=== PATIENT | female | born 1960 | race Caucasian/White ===

== ENCOUNTER 2019-09-06 12:53 | Outpatient (CLI) | payer OTHER, SELFPAY ==
--- NOTE | 2019-09-06 | XR_ITS ---
WS: [id number] LUMBAR SPINE: 3 VIEWS TECHNIQUE: AP, lateral and L5-S1 spot. HISTORY: LOW BACK PAIN COMPARISON: None available. Lumbar vertebra are normally aligned. Disc spaces are well-maintained. Mild vertebral body osteophytes and facet arthropathy in the lumbar spine. SI joints are symmetric bilaterally. No soft tissue abnormalities. Moderate atherosclerosis aorta. XR/XR lumbar spine 2-3V* [id number] IMPRESSION: Mild spondylosis. No fractures. Atherosclerosis aorta.
--- NOTE | 2019-09-06 13:01 | XR_ITS ---
WS: [id number] LUMBAR SPINE: 3 VIEWS TECHNIQUE: AP, lateral and L5-S1 spot. HISTORY: LOW BACK PAIN COMPARISON: None available. Lumbar vertebra are normally aligned. Disc spaces are well-maintained. Mild vertebral body osteophytes and facet arthropathy in the lumbar spine. SI joints are symmetric bilaterally. No soft tissue abnormalities. Moderate atherosclerosis aorta.
[2019-09-06 14:15] VITALS: O2SAT 97
== END 2019-09-06 12:54 | disposition home or self-care (01) ==
DX: Z02.71 Encounter for disability determination (principal); M47.896 Other spondylosis, lumbar region; J43.9 Emphysema, unspecified; I70.0 Atherosclerosis of aorta; M54.5 Low back pain
CPT/HCPCS: 72100

== ENCOUNTER 2019-11-11 17:59 | Inpatient (IN) | payer MEDICAID, SELFPAY ==
[2019-11-11] VITALS (8 sets, daily range): BP systolic 104–131; BP diastolic 62–79; PULSE 65–74; RESP 12–20; TEMP 36.6–36.9; O2SAT 93–99; BMI 19.1
--- NOTE | 2019-11-11 18:02 | ED_ITS ---
Entered by Chhaya Winchester, acting as scribe for Amy Hoffman MD HPI - Abdominal Pain General: Chief Complaint: Abdominal Pain Stated Complaint: NOT EATING ABD PAIN Time Seen by Provider: 11/11/19 18:02 Source: patient, family and EMS Mode of arrival: EMS Limitations: no limitations History of Present Illness: HPI narrative: Apurva is a 59-year-old female who has a history of cirrhosis along with COPD. Patient states she has not seen a primary care doctor in quite some time. She states she has been having increasing weakness and has not been able to eat or walk. Patient is hypoxic she states she is unsure if she needs oxygen at home or not as she has not seen a physician in years. She denies any cough. MD elicited complaint: abdominal pain and other (weakness) Pertinent past history: other (alcoholism) Onset (ago): day(s) Pain Consistency: constant Location: Diffuse Severity: moderate Quality: sharp Radiation: none Migration to: no migration Exacerbating factors: eating Relieving factors: nothing Associated Symptoms: Reports nausea, poor appetite, vomiting and other (dizziness, and weakness); Denies chills, dysuria and fever(s) Review of Systems Const: Denies: fever, chills or body aches Eyes: Denies: blurry vision or eye discomfort ENMT: Denies: throat pain or dental pain Card: Denies: chest pain Resp: Reports: shortness of breath GI: Reports: nausea, vomiting and other (dizziness, and weakness) : Denies: painful urination Musc: Denies: neck pain or back pain Skin/Breast: Denies: rash Neuro: Denies: headache Psych: Denies: depression Taj/Lymph: Denies: easy bruising All/Imm: Denies: hives PFSH ED PFSH: Medical History Alcohol abuse Hypertension Seizure disorder Smoker Surgical History (Updated 11/11/19 @ 21:52 by Susan Lowe MD) H/O: hysterectomy Family History (Updated 11/11/19 @ 21:52 by Susan Lowe MD) Mother Multiple sclerosis Social History (Updated 11/11/19 @ 21:52 by Susan Lowe MD) Smoking and tobacco status: current every day smoker Alcohol intake: former Physical Exam Const: COMMON NORMALS: no apparent distress and oriented x3; negative for healthy appearing GENERAL APPEARANCE: disheveled and lethargic ORIENTATION/CONSCIOUSNESS: Yes lethargic HENMT: COMMON NORMALS: normocephalic and head/scalp atraumatic HEAD & SCALP: normocephalic and atraumatic Eye: COMMON NORMALS: PERRL and EOMs intact bilaterally PUPIL: Yes PERRL Neck/C-Spine: COMMON NORMALS: full ROM and supple Chest: COMMONS NORMALS: inspection of chest normal and palpation of chest normal Resp: COMMON NORMALS: normal respiratory effort, no retractions, no use of accessory muscles and clear to auscultation bilaterally AUSCULTATION: clear to auscultation bilaterally Cardio: COMMON NORMALS: regular rate, regular rhythm and no murmurs RATE: regular rate RHYTHM: regular rhythm Extremity: COMMON NORMALS: normal to inspection and full ROM Neuro: COMMON NORMALS: oriented x3, moves all extremities and no focal motor deficits SENSORIUM/ORIENTATION: Yes lethargic Psych: COMMON NORMALS: mental status grossly normal, thought process normal and cooperative THOUGHT PROCESS: normal thought process Skin: COMMON NORMALS: no rashes or lesions noted and no wounds GENERAL SKIN EXAM: no rashes or lesions noted Course Vital Signs: Vital signs: Vital Signs Temperature 98.4 F 11/11/19 18:00 Pulse Rate 66 11/11/19 22:00 Respiratory Rate 20 H 11/11/19 22:00 Blood Pressure 121/73 11/11/19 22:00 Pulse Oximetry 99 11/11/19 22:00 MDM - Abdominal Pain MDM Narrative: Medical decision making narrative: Patient presents here with cirrhosis along with shortness of breath. This is likely all chronic in nature. She is quite hypoxic here and is having to use 2 to 3 L of oxygen. This is likely chronic as well but she does not have oxygen at home and will admit for observation for further monitoring. She has no signs of pulmonary embolism. CT scan showed no new findings. Lab Data: Labs: Lab Results 11/11/19 11/11/19 11/11/19 Range/Units 18:13 18:13 18:13 WBC 4.2 (4.0-10.0) 10^3/ uL RBC 3.48 L (4.1-5.3) 10^6/u L Hgb 10.8 L (11.5-15.3) g/dL Hct 33.2 L (37.0-47.0) % MCV 95.4 (81-99) fL MCH 31.0 (28.0-34.0) pg MCHC 32.5 (30.0-36.0) g/dL RDW 17.4 H (12.1-15.1) % Plt Count 63 L (130-400) 10^3/c mm MPV 11.1 H (7.4-10.4) fL Neut % (Auto) 36.3 % Lymph % (Auto) 46.3 % Roane % (Auto) 12.6 % Eos % (Auto) 1.0 % Baso % (Auto) 1.4 % Neut # (Auto) 1.5 L (1.8-7.7) 10^3/u L Lymph # (Auto) 2.0 (0.8-4.8) 10^3/u L Roane # (Auto) 0.5 (0.2-0.9) 10^3/u L Eos # (Auto) 0.0 (0.0-0.8) 10^3/u L Baso # (Auto) 0.1 (0.0-0.1) 10^3/u L Nucleated RBC % (a uto) 0 % Nucleated RBCs # 0.0 /100WBC PT 16.30 H (10.5-13.3) SECO NDS INR 1.27 H (0.8-1.2) Sodium 140 (136-145) mmol/L Potassium 2.9 L (3.5-5.1) mmol/L Chloride 97 L (98-107) mmol/L Carbon Dioxide 30 H (22-29) mmol/L Anion Gap 15.9 (5-19) BUN 3 L (6-20) mg/dL Creatinine 0.4 L (0.5-0.9) mg/dL GFR Calculation 163.9 H (90-130) mL/min Glucose 117 H (65-115) mg/dL Calculated Osmolal ity 287 (285-295) mOsm/k g Calcium 8.9 (8.5-10.5) mg/dL Magnesium 1.7 (1.7-2.3) mg/dL Total Bilirubin 1.3 H (0.15-1.2) mg/dL AST 151 H (0-32) U/L ALT 27 (0-33) U/L Alkaline Phosphata se 182 H (35-105) IU/L Total Protein 8.0 (6.6-8.7) g/dL Albumin 3.4 L (3.5-5.2) g/dL Globulin 4.6 (1.3-4.6) g/dL Lipase 58 (13-60) U/L Urine Color (Yellow) Urine Appearance (CLEAR) Urine pH (5-7) Ur Specific Gravit y (1.005-1.030) Urine Protein (Negative) Urine Glucose (UA) (Normal) Urine Ketones (Negative) Urine Blood (Negative) Urine Nitrate (Negative) Urine Bilirubin (NEGATIVE) Urine Urobilinogen (Negative) mg/dL Ur Leukocyte Loni ase (Negative) 11/11/19 Range/Units 20:31 WBC (4.0-10.0) 10^3/ uL RBC (4.1-5.3) 10^6/u L Hgb (11.5-15.3) g/dL Hct (37.0-47.0) % MCV (81-99) fL MCH (28.0-34.0) pg MCHC (30.0-36.0) g/dL RDW (12.1-15.1) % Plt Count (130-400) 10^3/c mm MPV (7.4-10.4) fL Neut % (Auto) % Lymph % (Auto) % Roane % (Auto) % Eos % (Auto) % Baso % (Auto) % Neut # (Auto) (1.8-7.7) 10^3/u L Lymph # (Auto) (0.8-4.8) 10^3/u L Roane # (Auto) (0.2-0.9) 10^3/u L Eos # (Auto) (0.0-0.8) 10^3/u L Baso # (Auto) (0.0-0.1) 10^3/u L Nucleated RBC % (a uto) % Nucleated RBCs # /100WBC PT (10.5-13.3) SECO NDS INR (0.8-1.2) Sodium (136-145) mmol/L Potassium (3.5-5.1) mmol/L Chloride (98-107) mmol/L Carbon Dioxide (22-29) mmol/L Anion Gap (5-19) BUN (6-20) mg/dL Creatinine (0.5-0.9) mg/dL GFR Calculation (90-130) mL/min Glucose (65-115) mg/dL Calculated Osmolal ity (285-295) mOsm/k g Calcium (8.5-10.5) mg/dL Magnesium (1.7-2.3) mg/dL Total Bilirubin (0.15-1.2) mg/dL AST (0-32) U/L ALT (0-33) U/L Alkaline Phosphata se (35-105) IU/L Total Protein (6.6-8.7) g/dL Albumin (3.5-5.2) g/dL Globulin (1.3-4.6) g/dL Lipase (13-60) U/L Urine Color Yellow (Yellow) Urine Appearance Clear (CLEAR) Urine pH 7 (5-7) Ur Specific Gravit y 1.005 (1.005-1.030) Urine Protein Neg (Negative) Urine Glucose (UA) Norm (Normal) Urine Ketones Negative (Negative) Urine Blood Neg (Negative) Urine Nitrate Negative (Negative) Urine Bilirubin Neg (NEGATIVE) Urine Urobilinogen Norm (Negative) mg/dL Ur Leukocyte Loni ase Negative (Negative) Imaging Data ^: CXR: Attestation: I personally reviewed and interpreted this imaging study as follows: My impression: no acute abnormality CT Abd/Pel: Radiologist's impression: [place] [id number] CT Scan Report Signed Patient: Apurva Arteaga Unit #: [id number] : 1960 Age/Sex: 59 / F ADM Date: 11/11/19 Loc: ER Room/Bed: Attending Dr: Ordering Provider/Ordering MD: Amy Hoffman MD Date of Service: 11/11/19 Procedure(s): CT abdomen pelvis w con* [id number] Accession Number(s): [id number] Report Number: [id number] PROCEDURE INFORMATION: Exam: CT Abdomen And Pelvis With Contrast Exam date and time: 11/11/2019 6:10 PM Age: 59 years old Clinical indication: Abdominal pain; Generalized; Patient HX: Abd pain xseveral months TECHNIQUE: Imaging protocol: Computed tomography of the abdomen and pelvis with intravenous contrast. Total DLP: 532.17 mGy-cm Radiation optimization: All CT scans at this facility use at least one of these dose optimization techniques: automated exposure control; mA and/or kV adjustment per patient size (includes targeted exams where dose is matched to clinical indication); or iterative reconstruction. Contrast material: OMNIPAQUE 300; Contrast volume: 75 ml; Contrast route: IV; COMPARISON: CT abdomen pelvis w con* [id number] 05/07/2018 12:08 AM FINDINGS: Liver: Inhomogenous cirrhotic appearing liver. Gallbladder and bile ducts: Normal. No calcified stones. No ductal dilation. Pancreas: Normal. No ductal dilation. Spleen: Normal. No splenomegaly. Adrenals: Normal. No mass. Kidneys and ureters: Normal. No hydronephrosis. Stomach and bowel: Diverticulosis of the colon, greatest distally, without diverticulitis. The appendix is not visualized. Mild wall thickening of the duodenum. Small scattered air-fluid levels throughout the small bowel. The stomach is unremarkable. Appendix: See Stomach And Bowel Finding. Intraperitoneal space: Mild ascites. Vasculature: See Soft Tissues Finding. Lymph nodes: Unremarkable. No enlarged lymph nodes. Bladder: Unremarkable as visualized. Reproductive: The uterus and ovaries are not visualized.. Bones/joints: Unremarkable. No acute fracture. Soft tissues: Recanalized umbilical vein. Splenic hilar and gastroesophageal varices. CT/CT abdomen pelvis w con* [id number] IMPRESSION: 1. Worsened cirrhotic appearance of the liver. 2. Portal venous hypertension with increased splenic hilar and gastroesophageal varices. 3. Mild ascites. 4. Mild thickening of the duodenum may be related to the patient's liver disease. Duodenitis is not excluded. 5. Diverticulosis of the colon. EKG Data ^: EKG 1: Attestation: I personally reviewed and interpreted this EKG as follows: EKG interpretation date: 11/11/19 EKG interpretation time: 18:43 Interpretation: nsr hr [address] or t wave abnormalities Discharge Plan Discharge Patient Disposition: Admitted As Inpatient Admit Provider: Susan Lowe Clinical Impression: Cirrhosis, Vomiting, Dyspnea Condition: Stable Discharge Diet: Advance as tolerated Discharge Activity: Resume usual activity Interventions: ED Discharge Assessment Last Done: 11/11/19 22:42 Discharge Date/Time: 11/11/19 22:33 Coding Level of Care Code ED Thread Grinder Tool for Chg Fwd Exam Comprehensive The documentation recorded by the [facility], accurately reflects the service I personally performed and the decisions made by me, Amy Hoffman MD
--- NOTE | 2019-11-11 18:06 | XR_ITS ---
WS: [id number] Portable AP upright chest, 11/11/2019 Clinical Data: cp Comparison: Portable chest, 04/28/2019. Findings: No nodules, masses or effusions are seen. The heart is enlarged. The pulmonary vascularity is not increased. No pneumonia or pneumothorax is seen. The aortic arch and descending aorta show mil d tortuosity. The diaphragms are flattened. XR/XR chest 1V portable [id number] Impression: Atherosclerosis and hyperinflation.
--- NOTE | 2019-11-11 18:06 | CTR_ITS ---
PROCEDURE INFORMATION: Exam: CT Abdomen And Pelvis With Contrast Exam date and time: 11/11/2019 6:10 PM Age: 59 years old Clinical indication: Abdominal pain; Generalized; Patient HX: Abd pain xseveral months TECHNIQUE: Imaging protocol: Computed tomography of the abdomen and pelvis with intravenous contrast. Total DLP: 532.17 mGy-cm Radiation optimization: All CT scans at this facility use at least one of these dose optimization techniques: automated exposure control; mA and/or kV adjustment per patient size (includes targeted exams where dose is matched to clinical indication); or iterative reconstruction. Contrast material: OMNIPAQUE 300; Contrast volume: 75 ml; Contrast route: IV; COMPARISON: CT abdomen pelvis w con* [id number] 05/07/2018 12:08 AM FINDINGS: Liver: Inhomogenous cirrhotic appearing liver. Gallbladder and bile ducts: Normal. No calcified stones. No ductal dilation. Pancreas: Normal. No ductal dilation. Spleen: Normal. No splenomegaly. Adrenals: Normal. No mass. Kidneys and ureters: Normal. No hydronephrosis. Stomach and bowel: Diverticulosis of the colon, greatest distally, without diverticulitis. The appendix is not visualized. Mild wall thickening of the duodenum. Small scattered air-fluid levels throughout the small bowel. The stomach is unremarkable. Appendix: See Stomach And Bowel Finding. Intraperitoneal space: Mild ascites. Vasculature: See Soft Tissues Finding. Lymph nodes: Unremarkable. No enlarged lymph nodes. Bladder: Unremarkable as visualized. Reproductive: The uterus and ovaries are not visualized.. Bones/joints: Unremarkable. No acute fracture. Soft tissues: Recanalized umbilical vein. Splenic hilar and gastroesophageal varices. CT/CT abdomen pelvis w con* [id number] IMPRESSION: 1. Worsened cirrhotic appearance of the liver. 2. Portal venous hypertension with increased splenic hilar and gastroesophageal varices. 3. Mild ascites. 4. Mild thickening of the duodenum may be related to the patient's liver disease. Duodenitis is not excluded. 5. Diverticulosis of the colon. Radiation Dose CTDIVOL = (mGy): DLP = 532.17 (mGy-cm)
--- NOTE | 2019-11-11 18:07 | ECG_ITS ---
Measurements Intervals [place] Rate: 68 P: 29 UT: 150 QRS: -12 QRSD: 117 T: 57 QT: 431 QTc: 460 SINUS RHYTHM INCOMPLETE RIGHT BUNDLE BRANCH BLOCK [90+ ms QRS DURATION, TERMINAL R IN V1/V2, 40+ ms S IN I/aVL/V4/V5/V6] SEPTAL MYOCARDIAL INFARCTION , OF INDETERMINATE AGE [40+ ms Q WAVE IN V1/V2] Compared to ECG 04/28/2019 18:57:56 Myocardial infarct finding now present Sinus tachycardia no longer present Left-axis deviation no longer present T-wave abnormality no longer present Electronically Signed On 11-11-2019 20:51:34 CDT by Susan Rausch M.D. [email or web address]
[2019-11-11] MEDS: morphine 4 mg/mL SDV 1 mL IVP ×2 (18:24→21:41)
[2019-11-11] MEDS: sodium chloride 0.9% 1,000 ML 999 ML IV (18:25)
[2019-11-11] MEDS: ondansetron 2 mg/ML SDV 2 mL 4 MG IVP (18:25)
[2019-11-11 18:41] LABS: Basophils # 0.1 10^3/uL (0.0-0.1); Basophils % 1.4 %; Hematocrit 33.2 % (37.0-47.0); Hemoglobin 10.8 g/dL (11.5-15.3); Lymphocytes % 46.3 %; Mean Corpuscular HGB Conc 32.5 g/dL (30.0-36.0); Mean Corpuscular Volume 95.4 fL (81-99); Mean Platelet Volume 11.1 fL (7.4-10.4); Monocytes # 0.5 10^3/uL (0.2-0.9); Monocytes % 12.6 %; Neutrophils # 1.5 10^3/uL (1.8-7.7); Neutrophils % 36.3 %; Nucleated Red Blood Cells % 0 %; Platelet Count 63 10^3/cmm (130-400); Red Blood Count 3.48 10^6/uL (4.1-5.3); Red Cell Distribution Width 17.4 % (12.1-15.1); White Blood Count 4.2 10^3/uL (4.0-10.0)
[2019-11-11 18:44] LABS: INR 1.27 (0.8-1.2)
[2019-11-11 18:49] LABS: Alanine Aminotransferase 27 U/L (0-33); Albumin Level 3.4 g/dL (3.5-5.2); Alkaline Phosphatase 182 IU/L (35-105); Anion Gap 15.9 (5-19); Aspartate Amino Transferase 151 U/L (0-32); Blood Urea Nitrogen 3 mg/dL (6-20); Calcium 8.9 mg/dL (8.5-10.5); Carbon Dioxide 30 mmol/L (22-29); Chloride 97 mmol/L (98-107); Globulin 4.6 g/dL (1.3-4.6); Glomerular Filtration Rate 163.9 mL/min (90-130); Glucose 117 mg/dL (65-115); Lipase 58 U/L (13-60); Magnesium 1.7 mg/dL (1.7-2.3); Osmolality Calculated 287 mOsm/kg (285-295); Sodium 140 mmol/L (136-145); Total Bilirubin 1.3 mg/dL (0.15-1.2)
[2019-11-11] MEDS: iohexol 300 mg/mL 100 mL Btl IV (19:08)
[2019-11-11 19:29] LABS: Potassium 2.9 mmol/L (3.5-5.1)
[2019-11-11] MEDS: ipratropium-albuterol 3 mL Neb INHALATION (20:57)
--- NOTE | 2019-11-11 21:48 | P.HP_ITS ---
Providers/Chief Complaint Admitting Physician: Susan Lowe MD Chief Complaint: NOT EATING ABD PAIN History of Present Illness Apurva Arteaga is a 59 year old female who carries diagnosis of COPD, oxygen dependent, noncompliant with oxygen, hepatitis C, not treated, alcohol use in the past, active smoker, recurrent seizures, has not seen a PCP in a long time, was sent in by her because of confusion and extreme lethargy. Patient is stating that she is not sure why she is in the hospital, her sent her here, she is telling me that 5 years ago she was diagnosed with hepatitis C, could not afford medications for hepatitis C, has not seen a doctor in a long time, she has moved from [place] to [place], she was prescribed oxygen for her COPD, could not afford oxygen tank, she is not using oxygen at home, smoking half a pack a day, drinks beer 1 to 2 cans a week, she has not taken her Keppra since last 30 to 40 days. She lives with her , she is endorsing to feeling extremely lethargic and tired, she has noticed dark color black tarry stool, she is also endorsing dysuria, recurrent episodes of emesis, she is describing it as everything she eats comes out, she is not able to gain weight. Diagnostics in ER revealed worsening ascites CT abdomen is consistent with worsening liver cirrhosis, hypokalemia, respiratory alkalosis, Review of Systems Const: Reports: body aches, change in appetite, fatigue, malaise, night sweats and daytime sleepiness; Denies: fever, chills or change in sleep pattern Eyes: Denies: change in vision ENMT: Denies: throat pain Card: Denies: chest pain, palpitations or swelling of feet/ankles Resp: Denies: shortness of breath, non-productive cough or wheezing GI: Reports: nausea, vomiting, difficulty swallowing, heartburn/indigestion, diarrhea, belching, change in stool character and black tarry stool; Denies: abdominal pain : Denies: flank pain Musc: Denies: neck pain Skin/Breast: Reports: dry skin and other (Multiple petechiae and purpura) Neuro: Reports: weakness in extremities, difficulty walking, dizziness and seizure-like activity Psych: Reports: sleeping more and difficulty concentrating; Denies: anxiety Endo: Denies: excessive urination Taj/Lymph: Denies: easy bruising All/Imm: Denies: hives Medications/Allergies Home Medications Medication Instructions Recorded Confirmed Last Taken Type Tylenol Extra Strength 1,000 mg PO Q4H PRN 11/11/19 11/11/19 11/11/19 History aspirin [Aspir-81] 81 mg PO DAILY 11/11/19 11/11/19 Unknown History clonazepam 1 mg PO TID PRN 11/11/19 11/11/19 Unknown History levetiracetam [Keppra] 500 mg PO Q12H 11/11/19 11/11/19 Unknown History potassium gluconate 595 mg PO DAILY 11/11/19 11/11/19 11/10/19 History Allergies Allergy/AdvReac Type Severity Reaction Status Date / Time codeine Allergy KIMY-Swell Verified 11/11/19 18:09 Lip/Tongue/Throat PFSH Acute PFSH: Medical History Alcohol abuse COPD (chronic obstructive pulmonary disease) Hepatitis C Hypertension Non-compliant behavior Seizure disorder Smoker Surgical History (Updated 11/11/19 @ 21:52 by Susan Lowe MD) H/O: hysterectomy Family History (Updated 11/11/19 @ 21:52 by Susan Lowe MD) Mother Multiple sclerosis Social History (Updated 11/11/19 @ 23:06 by Susan Lowe MD) Smoking and tobacco status: current every day smoker Alcohol intake: current Alcohol type: beer Alcohol use comment: 1-2 beers a week Substance/Drug Use: never Household members: spouse and family Housing: House Marital status: Vitals/I&O/Wt Last Vital Signs Temp 98.4 F 11/11/19 18:00 Pulse 69 11/11/19 21:01 Resp 20 H 11/11/19 21:41 BP 104/62 11/11/19 18:00 Pulse Ox 99 11/11/19 20:58 Weight last 48 hrs Weight 52.163 kg Physical Exam Narrative: EXAM NARRATIVE: This is a 45-year-old middle-aged woman Very lethargic and malnourished Protuberant abdomen, ascites positive, asterixis positive, extreme muscle loss, Orthodeoxia positive S1, S2 normal sinus rhythm Her abdomen is nontender, Neurologically nonfocal exam she is extremely lethargic but able to follow commands, GCS 15 nonfocal exam Lungs are clear to auscultation without adventitious sounds Lower extremities are thin without any ischemia gangrene ulcer or edema Data : 11/11/19 18:13 11/11/19 18:13 A&P Assessment and plan (1) Cirrhosis: Status: Acute Qualifiers: Ascites presence: with ascites Hepatic cirrhosis type: alcoholic cirrhosis Qualified Code(s): K70.31 - Alcoholic cirrhosis of liver with ascites Code(s): K74.60 - Unspecified cirrhosis of liver (2) Dyspnea: Status: Acute Code(s): R06.00 - Dyspnea, unspecified (3) Vomiting: Status: Acute Qualifiers: Nausea presence: with nausea Vomiting Intractability: non-intractable Vomiting type: unspecified Qualified Code(s): R11.2 - Nausea with vomiting, unspecified Code(s): R11.10 - Vomiting, unspecified (4) Hypoxia: Status: Acute Code(s): R09.02 - Hypoxemia (5) Malnourished: Status: Acute Code(s): E46 - Unspecified protein-calorie malnutrition Additional A&P Information Liver cirrhosis most likely secondary to hepatitis C with underlying alcohol use Patient could not afford treatment as per the patient that is why he did not seek medical treatment for hepatitis C, she is actively smoking, drinks 1-2 beers a week Her sleep cycle has changed, she has asterixis positive, grade 1 hepatic encephalopathy, She is complaining of dysuria No signs of sepsis Ceftriaxone for ascites and UTI She is not acidotic, not septic, hold off on diagnostic paracentesis CT abdomen consistent with worsening liver cirrhosis and portal hypertension I would start her on Lasix and spironolactone after replenishing potassium She will need closer monitoring, monitoring for worsening of ascites, hepatic encephalopathy and variceal bleed Currently patient is complaining of black tarry stool Thrombocytopenia Most likely secondary to portal hypertension Hold off on DVT prophylaxis with anticoagulation Will use SCDs Chronic hypoxic respiratory failure without COPD exacerbation I believe this is chronic hypoxia, she has not been using oxygen at home, will do home O2 evaluation History of breakthrough seizures: She has not taken her Keppra for about 1 to 2 months, I would continue her Keppra at the moment Goals of care: Full code Alcohol and smoking abuse: We spent 2 to 3 minutes on benefits of cessation of smoking and alcohol with multiple underlying comorbid conditions with her high risk of mortality and morbidity, patient became emotional but receptive of the information and voiced understanding Protein calorie malnourishment: Regular diet with supplemental workers compensation administrator consult Patient is stating that her disability insurance has been approved, She needs PCP appointment, home oxygen, appropriate medications, close monitoring for development of complications such as liver cancer, hepatic encephalopathy, ascites, SBP, variceal bleed Attestations Medical Necessity Statement*: Anticipating her stay to cross more than 2 midnights needs extensive care for worsening of liver cirrhosis, currently has UTI, needs monitoring for worsening of hepatic encephalopathy Time Spent in Patient Care: 45 Coding Level of Care Code Acute Nursing Technician for Angelg Fwd Diagnoses Cirrhosis K70.31 Ascites presence: with ascites Hepatic cirrhosis type: alcoholic cirrhosis Dyspnea R06.00 Vomiting R11.2 Nausea presence: with nausea Vomiting Intractability: non-intractable Vomiting type: unspecified Hypoxia R09.02 Malnourished E46
[2019-11-11 21:59] LABS: Add Urine Microscopic? NO
[2019-11-11 22:01] LABS: Bilirubin Urine Neg (NEGATIVE); Blood Urine Neg (Negative); Glucose Urine UA Norm (Normal); Ketones Urine Negative (Negative); Leukocyte Esterase Urine Negative (Negative); Nitrate Urine Negative (Negative); Protein Urine Neg (Negative); Specific Gravity, Urine 1.005 (1.005-1.030); Urine Appearance Clear (CLEAR); Urine Color Yellow (Yellow); Urobilinogen Urine Norm (Negative); pH Urine 7 (5-7)
--- NOTE | 2019-11-11 22:01 | PC.NURSE ---
Called report to nurse on Med/Surg
--- NOTE | 2019-11-11 22:09 | PC.NURSE ---
Dr. Lowe at bedside assessing patient
[2019-11-11 23:03] LABS: Ammonia 45 umol/L (11-51)
[2019-11-11] MEDS: levETIRAcetam 500 mg Tablet PO (23:22)
[2019-11-11] MEDS: cefTRIAXone 1,000 MG in sodium chloride 0.9% (plus) 50 ML 100 MG IV (23:22)
[2019-11-12] VITALS (9 sets, daily range): BP systolic 109–135; BP diastolic 69–84; PULSE 63–113; RESP 17–20; TEMP 36.3–37; O2SAT 90–99
[2019-11-12] MEDS: lidocaine 1% INJ 20 mL 5 ML IV ×2 (02:00→04:18)
[2019-11-12] MEDS: gabapentin 100 mg Capsule PO ×3 (04:19→17:18)
[2019-11-12] MEDS: potassium chloride premix 40 MEQ/100 ML PREMIX 25 MEQ IV ×2 (04:19)
[2019-11-12] MEDS: ondansetron 2 mg/ML SDV 2 mL 4 MG IVP (04:21)
[2019-11-12 05:56] LABS: Basophils % 0.7 %; Hematocrit 37.2 % (37.0-47.0); Hemoglobin 11.5 g/dL (11.5-15.3); Lymphocytes # 0.2 10^3/uL (0.8-4.8); Lymphocytes % 14.9 %; Mean Corpuscular HGB Conc 30.9 g/dL (30.0-36.0); Mean Corpuscular Hemoglobin 30.7 pg (28.0-34.0); Mean Corpuscular Volume 99.2 fL (81-99); Mean Platelet Volume 10.7 fL (7.4-10.4); Monocytes % 1.4 %; Neutrophils # 1.1 10^3/uL (1.8-7.7); Neutrophils % 76.9 %; Nucleated Red Blood Cells % 0 %; Platelet Count 54 10^3/cmm (130-400); Red Blood Count 3.75 10^6/uL (4.1-5.3); Red Cell Distribution Width 17.6 % (12.1-15.1); White Blood Count 1.5 10^3/uL (4.0-10.0)
[2019-11-12 06:16] LABS: Alanine Aminotransferase 26 U/L (0-33); Albumin Level 3.2 g/dL (3.5-5.2); Alkaline Phosphatase 194 IU/L (35-105); Anion Gap 19.3 (5-19); Aspartate Amino Transferase 130 U/L (0-32); Blood Urea Nitrogen 2 mg/dL (6-20); Calcium 8.1 mg/dL (8.5-10.5); Carbon Dioxide 24 mmol/L (22-29); Chloride 102 mmol/L (98-107); Globulin 5.1 g/dL (1.3-4.6); Glomerular Filtration Rate 228.5 mL/min (90-130); Glucose 150 mg/dL (65-115); Magnesium 1.5 mg/dL (1.7-2.3); Osmolality Calculated 290 mOsm/kg (285-295); Potassium 4.3 mmol/L (3.5-5.1); Sodium 141 mmol/L (136-145); Total Bilirubin 1.3 mg/dL (0.15-1.2); Total Protein 8.3 g/dL (6.6-8.7)
[2019-11-12 06:30] LABS: Slide Review Slide Review Perform
[2019-11-12] MEDS: FUROsemide 20 mg Tablet PO (07:46)
[2019-11-12] MEDS: thiamine 100 mg Tablet PO (08:49)
[2019-11-12] MEDS: spironolactone 25 mg Tablet 100 MG PO (08:49)
[2019-11-12] MEDS: folic acid 1 mg Tablet PO (08:49)
[2019-11-12] MEDS: levETIRAcetam 500 mg Tablet PO (10:59)
[2019-11-12] MEDS: lactulose oral liq 20 gm/30 mL UDC PO (12:13)
[2019-11-12] MEDS: oxyCODONE 5 mg IR Tab/Cap PO ×2 (12:14→20:17)
[2019-11-12] MEDS: magnesium sulfate premix 2 GM/50 ML PIGGYBACK IV (12:14)
[2019-11-12] MEDS: pantoprazole DR 40 mg Tablet PO ×2 (12:14→17:18)
[2019-11-12 12:16] LABS: Hepatitis A Antibody IgM. Non-Reactive (Nonreactive); Hepatitis B Core IgM Non-Reactive (Nonreactive); Hepatitis B Surface Antigen. Non-Reactive (Nonreactive); Hepatitis C Virus Antibody Reactive (Nonreactive)
--- NOTE | 2019-11-12 15:04 | P.PN_ITS ---
Subjective Subjective: Interval history: Apurva reports she is feeling okay. Her abdomen feels a little bit bloated. She denies any significant pain. She reports she does have a headache. She would like something for this. She confirms she is seeing some black stools recently. History and physical was reviewed. Medications: Reviewed: Yes Vitals/I&O/Wt Last Vital Signs Temp 98.6 F 11/12/19 11:38 Pulse 86 11/12/19 11:38 Resp 20 H 11/12/19 12:14 BP 122/73 11/12/19 11:38 Pulse Ox 95 11/12/19 11:38 11/12/19 11/12/19 11/12/19 06:59 14:59 22:59 Intake Total 630 / 1630 480 / 480 Output Total 550 / 550 1050 / 1050 Balance 80 / 1080 -570 / -570 Weight last 48 hrs Weight 58.74 kg Weight 54.658 kg Weight 52.163 kg Physical Exam Narrative: EXAM NARRATIVE: General exam is a white female in no apparent distress Cardiovascular regular rate and rhythm without murmur Lungs clear Abdomen is soft, positive bowel sounds Extremities no cyanosis clubbing or edema Data : 11/12/19 04:30 11/12/19 04:30 A&P Assessment and plan (1) Cirrhosis: Significant cirrhosis. Multifactorial. Alcohol use, hepatitis C. Hepatitis panel has been done and hepatitis A negative Aldactone initiated Consider initiation of Lasix. Will review tomorrow. Status: Acute Qualifiers: Ascites presence: with ascites Hepatic cirrhosis type: alcoholic cirrhosis Qualified Code(s): K70.31 - Alcoholic cirrhosis of liver with ascites Code(s): K74.60 - Unspecified cirrhosis of liver (2) Vomiting: Improved. Will need outpatient EGD. History of black stools. Must rule out varices. Initiate Protonix 40 mg twice daily. Check stool Hemoccult. Status: Acute Qualifiers: Nausea presence: with nausea Vomiting Intractability: non-intractable Vomiting type: unspecified Qualified Code(s): R11.2 - Nausea with vomiting, unspecified Code(s): R11.10 - Vomiting, unspecified (3) Hypoxia: Likely secondary to COPD. May need oxygen upon discharge home. Status: Acute Code(s): R09.02 - Hypoxemia (4) Pancytopenia: Multifactorial. Most likely significant etiology is alcohol bone marrow suppression. Status: Acute Code(s): D61.818 - Other pancytopenia (5) Transaminitis: Multifactorial. Secondary to alcohol and hepatitis C. Follow closely. Status: Acute Code(s): R74.0 - Nonspecific elevation of levels of transaminase and lactic acid dehydrogenase [LDH] (6) Hepatitis C: Will need outpatient treatment Status: Acute Code(s): B19.20 - Unspecified viral hepatitis C without hepatic coma Additional A&P Information History of seizure disorder, continue Keppra Alcoholism, continue thiamine Past history of confusion. Ammonia level borderline high. Will initiate some lactulose. SCDs for DVT prophylaxis. No anticoagulation secondary to thrombocytopenia, history of black tarry stools. Full code Encourage smoking cessation Attestations Medical Necessity Statement*: Needs continued hospital stay for close follow- up of abdominal pain, cirrhosis, initiation of medications for such, possible GI bleeding Coding Level of Care Code Acute Heel Nailing Machine Operator for Chg Fwd Diagnoses Cirrhosis K70.31 Ascites presence: with ascites Hepatic cirrhosis type: alcoholic cirrhosis Vomiting R11.2 Nausea presence: with nausea Vomiting Intractability: non-intractable Vomiting type: unspecified Hypoxia R09.02 Pancytopenia D61.818 Transaminitis R74.0 Hepatitis C B19.20
[2019-11-13] VITALS (17 sets, daily range): BP systolic 103–130; BP diastolic 66–84; PULSE 74–95; RESP 16–22; TEMP 36.4–36.9; O2SAT 86–99
[2019-11-13] MEDS: cefTRIAXone 1,000 MG in sodium chloride 0.9% (plus) 50 ML 100 MG IV (00:01)
[2019-11-13] MEDS: lactulose oral liq 20 gm/30 mL UDC PO ×3 (00:01→23:51)
[2019-11-13] MEDS: oxyCODONE 5 mg IR Tab/Cap PO ×4 (02:27→21:39)
[2019-11-13 06:07] LABS: Alanine Aminotransferase 27 U/L (0-33); Albumin Level 2.8 g/dL (3.5-5.2); Alkaline Phosphatase 196 IU/L (35-105); Anion Gap 14.1 (5-19); Aspartate Amino Transferase 148 U/L (0-32); Basophils % 0.2 %; Blood Urea Nitrogen 7 mg/dL (6-20); Calcium 8.9 mg/dL (8.5-10.5); Carbon Dioxide 30 mmol/L (22-29); Chloride 96 mmol/L (98-107); Globulin 4.6 g/dL (1.3-4.6); Glomerular Filtration Rate 228.5 mL/min (90-130); Glucose 112 mg/dL (65-115); Hematocrit 27.9 % (37.0-47.0); Hemoglobin 8.9 g/dL (11.5-15.3); Lymphocytes % 22.7 %; Mean Corpuscular HGB Conc 31.9 g/dL (30.0-36.0); Mean Corpuscular Hemoglobin 30.3 pg (28.0-34.0); Mean Corpuscular Volume 94.9 fL (81-99); Mean Platelet Volume 11.1 fL (7.4-10.4); Monocytes # 0.7 10^3/uL (0.2-0.9); Monocytes % 16.2 %; Neutrophils # 2.6 10^3/uL (1.8-7.7); Nucleated Red Blood Cells % 0 %; Osmolality Calculated 279 mOsm/kg (285-295); Platelet Count 36 10^3/cmm (130-400); Potassium 4.1 mmol/L (3.5-5.1); Red Blood Count 2.94 10^6/uL (4.1-5.3); Red Cell Distribution Width 17.3 % (12.1-15.1); Sodium 136 mmol/L (136-145); Total Bilirubin 1.4 mg/dL (0.15-1.2); Total Protein 7.4 g/dL (6.6-8.7); White Blood Count 4.3 10^3/uL (4.0-10.0)
[2019-11-13 06:16] LABS: INR 1.38 (0.8-1.2)
[2019-11-13 06:26] LABS: Slide Review Slide Review Perform
[2019-11-13] MEDS: gabapentin 100 mg Capsule PO ×2 (09:47→18:25)
[2019-11-13] MEDS: folic acid 1 mg Tablet PO (09:47)
[2019-11-13] MEDS: pantoprazole DR 40 mg Tablet PO ×2 (09:47→18:25)
[2019-11-13] MEDS: thiamine 100 mg Tablet PO (09:47)
[2019-11-13] MEDS: spironolactone 25 mg Tablet 100 MG PO (09:48)
[2019-11-13] MEDS: sodium chloride 0.9% 1,000 ML 75 ML IV (10:54)
[2019-11-13] MEDS: levETIRAcetam 500 mg Tablet PO ×3 (11:03→23:51)
[2019-11-13 11:23] LABS: Lipase 37 U/L (13-60)
[2019-11-13] MEDS: ipratropium-albuterol 3 mL Neb INHALATION ×4 (12:02→23:45)
--- NOTE | 2019-11-13 13:10 | PM.PN ---
Subjective Subjective: Interval history: Apurva reports she really does not feel well today. She has some nausea. Abdomen hurts a little bit. Medications: Reviewed: Yes Vitals/I&O/Wt Last Vital Signs Temp 98.3 F 11/13/19 11:25 Pulse 79 11/13/19 12:00 Resp 16 11/13/19 12:00 BP 120/84 11/13/19 11:25 Pulse Ox 95 11/13/19 12:00 11/12/19 11/13/19 11/13/19 22:59 06:59 14:59 Intake Total 60 / 540 550 / 1090 480 / 480 Output Total 175 / 1225 500 / 1725 Balance -115 / -685 50 / -635 480 / 480 Weight last 48 hrs Weight 58.967 kg Weight 58.74 kg Weight 54.658 kg Weight 52.163 kg Physical Exam Narrative: EXAM NARRATIVE: General exam is a white female in no apparent distress Cardiovascular regular rate and rhythm without murmur Lungs clear Abdomen is soft, slight tenderness epigastric area Extremities no cyanosis clubbing or edema Data : 11/13/19 05:12 11/13/19 05:12 A&P Assessment and plan (1) Cirrhosis: Significant cirrhosis. Multifactorial. Alcohol use, hepatitis C. Hepatitis panel has been done and hepatitis A negative Aldactone initiated We will hold off on any Lasix currently. She is nauseated and having decreased p.o. intake. Add IV fluids. Status: Acute Qualifiers: Ascites presence: with ascites Hepatic cirrhosis type: alcoholic cirrhosis Qualified Code(s): K70.31 - Alcoholic cirrhosis of liver with ascites Code(s): K74.60 - Unspecified cirrhosis of liver (2) Vomiting: Improved. Will need outpatient EGD. History of black stools. Must rule out varices. Continue Protonix Lipase rechecked today and normal. Status: Acute Qualifiers: Nausea presence: with nausea Vomiting Intractability: non-intractable Vomiting type: unspecified Qualified Code(s): R11.2 - Nausea with vomiting, unspecified Code(s): R11.10 - Vomiting, unspecified (3) Hypoxia: Likely secondary to COPD. May need oxygen upon discharge home. Status: Acute Code(s): R09.02 - Hypoxemia (4) Pancytopenia: Multifactorial. Most likely significant etiology is alcohol bone marrow suppression. Platelet count slightly worse. Continue to monitor. Status: Acute Code(s): D61.818 - Other pancytopenia (5) Transaminitis: Multifactorial. Secondary to alcohol and hepatitis C. overall unchanged. Status: Acute Code(s): R74.0 - Nonspecific elevation of levels of transaminase and lactic acid dehydrogenase [LDH] (6) Hepatitis C: Will need outpatient treatment Status: Acute Code(s): B19.20 - Unspecified viral hepatitis C without hepatic coma Additional A&P Information History of seizure disorder, continue Keppra Alcoholism, continue thiamine Past history of confusion. Ammonia level borderline high. Lactulose initiated SCDs for DVT prophylaxis. No anticoagulation secondary to thrombocytopenia, history of black tarry stools. Full code Encourage smoking cessation Attestations Medical Necessity Statement*: Needs continued hospitalization for supportive care secondary to alcoholic hepatitis Coding Level of Care Code Acute Histopathologist for [facility] Fwd Diagnoses Cirrhosis K70.31 Ascites presence: with ascites Hepatic cirrhosis type: alcoholic cirrhosis Vomiting R11.2 Nausea presence: with nausea Vomiting Intractability: non-intractable Vomiting type: unspecified Hypoxia R09.02 Pancytopenia D61.818 Transaminitis R74.0 Hepatitis C B19.20
[2019-11-14] VITALS (17 sets, daily range): BP systolic 101–123; BP diastolic 68–78; PULSE 81–110; RESP 14–22; TEMP 36.6–37.1; O2SAT 85–95
[2019-11-14] MEDS: ondansetron 2 mg/ML SDV 2 mL 4 MG IVP (00:53)
[2019-11-14] MEDS: cefTRIAXone 1,000 MG in sodium chloride 0.9% (plus) 50 ML 100 MG IV (01:45)
[2019-11-14] MEDS: oxyCODONE 5 mg IR Tab/Cap PO ×3 (03:17→20:13)
[2019-11-14] MEDS: sodium chloride 0.9% 1,000 ML 75 ML IV (03:22)
[2019-11-14] MEDS: ipratropium-albuterol 3 mL Neb INHALATION ×5 (03:59→22:24)
[2019-11-14 06:29] LABS: Basophils % 0.3 %; Eosinophils % 0.8 %; Hematocrit 43.9 % (37.0-47.0); Hemoglobin 14.4 g/dL (11.5-15.3); Lymphocytes # 0.7 10^3/uL (0.8-4.8); Lymphocytes % 17.5 %; Mean Corpuscular HGB Conc 32.8 g/dL (30.0-36.0); Mean Corpuscular Volume 94.4 fL (81-99); Mean Platelet Volume 12.5 fL (7.4-10.4); Monocytes # 0.4 10^3/uL (0.2-0.9); Monocytes % 11.1 %; Neutrophils # 2.6 10^3/uL (1.8-7.7); Nucleated Red Blood Cells % 0 %; Red Blood Count 4.65 10^6/uL (4.1-5.3); Red Cell Distribution Width 17.2 % (12.1-15.1); White Blood Count 3.8 10^3/uL (4.0-10.0)
[2019-11-14 06:49] LABS: Alanine Aminotransferase 24 U/L (0-33); Albumin Level 2.6 g/dL (3.5-5.2); Alkaline Phosphatase 175 IU/L (35-105); Anion Gap 13.6 (5-19); Aspartate Amino Transferase 97 U/L (0-32); Blood Urea Nitrogen 5 mg/dL (6-20); Calcium 8.5 mg/dL (8.5-10.5); Carbon Dioxide 28 mmol/L (22-29); Chloride 95 mmol/L (98-107); Globulin 4.1 g/dL (1.3-4.6); Glomerular Filtration Rate 228.5 mL/min (90-130); Glucose 99 mg/dL (65-115); INR 1.46 (0.8-1.2); Osmolality Calculated 272 mOsm/kg (285-295); Potassium 3.6 mmol/L (3.5-5.1); Sodium 133 mmol/L (136-145); Total Bilirubin 1.3 mg/dL (0.15-1.2); Total Protein 6.7 g/dL (6.6-8.7)
[2019-11-14 07:43] LABS: Slide Review Slide Review Perform
[2019-11-14 07:44] LABS: Platelet Count 21 10^3/cmm (130-400)
[2019-11-14] MEDS: thiamine 100 mg Tablet PO (08:48)
[2019-11-14] MEDS: gabapentin 100 mg Capsule PO (08:48)
[2019-11-14] MEDS: spironolactone 25 mg Tablet 100 MG PO (08:48)
[2019-11-14] MEDS: pantoprazole DR 40 mg Tablet PO (08:49)
[2019-11-14] MEDS: folic acid 1 mg Tablet PO (08:49)
[2019-11-14] MEDS: levETIRAcetam 500 mg Tablet PO ×2 (10:08→17:33)
[2019-11-14] MEDS: lactulose oral liq 20 gm/30 mL UDC PO (10:09)
--- NOTE | 2019-11-14 11:11 | PC.NURSE ---
Addendum entered by Reina Anderson 11/14/19 11:20: Time of event @ 0852 Original Note: IV Nursing notified by RT that patient was seen up to commode and IV was out on the floor. Nursing assessed. Patient pulled out IV while getting up to use bathroom. Site asymptomatic and catheter intact. Patient told nurse, You won't be putting another one in me. The nurse explained the importance of receiving IV fluids and IV Abx. Patient verbalized understanding of information but continued to refuse IV placement. Physician notified.
--- NOTE | 2019-11-14 12:08 | PC.CHAP ---
Pastoral Care Encounter/Spiritual Assessment Type of Contact [] Declined tinware lithograph press operator visit [] Patient/Family/Request visit [] Outpatient visit [] Follow-up visit [] Physician referral [] Code/Alert [x] Routine visit [] Staff referral [] Actively dying [] Patient sleeping [] Family support [] [] Out of room [] Palliative care [] [] Receiving care in room [] Pre-surgical visit [] Trauma [] Long length of stay [] ICU visit [] Other: Relational/Emotional Strength [x] Patient feels connected with others/family/visitors/staff [] Distress [] Loneliness/isolation [] Abandonment Spirituality of Patient [x] Person of [place] [] Attends Sikh of their [place] [] Believes in Prayer [] Reads Bible or Gnosticist materials [] There are Spiritual issues to be addressed Director Of Market Research Interventions [x] Prayer [x] Active listening [x] Non-anxious presence [x] Spiritual/emotional support [] Crisis/trauma care [x] Spiritual counseling [] Bereavement support [] Provided bereavement packet [] Provided Bible/devotional materials [] Provided toy/stuffed animal, coloring book to patient or family member [] Provided Communion [] Anointing/[place] [] Salvation [] Completed spiritual assessment [] Other: Impact on Illness or Injury [] Angry [] Fearful [] Anxious [] Often cries [] Exhaustion [] Unable to work [] Unable to attend episcopalian [] Unable to walk/stand [] Unable to read [] Unable to drive [] Unable to eat/drink [] Unable to sleep [] Unable to be with family [] Patient intubated [x] Other: n/a Summary Time spent with patient 5 minutes
--- NOTE | 2019-11-14 13:41 | P.PN_ITS ---
Subjective Subjective: Interval history: Apurva reports she really does not feel that good today. She reports she has some low back pain, and some leg pain. She reports this is been going on for quite a while, prior to her getting ill. She denies any abdominal pain currently. She reports no nausea, or vomiting. Medications: Reviewed: Yes Vitals/I&O/Wt Last Vital Signs Temp 98.1 F 11/14/19 11:11 Pulse 101 H 11/14/19 12:07 Resp 18 11/14/19 12:03 BP 101/69 11/14/19 11:11 Pulse Ox 85 L 11/14/19 12:03 11/13/19 11/14/19 11/14/19 22:59 06:59 14:59 Intake Total 795 / 1275 770 / 2045 1006.25 / 1006.25 Output Total 100 / 100 925 / 1025 Balance 695 / 1175 -155 / 1020 1006.25 / 1006.25 Weight last 48 hrs Weight 52.163 kg Weight 58.967 kg Physical Exam Narrative: EXAM NARRATIVE: General exam is a white female in no apparent distress Cardiovascular regular rate and rhythm without murmur Lungs clear Abdomen is soft, no significant tenderness is noted today. Positive bowel sounds. Extremities no cyanosis clubbing or edema Data : 11/14/19 05:30 11/14/19 05:30 Micro: Microbiology 11/13/19 19:00 Occult Blood (FIT) - Final Stool A&P Assessment and plan (1) Cirrhosis: Significant cirrhosis. Multifactorial. Alcohol use, hepatitis C. Hepatitis panel has been done and hepatitis A negative Aldactone initiated We will hold off on any Lasix currently. She is nauseated and having decreased p.o. intake. Add IV fluids. Status: Acute Qualifiers: Ascites presence: with ascites Hepatic cirrhosis type: alcoholic c irrhosis Qualified Code(s): K70.31 - Alcoholic cirrhosis of liver with ascites Code(s): K74.60 - Unspecified cirrhosis of liver (2) Vomiting: Improved. Will need outpatient EGD. History of black stools. Must rule out varices. Continue Protonix Lipase rechecked today and normal. Status: Acute Qualifiers: Nausea presence: with nausea Vomiting Intractability: non-intractable Vomiting type: unspecified Qualified Code(s): R11.2 - Nausea with vomiting, unspecified Code(s): R11.10 - Vomiting, unspecified (3) Hypoxia: Likely secondary to COPD. May need oxygen upon discharge home. Status: Acute Code(s): R09.02 - Hypoxemia (4) Pancytopenia: Multifactorial. Most likely significant etiology is alcohol bone marrow suppression. However, platelet count is significantly decreased further. This seems somewhat low, even for cirrhosis with hypersplenism. Must consider other causes of thrombocytopenia. She is not on any anticoagulants. However, Keppra and Protonix and Rocephin are also possibilities. I have visited again with her, and she has been on the Keppra at least since 2017. At this point I will discontinue her Rocephin, Protonix and monitor her platelets. She has no evidence of active bleeding currently. She has no evidence of UTI, or peritonitis Secondary to her pancytopenia we will also check an HIV, serum protein electrophoresis Note that stool was heme positive, so Pepcid was started to take place of Protonix. Status: Acute Code(s): D61.818 - Other pancytopenia (5) Transaminitis: Multifactorial. Secondary to alcohol and hepatitis C. overall unchanged. Status: Acute Code(s): R74.0 - Nonspecific elevation of levels of transaminase and lactic acid dehydrogenase [LDH] (6) Hepatitis C: Will need outpatient treatment Status: Acute Code(s): B19.20 - Unspecified viral hepatitis C without hepatic coma Additional A&P Information History of seizure disorder, continue Keppra Alcoholism, continue thiamine Past history of confusion. Ammonia level borderline high. Lactulose initiated SCDs for DVT prophylaxis. No anticoagulation secondary to thrombocytopenia, hi story of black tarry stools. Full code Encourage smoking cessation I will also check her magnesium level today. Discontinue Neurontin Attestations Medical Necessity Statement*: Needs continued hospital stay for close follow- up of alcohol hepatitis with marked thrombocytopenia. Coding Level of Care Code Acute Contact Center Associate for Hammad [facility] Diagnoses Cirrhosis K70.31 Ascites presence: with ascites Hepatic cirrhosis type: alcoholic cirrhosis Vomiting R11.2 Nausea presence: with nausea Vomiting Intractability: non-intractable Vomiting type: unspecified Hypoxia R09.02 Pancytopenia D61.818 Transaminitis R74.0 Hepatitis C B19.20
[2019-11-14 15:33] LABS: Magnesium 1.5 mg/dL (1.7-2.3)
[2019-11-14 15:44] LABS: HIV 1 & 2 Antibody Non-Reactive (Non-Reactiv); HIV 1 & 2 Antigen Non-Reactive (Non-Reactiv)
[2019-11-14] MEDS: magnesium sulfate premix 2 GM/50 ML PIGGYBACK IV (16:21)
[2019-11-14 16:23] LABS: Glucose Point of Care 109 mg/dL (70-110)
[2019-11-14] MEDS: famotidine 20 mg Tablet PO (17:33)
--- NOTE | 2019-11-14 20:04 | PC.NURSE ---
Pt Up to bedside commode, has increased confusion, states You see that little boy over there, tell him to get out of here. Pt is oriented to self and at times she knows she is at the hospital. Pt is unaware of the time of day or even the year at this time. Spoke with pt's Son Alfonzo with permission of the timmy. Son states she drinks several bottles of vodka a week, He just keeps buying it for her even when he knows she needs to stop. Sent Dr. Lowe a message stating all of this, awaiting orders.
[2019-11-14] MEDS: LORazepam 2 mg Tablet PO ×2 (21:19→22:19)
--- NOTE | 2019-11-14 22:49 | PC.NURSE ---
Pt refusing to stay in bed, states I need to go down stairs, jerrell is downstairs. Pt reminded that she is in the hospital and that her Jerrell is at home. Pt states Go over there to the fridge Jerrell and get me a beer Pt reminded again that she is in the hospital. Pt states, well ok, lets go then, I need to get my tylenol and get dressed and I will get in the car to go to the hospital. Dr. Lowe notified, 1:1 order initiated and sitter with pt at this time for the pt's safety.
[2019-11-15] VITALS (16 sets, daily range): BP systolic 107–138; BP diastolic 68–86; PULSE 82–102; RESP 14–22; TEMP 36.1–37.4; O2SAT 85–96
[2019-11-15] MEDS: oxyCODONE 5 mg IR Tab/Cap PO ×3 (01:18→22:15)
[2019-11-15] MEDS: sodium chloride 0.9% 1,000 ML 50 ML IV (02:38)
[2019-11-15] MEDS: ipratropium-albuterol 3 mL Neb INHALATION ×4 (04:15→16:46)
--- NOTE | 2019-11-15 05:20 | PHA.FALL ---
A Pharmacy Consult Was Conducted For Apurva Arteaga Due To: Benitez Fall Scale Risk Level: Moderate Fall Risk On 11/14/19 20:00 And A Medication Fall Risk Score Greater Than 10. The Recommendations Are As Follows: Furosemide may cause Orthostatic hypotension, dizzines, syncope, bradycardia, or impaired cerebral perfusion Lorazepam my cause Psychomotor impairment, sedation, orthostatic hypotension, confusion, dizziness, or confusion Oxycodone may cause Sedation or confusion Keppra may cause sedation, psychomotor impairment or confusion Thank you, Di Burgess [facility]
[2019-11-15] MEDS: LORazepam 2 mg Tablet PO ×4 (05:24→18:05)
[2019-11-15 06:24] LABS: INR 1.43 (0.8-1.2)
[2019-11-15 06:26] LABS: Basophils % 0.4 %; Eosinophils # 0.1 10^3/uL (0.0-0.8); Eosinophils % 1.3 %; Hemoglobin 8.9 g/dL (11.5-15.3); Lymphocytes # 0.9 10^3/uL (0.8-4.8); Lymphocytes % 20.2 %; Mean Corpuscular Hemoglobin 31.3 pg (28.0-34.0); Mean Corpuscular Volume 95.1 fL (81-99); Mean Platelet Volume 12.6 fL (7.4-10.4); Monocytes # 0.8 10^3/uL (0.2-0.9); Monocytes % 17.7 %; Neutrophils # 2.7 10^3/uL (1.8-7.7); Nucleated Red Blood Cells % 0 %; Platelet Count 46 10^3/cmm (130-400); Red Blood Count 2.84 10^6/uL (4.1-5.3); Red Cell Distribution Width 16.9 % (12.1-15.1); White Blood Count 4.5 10^3/uL (4.0-10.0)
--- NOTE | 2019-11-15 06:46 | PC.NURSE ---
Pt has become increasingly more restless, unable to remain still, attempting to get out of bed unassisted. Pt is unable to state date or location at this time. CIWA score of 13, Ativan given per protocol.
[2019-11-15 07:00] LABS: Alanine Aminotransferase 19 U/L (0-33); Albumin Level 2.9 g/dL (3.5-5.2); Alkaline Phosphatase 154 IU/L (35-105); Anion Gap 12.5 (5-19); Aspartate Amino Transferase 57 U/L (0-32); Blood Urea Nitrogen 4 mg/dL (6-20); Calcium 8.5 mg/dL (8.5-10.5); Carbon Dioxide 30 mmol/L (22-29); Chloride 98 mmol/L (98-107); Globulin 3.6 g/dL (1.3-4.6); Glomerular Filtration Rate 228.5 mL/min (90-130); Glucose 91 mg/dL (65-115); Osmolality Calculated 279 mOsm/kg (285-295); Potassium 3.5 mmol/L (3.5-5.1); Sodium 137 mmol/L (136-145); Total Bilirubin 1.3 mg/dL (0.15-1.2); Total Protein 6.5 g/dL (6.6-8.7)
[2019-11-15] MEDS: folic acid 1 mg Tablet PO (08:57)
[2019-11-15] MEDS: famotidine 20 mg Tablet PO ×2 (08:57→18:00)
[2019-11-15] MEDS: levETIRAcetam 500 mg Tablet PO ×2 (08:58→18:00)
[2019-11-15] MEDS: multivitamin therapeutic Tablet 1 TAB PO (08:58)
[2019-11-15] MEDS: spironolactone 25 mg Tablet 100 MG PO (08:59)
[2019-11-15] MEDS: thiamine 100 mg Tablet PO (09:00)
[2019-11-15] MEDS: lactulose oral liq 20 gm/30 mL UDC PO ×2 (11:31→22:31)
--- NOTE | 2019-11-15 14:03 | PM.PN ---
Subjective Subjective: Interval history: Apurva Vitals/I&O/Wt Last Vital Signs Temp 97.0 F L 11/15/19 12:00 Pulse 102 H 11/15/19 12:00 Resp 16 11/15/19 13:12 BP 134/86 11/15/19 12:00 Pulse Ox 96 11/15/19 12:00 11/14/19 11/15/19 11/15/19 22:59 06:59 14:59 Intake Total 348.75 / 1355.00 435 / 1790.00 60 / 60 Output Total 500 / 500 250 / 750 Balance -151.25 / 855.00 185 / 1040.00 60 / 60 Weight last 48 hrs Weight 61.235 kg Weight 52.163 kg Data : 11/15/19 05:20 11/15/19 05:20 Coding Level of Care Code Acute Rolling Up Machine Operator for Hammad Churchill
--- NOTE | 2019-11-15 14:44 | P.PN_ITS ---
Subjective Subjective: Interval history: Apurva reports she would like more pain medicine if possible. She reports her abdomen hurts a little bit better back is the most painful. Nursing tells me that she has been scoring high on her CIWA last night and had some confusion. Medications: Reviewed: Yes Vitals/I&O/Wt Last Vital Signs Temp 97.0 F L 11/15/19 12:00 Pulse 102 H 11/15/19 12:00 Resp 16 11/15/19 13:12 BP 134/86 11/15/19 12:00 Pulse Ox 96 11/15/19 12:00 11/14/19 11/15/19 11/15/19 22:59 06:59 14:59 Intake Total 348.75 / 1355.00 435 / 1790.00 60 / 60 Output Total 500 / 500 250 / 750 Balance -151.25 / 855.00 185 / 1040.00 60 / 60 Weight last 48 hrs Weight 61.235 kg Weight 52.163 kg Physical Exam Narrative: EXAM NARRATIVE: General exam is a white female in no apparent distress Cardiovascular regular rate and rhythm without murmur Lungs a few faint wheezes Abdomen is soft, slight epigastric tenderness Extremities no cyanosis clubbing or edema Data : 11/15/19 05:20 11/15/19 05:20 A&P Assessment and plan (1) Cirrhosis: Significant cirrhosis. Multifactorial. Alcohol use, hepatitis C. Hepatitis panel has been done and hepatitis A negative Aldactone initiated Holding off on Lasix secondary to decreased p.o. intake. However, she is doing better and fluids will be changed to KVO Status: Acute Qualifiers: Ascites presence: with ascites Hepatic cirrhosis type: alcoholic cirrhosis Qualified Code(s): K70.31 - Alcoholic cirrhosis of liver with ascites Code(s): K74.60 - Unspecified cirrhosis of liver (2) Vomiting: Improved. Will need outpatient EGD. History of black stools. Stool is heme positive. She has apparent varices on CT scan. Hemoglobin has remained stable. Continue Protonix Lipase rechecked today and normal. Status: Acute Qualifiers: Nausea presence: with nausea Vomiting Intractability: non-intractable Vomiting type: unspecified Qualified Code(s): R11.2 - Nausea with vomiting, unspecified Code(s): R11.10 - Vomiting, unspecified (3) Hypoxia: Likely secondary to COPD. May need oxygen upon discharge home. Status: Acute Code(s): R09.02 - Hypoxemia (4) Pancytopenia: Multifactorial. Most likely significant etiology is alcohol bone marrow suppression. Platelet count has been decreasing but now seems to have recovered slightly today. Rocephin, Protonix were discontinued yesterday. No evidence of infection has been found. Secondary to her pancytopenia we will also check an HIV, serum protein electrophoresis. HIV was negative Note that stool was heme positive, so Pepcid was started to take place of Protonix. Status: Acute Code(s): D61.818 - Other pancytopenia (5) Transaminitis: Multifactorial. Secondary to alcohol and hepatitis C. overall unchanged. Status: Acute Code(s): R74.0 - Nonspecific elevation of levels of transaminase and lactic acid dehydrogenase [LDH] (6) Hepatitis C: Will need outpatient treatment Status: Acute Code(s): B19.20 - Unspecified viral hepatitis C without hepatic coma Additional A&P Information History of seizure disorder, continue Keppra Alcoholism, continue thiamine. She admitted only to drinking 2 beers per week but I suspect this was significantly higher. Past history of confusion. Ammonia level borderline high. Lactulose initiated. Check ammonia level tomorrow SCDs for DVT prophylaxis. No anticoagulation secondary to thrombocytopenia, history of black tarry stools. Full code Encourage smoking cessation Overall plan to discharge home with close follow-up Attestations Medical Necessity Statement*: Needs continued hospital stay, for treatment of active alcohol withdrawal Coding Level of Care Code Acute Advertising Assistant Manager for [facility] Fwd Diagnoses Cirrhosis K70.31 Ascites presence: with ascites Hepatic cirrhosis type: alcoholic cirrhosis Vomiting R11.2 Nausea presence: with nausea Vomiting Intractability: non-intractable Vomiting type: unspecified Hypoxia R09.02 Pancytopenia D61.818 Transaminitis R74.0 Hepatitis C B19.20
--- NOTE | 2019-11-15 22:38 | PC.NURSE ---
Patient refuses to where tele heart monitor. Risk explained to patient.
[2019-11-16] VITALS (13 sets, daily range): BP systolic 118–148; BP diastolic 72–96; PULSE 75–105; RESP 12–20; TEMP 36.7–37.2; O2SAT 90–99
[2019-11-16] MEDS: sodium chloride 0.9% 1,000 ML 30 ML IV (01:32)
[2019-11-16 04:51] LABS: Basophils % 0.9 %; Eosinophils # 0.1 10^3/uL (0.0-0.8); Eosinophils % 1.6 %; Hematocrit 29.7 % (37.0-47.0); Hemoglobin 9.7 g/dL (11.5-15.3); Lymphocytes # 0.9 10^3/uL (0.8-4.8); Lymphocytes % 20.5 %; Mean Corpuscular HGB Conc 32.7 g/dL (30.0-36.0); Mean Corpuscular Hemoglobin 31.9 pg (28.0-34.0); Mean Corpuscular Volume 97.7 fL (81-99); Mean Platelet Volume 10.9 fL (7.4-10.4); Monocytes # 0.9 10^3/uL (0.2-0.9); Neutrophils # 2.4 10^3/uL (1.8-7.7); Neutrophils % 55.5 %; Nucleated Red Blood Cells % 0 %; Platelet Count 68 10^3/cmm (130-400); Red Blood Count 3.04 10^6/uL (4.1-5.3); White Blood Count 4.4 10^3/uL (4.0-10.0)
[2019-11-16] MEDS: oxyCODONE 5 mg IR Tab/Cap PO ×4 (04:56→21:44)
[2019-11-16 05:04] LABS: Alanine Aminotransferase 19 U/L (0-33); Albumin Level 2.9 g/dL (3.5-5.2); Alkaline Phosphatase 138 IU/L (35-105); Ammonia 29 umol/L (11-51); Anion Gap 12.5 (5-19); Aspartate Amino Transferase 53 U/L (0-32); Blood Urea Nitrogen 5 mg/dL (6-20); Calcium 8.8 mg/dL (8.5-10.5); Carbon Dioxide 29 mmol/L (22-29); Chloride 95 mmol/L (98-107); Globulin 3.7 g/dL (1.3-4.6); Glomerular Filtration Rate 228.5 mL/min (90-130); Glucose 94 mg/dL (65-115); Osmolality Calculated 271 mOsm/kg (285-295); Potassium 3.5 mmol/L (3.5-5.1); Sodium 133 mmol/L (136-145); Total Bilirubin 1.3 mg/dL (0.15-1.2); Total Protein 6.6 g/dL (6.6-8.7)
[2019-11-16] MEDS: levETIRAcetam 500 mg Tablet PO ×2 (08:21→18:03)
[2019-11-16] MEDS: spironolactone 25 mg Tablet 100 MG PO (08:21)
[2019-11-16] MEDS: thiamine 100 mg Tablet PO (08:21)
[2019-11-16] MEDS: famotidine 20 mg Tablet PO ×2 (08:22→18:02)
[2019-11-16] MEDS: multivitamin therapeutic Tablet 1 TAB PO (08:22)
[2019-11-16] MEDS: folic acid 1 mg Tablet PO (08:23)
[2019-11-16] MEDS: lactulose oral liq 20 gm/30 mL UDC PO (11:22)
--- NOTE | 2019-11-16 12:38 | PM.PN ---
Subjective Subjective: Interval history: Patient CIWA score this morning was 8, has episodes of nausea, is quite still unsteady on her feet, feels a bit anxious, has multiple joint pains, has a cough Vitals/I&O/Wt Last Vital Signs Temp 98.0 F 11/16/19 11:19 Pulse 82 11/16/19 11:19 Resp 20 H 11/16/19 11:23 BP 118/78 11/16/19 11:19 Pulse Ox 99 11/16/19 11:19 11/15/19 11/16/19 11/16/19 22:59 06:59 14:59 Intake Total 1055 / 1115 546 / 1661 120 / 120 Output Total 100 / 100 650 / 750 250 / 250 Balance 955 / 1015 -104 / 911 -130 / -130 Weight last 48 hrs Weight 61.235 kg Physical Exam Const: COMMON NORMALS: no apparent distress and oriented x3 HENMT: COMMON NORMALS: normocephalic HEAD & SCALP: normocephalic Neck/C-Spine: COMMON NORMALS: no JVD Resp: COMMON NORMALS: normal respiratory effort, no retractions, no use of accessory muscles and clear to auscultation bilaterally AUSCULTATION: clear to auscultation bilaterally Cardio: COMMON NORMALS: no JVD, regular rate, regular rhythm, S1 normal heart sound and S2 normal heart sound RATE: regular rate RHYTHM: regular rhythm HEART SOUNDS: S1 normal and S2 normal GI: COMMON NORMALS: normal to inspection, nondistended, normoactive bowel sounds, soft to palpation, non-tender, no hepatosplenomegaly, no masses and no bruits PALPATION: Yes soft and Yes no hepatosplenomegaly Extremity: COMMON NORMALS: normal capillary refill, no clubbing, cyanosis or edema, no calf tenderness and no pedal edema Neuro: COMMON NORMALS: oriented x3 Psych: COMMON NORMALS: mental status grossly normal Data : 11/16/19 04:40 11/16/19 04:40 A&P Assessment and plan (1) Cirrhosis: Significant cirrhosis. Multifactorial. Alcohol use, hepatitis C. Hepatitis panel has been done and hepatitis A negative Aldactone initiated Holding off on Lasix secondary to decreased p.o. intake. However, she is doing better and fluids will be changed to KVO Given esophageal varices will start low-dose propranolol Status: Acute Qualifiers: Ascites presence: with ascites Hepatic cirrhosis type: alcoholic cirrhosis Qualified Code(s): K70.31 - Alcoholic cirrhosis of liver with ascites Code(s): K74.60 - Unspecified cirrhosis of liver (2) Vomiting: Improved. Will need outpatient EGD. History of black stools. Stool is heme positive. She has apparent varices on CT scan. Hemoglobin has remained stable. Continue Protonix Lipase rechecked normal Status: Acute Qualifiers: Nausea presence: with nausea Vomiting Intractability: non-intractable Vomiting type: unspecified Qualified Code(s): R11.2 - Nausea with vomiting, unspecified Code(s): R11.10 - Vomiting, unspecified (3) Hypoxia: Likely secondary to COPD., uses 3L o2 at home, needs home oxygen on discharge Status: Acute Code(s): R09.02 - Hypoxemia (4) Pancytopenia: -Multifactorial secondary to liver cirrhosis, hepatitis C, alcohol -Hemoglobin stable at 9.7 -Platelet count stable at 68 -White blood cell count stable at 4.4 -Continue to monitor Status: Acute Code(s): D61.818 - Other pancytopenia (5) Transaminitis: Multifactorial. Secondary to alcohol and hepatitis C. overall unchanged. Status: Acute Code(s): R74.0 - Nonspecific elevation of levels of transaminase and lactic acid dehydrogenase [LDH] (6) Hepatitis C: Will need outpatient treatment Status: Acute Code(s): B19.20 - Unspecified viral hepatitis C without hepatic coma (7) Alcohol dependence with withdrawal: -Currently CIWA score 8 -Continue CIWA protocol - Status: Acute Code(s): F10.239 - Alcohol dependence with withdrawal, unspecified (8) Muscular deconditioning: -Is quite unsteady on her feet, likely simple component of deconditioning given her alcohol use, her liver cirrhosis, protein calorie malnutrition -She also can have some component of Wernicke's encephalopathy -I advised patient that the best course of action would be correction placement -Unfortunately patient does not have insurance, so getting correction placement would be very difficult, also not having insurance inherently makes it difficult for her to get doctors visits and follows up with GI specialist -Case workers are working on Medicare application Status: Acute Code(s): R29.898 - Other symptoms and signs involving the musculoskeletal system Attestations Medical Necessity Statement*: Requires hospitalization due to alcohol withdrawal Coding Level of Care Code Acute Director Of Mobile [employer] for g Fwd Diagnoses Cirrhosis K70.31 Ascites presence: with ascites Hepatic cirrhosis type: alcoholic cirrhosis Vomiting R11.2 Nausea presence: with nausea Vomiting Intractability: non-intractable Vomiting type: unspecified Hypoxia R09.02 Pancytopenia D61.818 Transaminitis R74.0 Hepatitis C B19.20 Alcohol dependence with withdrawal F10.239 Muscular deconditioning R29.898
[2019-11-16] MEDS: propranolol 20 mg Tablet 10 MG PO ×2 (13:13→18:03)
[2019-11-17] VITALS (10 sets, daily range): BP systolic 119–152; BP diastolic 71–91; PULSE 71–102; RESP 15–18; TEMP 36.6–37.2; O2SAT 87–98
[2019-11-17] MEDS: oxyCODONE 5 mg IR Tab/Cap PO ×2 (04:24→10:29)
[2019-11-17 06:05] LABS: Basophils # 0.1 10^3/uL (0.0-0.1); Basophils % 0.9 %; Eosinophils # 0.1 10^3/uL (0.0-0.8); Eosinophils % 1.9 %; Hematocrit 32.2 % (37.0-47.0); Hemoglobin 10.3 g/dL (11.5-15.3); Lymphocytes # 1.2 10^3/uL (0.8-4.8); Lymphocytes % 20.7 %; Mean Corpuscular Hemoglobin 31.4 pg (28.0-34.0); Mean Corpuscular Volume 98.2 fL (81-99); Mean Platelet Volume 11.8 fL (7.4-10.4); Monocytes # 1.7 10^3/uL (0.2-0.9); Monocytes % 29.6 %; Neutrophils # 2.7 10^3/uL (1.8-7.7); Neutrophils % 46.6 %; Nucleated Red Blood Cells % 0 %; Platelet Count 95 10^3/cmm (130-400); Red Blood Count 3.28 10^6/uL (4.1-5.3); Red Cell Distribution Width 16.3 % (12.1-15.1); White Blood Count 5.8 10^3/uL (4.0-10.0)
[2019-11-17 06:20] LABS: Alanine Aminotransferase 18 U/L (0-33); Albumin Level 2.9 g/dL (3.5-5.2); Alkaline Phosphatase 154 IU/L (35-105); Anion Gap 9.6 (5-19); Aspartate Amino Transferase 46 U/L (0-32); Blood Urea Nitrogen 4 mg/dL (6-20); Carbon Dioxide 32 mmol/L (22-29); Chloride 97 mmol/L (98-107); Globulin 4.5 g/dL (1.3-4.6); Glomerular Filtration Rate 228.5 mL/min (90-130); Glucose 94 mg/dL (65-115); Magnesium 1.6 mg/dL (1.7-2.3); Osmolality Calculated 275 mOsm/kg (285-295); Potassium 3.6 mmol/L (3.5-5.1); Sodium 135 mmol/L (136-145); Total Bilirubin 1.6 mg/dL (0.15-1.2); Total Protein 7.4 g/dL (6.6-8.7)
[2019-11-17 07:46] LABS: PROTEIN, TOTAL 6.6 g/dL (6.1-8.1)
[2019-11-17] MEDS: propranolol 20 mg Tablet 10 MG PO (08:25)
[2019-11-17] MEDS: levETIRAcetam 500 mg Tablet PO (08:26)
[2019-11-17] MEDS: sodium chloride 0.9% 1,000 ML 30 ML IV (08:26)
[2019-11-17] MEDS: folic acid 1 mg Tablet PO (08:26)
[2019-11-17] MEDS: spironolactone 25 mg Tablet 100 MG PO (08:26)
[2019-11-17] MEDS: thiamine 100 mg Tablet PO (08:26)
[2019-11-17] MEDS: multivitamin therapeutic Tablet 1 TAB PO (08:26)
[2019-11-17] MEDS: famotidine 20 mg Tablet PO (08:26)
[2019-11-17] MEDS: lactulose oral liq 20 gm/30 mL UDC PO (10:29)
--- NOTE | 2019-11-17 17:55 | PM.DCS ---
Discharge Providers Date of Admission: 11/11/19 21:11 Date of Discharge: November 17, 2019 Attending Provider at Admission: Susan Lowe MD Attending Provider at Discharge: Bam Flower MD Diagnoses at Discharge Discharge Diagnosis (1) Cirrhosis: Status: Acute Qualifiers: Ascites presence: with ascites Hepatic cirrhosis type: alcoholic cirrhosis Qualified Code(s): K70.31 - Alcoholic cirrhosis of liver with ascites (2) Vomiting: Status: Acute Qualifiers: Nausea presence: with nausea Vomiting Intractability: non-intractable Vomiting type: unspecified Qualified Code(s): R11.2 - Nausea with vomiting, unspecified (3) Hypoxia: Status: Acute (4) Pancytopenia: Status: Acute (5) Transaminitis: Status: Acute (6) Hepatitis C: Status: Acute (7) Alcohol dependence with withdrawal: Status: Acute (8) Muscular deconditioning: Status: Acute Reason for Visit Reason for Visit: Reason For Visit: NOT EATING ABD PAIN Hospital Course Hospital Course: This is a 59-year-old female who has a past medical history of COPD oxygen dependent, but noncompliant, hepatitis C not on any treatment, alcohol abuse, active smoker, history of seizures, anxiety and depression, who does not have a primary care present physician, who does not have any insurance presented to the emergency room due to complaints of confusion and lethargy. The big issue during patient's admission was her lack of insurance, and lack of finances, poor functional status, unfortunately patient has burned her bridges here [place], [facility] has declined to see her due to many missed appointments. Unfortunately with her recurrent alcohol use, COPD, liver cirrhosis, esophageal varices, Wernicke's encephalopathy, weakness, deconditioning, she has a high risk of falls, high risk of esophageal variceal bleed, high risk of acute liver failure, she has a very high risk of readmission, high risk of morbidity and mortality, and high risk of . Unfortunately, there is no good solution, she does not have the finances for custodial placement, does not have the finances for home health care, does not have the finances to see a physician, does not have the finances to see a GI specialist. I spoke to patient and her , about the difficulty of the situation, they voiced understanding, all questions answered; they are to present to the emergency room if she were to have any bloody or black stools, hematemesis, falls, confusion, or any other concerns. I also made myself available to the patient, if at all possible, I can see the patient in my clinic, or if in person patient goes to [facility], hopefully they would be willing to see her. Patient was admitted for altered mental status secondary to alcohol withdrawal, received CIWA assessment and protocol, her CIWA scores were minimal on discharge, was discharged with instructions to abstain from alcohol, although I spoke to her in private, who stated that she has been asking him when can she have her next beer when she goes home. Patient was also found to have significant cirrhosis on presentation secondary to hepatitis C, alcohol use. Patient has some ascites secondary to liver cirrhosis, discharged on Lasix and spironolactone. Patient was advised that she were to have fevers, abdominal pain, change in mentation come back to the emergency room at this is signs of spontaneous bacterial peritonitis, and has a high morbidity and mortality rate, patient and family voiced understanding. Patient also has evidence of esophageal varices, she was advised to continue propanolol, if she were to have hematemesis, this is life-threatening, call 911. Patient also has evidence of portal hypertension. The ideal situation would be patient see a GI specialist, for management of hepatitis C and treatment of hepatitis C, but due to the issue as above, it is quite unlikely. I will see if I could see the patient in urgent care clinic, and possibly a GI specialist is willing to see her at lower cost. For hepatic encephalopathy, I discharge her on lactulose. Patient also had pancytopenia, likely secondary to liver cirrhosis, hepatitis C, alcohol.. Hemoglobin, platelet count, white blood cell count were stable on discharge, she was advised that if she were to have any bloody or black stools, hematemesis, hemoptysis, falls come back to the emergency room. Has hepatitis C, will see she can get treatment if she can see a physician. Severe protein calorie malnutrition, secondary to liver cirrhosis, alcohol abuse, advised to drink Ensure shakes. Muscular deconditioning Patient during her hospitalization, had episodes of confusion, unstable gait, some episodes of amnesia which are concerning for Wernicke's Korsakoff syndrome, she was discharged on thiamine, folic acid, multivitamins. Unfortunately patient is quite unstable on her feet, quite deconditioned, high risk of falls, I advised patient's family to have her stay on the first floor of the home, as there is 13 steps up to the bedroom, gait transfers with care, 24-hour supervision, if she were to fall come back to the emergency room. Physical Exam Const: COMMON NORMALS: no apparent distress and oriented x3 HENMT: COMMON NORMALS: normocephalic HEAD & SCALP: normocephalic Neck/C-Spine: COMMON NORMALS: no JVD Resp: COMMON NORMALS: normal respiratory effort, no retractions, no use of accessory muscles and clear to auscultation bilaterally AUSCULTATION: clear to auscultation bilaterally Cardio: COMMON NORMALS: no JVD, regular rate, regular rhythm, S1 normal heart sound and S2 normal heart sound RATE: regular rate RHYTHM: regular rhythm HEART SOUNDS: S1 normal and S2 normal GI: COMMON NORMALS: normal to inspection, nondistended, normoactive bowel sounds, soft to palpation, non-tender, no masses and no bruits PALPATION: Yes soft Extremity: COMMON NORMALS: normal capillary refill, no clubbing, cyanosis or edema, no calf tenderness and no pedal edema Neuro: COMMON NORMALS: oriented x3 Psych: COMMON NORMALS: mental status grossly normal Discharge Data Data Completed and Pending: Completed Studies During Hospitalization Category Date Time Status CT abdomen pelvis w con* [id number] Urge nt Cat Scan 11/11/19 18:06 Completed XR chest 1V janeth ble [id number] Urgent Exams 11/11/19 18:06 Completed Pending at discharge Category Date Time Status Total Protein Prabha ctrophoresis Routi ne Lab 11/15/19 20:59 Results Labs from last 24 hours 11/17/19 11/17/19 11/15/19 05:23 05:23 20:59 WBC 5.8 RBC 3.28 L Hgb 10.3 L Hct 32.2 L MCV 98.2 MCH 31.4 MCHC 32.0 RDW 16.3 H Plt Count 95 L MPV 11.8 H Neut % (Auto) 46.6 Lymph % (Auto) 20.7 [place] % (Auto) 29.6 Eos % (Auto) 1.9 Baso % (Auto) 0.9 Neut # (Auto) 2.7 Lymph # (Auto) 1.2 [place] # (Auto) 1.7 H Eos # (Auto) 0.1 Baso # (Auto) 0.1 Nucleated RBC % (a uto) 0 Nucleated RBCs # 0.0 Sodium 135 L Potassium 3.6 Chloride 97 L Carbon Dioxide 32 H Anion Gap 9.6 BUN 4 L Creatinine 0.3 L GFR Calculation 228.5 H Glucose 94 Calculated Osmolal ity 275 L Calcium 9.0 Phosphorus 3.0 Magnesium 1.6 L Total Bilirubin 1.6 H AST 46 H ALT 18 Alkaline Phosphata se 154 H Total Protein 7.4 6.6 Albumin 2.9 L Globulin 4.5 Vitals: Last Vital Signs Temp 98.6 F 11/17/19 16:56 Pulse 102 H 11/17/19 16:56 Resp 16 11/17/19 16:56 BP 152/91 11/17/19 16:56 Pulse Ox 92 11/17/19 16:56 Discharge Plan Discharge Patient Disposition: Home, Self-Care Condition: Stable Prescriptions: New Zofran 4 mg tablet 4 mg PO QID PRN (Reason: nausea and vomiting) Qty: 14 RF: 0 potassium chloride 20 mEq packet 40 meq PO BID 5 Days Qty: 30 RF: 0 spironolactone 25 mg Tablet 100 mg PO DAILY 30 Days Qty: 30 RF: 0 folic acid 1 mg Tablet 1 mg PO DAILY 30 Days Qty: 30 RF: 0 propranolol 20 mg Tablet 10 mg PO BID 30 Days Qty: 60 RF: 0 Vitamin B-1 (mononitrate) 100 mg Tablet 100 mg PO DAILY 30 Days Qty: 30 RF: 0 lactulose 20 gram/30 mL Solution 20 g PO Q12H 30 Days Qty: 1800 RF: 0 Thera 400 mcg Tablet 1 tab PO DAILY 30 Days Qty: 30 RF: 0 Lasix 40 mg tablet 40 mg PO DAILY 30 Days Qty: 30 RF: 0 Klonopin 0.5 mg tablet 0.25 mg PO DAILY PRN (Reason: anxiety) 15 Days Qty: 7 RF: 0 Continued Keppra 500 mg Tablet 500 mg PO Q12H 30 Days Qty: 60 RF: 0 Discontinued clonazepam 1 mg Tablet 1 mg PO TID PRN (Reason: unknown) RF: 0 aspirin [Aspir-81] 81 mg Tablet,Delayed Release (Dr/Ec) 81 mg PO DAILY RF: 0 potassium gluconate 595 mg (99 mg) Tablet 595 mg PO DAILY RF: 0 Tylenol Extra Strength 1,000 mg PO Q4H PRN (Reason: Pain) RF: 0 Discharge Orders: Discharge Order (Routine); Ordered 11/17/19 Ordered By: Bam Flower Other Ambulatory Orders: Complete Blood Count w/Auto (Routine) Timeframe: 1 Week Location: Determined by Patient Ordered By: Bam Flower Comprehensive Metabolic Panel (Routine) Timeframe: 1 Week Facility: [facility] - Location: Lab - Main Lab Ordered By: Bam Flower DME: Oxygen (Order) Location: None Selected Ordered By: Bam Flower Referrals: [facility] [Outside] Bam Flower MD [Hospitalist] - 1 week (Call Monday and make an appointment for your hospital follow up with Dr. Flower in 1 week. [employer] has given you information to take home on your follow up options. Plus [facility] has a [facility] clinic right here in the [facility].) Discharge Diet: Advance as tolerated Discharge Activity: Resume usual activity Patient Instructions: Propranolol (By mouth), Spironolactone (By mouth), Furosemide (By mouth), Clonazepam (By mouth), Potassium Chloride (By mouth), Thiamine (Vitamin B-1) (By mouth), Folic Acid (By mouth), Lactulose (By mouth), Hepatitis C, Cirrhosis (DC), Viral Hepatitis C (DC), Alcohol Intoxication (DC), Abuse of Alcohol (DC), Acute Delirium (DC), Ascites (DC), Esophageal Varices (DC), Anxiety (DC) Activity Restrictions/Additional Instructions: -Please follow-up with me in a week, or [facility] in a week -Needs referral to GI -Please take medications as prescribed -If you have fevers, chills, nausea, vomiting, lightheadedness, dizziness come back to the emergency room -If you have hemoptysis come back to the emergency room Discharge Date/Time: 11/17/19 16:57 Discharge Attestations Time Spent in Discharge Care*: less than 30 min Quality Metrics Clinical Quality Measures During this hospital stay, did patient experience: None Coding Level of Care Code Acute Plane [employer] for [employer] Fwd Diagnoses Cirrhosis K70.31 Ascites presence: with ascites Hepatic cirrhosis type: alcoholic cirrhosis Vomiting R11.2 Nausea presence: with nausea Vomiting Intractability: non-intractable Vomiting type: unspecified Hypoxia R09.02 Pancytopenia D61.818 Transaminitis R74.0 Hepatitis C B19.20 Alcohol dependence with withdrawal F10.239 Muscular deconditioning R29.898
[2019-11-18 11:56] LABS: ALBUMIN 2.7 g/dL (3.8-4.8); ALPHA 1 GLOBULIN 0.4 g/dL (0.2-0.3); ALPHA 2 GLOBULIN 0.7 g/dL (0.5-0.9); BETA 1 GLOBULIN 0.4 g/dL (0.4-0.6); BETA 2 GLOBULIN 0.5 g/dL (0.2-0.5); GAMMA GLOBULIN 1.8 g/dL (0.8-1.7)
== END 2019-11-17 16:57 | disposition home or self-care (01) | DRG 433 ==
LOC: ER 20:04 → MEDSURG 21:46
PROVIDERS: Internal Medicine; Admitting Provider Internal Medicine; Emergency Provider Emergency Medicine; Visit Provider Family Medicine
DX: K70.31 Alcoholic cirrhosis of liver with ascites (principal); F10.239 Alcohol dependence with withdrawal, unspecified; D61.818 Other pancytopenia; B19.20 Unspecified viral hepatitis C without hepatic coma; R09.02 Hypoxemia; J44.9 Chronic obstructive pulmonary disease, unspecified; Z99.81 Dependence on supplemental oxygen; Z91.14 Patient's other noncompliance with medication regimen; F41.9 Anxiety disorder, unspecified; F32.9 Major depressive disorder, single episode, unspecified; R29.898 Other symptoms and signs involving the musculoskeletal system; G40.909 Epilepsy, unspecified, not intractable, without status epilepticus; Z79.899 Other long term (current) drug therapy; Z88.5 Allergy status to narcotic agent
CPT/HCPCS: 12345; 36415; 36416; 71045; 74177; 80053; 80074; 81003; 82140; 82274; 82962; 83690; 83735; 84100; 84155; 84165; 85025; 85610; 87806; 93005; 94640; 96372; 96375; 97110; 97116; 97162; 97530; 99283; J0696; J2001; J2270; J2405; J2930; J3411; J3475; J3480; J7030; Q9967

== ENCOUNTER 2019-11-11 17:59 | Emergency (ER) | payer MEDICAID, SELFPAY | END 2019-11-11 22:33 | disposition admitted as inpatient to this hospital (09) | LOC: ER 12-19 10:21 | PROVIDERS: Emergency Provider Emergency Medicine | DX: Z01.89 Encounter for other specified special examinations (principal) | CPT/HCPCS: 12345; 36415; 71045; 74177; 80053; 80074; 83690; 83735; 85025; 85610; 93005; 94640; 96361; 96374; 96375; 96376; 97116; 97162; 99283; 99285; J2001; J2270; J2405; J2930; J3475; J3480; J7030; Q9967 ==

== ENCOUNTER 2020-01-11 15:44 | Emergency (ER) | payer MEDICAID, SELFPAY ==
[2020-01-11 16:01] VITALS: BP 124/73; PULSE 70; RESP 14; TEMP 37.1; O2SAT 100; BMI 19.6
--- NOTE | 2020-01-11 16:10 | W.ED.GENADLT ---
Documented by User: CHRISTIAN Richards 01/12/20 08:31 HPI - General Adult General: Chief complaint: General Medical Stated complaint: BILAT LOWER EXT SWELLING; COUGH Time Seen by Provider: 01/11/20 15:59 History of Present Illness: HPI narrative: Patient is a 59-year-old female who comes to the ED with right lower extremity swelling and pain and abdominal pain. Right lower extremity swelling and pain started about 2 weeks ago. Patient denies any injury or trauma. Patient is also complaining of lower abdominal pain. Lower abdominal pain started about 3 weeks ago. She says it is constant and she rates it a 9 out of 10. She says she is frequently nauseous throughout the day and usually vomits once a day. Patient also reports a nonproductive cough. Denies fever, chills, shortness of breath, chest pain, diarrhea, constipation, dysuria, hematuria. Associated symptoms: Reports nausea and vomiting; Deny chest pain, dyspnea, headache(s), rash or palpitations Review of Systems Const: Denies: fever, chills or fatigue Eyes: Denies: change in vision or eye discomfort ENMT: Denies: throat pain, painful swallowing, nasal discharge or nasal congestion Card: Denies: chest pain, palpitations, edema, swelling of feet/ankles, shortness of breath on exertion or shortness of breath when lying down Resp: Reports: non-productive cough; Denies: shortness of breath or productive cough GI: Reports: abdominal pain, nausea and vomiting; Denies: diarrhea, constipation or blood in stool : Denies: flank pain, painful urination or blood in urine Musc: Reports: extremity pain (Right lower ext) and extremity swelling (Right lower ext); Denies: neck pain or back pain Skin/Breast: Denies: rash or new lesion Neuro: Denies: headache, numbness in extremities or weakness in extremities PFSH ED PFSH: Medical History Alcohol abuse COPD (chronic obstructive pulmonary disease) Hepatitis C Hypertension Non-compliant behavior Seizure disorder Smoker Surgical History H/O: hysterectomy Family History Mother Multiple sclerosis Social History Smoking and tobacco status: current every day smoker Alcohol intake: current Alcohol type: beer Household members: spouse and family Housing: House Marital status: Current occupation: pt states [employer] and states 13 steps to bedrooms. Physical Exam Const: COMMON NORMALS: no apparent distress, oriented x3 and alert GENERAL APPEARANCE: cooperative and comfortable HENMT: COMMON NORMALS: normocephalic HEAD & SCALP: normocephalic MOUTH: oral and palatal mucosa normal THROAT: posterior oropharynx normal and uvula midline Eye: COMMON NORMALS: PERRL PUPIL: Yes PERRL Neck/C-Spine: COMMON NORMALS: supple GENERAL: Yes normal visual inspection Resp: COMMON NORMALS: normal respiratory effort, no retractions and no use of accessory muscles EFFORT & INSPECTION: Yes able to speak in complete sentences AUSCULTATION: wheezes expiratory wheezes and throughout Cardio: COMMON NORMALS: regular rate, regular rhythm, S1 normal heart sound, S2 normal heart sound, no gallops, no clicks, no murmurs and peripheral pulses 2+ throughout RATE: regular rate RHYTHM: regular rhythm HEART SOUNDS: S1 normal and S2 normal PERIPHERAL PULSES: pulses 2+ throughout GI: COMMON NORMALS: normal to inspection, nondistended, normoactive bowel sounds, soft to palpation, non-tender and no masses PALPATION: Yes soft : COMMON NORMALS: Yes no CVA tenderness BLADDER/KIDNEY EXAM: Yes no CVA tenderness Back/Pelvis: COMMON NORMALS: no CVA tenderness Extremity: RIGHT LOWER EXTREMITY: Yes lower leg Right lower leg: Yes inspection (swelling of foot and ankle), Yes palpation (tenderness around foot and ankle) and Yes neurovascular exam (intact) Neuro: COMMON NORMALS: oriented x3 and moves all extremities SENSORIUM/ORIENTATION: Yes alert Skin: COMMON NORMALS: no rashes or lesions noted GENERAL SKIN EXAM: no rashes or lesions noted and dry skin Course Vital Signs: Vital signs: Vital Signs Temperature 98.0 F 01/11/20 20:06 Pulse Rate 70 01/11/20 20:06 Respiratory Rate 16 01/11/20 20:06 Blood Pressure 122/71 01/11/20 20:06 Pulse Oximetry 100 01/11/20 20:06 MDM - General Adult MDM Narrative: Medical decision making narrative: I performed the initial history, physical exam and lab/imaging work-up. I then handed off care to Edwin Feliz NP. I discussed patient's case and told him about the labs and imaging I ordered that are pending.-Howard Joseph PA-C Lab Data: Labs: Lab Results 01/11/20 01/11/20 01/11/20 Range/Units 18:29 18:29 18:53 WBC 4.6 (4.0-10.0) 10^3/ uL RBC 3.55 L (4.1-5.3) 10^6/u L Hgb 10.6 L (11.5-15.3) g/dL Hct 33.7 L (37.0-47.0) % MCV 94.9 (81-99) fL MCH 29.9 (28.0-34.0) pg MCHC 31.5 (30.0-36.0) g/dL RDW 18.8 H (12.1-15.1) % Plt Count 71 L (130-400) 10^3/c mm MPV 11.5 H (7.4-10.4) fL Neut % (Auto) 48.0 % Lymph % (Auto) 35.6 % [place] % (Auto) 13.6 % Eos % (Auto) 0.9 % Baso % (Auto) 1.5 % Neut # (Auto) 2.2 (1.8-7.7) 10^3/u L Lymph # (Auto) 1.6 (0.8-4.8) 10^3/u L [place] # (Auto) 0.6 (0.2-0.9) 10^3/u L Eos # (Auto) 0.0 (0.0-0.8) 10^3/u L Baso # (Auto) 0.1 (0.0-0.1) 10^3/u L Nucleated RBC % (a uto) 0 % Nucleated RBCs # 0.0 /100WBC Sodium 143 (136-145) mmol/L Potassium 3.4 L (3.5-5.1) mmol/L Chloride 103 (98-107) mmol/L Carbon Dioxide 24 (22-29) mmol/L Anion Gap 19.4 H (5-19) BUN 4 L (6-20) mg/dL Creatinine 0.2 L (0.5-0.9) mg/dL GFR Calculation 364.8 H (90-130) mL/min Glucose 86 (65-115) mg/dL Calculated Osmolal ity 291 (285-295) mOsm/k g Calcium 8.7 (8.5-10.5) mg/dL Total Bilirubin 1.6 H (0.15-1.2) mg/dL AST 110 H (0-32) U/L ALT 25 (0-33) U/L Alkaline Phosphata se 175 H (35-105) IU/L Total Protein 7.3 (6.6-8.7) g/dL Albumin 2.9 L (3.5-5.2) g/dL Globulin 4.4 (1.3-4.6) g/dL Lipase 45 (13-60) U/L Urine Color Yellow (Yellow) Urine Appearance Clear (CLEAR) Urine pH 7 (5-7) Ur Specific Gravit y 1.000 L (1.005-1.030) Urine Protein Neg (Negative) Urine Glucose (UA) Norm (Normal) Urine Ketones Negative (Negative) Urine Blood Neg (Negative) Urine Nitrate Negative (Negative) Urine Bilirubin Neg (NEGATIVE) Urine Urobilinogen Norm (Negative) mg/dL Ur Leukocyte Loni ase Negative (Negative) Urine RBC None (0-2) /hpf Urine WBC None (0-5) /hpf Ur Squamous Epith Cells Rare (0-5) Urine Bacteria None (NONE) Discharge Plan Discharge Patient Disposition: Home, Self-Care Clinical Impression: Edema Qualifiers: Edema type: localized Qualified Code(s): R60.0 - Localized edema Condition: Stable Prescriptions: No Action ondansetron HCl [Zofran] 4 mg tablet 4 mg PO QID PRN (Reason: nausea and vomiting) Qty: 14 RF: 0 levetiracetam [Keppra] 500 mg Tablet 500 mg PO Q12H 30 Days Qty: 60 RF: 0 furosemide 40 mg Tablet 40 mg PO DAILY RF: 0 Klonopin 0.5 mg tablet 0.25 mg PO DAILY RF: 0 spironolactone 100 mg Tablet 100 mg PO DAILY RF: 0 propranolol 20 mg/5 mL (4 mg/mL) Solution 10 mg PO BID RF: 0 folic acid 1 mg Tablet 1 mg PO DAILY RF: 0 lactulose 20 gram/30 mL Solution 20 g PO BID RF: 0 Discharge Orders: Discharge Order (Routine); Ordered 01/11/20 Ordered By: Edwin Feliz Discharge Diet: Usual diet Discharge Activity: Resume usual activity Patient Instructions: Leg Edema (ED) Activity Restrictions/Additional Instructions: Follow-up with your family provider decrease alcohol intake keep feet elevated Discharge Date/Time: 01/11/20 19:56 Coding Level of Care Code ED Director Of Rehabilitation And Wellness for Chg Fwd Exam Comprehensive Documented by User: RITA Ayers 01/11/20 19:46 HPI - General Adult General: Chief complaint: General Medical Stated complaint: BILAT LOWER EXT SWELLING; COUGH Time Seen by Provider: 01/11/20 15:59 PFSH ED PFSH: Medical History Alcohol abuse COPD (chronic obstructive pulmonary disease) Hepatitis C Hypertension Non-compliant behavior Seizure disorder Smoker Surgical History H/O: hysterectomy Family History Mother Multiple sclerosis Social History Smoking and tobacco status: current every day smoker Alcohol intake: current Alcohol type: beer Household members: spouse and family Housing: House Marital status: Current occupation: pt states [employer] and states 13 steps to bedrooms. Course Vital Signs: Vital signs: Vital Signs Temperature 98.0 F 01/11/20 20:06 Pulse Rate 70 01/11/20 20:06 Respiratory Rate 16 01/11/20 20:06 Blood Pressure 122/71 01/11/20 20:06 Pulse Oximetry 100 01/11/20 20:06 MDM - General Adult MDM Narrative: Medical decision making narrative: Patient states her belly is not hurting she wants to eat she feels fine she is ready go home said that she had belly pain when she is in hospital she knows she has cirrhosis from alcoholism and this was her pain she got pain medicine she feels a lot better denies any other problem patient not wanting to do CT. Lab Data: Labs: Lab Results 01/11/20 01/11/20 01/11/20 Range/Units 18:29 18:29 18:53 WBC 4.6 (4.0-10.0) 10^3/ uL RBC 3.55 L (4.1-5.3) 10^6/u L Hgb 10.6 L (11.5-15.3) g/dL Hct 33.7 L (37.0-47.0) % MCV 94.9 (81-99) fL MCH 29.9 (28.0-34.0) pg MCHC 31.5 (30.0-36.0) g/dL RDW 18.8 H (12.1-15.1) % Plt Count 71 L (130-400) 10^3/c mm MPV 11.5 H (7.4-10.4) fL Neut % (Auto) 48.0 % Lymph % (Auto) 35.6 % [place] % (Auto) 13.6 % Eos % (Auto) 0.9 % Baso % (Auto) 1.5 % Neut # (Auto) 2.2 (1.8-7.7) 10^3/u L Lymph # (Auto) 1.6 (0.8-4.8) 10^3/u L [place] # (Auto) 0.6 (0.2-0.9) 10^3/u L Eos # (Auto) 0.0 (0.0-0.8) 10^3/u L Baso # (Auto) 0.1 (0.0-0.1) 10^3/u L Nucleated RBC % (a uto) 0 % Nucleated RBCs # 0.0 /100WBC Sodium 143 (136-145) mmol/L Potassium 3.4 L (3.5-5.1) mmol/L Chloride 103 (98-107) mmol/L Carbon Dioxide 24 (22-29) mmol/L Anion Gap 19.4 H (5-19) BUN 4 L (6-20) mg/dL Creatinine 0.2 L (0.5-0.9) mg/dL GFR Calculation 364.8 H (90-130) mL/min Glucose 86 (65-115) mg/dL Calculated Osmolal ity 291 (285-295) mOsm/k g Calcium 8.7 (8.5-10.5) mg/dL Total Bilirubin 1.6 H (0.15-1.2) mg/dL AST 110 H (0-32) U/L ALT 25 (0-33) U/L Alkaline Phosphata se 175 H (35-105) IU/L Total Protein 7.3 (6.6-8.7) g/dL Albumin 2.9 L (3.5-5.2) g/dL Globulin 4.4 (1.3-4.6) g/dL Lipase 45 (13-60) U/L Urine Color Yellow (Yellow) Urine Appearance Clear (CLEAR) Urine pH 7 (5-7) Ur Specific Gravit y 1.000 L (1.005-1.030) Urine Protein Neg (Negative) Urine Glucose (UA) Norm (Normal) Urine Ketones Negative (Negative) Urine Blood Neg (Negative) Urine Nitrate Negative (Negative) Urine Bilirubin Neg (NEGATIVE) Urine Urobilinogen Norm (Negative) mg/dL Ur Leukocyte Loni ase Negative (Negative) Urine RBC None (0-2) /hpf Urine WBC None (0-5) /hpf Ur Squamous Epith Cells Rare (0-5) Urine Bacteria None (NONE) Discharge Plan Discharge Patient Disposition: Home, Self-Care Clinical Impression: Edema Qualifiers: Edema type: localized Qualified Code(s): R60.0 - Localized edema Condition: Stable Prescriptions: No Action ondansetron HCl [Zofran] 4 mg tablet 4 mg PO QID PRN (Reason: nausea and vomiting) Qty: 14 RF: 0 levetiracetam [Keppra] 500 mg Tablet 500 mg PO Q12H 30 Days Qty: 60 RF: 0 furosemide 40 mg Tablet 40 mg PO DAILY RF: 0 Klonopin 0.5 mg tablet 0.25 mg PO DAILY RF: 0 spironolactone 100 mg Tablet 100 mg PO DAILY RF: 0 propranolol 20 mg/5 mL (4 mg/mL) Solution 10 mg PO BID RF: 0 folic acid 1 mg Tablet 1 mg PO DAILY RF: 0 lactulose 20 gram/30 mL Solution 20 g PO BID RF: 0 Discharge Orders: Discharge Order (Routine); Ordered 01/11/20 Ordered By: Edwin Feliz Discharge Diet: Usual diet Discharge Activity: Resume usual activity Patient Instructions: Leg Edema (ED) Activity Restrictions/Additional Instructions: Follow-up with your family provider decrease alcohol intake keep feet elevated Discharge Date/Time: 01/11/20 19:56 Coding Level of Care Code ED Director Of Rehabilitation And Wellness for Chg Fwd Exam Comprehensive
--- NOTE | 2020-01-11 16:30 | XR_ITS ---
WS: [id number] XR chest 1V portable [id number] REASON FOR EXAM: wheezing FINDINGS: The heart and mediastinal interfaces normal. The lung li are adequately aerated. No pneumonia, pulmonary edema, pleural effusion, pneumothorax , or mass effect. The hilum and apices normal. No osseous abnormalities. No definite change in the chest since previous exam November 2019. XR/XR chest 1V portable [id number] IMPRESSION: Negative chest for acute findings.
--- NOTE | 2020-01-11 16:32 | USR_ITS ---
PROCEDURE INFORMATION: Exam: US Duplex Right Lower Extremity Veins, Limited Exam date and time: 01/11/2020 4:33 PM Age: 59 years old Clinical indication: Pain; Swelling (edema) of limb; Lower extremity, right; Leg, lower; Additional info: Swelling and pain TECHNIQUE: Imaging protocol: Real-time Duplex ultrasound of the Right Lower Extremity with 2-D chicas scale, color Doppler flow and spectral waveform analysis with image documentation. Limited exam was focused on the right lower extremity veins. COMPARISON: No relevant prior studies available. FINDINGS: Right deep veins: Unremarkable. The common femoral, femoral, proximal profunda femoral and popliteal veins are patent without thrombus. Normal Doppler waveforms. Normal compressibility and/or augmentation response. Right superficial veins: Unremarkable. Saphenofemoral junction is patent without thrombus. Soft tissues: There is subcutaneous edema in the lower leg. No fluid collection. US/[place] [id number] IMPRESSION: No acute findings. No evidence of deep vein thrombosis.
[2020-01-11] MEDS: sodium chloride 0.9% 500 ML IV (18:10)
[2020-01-11] MEDS: ondansetron 2 mg/ML SDV 2 mL 4 MG IVP (18:11)
[2020-01-11 18:12] VITALS: RESP 16
[2020-01-11] MEDS: morphine 4 mg/mL SDV 1 mL IVP (18:12)
[2020-01-11 18:38] LABS: Basophils # 0.1 10^3/uL (0.0-0.1); Basophils % 1.5 %; Eosinophils % 0.9 %; Hematocrit 33.7 % (37.0-47.0); Hemoglobin 10.6 g/dL (11.5-15.3); Lymphocytes # 1.6 10^3/uL (0.8-4.8); Lymphocytes % 35.6 %; Mean Corpuscular HGB Conc 31.5 g/dL (30.0-36.0); Mean Corpuscular Hemoglobin 29.9 pg (28.0-34.0); Mean Corpuscular Volume 94.9 fL (81-99); Mean Platelet Volume 11.5 fL (7.4-10.4); Monocytes # 0.6 10^3/uL (0.2-0.9); Monocytes % 13.6 %; Neutrophils # 2.2 10^3/uL (1.8-7.7); Nucleated Red Blood Cells % 0 %; Red Blood Count 3.55 10^6/uL (4.1-5.3); Red Cell Distribution Width 18.8 % (12.1-15.1); White Blood Count 4.6 10^3/uL (4.0-10.0)
[2020-01-11 19:06] LABS: Platelet Count 71 10^3/cmm (130-400); Slide Review Slide Review Perform
[2020-01-11 19:11] LABS: Alanine Aminotransferase 25 U/L (0-33); Albumin Level 2.9 g/dL (3.5-5.2); Alkaline Phosphatase 175 IU/L (35-105); Anion Gap 19.4 (5-19); Blood Urea Nitrogen 4 mg/dL (6-20); Calcium 8.7 mg/dL (8.5-10.5); Carbon Dioxide 24 mmol/L (22-29); Chloride 103 mmol/L (98-107); Globulin 4.4 g/dL (1.3-4.6); Glomerular Filtration Rate 364.8 mL/min (90-130); Glucose 86 mg/dL (65-115); Lipase 45 U/L (13-60); Osmolality Calculated 291 mOsm/kg (285-295); Potassium 3.4 mmol/L (3.5-5.1); Sodium 143 mmol/L (136-145); Total Bilirubin 1.6 mg/dL (0.15-1.2); Total Protein 7.3 g/dL (6.6-8.7)
[2020-01-11 19:13] LABS: Bilirubin Urine Neg (NEGATIVE); Blood Urine Neg (Negative); Glucose Urine UA Norm (Normal); Ketones Urine Negative (Negative); Leukocyte Esterase Urine Negative (Negative); Nitrate Urine Negative (Negative); Protein Urine Neg (Negative); Urine Appearance Clear (CLEAR); Urine Color Yellow (Yellow); Urobilinogen Urine Norm (Negative); pH Urine 7 (5-7)
[2020-01-11 19:20] LABS: Add Urine Culture? No; Squamous Epithelial Cell Urine RARE (0-5)
[2020-01-11 19:27] LABS: Aspartate Amino Transferase 110 U/L (0-32)
[2020-01-11 20:06] VITALS: BP 122/71; PULSE 70; RESP 16; TEMP 36.7; O2SAT 100
== END 2020-01-11 19:56 | disposition home or self-care (01) ==
PROVIDERS: Physician Assistant; Emergency Provider Nurse Practitioner Family
DX: R60.0 Localized edema (principal); J44.9 Chronic obstructive pulmonary disease, unspecified; Z86.19 Personal history of other infectious and parasitic diseases; I10 Essential (primary) hypertension; F17.210 Nicotine dependence, cigarettes, uncomplicated
CPT/HCPCS: 12345; 36415; 71045; 80053; 81001; 83690; 85025; 93971; 96361; 96374; 96375; 99282; 99284; J2270; J2405; J7040

== ENCOUNTER 2020-01-15 15:36 | Emergency (ER) | payer MEDICAID, SELFPAY ==
[2020-01-15 15:32] VITALS: BP 131/89; PULSE 77; RESP 22; TEMP 37; O2SAT 97; BMI 19.6
[2020-01-15 15:42] VITALS: PULSE 74
--- NOTE | 2020-01-15 16:28 | XR_ITS ---
WS: [id number] PORTABLE CHEST HISTORY: fluid overload COMPARISON: 01/11/2020 Lungs are clear and well expanded. No pleural effusion or pneumothorax. Cardiac size: Normal. Mediastinum/Aorta: Normal mediastinum. No osseous abnormality seen. XR/XR chest 1V portable [id number] IMPRESSION: Unremarkable portable chest.
--- NOTE | 2020-01-15 16:29 | US_ITS ---
WS: [id number] Complete ABDOMINAL ULTRASOUND HISTORY: Distention, cirrhosis, ascites COMPARISON: 08/01/2018 Liver: 17.8 cm in length. Liver is moderately enlarged with severe hepatic steatosis. The entire live r is not very well seen. Surface of the liver is irregular. Gallbladder: Normally distended with no gallstones, wall thickening or pericholecystic fluid. Gallbladder wall thickness: 0.2 cm. Pancreas: Not visualized. CBD: Not visualized. Right kidney: 10.8 cm x 4.9 cm x 5.6 cm. No mass, cortical thickening or hydronephrosis. Left kidney: 11.0 cm x 4.9 cm x 5.5 cm. No mass, cortical thickening or hydronephrosis. Spleen: Normal size and echogenicity. Abdominal aorta and IVC are poorly visualized. Small amount of ascites adjacent to the liver. US/US abdomen complete* [id number] IMPRESSION: 1. Markedly abnormal liver. Probably on the basis of hepatic steatosis, cirrho sis and hepatic congestion. Similar to 11/11/2019. 2. Negative gallbladder. 3. Small amount of ascites.
--- NOTE | 2020-01-15 16:33 | W.ED.GENADLT ---
Documented by User: CHRISTIAN Albert 01/17/20 07:25 HPI - General Adult General: Chief complaint: Extremity Problem,Nontraumatic Stated complaint: d/n/ leg pain Time Seen by Provider: 01/15/20 17:29 Source: patient Mode of arrival: ambulatory Limitations: no limitations History of Present Illness: HPI narrative: Patient is a 59-year-old female with a history of COPD, hepatitis C with cirrhosis, previous alcohol use, seizures, and portal hypertension here with a complaint of bilateral lower extremity swelling that she has noticed over the past few days. Patient also states her abdomen is more distended than normal. Patient herself is not very clear at her previous medical problems or previous work-ups. Looking at old documentation it seems patient is overall very noncompliant with most of her medication regimens. In addition she seems to have various social problems including lack of insurance inhibiting care. [facility] PFSH: Medical History Alcohol abuse COPD (chronic obstructive pulmonary disease) Hepatitis C Hypertension Non-compliant behavior Seizure disorder Smoker Surgical History H/O: hysterectomy Family History Mother Multiple sclerosis Social History Smoking and tobacco status: current every day smoker Alcohol intake: current Alcohol type: beer Household members: spouse and family Housing: House Marital status: Current occupation: pt states [employer] and states 13 steps to bedrooms. Physical Exam Const: COMMON NORMALS: no acute distress, patient oriented x3, no limitations and alert Resp: COMMON NORMALS: normal respiratory effort Cardio: COMMON NORMALS: regular rate and regular rhythm RATE: regular rate RHYTHM: regular rhythm GI: COMMON NORMALS: non-tender INSPECTION: Yes abdominal distension and Yes caput medusae present Extremity: OTHER: bilateral 2+ lower extremity pitting edema Neuro: COMMON NORMALS: patient oriented x3 SENSORIUM/ORIENTATION: Yes alert Course Vital Signs: Vital signs: Vital Signs Temperature 98.6 F 01/15/20 15:32 Pulse Rate 83 01/15/20 18:34 Respiratory Rate 20 H 01/15/20 18:34 Blood Pressure 149/105 01/15/20 18:34 Pulse Oximetry 95 01/15/20 18:00 [facility] - General Adult Lab Data: Labs: Lab Results 01/15/20 01/15/20 01/15/20 Range/Units 17:14 17:14 17:14 WBC 4.0 (4.0-10.0) 10^3/ uL RBC 3.38 L (4.1-5.3) 10^6/u L Hgb 10.0 L (11.5-15.3) g/dL Hct 32.1 L (37.0-47.0) % MCV 95.0 (81-99) fL MCH 29.6 (28.0-34.0) pg MCHC 31.2 (30.0-36.0) g/dL RDW 19.2 H (12.1-15.1) % Plt Count 78 L (130-400) 10^3/c mm MPV 11.6 H (7.4-10.4) fL Neut % (Auto) 46.1 % Lymph % (Auto) 37.5 % Dickinson % (Auto) 12.7 % Eos % (Auto) 1.2 % Baso % (Auto) 1.5 % Neut # (Auto) 1.9 (1.8-7.7) 10^3/u L Lymph # (Auto) 1.5 (0.8-4.8) 10^3/u L Dickinson # (Auto) 0.5 (0.2-0.9) 10^3/u L Eos # (Auto) 0.1 (0.0-0.8) 10^3/u L Baso # (Auto) 0.1 (0.0-0.1) 10^3/u L Nucleated RBC % (a uto) 0 % Nucleated RBCs # 0.0 /100WBC PT 17.00 H (10.5-13.3) SECO NDS INR 1.33 H (0.8-1.2) APTT 36.5 (23.9-36.7) SECO NDS Sodium 141 (136-145) mmol/L Potassium 3.6 (3.5-5.1) mmol/L Chloride 104 (98-107) mmol/L Carbon Dioxide 28 (22-29) mmol/L Anion Gap 12.6 (5-19) BUN 6 (6-20) mg/dL Creatinine 0.3 L (0.5-0.9) mg/dL GFR Calculation 228.5 H (90-130) mL/min Glucose 83 (65-115) mg/dL Calculated Osmolal ity 287 (285-295) mOsm/k g Lactate (0.5-2.2) mmol/L Calcium 8.8 (8.5-10.5) mg/dL Total Bilirubin 1.6 H (0.15-1.2) mg/dL AST 143 H (0-32) U/L ALT 28 (0-33) U/L Alkaline Phosphata se 194 H (35-105) IU/L Ammonia (11-51) umol/L NT-Pro-B Natriuret Pep 151 H (0-125) pg/mL Total Protein 7.4 (6.6-8.7) g/dL Albumin 3.0 L (3.5-5.2) g/dL Globulin 4.4 (1.3-4.6) g/dL Lipase 47 (13-60) U/L Urine Color (Yellow) Urine Appearance (CLEAR) Urine pH (5-7) Ur Specific Gravit y (1.005-1.030) Urine Protein (Negative) Urine Glucose (UA) (Normal) Urine Ketones (Negative) Urine Blood (Negative) Urine Nitrate (Negative) Urine Bilirubin (NEGATIVE) Urine Urobilinogen (Negative) mg/dL Ur Leukocyte Loni ase (Negative) Urine Opiates Scre en (Negative) ng/mL Ur Barbiturates Sc reen (Negative) ng/mL Ur Phencyclidine S crn (Negative) ng/mL Ur Amphetamines Sc reen (Negative) ng/mL U Benzodiazepines Scrn (Negative) ng/mL Urine Cocaine Scre en (Negative) ng/mL U Marijuana (THC) Screen (Negative) ng/mL 01/15/20 01/15/20 01/15/20 Range/Units 17:14 17:14 17:35 WBC (4.0-10.0) 10^3/ uL RBC (4.1-5.3) 10^6/u L Hgb (11.5-15.3) g/dL Hct (37.0-47.0) % MCV (81-99) fL MCH (28.0-34.0) pg MCHC (30.0-36.0) g/dL RDW (12.1-15.1) % Plt Count (130-400) 10^3/c mm MPV (7.4-10.4) fL Neut % (Auto) % Lymph % (Auto) % Dickinson % (Auto) % Eos % (Auto) % Baso % (Auto) % Neut # (Auto) (1.8-7.7) 10^3/u L Lymph # (Auto) (0.8-4.8) 10^3/u L Dickinson # (Auto) (0.2-0.9) 10^3/u L Eos # (Auto) (0.0-0.8) 10^3/u L Baso # (Auto) (0.0-0.1) 10^3/u L Nucleated RBC % (a uto) % Nucleated RBCs # /100WBC PT (10.5-13.3) SECO NDS INR (0.8-1.2) APTT (23.9-36.7) SECO NDS Sodium (136-145) mmol/L Potassium (3.5-5.1) mmol/L Chloride (98-107) mmol/L Carbon Dioxide (22-29) mmol/L Anion Gap (5-19) BUN (6-20) mg/dL Creatinine (0.5-0.9) mg/dL GFR Calculation (90-130) mL/min Glucose (65-115) mg/dL Calculated Osmolal ity (285-295) mOsm/k g Lactate 1.8 (0.5-2.2) mmol/L Calcium (8.5-10.5) mg/dL Total Bilirubin (0.15-1.2) mg/dL AST (0-32) U/L ALT (0-33) U/L Alkaline Phosphata se (35-105) IU/L Ammonia 27 (11-51) umol/L NT-Pro-B Natriuret Pep (0-125) pg/mL Total Protein (6.6-8.7) g/dL Albumin (3.5-5.2) g/dL Globulin (1.3-4.6) g/dL Lipase (13-60) U/L Urine Color Yellow (Yellow) Urine Appearance Clear (CLEAR) Urine pH 7 (5-7) Ur Specific Gravit y 1.005 (1.005-1.030) Urine Protein Neg (Negative) Urine Glucose (UA) Norm (Normal) Urine Ketones Negative (Negative) Urine Blood Neg (Negative) Urine Nitrate Negative (Negative) Urine Bilirubin Neg (NEGATIVE) Urine Urobilinogen 1 H (Negative) mg/dL Ur Leukocyte Loni ase Negative (Negative) Urine Opiates Scre en (Negative) ng/mL Ur Barbiturates Sc reen (Negative) ng/mL Ur Phencyclidine S crn (Negative) ng/mL Ur Amphetamines Sc reen (Negative) ng/mL U Benzodiazepines Scrn (Negative) ng/mL Urine Cocaine Scre en (Negative) ng/mL U Marijuana (THC) Screen (Negative) ng/mL 01/15/20 Range/Units 17:35 WBC (4.0-10.0) 10^3/ uL RBC (4.1-5.3) 10^6/u L Hgb (11.5-15.3) g/dL Hct (37.0-47.0) % MCV (81-99) fL MCH (28.0-34.0) pg MCHC (30.0-36.0) g/dL RDW (12.1-15.1) % Plt Count (130-400) 10^3/c mm MPV (7.4-10.4) fL Neut % (Auto) % Lymph % (Auto) % Dickinson % (Auto) % Eos % (Auto) % Baso % (Auto) % Neut # (Auto) (1.8-7.7) 10^3/u L Lymph # (Auto) (0.8-4.8) 10^3/u L Dickinson # (Auto) (0.2-0.9) 10^3/u L Eos # (Auto) (0.0-0.8) 10^3/u L Baso # (Auto) (0.0-0.1) 10^3/u L Nucleated RBC % (a uto) % Nucleated RBCs # /100WBC PT (10.5-13.3) SECO NDS INR (0.8-1.2) APTT (23.9-36.7) SECO NDS Sodium (136-145) mmol/L Potassium (3.5-5.1) mmol/L Chloride (98-107) mmol/L Carbon Dioxide (22-29) mmol/L Anion Gap (5-19) BUN (6-20) mg/dL Creatinine (0.5-0.9) mg/dL GFR Calculation (90-130) mL/min Glucose (65-115) mg/dL Calculated Osmolal ity (285-295) mOsm/k g Lactate (0.5-2.2) mmol/L Calcium (8.5-10.5) mg/dL Total Bilirubin (0.15-1.2) mg/dL AST (0-32) U/L ALT (0-33) U/L Alkaline Phosphata se (35-105) IU/L Ammonia (11-51) umol/L NT-Pro-B Natriuret Pep (0-125) pg/mL Total Protein (6.6-8.7) g/dL Albumin (3.5-5.2) g/dL Globulin (1.3-4.6) g/dL Lipase (13-60) U/L Urine Color (Yellow) Urine Appearance (CLEAR) Urine pH (5-7) Ur Specific Gravit y (1.005-1.030) Urine Protein (Negative) Urine Glucose (UA) (Normal) Urine Ketones (Negative) Urine Blood (Negative) Urine Nitrate (Negative) Urine Bilirubin (NEGATIVE) Urine Urobilinogen (Negative) mg/dL Ur Leukocyte Loni ase (Negative) Urine Opiates Scre en Positive H (Negative) ng/mL Ur Barbiturates Sc reen Negative (Negative) ng/mL Ur Phencyclidine S crn Negative (Negative) ng/mL Ur Amphetamines Sc reen Negative (Negative) ng/mL U Benzodiazepines Scrn Negative (Negative) ng/mL Urine Cocaine Scre en Negative (Negative) ng/mL U Marijuana (THC) Screen Negative (Negative) ng/mL Discharge Plan Discharge Patient Disposition: Home, Self-Care Clinical Impression: Cirrhosis Qualifiers: Hepatic cirrhosis type: alcoholic cirrhosis Ascites presence: unspecified Qualified Code(s): K70.30 - Alcoholic cirrhosis of liver without ascites Edema Qualifiers: Edema type: unspecified Qualified Code(s): R60.9 - Edema, unspecified Abdominal pain Qualifiers: Abdominal location: right upper quadrant Qualified Code(s): R10.11 - Right upper quadrant pain Condition: Stable Prescriptions: New tramadol 50 mg tablet 50 mg PO BID PRN (Reason: pain) Qty: 14 RF: 0 No Action levetiracetam [Keppra] 500 mg Tablet 500 mg PO Q12H 30 Days Qty: 60 RF: 0 aspirin 81 mg Tablet,Delayed Release (Dr/Ec) 81 mg PO DAILY RF: 0 vit B comp with C-calcium carb 300 mg-150 mg calcium Tablet 1 tab PO DAILY RF: 0 furosemide 40 mg Tablet 40 mg PO DAILY RF: 0 clonazepam [Klonopin] 0.5 mg tablet 0.25 mg PO DAILY RF: 0 spironolactone 100 mg Tablet 100 mg PO DAILY RF: 0 propranolol 20 mg/5 mL (4 mg/mL) Solution 10 mg PO BID RF: 0 folic acid 1 mg Tablet 1 mg PO DAILY RF: 0 lactulose 20 gram/30 mL Solution 20 g PO BID RF: 0 Discharge Diet: Usual diet Discharge Activity: Increase activity as tolerated Patient Instructions: Abdominal Pain (ED) Activity Restrictions/Additional Instructions: You need to stop drinking alcohol. I recommend going to an alcohol free beer. Increase activity as tolerated. Use a walker for ambulation. Take medications as prescribed. Follow-up with primary care in 1 week. Return to the ER for high fever, vomiting blood, blood in stool. Discharge Date/Time: 01/15/20 18:36 Coding Level of Care Code ED Map Maker for Chg Fwd Exam Expanded Problem Focused Documented by User: RITA Umanzor 01/15/20 18:27 HPI - General Adult General: Chief complaint: Extremity Problem,Nontraumatic Stated complaint: d/n/ leg pain Time Seen by Provider: 01/15/20 17:29 Review of Systems General: Reports: 10 or more systems reviewed and unremarkable except in HPI and below Musc: Reports: extremity swelling PFSH ED PFSH: Medical History Alcohol abuse COPD (chronic obstructive pulmonary disease) Hepatitis C Hypertension Non-compliant behavior Seizure disorder Smoker Surgical History H/O: hysterectomy Family History Mother Multiple sclerosis Social History Smoking and tobacco status: current every day smoker Alcohol intake: current Alcohol type: beer Household members: spouse and family Housing: House Marital status: Current occupation: pt states [employer] and states 13 steps to bedrooms. Course ED course: 1700, received patient from Nancy Castro, physician management assistant. Awaiting lab work and imaging. Ultrasound noted no significant ascites that would require paracentesis. Patient came in due to increased swelling of the lower extremities. Vital Signs: Vital signs: Vital Signs Temperature 98.6 F 01/15/20 15:32 Pulse Rate 83 01/15/20 18:34 Respiratory Rate 20 H 01/15/20 18:34 Blood Pressure 149/105 01/15/20 18:34 Pulse Oximetry 95 01/15/20 18:00 MDM - General Adult MDM Narrative: Medical decision making narrative: Patient came in today for complaints of swelling in the lower extremities and some abdominal pain. Patient has cirrhosis of the liver due to chronic alcoholism. Patient appears in no acute distress and mild pain. Abdomen is slightly rotund bowel sounds are present throughout. Patient has some right upper quadrant tenderness and hepatomegaly. Lower extremities have +2 pitting edema. Pulses are intact. No redness or inflammation is noted in lower extremities. Differential diagnosis includes cirrhosis, ascites, Warnicke's encephalopathy, anemia, malnutrition. Laboratory values were unchanged from prior lab that was noted in the computer. Ammonia level was 27. Chest x-ray was normal. An ultrasound of the abdomen indicated no significant ascites. Patient was medicated for her pain and wished to go home. Patient was written a short prescription of tramadol to take 1 twice a day as needed for pain with need for follow-up with primary care. Patient at this time is without insurance and does not have a primary care provider. Case management will be placed to assist with primary care. Lab Data: Labs: Lab Results 01/15/20 01/15/20 01/15/20 Range/Units 17:14 17:14 17:14 WBC 4.0 (4.0-10.0) 10^3/ uL RBC 3.38 L (4.1-5.3) 10^6/u L Hgb 10.0 L (11.5-15.3) g/dL Hct 32.1 L (37.0-47.0) % MCV 95.0 (81-99) fL MCH 29.6 (28.0-34.0) pg MCHC 31.2 (30.0-36.0) g/dL RDW 19.2 H (12.1-15.1) % Plt Count 78 L (130-400) 10^3/c mm MPV 11.6 H (7.4-10.4) fL Neut % (Auto) 46.1 % Lymph % (Auto) 37.5 % Dickinson % (Auto) 12.7 % Eos % (Auto) 1.2 % Baso % (Auto) 1.5 % Neut # (Auto) 1.9 (1.8-7.7) 10^3/u L Lymph # (Auto) 1.5 (0.8-4.8) 10^3/u L Dickinson # (Auto) 0.5 (0.2-0.9) 10^3/u L Eos # (Auto) 0.1 (0.0-0.8) 10^3/u L Baso # (Auto) 0.1 (0.0-0.1) 10^3/u L Nucleated RBC % (a uto) 0 % Nucleated RBCs # 0.0 /100WBC PT 17.00 H (10.5-13.3) SECO NDS INR 1.33 H (0.8-1.2) APTT 36.5 (23.9-36.7) SECO NDS Sodium 141 (136-145) mmol/L Potassium 3.6 (3.5-5.1) mmol/L Chloride 104 (98-107) mmol/L Carbon Dioxide 28 (22-29) mmol/L Anion Gap 12.6 (5-19) BUN 6 (6-20) mg/dL Creatinine 0.3 L (0.5-0.9) mg/dL GFR Calculation 228.5 H (90-130) mL/min Glucose 83 (65-115) mg/dL Calculated Osmolal ity 287 (285-295) mOsm/k g Lactate (0.5-2.2) mmol/L Calcium 8.8 (8.5-10.5) mg/dL Total Bilirubin 1.6 H (0.15-1.2) mg/dL AST 143 H (0-32) U/L ALT 28 (0-33) U/L Alkaline Phosphata se 194 H (35-105) IU/L Ammonia (11-51) umol/L NT-Pro-B Natriuret Pep 151 H (0-125) pg/mL Total Protein 7.4 (6.6-8.7) g/dL Albumin 3.0 L (3.5-5.2) g/dL Globulin 4.4 (1.3-4.6) g/dL Lipase 47 (13-60) U/L Urine Color (Yellow) Urine Appearance (CLEAR) Urine pH (5-7) Ur Specific Gravit y (1.005-1.030) Urine Protein (Negative) Urine Glucose (UA) (Normal) Urine Ketones (Negative) Urine Blood (Negative) Urine Nitrate (Negative) Urine Bilirubin (NEGATIVE) Urine Urobilinogen (Negative) mg/dL Ur Leukocyte Loni ase (Negative) Urine Opiates Scre en (Negative) ng/mL Ur Barbiturates Sc reen (Negative) ng/mL Ur Phencyclidine S crn (Negative) ng/mL Ur Amphetamines Sc reen (Negative) ng/mL U Benzodiazepines Scrn (Negative) ng/mL Urine Cocaine Scre en (Negative) ng/mL U Marijuana (THC) Screen (Negative) ng/mL 01/15/20 01/15/20 01/15/20 Range/Units 17:14 17:14 17:35 WBC (4.0-10.0) 10^3/ uL RBC (4.1-5.3) 10^6/u L Hgb (11.5-15.3) g/dL Hct (37.0-47.0) % MCV (81-99) fL MCH (28.0-34.0) pg MCHC (30.0-36.0) g/dL RDW (12.1-15.1) % Plt Count (130-400) 10^3/c mm MPV (7.4-10.4) fL Neut % (Auto) % Lymph % (Auto) % Dickinson % (Auto) % Eos % (Auto) % Baso % (Auto) % Neut # (Auto) (1.8-7.7) 10^3/u L Lymph # (Auto) (0.8-4.8) 10^3/u L Dickinson # (Auto) (0.2-0.9) 10^3/u L Eos # (Auto) (0.0-0.8) 10^3/u L Baso # (Auto) (0.0-0.1) 10^3/u L Nucleated RBC % (a uto) % Nucleated RBCs # /100WBC PT (10.5-13.3) SECO NDS INR (0.8-1.2) APTT (23.9-36.7) SECO NDS Sodium (136-145) mmol/L Potassium (3.5-5.1) mmol/L Chloride (98-107) mmol/L Carbon Dioxide (22-29) mmol/L Anion Gap (5-19) BUN (6-20) mg/dL Creatinine (0.5-0.9) mg/dL GFR Calculation (90-130) mL/min Glucose (65-115) mg/dL Calculated Osmolal ity (285-295) mOsm/k g Lactate 1.8 (0.5-2.2) mmol/L Calcium (8.5-10.5) mg/dL Total Bilirubin (0.15-1.2) mg/dL AST (0-32) U/L ALT (0-33) U/L Alkaline Phosphata se (35-105) IU/L Ammonia 27 (11-51) umol/L NT-Pro-B Natriuret Pep (0-125) pg/mL Total Protein (6.6-8.7) g/dL Albumin (3.5-5.2) g/dL Globulin (1.3-4.6) g/dL Lipase (13-60) U/L Urine Color Yellow (Yellow) Urine Appearance Clear (CLEAR) Urine pH 7 (5-7) Ur Specific Gravit y 1.005 (1.005-1.030) Urine Protein Neg (Negative) Urine Glucose (UA) Norm (Normal) Urine Ketones Negative (Negative) Urine Blood Neg (Negative) Urine Nitrate Negative (Negative) Urine Bilirubin Neg (NEGATIVE) Urine Urobilinogen 1 H (Negative) mg/dL Ur Leukocyte Loni ase Negative (Negative) Urine Opiates Scre en (Negative) ng/mL Ur Barbiturates Sc reen (Negative) ng/mL Ur Phencyclidine S crn (Negative) ng/mL Ur Amphetamines Sc reen (Negative) ng/mL U Benzodiazepines Scrn (Negative) ng/mL Urine Cocaine Scre en (Negative) ng/mL U Marijuana (THC) Screen (Negative) ng/mL 01/15/20 Range/Units 17:35 WBC (4.0-10.0) 10^3/ uL RBC (4.1-5.3) 10^6/u L Hgb (11.5-15.3) g/dL Hct (37.0-47.0) % MCV (81-99) fL MCH (28.0-34.0) pg MCHC (30.0-36.0) g/dL RDW (12.1-15.1) % Plt Count (130-400) 10^3/c mm MPV (7.4-10.4) fL Neut % (Auto) % Lymph % (Auto) % Dickinson % (Auto) % Eos % (Auto) % Baso % (Auto) % Neut # (Auto) (1.8-7.7) 10^3/u L Lymph # (Auto) (0.8-4.8) 10^3/u L Dickinson # (Auto) (0.2-0.9) 10^3/u L Eos # (Auto) (0.0-0.8) 10^3/u L Baso # (Auto) (0.0-0.1) 10^3/u L Nucleated RBC % (a uto) % Nucleated RBCs # /100WBC PT (10.5-13.3) SECO NDS INR (0.8-1.2) APTT (23.9-36.7) SECO NDS Sodium (136-145) mmol/L Potassium (3.5-5.1) mmol/L Chloride (98-107) mmol/L Carbon Dioxide (22-29) mmol/L Anion Gap (5-19) BUN (6-20) mg/dL Creatinine (0.5-0.9) mg/dL GFR Calculation (90-130) mL/min Glucose (65-115) mg/dL Calculated Osmolal ity (285-295) mOsm/k g Lactate (0.5-2.2) mmol/L Calcium (8.5-10.5) mg/dL Total Bilirubin (0.15-1.2) mg/dL AST (0-32) U/L ALT (0-33) U/L Alkaline Phosphata se (35-105) IU/L Ammonia (11-51) umol/L NT-Pro-B Natriuret Pep (0-125) pg/mL Total Protein (6.6-8.7) g/dL Albumin (3.5-5.2) g/dL Globulin (1.3-4.6) g/dL Lipase (13-60) U/L Urine Color (Yellow) Urine Appearance (CLEAR) Urine pH (5-7) Ur Specific Gravit y (1.005-1.030) Urine Protein (Negative) Urine Glucose (UA) (Normal) Urine Ketones (Negative) Urine Blood (Negative) Urine Nitrate (Negative) Urine Bilirubin (NEGATIVE) Urine Urobilinogen (Negative) mg/dL Ur Leukocyte Loni ase (Negative) Urine Opiates Scre en Positive H (Negative) ng/mL Ur Barbiturates Sc reen Negative (Negative) ng/mL Ur Phencyclidine S crn Negative (Negative) ng/mL Ur Amphetamines Sc reen Negative (Negative) ng/mL U Benzodiazepines Scrn Negative (Negative) ng/mL Urine Cocaine Scre en Negative (Negative) ng/mL U Marijuana (THC) Screen Negative (Negative) ng/mL Discharge Plan Discharge Patient Disposition: Home, Self-Care Clinical Impression: Cirrhosis Qualifiers: Hepatic cirrhosis type: alcoholic cirrhosis Ascites presence: unspecified Qualified Code(s): K70.30 - Alcoholic cirrhosis of liver without ascites Edema Qualifiers: Edema type: unspecified Qualified Code(s): R60.9 - Edema, unspecified Abdominal pain Qualifiers: Abdominal location: right upper quadrant Qualified Code(s): R10.11 - Right upper quadrant pain Condition: Stable Prescriptions: New tramadol 50 mg tablet 50 mg PO BID PRN (Reason: pain) Qty: 14 RF: 0 No Action levetiracetam [Keppra] 500 mg Tablet 500 mg PO Q12H 30 Days Qty: 60 RF: 0 aspirin 81 mg Tablet,Delayed Release (Dr/Ec) 81 mg PO DAILY RF: 0 vit B comp with C-calcium carb 300 mg-150 mg calcium Tablet 1 tab PO DAILY RF: 0 furosemide 40 mg Tablet 40 mg PO DAILY RF: 0 clonazepam [Klonopin] 0.5 mg tablet 0.25 mg PO DAILY RF: 0 spironolactone 100 mg Tablet 100 mg PO DAILY RF: 0 propranolol 20 mg/5 mL (4 mg/mL) Solution 10 mg PO BID RF: 0 folic acid 1 mg Tablet 1 mg PO DAILY RF: 0 lactulose 20 gram/30 mL Solution 20 g PO BID RF: 0 Discharge Diet: Usual diet Discharge Activity: Increase activity as tolerated Patient Instructions: Abdominal Pain (ED) Activity Restrictions/Additional Instructions: You need to stop drinking alcohol. I recommend going to an alcohol free beer. Increase activity as tolerated. Use a walker for ambulation. Take medications as prescribed. Follow-up with primary care in 1 week. Return to the ER for high fever, vomiting blood, blood in stool. Discharge Date/Time: 01/15/20 18:36 Coding Level of Care Code ED Map Maker for Hammad Fwd Exam Expanded Problem Focused
[2020-01-15 17:23] LABS: Basophils # 0.1 10^3/uL (0.0-0.1); Basophils % 1.5 %; Eosinophils # 0.1 10^3/uL (0.0-0.8); Eosinophils % 1.2 %; Hematocrit 32.1 % (37.0-47.0); Lymphocytes # 1.5 10^3/uL (0.8-4.8); Lymphocytes % 37.5 %; Mean Corpuscular HGB Conc 31.2 g/dL (30.0-36.0); Mean Corpuscular Hemoglobin 29.6 pg (28.0-34.0); Mean Platelet Volume 11.6 fL (7.4-10.4); Monocytes # 0.5 10^3/uL (0.2-0.9); Monocytes % 12.7 %; Neutrophils # 1.9 10^3/uL (1.8-7.7); Neutrophils % 46.1 %; Nucleated Red Blood Cells % 0 %; Platelet Count 78 10^3/cmm (130-400); Red Blood Count 3.38 10^6/uL (4.1-5.3); Red Cell Distribution Width 19.2 % (12.1-15.1)
[2020-01-15 17:32] LABS: INR 1.33 (0.8-1.2)
[2020-01-15 17:33] LABS: Partial Thromboplastin Time 36.5 SECONDS (23.9-36.7)
[2020-01-15 17:37] LABS: Ammonia 27 umol/L (11-51); Lactate (Lactic Acid level) 1.8 mmol/L (0.5-2.2)
[2020-01-15 17:39] VITALS: BP 134/84; PULSE 81; RESP 20; O2SAT 100
[2020-01-15 17:46] LABS: Alanine Aminotransferase 28 U/L (0-33); Alkaline Phosphatase 194 IU/L (35-105); Anion Gap 12.6 (5-19); Aspartate Amino Transferase 143 U/L (0-32); Blood Urea Nitrogen 6 mg/dL (6-20); Calcium 8.8 mg/dL (8.5-10.5); Carbon Dioxide 28 mmol/L (22-29); Chloride 104 mmol/L (98-107); Globulin 4.4 g/dL (1.3-4.6); Glomerular Filtration Rate 228.5 mL/min (90-130); Glucose 83 mg/dL (65-115); Lipase 47 U/L (13-60); NT Pro B Type Natriuretic Pept 151 pg/mL (0-125); Osmolality Calculated 287 mOsm/kg (285-295); Potassium 3.6 mmol/L (3.5-5.1); Sodium 141 mmol/L (136-145); Total Bilirubin 1.6 mg/dL (0.15-1.2); Total Protein 7.4 g/dL (6.6-8.7)
[2020-01-15 18:00] VITALS: BP 155/106; PULSE 94; RESP 20; O2SAT 95
[2020-01-15 18:00] LABS: Add Urine Microscopic? NO
[2020-01-15 18:05] LABS: Bilirubin Urine Neg (NEGATIVE); Blood Urine Neg (Negative); Glucose Urine UA Norm (Normal); Ketones Urine Negative (Negative); Leukocyte Esterase Urine Negative (Negative); Nitrate Urine Negative (Negative); Protein Urine Neg (Negative); Specific Gravity, Urine 1.005 (1.005-1.030); Urine Appearance Clear (CLEAR); Urine Color Yellow (Yellow); Urobilinogen Urine 1 mg/dL (Negative); pH Urine 7 (5-7)
[2020-01-15 18:14] LABS: Amphetamines Screen Urine Negative (Negative); Barbiturates Screen Urine Negative (Negative); Benzodiazepines Screen Urine Negative (Negative); Cocaine Screen Urine Negative (Negative); Opiate Screen Urine Positive (Negative); PCP Screen Urine Negative (Negative); THC Screen Urine Negative (Negative)
[2020-01-15] MEDS: HYDROcodone-acetaminophen 5-325 mg Tablet 1 TAB PO (18:28)
[2020-01-15 18:34] VITALS: BP 149/105; PULSE 83; RESP 20
--- NOTE | 2020-01-16 12:16 | DCPLANNER ---
resource development manager had message to speak with patient about getting established with a primary care physician. resource development manager called [phone] to speak with patient. resource development manager unable to speak with patient or leave a voicemail due to no voicemail set up.
== END 2020-01-15 18:36 | disposition home or self-care (01) ==
PROVIDERS: Physician Assistant; Emergency Provider Nurse Practitioner Family
DX: R60.9 Edema, unspecified (principal); R10.11 Right upper quadrant pain; K70.30 Alcoholic cirrhosis of liver without ascites; Z79.82 Long term (current) use of aspirin; J44.9 Chronic obstructive pulmonary disease, unspecified; Z86.19 Personal history of other infectious and parasitic diseases; I10 Essential (primary) hypertension; F17.210 Nicotine dependence, cigarettes, uncomplicated
CPT/HCPCS: 12345; 36415; 71045; 76700; 80053; 80306; 81003; 82140; 83605; 83690; 83880; 85025; 85610; 85730; 99283

== ENCOUNTER 2020-02-01 23:40 | Inpatient (IN) | payer MEDICAID, SELFPAY ==
[2020-02-01 23:41] VITALS: BMI 19.6
--- NOTE | 2020-02-01 23:45 | XRR_ITS ---
PROCEDURE INFORMATION: Exam: XR Chest, 1 View Exam date and time: 02/01/2020 11:46 PM Age: 59 years old Clinical indication: Other: Altered mental status; Additional info: AMS TECHNIQUE: Imaging protocol: XR of the chest Views: 1 view. COMPARISON: CR XR chest 1V portable [id number] 01/15/2020 4:42 PM FINDINGS: Lungs: Unremarkable. No consolidation. Pleural space: Unremarkable. No pleural effusion. No pneumothorax. Heart/Mediastinum: Unremarkable. No cardiomegaly. Bones/joints: Unremarkable. XR/XR chest 1V portable [id number] IMPRESSION: Negative for infiltrate.
--- NOTE | 2020-02-01 23:45 | CTR_ITS ---
PROCEDURE INFORMATION: Exam: CT Head Without Contrast Exam date and time: 02/01/2020 11:52 PM Age: 59 years old Clinical indication: Altered mental status/memory loss; Confusion or disorientation; Patient HX: Weakness and confusion - HX of seizures; Additional info: AMS TECHNIQUE: Imaging protocol: Computed tomography of the head without contrast. Radiation optimization: All CT scans at this facility use at least one of these dose optimization techniques: automated exposure control; mA and/or kV adjustment per patient size (includes targeted exams where dose is matched to clinical indication); or iterative reconstruction. COMPARISON: CT head wo con* [id number] 04/28/2019 1:13 PM RADIATION DOSE METRICS: Total DLP: 714.12 mGy-cm FINDINGS: Brain: Normal. No hemorrhage. Unremarkable white matter. No mass effect. Ventricles: Normal. No ventriculomegaly. Bones/joints: Unremarkable. No acute fracture. Sinuses: Visualized sinuses are unremarkable. No fluid levels. Mastoid air cells: Visualized mastoid air cells are well aerated. Soft tissues: Unremarkable. CT/CT head wo con* [id number] IMPRESSION: Negative for intracranial hemorrhage or mass effect. Radiation Dose CTDIVOL = (mGy): DLP = 714.12 (mGy-cm)
[2020-02-01 23:46] VITALS: BP 115/67; PULSE 89; RESP 16; TEMP 36.7; O2SAT 94
--- NOTE | 2020-02-01 23:46 | ECG_ITS ---
Measurements Intervals [place] Rate: 84 P: 52 AK: 161 QRS: -37 QRSD: 121 T: 76 QT: 380 QTc: 451 SINUS RHYTHM LEFT AXIS DEVIATION [QRS AXIS < -30] POSSIBLE RIGHT VENTRICULAR CONDUCTION DELAY [RSR (QR) IN V1/V2] ST DEVIATION AND MODERATE T-WAVE ABNORMALITY, CONSIDER ANTERIOR ISCHEMIA [-0.1+ mV T WAVE IN V3/V4] Compared to ECG 11/11/2019 18:43:44 Left-axis deviation now present T-wave abnormality now present Possible ischemia now present Incomplete right bundle-branch block no longer present Myocardial infarct finding no longer present Electronically Signed On 02-02-2020 7:48:17 CDT by Kingsley Cuevas M.D. [email or web address]
[2020-02-02] VITALS (61 sets, daily range): BP systolic 78–112; BP diastolic 47–70; PULSE 79–136; RESP 6–31; TEMP 36.8–37.9; O2SAT 90–99
[2020-02-02 00:27] LABS: ABG PCO2 40.6 mmHg (35-45); ABG PH Result 7.48 (7.35-7.45); Alveolar-Arterial Oxygen Gradi 30.6 mmHg (5-10); Arterial Blood Gas Hematocrit 33.4 % (37-47); Base Excess ABG 6.2 mmol/L (-2.0-2.0); Blood Gas Allen Test Pos; Blood Gas Sample Site Brachial, left; Blood Gas Sample Type Arterial; Carboxyhemoglobin 4.6 %THgb (0.4-20.1); HCO3 ABG 30.2 mmol/L (22-26); HGB O2 Sat 88.5 % (95-100); Ionized Calcium Level - ABG 1.1 mmol/L (1.1-1.4); Methemoglobin 0.7 % (0.4-1.5); Oxygen Saturation ABG 93.4; Potassium Level - ABG 2.6 mmol/L (3.5-5.0); Total Hemoglobin 10.9 g/dL (12-16)
[2020-02-02 00:42] LABS: Lactic Sepsis W/Reflex 2.6 mmol/L (0.5-2.2)
[2020-02-02 00:54] LABS: Alanine Aminotransferase 26 U/L (0-33); Albumin Level 3.3 g/dL (3.5-5.2); Alkaline Phosphatase 189 IU/L (35-105); Anion Gap 18.8 (5-19); Aspartate Amino Transferase 156 U/L (0-32); Blood Urea Nitrogen 3 mg/dL (6-20); Calcium 8.7 mg/dL (8.5-10.5); Carbon Dioxide 26 mmol/L (22-29); Chloride 96 mmol/L (98-107); Creatine Phosphokinase 29 U/L (26-192); Globulin 5.2 g/dL (1.3-4.6); Glomerular Filtration Rate 163.9 mL/min (90-130); Glucose 101 mg/dL (65-115); Lipase 71 U/L (13-60); Magnesium 1.8 mg/dL (1.7-2.3); Osmolality Calculated 282 mOsm/kg (285-295); Sodium 138 mmol/L (136-145); Thyroid Stimulating Hormone 1.26 uIU/mL (0.27-4.20); Total Bilirubin 2.7 mg/dL (0.15-1.2); Total Protein 8.5 g/dL (6.6-8.7)
[2020-02-02 00:57] LABS: Basophils # 0.1 10^3/uL (0.0-0.1); Basophils % 1.4 %; Eosinophils # 0.1 10^3/uL (0.0-0.8); Eosinophils % 1.2 %; Hemoglobin 11.9 g/dL (11.5-15.3); INR 1.33 (0.8-1.2); Lymphocytes # 1.9 10^3/uL (0.8-4.8); Lymphocytes % 37.6 %; Mean Corpuscular HGB Conc 31.3 g/dL (30.0-36.0); Mean Corpuscular Hemoglobin 30.7 pg (28.0-34.0); Mean Corpuscular Volume 98.2 fL (81-99); Mean Platelet Volume 11.9 fL (7.4-10.4); Monocytes # 0.8 10^3/uL (0.2-0.9); Monocytes % 15.6 %; Neutrophils # 2.2 10^3/uL (1.8-7.7); Neutrophils % 43.6 %; Nucleated Red Blood Cells % 0 %; Platelet Count 74 10^3/cmm (130-400); Red Blood Count 3.87 10^6/uL (4.1-5.3); Red Cell Distribution Width 20.6 % (12.1-15.1)
[2020-02-02 00:58] LABS: Ketone (Acetest) Serum Negative (Negative)
[2020-02-02 01:03] LABS: Ammonia 48 umol/L (11-51)
[2020-02-02 01:06] LABS: Alcohol Level 441 mg/dL (0-10); Potassium 2.8 mmol/L (3.5-5.1); Troponin(5th) Baseline 11 ng/mL (0-10)
[2020-02-02] MEDS: sodium chloride 0.9% 1,000 ML 100 ML IV (01:34)
[2020-02-02] MEDS: potassium chloride premix 40 MEQ/100 ML PREMIX 25 MEQ IV (01:35)
--- NOTE | 2020-02-02 01:58 | W.ED.AMS ---
HPI - Altered Mental Status General: Chief Complaint: Altered Mental Status Stated Complaint: WEAKNESS / CONFUSION Time Seen by Provider: 02/01/20 23:44 History of Present Illness: HPI narrative: Apurva is a 59-year-old female who comes in by EMS with report of altered mental status. Apparently she has been drinking alcohol and alcohol only for the past several days. The patient is alert to self only and thinks that Khurram Saunders is the president and has no idea why she is here. Patient states that she feels nauseated when she tries to eat food and that is why she is not eating. Patient denies any other physical complaints. The patient is deemed a poor historian secondary to her altered mental status. Review of Systems General: Reports: ROS unobtainable due to mental status PFSH ED PFSH: Medical History Alcohol abuse Cirrhosis Ascites, esophageal varices, COPD (chronic obstructive pulmonary disease) Hepatitis C Not treated in the past, and is stating she was not able to afford medications Hypertension Non-compliant behavior Does not have a PCP, missed many appointments with [facility] neck Portal hypertension Seizure disorder Smoker Surgical History H/O: hysterectomy Family History Mother Multiple sclerosis Social History Smoking and tobacco status: current every day smoker Alcohol intake: current Alcohol type: beer Household members: spouse and family Housing: House Marital status: Current occupation: pt states [employer] and states 13 steps to bedrooms. Physical Exam Const: COMMON NORMALS: no acute distress EXAM LIMITATIONS: altered mental status GENERAL APPEARANCE: frail appearing, appears older than stated age and odor of alcohol detected NUTRITIONAL APPEARANCE: underweight ORIENTATION/CONSCIOUSNESS: Yes awake, Yes oriented to person and Yes confused HENMT: COMMON NORMALS: normocephalic, atraumatic, hearing grossly normal bilaterally, external ears normal, EAC's normal, Normal external nose present and moist oral mucous membranes HEAD & SCALP: normocephalic and atraumatic NOSE: Normal external nose present and Normal nares present EXTERNAL EAR: Yes external ears normal EXTERNAL AUDITORY CANAL: EAC's normal MOUTH: Normal oral and palatal mucosa present, lip normal and tongue normal Eye: COMMON NORMALS: Equal, round and reactive pupils present, EOMs intact bilaterally, conjunctivae normal and no scleral icterus GENERAL EYE: appearance normal, both eyes and all related structures ALIGNMENT: Yes alignment normal PERIORBITAL: periorbital findings normal EYELID: eyelids normal CONJUNCTIVA: Yes conjunctivae normal SCLERA: sclerae normal PUPIL: Yes Equal, round and reactive pupils present Neck/C-Spine: COMMON NORMALS: full ROM, no lymphadenopathy, supple, no meningeal signs and no JVD GENERAL: Yes normal visual inspection and Yes trachea midline Chest: COMMONS NORMALS: normal inspection of the chest and normal palpation of entire chest wall Resp: COMMON NORMALS: normal respiratory effort, No retractions, No use of accessory muscles and clear to auscultation bilaterally EFFORT & INSPECTION: Yes able to speak in complete sentences and Yes symmetric chest movement AUSCULTATION: clear to auscultation bilaterally, no crackles, no rales, no rhonchi and no wheezes Cardio: COMMON NORMALS: no JVD, regular rate, regular rhythm, S1 normal heart sound present, S2 normal heart sound present, No gallops present (Cardio), No clicks present (Cardio), No murmurs present (Cardio) and No rub (Cardio) RATE: regular rate RHYTHM: regular rhythm HEART SOUNDS: S1 normal heart sound present and S2 normal heart sound present GI: COMMON NORMALS: Soft to palpation and No hepatosplenomegaly present PALPATION: Yes Soft to palpation, No Tenderness to palpation present (GI), No Guarding due to palpation present (GI), No Rigid due to palpation, Yes No hepatosplenomegaly present, No Hernia present, No Palpable mass present and No Pulsatile mass present : COMMON NORMALS: Yes no CVA tenderness BLADDER/KIDNEY EXAM: Yes no CVA tenderness EXTERNAL FEMALE EXAM: No Hernia present Back/Pelvis: COMMON NORMALS: no CVA tenderness, thoracic and lumbar spine normal to inspection, no thoracic nor lumbar tenderness and thoraco-lumbar ROM normal Extremity: COMMON NORMALS: normal to inspection, full ROM, capillary refill normal, no joint enlargement, no clubbing, cyanosis or edema and no calf tenderness Neuro: SONY COMA SCALE: document GCS findings [place] coma scale eye opening: Spontaneous Soyn coma scale verbal response: Confused Sony coma scale motor response: Obey commands [place] coma scale total score: 14 COMMON NORMALS: CN's II-XII intact bilaterally, moves all extremities, no focal motor deficits and no sensory deficits noted SENSORIUM/ORIENTATION: Yes oriented to person MENINGEAL SIGNS: Yes no meningeal signs SPEECH: speech normal Skin: COMMON NORMALS: no rashes or lesions noted, turgor normal, no jaundice, no petechiae and no mottling GENERAL SKIN EXAM: no rashes or lesions noted and turgor normal Course Vital Signs: Vital signs: Vital Signs Temperature 98.0 F 02/01/20 23:46 Pulse Rate 100 02/02/20 02:00 Respiratory Rate 14 02/02/20 02:00 Blood Pressure 96/56 02/02/20 02:00 Pulse Oximetry 94 02/01/20 23:46 MDM - Altered Mental Status MDM Narrative: Medical decision making narrative: Apurva is a 59-year-old female who comes in with altered mental status. She likely has alcohol induced encephalopathy/Warnicke's encephalopathy. Patient likely has a component of alcoholic ketoacidosis. She is overall generally weak and is unable to care for herself. The case was endorsed to Dr. Lowe and he agrees to admit for further evaluation and care. Lab Data: Attestation: I reviewed the patient's lab results. Labs: Lab Results 02/01/20 02/01/20 02/01/20 Range/Units 00:19 00:19 00:19 WBC Cancelled Corrected WBC Cancelled RBC Cancelled Hgb Cancelled Hct Cancelled MCV Cancelled MCH Cancelled MCHC Cancelled RDW Cancelled Plt Count Cancelled MPV Cancelled Gran % Cancelled Neut % (Auto) Cancelled Lymph % (Auto) Cancelled [place] % (Auto) Cancelled Eos % (Auto) Cancelled Baso % (Auto) Cancelled Neut # (Auto) Cancelled Lymph # (Auto) Cancelled [place] # (Auto) Cancelled Eos # (Auto) Cancelled Baso # (Auto) Cancelled Absolute Gran (aut o) Cancelled Nucleated RBC % (a uto) Cancelled Nucleated RBCs # Cancelled PT Cancelled INR Cancelled Specimen Type Sample Site ABG pH (7.35-7.45) ABG pCO2 (35-45) mmHg ABG pO2 (80.0-100.0) mmH g ABG HCO3 (22-26) mmol/L ABG O2 Saturation ABG Base Excess (-2.0-2.0) mmol/ L Paulie Test A-a O2 Gradient (5-10) mmHg Hematocrit (37-47) % Hgb O2 Saturation (95-100) % Carboxyhemoglobin (0.4-20.1) %THgb Methemoglobin (0.4-1.5) % Total Hemoglobin (12-16) g/dL Sodium (131-143) mmol/L Potassium (3.5-5.0) mmol/L Glucose (70-115) mg/dL Ionized Calcium (1.1-1.4) mmol/L O2 Delivery Device FiO2 % Harness Inspector ID Chloride (98-107) mmol/L Carbon Dioxide (22-29) mmol/L Anion Gap (5-19) BUN (6-20) mg/dL Creatinine (0.5-0.9) mg/dL GFR Calculation (90-130) mL/min Calculated Osmolal ity (285-295) mOsm/k g Lactic Acid 2.6 H (0.5-2.2) mmol/L Calcium (8.5-10.5) mg/dL Magnesium (1.7-2.3) mg/dL Total Bilirubin (0.15-1.2) mg/dL AST (0-32) U/L ALT (0-33) U/L Alkaline Phosphata se (35-105) IU/L Ammonia (11-51) umol/L Creatine Kinase (26-192) U/L Troponin T Baselin e (0-10) ng/mL Troponin T 120 Min [place] (0-10) ng/mL Delta Troponin T (0-10) ABS# Total Protein (6.6-8.7) g/dL Albumin (3.5-5.2) g/dL Globulin (1.3-4.6) g/dL Lipase (13-60) U/L TSH (0.27-4.20) uIU/ mL Ethyl Alcohol (0-10) mg/dL Serum Ketones 02/01/20 02/01/20 02/02/20 Range/Units 00:19 00:20 00:19 WBC Corrected WBC RBC Hgb Hct MCV MCH MCHC RDW Plt Count MPV Gran % Neut % (Auto) Lymph % (Auto) [place] % (Auto) Eos % (Auto) Baso % (Auto) Neut # (Auto) Lymph # (Auto) [place] # (Auto) Eos # (Auto) Baso # (Auto) Absolute Gran (aut o) Nucleated RBC % (a uto) Nucleated RBCs # PT INR Specimen Type Arterial Sample Site Brachial, left ABG pH 7.48 H (7.35-7.45) ABG pCO2 40.6 (35-45) mmHg ABG pO2 69.0 L (80.0-100.0) mmH g ABG HCO3 30.2 H (22-26) mmol/L ABG O2 Saturation 93.4 ABG Base Excess 6.2 H (-2.0-2.0) mmol/ L Paulie Test Pos A-a O2 Gradient 30.6 H (5-10) mmHg Hematocrit 33.4 L (37-47) % Hgb O2 Saturation 88.5 L (95-100) % Carboxyhemoglobin 4.6 (0.4-20.1) %THgb Methemoglobin 0.7 (0.4-1.5) % Total Hemoglobin 10.9 L (12-16) g/dL Sodium 145.0 H 138 (131-143) mmol/L Potassium 2.6 L 2.8 L* (3.5-5.0) mmol/L Glucose 103.0 101 (70-115) mg/dL Ionized Calcium 1.1 (1.1-1.4) mmol/L O2 Delivery Device None FiO2 21.0 % Harness Inspector ID [id number] Chloride 96 L (98-107) mmol/L Carbon Dioxide 26 (22-29) mmol/L Anion Gap 18.8 (5-19) BUN 3 L (6-20) mg/dL Creatinine 0.4 L (0.5-0.9) mg/dL GFR Calculation 163.9 H (90-130) mL/min Calculated Osmolal ity 282 L (285-295) mOsm/k g Lactic Acid (0.5-2.2) mmol/L Calcium 8.7 (8.5-10.5) mg/dL Magnesium 1.8 (1.7-2.3) mg/dL Total Bilirubin 2.7 H (0.15-1.2) mg/dL AST 156 H (0-32) U/L ALT 26 (0-33) U/L Alkaline Phosphata se 189 H (35-105) IU/L Ammonia (11-51) umol/L Creatine Kinase 29 (26-192) U/L Troponin T Baselin e (0-10) ng/mL Troponin T 120 Min [place] (0-10) ng/mL Delta Troponin T (0-10) ABS# Total Protein 8.5 (6.6-8.7) g/dL Albumin 3.3 L (3.5-5.2) g/dL Globulin 5.2 H (1.3-4.6) g/dL Lipase 71 H (13-60) U/L TSH 1.26 (0.27-4.20) uIU/ mL Ethyl Alcohol 441 H* (0-10) mg/dL Serum Ketones Cancelled 02/02/20 02/02/20 02/02/20 Range/Units 00:19 00:19 00:19 WBC Corrected WBC RBC Hgb Hct MCV MCH MCHC RDW Plt Count MPV Gran % Neut % (Auto) Lymph % (Auto) [place] % (Auto) Eos % (Auto) Baso % (Auto) Neut # (Auto) Lymph # (Auto) [place] # (Auto) Eos # (Auto) Baso # (Auto) Absolute Gran (aut o) Nucleated RBC % (a uto) Nucleated RBCs # PT 16.90 H INR 1.33 H Specimen Type Sample Site ABG pH (7.35-7.45) ABG pCO2 (35-45) mmHg ABG pO2 (80.0-100.0) mmH g ABG HCO3 (22-26) mmol/L ABG O2 Saturation ABG Base Excess (-2.0-2.0) mmol/ L Paulie Test A-a O2 Gradient (5-10) mmHg Hematocrit (37-47) % Hgb O2 Saturation (95-100) % Carboxyhemoglobin (0.4-20.1) %THgb Methemoglobin (0.4-1.5) % Total Hemoglobin (12-16) g/dL Sodium (131-143) mmol/L Potassium (3.5-5.0) mmol/L Glucose (70-115) mg/dL Ionized Calcium (1.1-1.4) mmol/L O2 Delivery Device FiO2 % Harness Inspector ID Chloride (98-107) mmol/L Carbon Dioxide (22-29) mmol/L Anion Gap (5-19) BUN (6-20) mg/dL Creatinine (0.5-0.9) mg/dL GFR Calculation (90-130) mL/min Calculated Osmolal ity (285-295) mOsm/k g Lactic Acid (0.5-2.2) mmol/L Calcium (8.5-10.5) mg/dL Magnesium (1.7-2.3) mg/dL Total Bilirubin (0.15-1.2) mg/dL AST (0-32) U/L ALT (0-33) U/L Alkaline Phosphata se (35-105) IU/L Ammonia 48 (11-51) umol/L Creatine Kinase (26-192) U/L Troponin T Baselin e 11 H (0-10) ng/mL Troponin T 120 Min [place] (0-10) ng/mL Delta Troponin T (0-10) ABS# Total Protein (6.6-8.7) g/dL Albumin (3.5-5.2) g/dL Globulin (1.3-4.6) g/dL Lipase (13-60) U/L TSH (0.27-4.20) uIU/ mL Ethyl Alcohol (0-10) mg/dL Serum Ketones 02/02/20 02/02/20 02/02/20 Range/Units 00:19 00:19 02:20 WBC 5.0 Corrected WBC RBC 3.87 L Hgb 11.9 Hct 38.0 MCV 98.2 MCH 30.7 MCHC 31.3 RDW 20.6 H Plt Count 74 L MPV 11.9 H Gran % Neut % (Auto) 43.6 Lymph % (Auto) 37.6 [place] % (Auto) 15.6 Eos % (Auto) 1.2 Baso % (Auto) 1.4 Neut # (Auto) 2.2 Lymph # (Auto) 1.9 [place] # (Auto) 0.8 Eos # (Auto) 0.1 Baso # (Auto) 0.1 Absolute Gran (aut o) Nucleated RBC % (a uto) 0 Nucleated RBCs # 0.0 PT INR Specimen Type Sample Site ABG pH (7.35-7.45) ABG pCO2 (35-45) mmHg ABG pO2 (80.0-100.0) mmH g ABG HCO3 (22-26) mmol/L ABG O2 Saturation ABG Base Excess (-2.0-2.0) mmol/ L Paulie Test A-a O2 Gradient (5-10) mmHg Hematocrit (37-47) % Hgb O2 Saturation (95-100) % Carboxyhemoglobin (0.4-20.1) %THgb Methemoglobin (0.4-1.5) % Total Hemoglobin (12-16) g/dL Sodium (131-143) mmol/L Potassium (3.5-5.0) mmol/L Glucose (70-115) mg/dL Ionized Calcium (1.1-1.4) mmol/L O2 Delivery Device FiO2 % Harness Inspector ID Chloride (98-107) mmol/L Carbon Dioxide (22-29) mmol/L Anion Gap (5-19) BUN (6-20) mg/dL Creatinine (0.5-0.9) mg/dL GFR Calculation (90-130) mL/min Calculated Osmolal ity (285-295) mOsm/k g Lactic Acid (0.5-2.2) mmol/L Calcium (8.5-10.5) mg/dL Magnesium (1.7-2.3) mg/dL Total Bilirubin (0.15-1.2) mg/dL AST (0-32) U/L ALT (0-33) U/L Alkaline Phosphata se (35-105) IU/L Ammonia (11-51) umol/L Creatine Kinase (26-192) U/L Troponin T Baselin e (0-10) ng/mL Troponin T 120 Min [place] 10.31 H (0-10) ng/mL Delta Troponin T -0.69 L (0-10) ABS# Total Protein (6.6-8.7) g/dL Albumin (3.5-5.2) g/dL Globulin (1.3-4.6) g/dL Lipase (13-60) U/L TSH (0.27-4.20) uIU/ mL Ethyl Alcohol (0-10) mg/dL Serum Ketones Negative Imaging Data^: CXR: My impression: No acute cardiopulmonary findings. CT Head: Radiologist's impression: [address] [address] [address] Scan Report Signed Patient: Apurva Arteaga Unit #: [id number] : 1960 Age/Sex: 59 / F ADM Date: 02/01/20 Loc: ER Room/Bed: Attending Dr: Ordering Provider/Ordering MD: Alisha Salter DO Date of Service: 02/01/20 Procedure(s): CT head wo con* [id number] Accession Number(s): [id number] Report Number: [id number] PROCEDURE INFORMATION: Exam: CT Head Without Contrast Exam date and time: 02/01/2020 11:52 PM Age: 59 years old Clinical indication: Altered mental status/memory loss; Confusion or disorientation; Patient HX: Weakness and confusion - HX of seizures; Additional info: AMS TECHNIQUE: Imaging protocol: Computed tomography of the head without contrast. Radiation optimization: All CT scans at this facility use at least one of these dose optimization techniques: automated exposure control; mA and/or kV adjustment per patient size (includes targeted exams where dose is matched to clinical indication); or iterative reconstruction. COMPARISON: CT head wo con* [id number] 04/28/2019 1:13 PM RADIATION DOSE METRICS: Total DLP: 714.12 mGy-cm FINDINGS: Brain: Normal. No hemorrhage. Unremarkable white matter. No mass effect. Ventricles: Normal. No ventriculomegaly. Bones/joints: Unremarkable. No acute fracture. Sinuses: Visualized sinuses are unremarkable. No fluid levels. Mastoid air cells: Visualized mastoid air cells are well aerated. Soft tissues: Unremarkable. CT/CT head wo con* [id number] IMPRESSION: Negative for intracranial hemorrhage or mass effect. Radiation Dose CTDIVOL = (mGy): DLP = 714.12 (mGy-cm) Dictated By: Aris Lobo MD Signed By: Aris Lobo MD Signed Date/Time: 02/02/2039 DD/ 0039 EKG Data^: EKG 1: Attestation: I personally reviewed and interpreted this EKG as follows: EKG interpretation date: 02/02/20 EKG interpretation time: 01:03 Interpretation: Normal sinus rhythm at 84 beats a minute, incomplete right bundle branch block, nonspecific ST and T wave changes. Discharge Plan Discharge Patient Disposition: Admitted As Inpatient Admit Provider: Susan Lowe Clinical Impression: Altered mental status, Hepatitis C, Malnourished, Alcoholic gastritis, Alcoholic intoxication Condition: Stable Coding Level of Care Code ED Java Scala Developer for Hammad Churchill
[2020-02-02 02:11] LABS: Reflex Lactate Order REFLEX LACTIC ORDERD
--- NOTE | 2020-02-02 02:25 | PM.HP ---
Providers/Chief Complaint Chief Complaint: WEAKNESS / CONFUSION History of Present Illness Apurva Arteaga is a 59 year old female who carries diagnosis of COPD, oxygen dependent, noncompliant with oxygen, hepatitis C (not treated), alcohol use, active smoker, recurrent seizures was sent in by her family because of active confusion. Patient is not sure why she is in the hospital. Family endorse that for last 1 week she has been drinking a lot, she has not been able to eat or drink properly, today she was very confused was not able to recognize her family members, patient herself is stating that whenever she tries to eat she vomits and that is why she decided to stay away from food. She has been drinking liquor 4-5 drinks a day to keep herself calm and decrease intensity of her pain. She is describing pain in her back and numbness and tingling of lower extremities. No recent falls. Of note, she has had similar admissions in the past. Diagnostics in the ER revealed alcohol induced encephalopathy, electrolyte imbalance, dehydration, her abdomen is distended, liver cirrhotic features Review of Systems Const: Reports: chills, body aches and fatigue Eyes: Reports: eye redness; Denies: change in vision ENMT: Denies: throat pain Card: Denies: chest pain Resp: Denies: dyspnea GI: Reports: abdominal pain, nausea, vomiting, dysphagia and bloating; Denies: hematemesis : Denies: flank pain Musc: Reports: muscle weakness Skin/Breast: Denies: rash Neuro: Denies: headache(s) Psych: Reports: anxiety, depression, mood swings and irritability; Denies: hopelessness Endo: Denies: polyuria Taj/Lymph: Denies: easy bruising All/Imm: Denies: urticaria Medications/Allergies Home Medications Medication Instructions Recorded Confirmed Last Taken Type levetiracetam [Keppra] 500 mg PO Q12H 30 Days #60 tab 11/17/19 01/15/20 01/14/20 Rx clonazepam [Klonopin] 0.25 mg PO DAILY 01/11/20 01/15/20 01/10/20 History folic acid 1 mg PO DAILY 01/11/20 01/15/20 01/14/20 History furosemide 40 mg PO DAILY 01/11/20 01/15/20 01/14/20 History lactulose 20 g PO BID 01/11/20 01/15/20 Unknown History propranolol 10 mg PO BID 01/11/20 01/15/20 01/14/20 History spironolactone 100 mg PO DAILY 01/11/20 01/15/20 01/14/20 History aspirin 81 mg PO DAILY 01/15/20 01/15/20 Unknown History tramadol 50 mg PO BID PRN #14 tab 01/15/20 Unknown Rx vit B comp with C-calcium carb 1 tab PO DAILY 01/15/20 01/15/20 01/14/20 History Allergies Allergy/AdvReac Type Severity Reaction Status Date / Time codeine Allergy ALGY-Swell Verified 01/14/20 10:51 Lip/Tongue/Throat PFSH Acute PFSH: Medical History Alcohol abuse Cirrhosis Ascites, esophageal varices, COPD (chronic obstructive pulmonary disease) Hepatitis C Not treated in the past, and is stating she was not able to afford medications Hypertension Non-compliant behavior Does not have a PCP, missed many appointments with [facility] neck Portal hypertension Seizure disorder Smoker Surgical History H/O: hysterectomy Family History Mother Multiple sclerosis Social History Smoking and tobacco status: current every day smoker Alcohol intake: current Alcohol type: beer Household members: spouse and family Housing: House Marital status: Current occupation: pt states [employer] and states 13 steps to bedrooms. Vitals/I&O/Wt Last Vital Signs Temp 98.0 F 02/01/20 23:46 Pulse 100 02/02/20 02:00 Resp 14 02/02/20 02:00 BP 96/56 02/02/20 02:00 Pulse Ox 94 02/01/20 23:46 Weight last 48 hrs Weight 53.524 kg Physical Exam Narrative: EXAM NARRATIVE: Head to toe examination Patient was lying comfortably in her bed, Verbally arousable, Only oriented to herself, No asterixis Sarco pi?a with positive cachexia Mild conjunctival redness Mild conjunctival pallor S1, S2 Lungs are clear to auscultation Abdomen is distended, ascites positive, mild tenderness right upper quadrant Bowel sound present, Nontender abdomen Not able to test her gait Patient seems confused and drowsy Skin shows petechia and purpura Pertinent negatives: No signs of SBP No active hematemesis Data : 02/02/20 00:19 02/02/20 00:19 Micro: Microbiology 02/01/20 23:58 Blood Culture - Preliminary Blood SPECIMEN COLLECTED 02/01/20 23:59 Blood Culture - Preliminary Blood SPECIMEN COLLECTED A&P Assessment and plan (1) Sarcopenia: Status: Acute (2) Muscular deconditioning: Status: Acute (3) Alcohol dependence with withdrawal: Status: Acute (4) Transaminitis: Status: Acute (5) Alcoholic gastritis: Status: Acute (6) Thrombocytopenia: Status: Acute Additional A&P Information Alcohol abuse with Wernicke's encephalopathy [facility] protocol, admit to ICU Recurrent admissions due to similar complaints, Patient is not motivated to quit alcohol usage No history of DTs Alcohol induced gastritis possibly causing recurrent nausea and vomiting: She will need outpatient EGD for diagnostic purposes Liver cirrhosis with portal hypertension Ascites positive, Ceftriaxone daily, Keep her on Lasix and spironolactone If her mentation is worsening will obtain diagnostic paracentesis Untreated hepatitis C, currently no PCP Abnormal transaminases secondary to alcohol use Patient has mild tenderness of right upper quadrant, will obtain gallbladder ultrasound Hypokalemia due to alcohol abuse Potassium replete Thrombocytopenia due to alcohol abuse, no active bleeding Would avoid using any DVT prophylaxis with the anticoagulants Carries high risk of falls Social dynamic Patient does not follow with any PCP, she has missed multiple appointments with [facility] in the past, there are some issues with her insurance and medical coverage as well, she is drinking alcohol for her neuropathic pain which I think is due to alcohol induced neuropathy She is not motivated at all to quit drinking DVT prophylaxis: SCD Advance diet as tolerated Full code Attestations Medical Necessity Statement*: Anticipating stay in the hospital course more than 2 midnights continued ICU because of alcohol abuse and multiple comorbid conditions Time Spent in Patient Care: 50 Coding Level of Care Code Acute Elevator Installer Apprentice for Hammad Fwd Diagnoses Sarcopenia M62.84 Muscular deconditioning R29.898 Alcohol dependence with withdrawal F10.239 Transaminitis R74.0 Alcoholic gastritis K29.20 Thrombocytopenia D69.6
[2020-02-02 02:49] LABS: Troponin 5 2HR 10.31 ng/mL (0-10); Troponin 5 2HR Delta -0.69 ABS# (0-10)
[2020-02-02 03:06] LABS: Lactic Acid level (Lactate) 1.7 mmol/L (0.5-2.2)
[2020-02-02 05:00] LABS: Amphetamines Screen Urine Negative (Negative); Barbiturates Screen Urine Negative (Negative); Benzodiazepines Screen Urine Negative (Negative); Cocaine Screen Urine Negative (Negative); Opiate Screen Urine Positive (Negative); PCP Screen Urine Negative (Negative); THC Screen Urine Negative (Negative)
[2020-02-02 05:05] LABS: Bilirubin Urine Neg (NEGATIVE); Blood Urine Neg (Negative); Glucose Urine UA Norm (Normal); Ketones Urine Negative (Negative); Nitrate Urine Negative (Negative); Protein Urine Neg (Negative); Specific Gravity, Urine 1.005 (1.005-1.030); Urine Appearance SL Hazy (CLEAR); Urine Color Yellow (Yellow); Urobilinogen Urine 4 mg/dL (Negative); pH Urine 7 (5-7)
[2020-02-02 05:07] LABS: Bacteria Urine TRACE; Hyaline Casts Urine RARE; Mucus Urine TRACE; RBC Urine RARE /hpf (0-2); WBC Urine 0-4 /hpf (0-5)
[2020-02-02 05:08] LABS: Add Urine Culture? No
[2020-02-02 05:16] LABS: Leukocyte Esterase Urine Negative (Negative)
[2020-02-02] MEDS: levETIRAcetam 500 mg Tablet PO ×2 (05:45→16:29)
--- NOTE | 2020-02-02 05:46 | ECG_ITS ---
Measurements Intervals [place] Rate: 96 P: 33 MO: 144 QRS: -34 QRSD: 111 T: 50 QT: 380 QTc: 482 SINUS RHYTHM MARKED LEFT AXIS DEVIATION [QRS AXIS < -30] INCOMPLETE RIGHT BUNDLE BRANCH BLOCK [90+ ms QRS DURATION, TERMINAL R IN V1/V2, 40+ ms S IN I/aVL/V4/V5/V6] MODERATE ST DEPRESSION [0.05+ mV ST DEPRESSION] Compared to ECG 11/11/2019 18:43:44 Left-axis deviation now present ST (T wave) deviation now present Myocardial infarct finding no longer present Electronically Signed On 02-02-2020 7:50:50 CDT by Kingsley Cuevas M.D. [email or web address]
[2020-02-02] MEDS: sodium chlor 0.9% + KCl 20 mEq 20 MEQ/1,000 ML BAG 75 MEQ IV ×2 (05:51→20:41)
--- NOTE | 2020-02-02 07:59 | USR_ITS ---
PROCEDURE INFORMATION: Exam: US Abdomen Limited, Other. Exam date and time: 02/02/2020 8:00 AM Age: 59 years old Clinical indication: Other: Abdomen is distended; Additional info: Check for significant ascites TECHNIQUE: Imaging protocol: Real-time ultrasound of the abdomen with image documentation. Examination is focused on the region of clinical interest. COMPARISON: US abdomen complete* [id number] 01/15/2020 4:49 PM FINDINGS: Liver: Fatty infiltration of the incompletely visualized liver. Intraperitoneal space: Small quantity of intraperitoneal fluid. The remaining abdominal viscera were not visualized on the examination performed. US/US abdomen limited [id number] IMPRESSION: Small quantity of intraperitoneal fluid.
[2020-02-02 08:11] LABS: Troponin 5 6HR 12.94 ng/mL (0-10); Troponin 5 6HR Delta 1.94 ng/L (0-12)
[2020-02-02] MEDS: multivitamin therapeutic Tablet 1 TAB PO (09:34)
[2020-02-02] MEDS: folic acid 1 mg Tablet PO (09:34)
[2020-02-02] MEDS: spironolactone 25 mg Tablet 100 MG PO (09:34)
[2020-02-02] MEDS: thiamine 100 mg Tablet PO (09:36)
[2020-02-02] MEDS: cefTRIAXone 1,000 MG in sodium chloride 0.9% (plus) 50 ML 100 MG IV (09:36)
[2020-02-02] MEDS: oxyCODONE 5 mg IR Tab/Cap PO ×2 (09:41→16:29)
--- NOTE | 2020-02-02 12:16 | P.PN_ITS ---
Subjective Subjective: Interval history: Apurva reports she is doing okay. No specific complaints. Still nauseated. Medications: Reviewed: Yes Vitals/I&O/Wt Last Vital Signs Temp 98.2 F 02/02/20 04:30 Pulse 91 02/02/20 10:13 Resp 21 H 02/02/20 10:13 BP 101/65 02/02/20 10:13 Pulse Ox 91 02/02/20 10:13 02/01/20 02/02/20 02/02/20 22:59 06:59 14:59 Intake Total 240 / 240 Balance 240 / 240 Weight last 48 hrs Weight 53.524 kg Physical Exam Narrative: EXAM NARRATIVE: General exam no apparent distress, she is alert to self but not oriented to month or year. Cardiovascular regular rate and rhythm Lungs clear Abdomen, tenderness along her liver edge which is enlarged but otherwise negative. Positive bowel sounds. Extremities no cyanosis clubbing or edema Data : 02/02/20 00:19 02/02/20 00:19 Micro: Microbiology 02/01/20 23:58 Blood Culture - Preliminary Blood SPECIMEN COLLECTED 02/01/20 23:59 Blood Culture - Preliminary Blood SPECIMEN COLLECTED A&P Assessment and plan (1) Muscular deconditioning: PT evaluation Status: Acute (2) Alcohol dependence with withdrawal: [facility] protocol and monitor closely for withdrawal Not really interested in stopping alcohol at this time. Status: Acute (3) Transaminitis: Continue to follow Status: Acute (4) Alcoholic gastritis: Add Protonix Likely needs outpatient EGD Status: Acute Qualifiers: Chronicity: chronic Gastritis bleeding: without bleeding Qualified Code(s): K29.20 - Alcoholic gastritis without bleeding (5) Thrombocytopenia: Continue to monitor Secondary to her alcoholic and hepatitis C induced cirrhosis Status: Acute (6) Encephalopathy: Likely secondary to alcohol. Does have previous history of Wernicke's. Continue thiamine, multivitamin, folate Repeat ammonia level in the morning. May need restart of lactulose tomorrow Status: Acute (7) Hepatitis C: Consider outpatient treatment Status: Acute Qualifiers: Hepatic coma status: without hepatic coma Viral hepatitis chronicity: chronic Qualified Code(s): B18.2 - Chronic viral hepatitis C Additional A&P Information Concern of ascites. I will check a limited abdominal ultrasound to see if any significant ascites is present. She was placed on Rocephin. Await cultures. Cirrhosis. On Aldactone and Lasix. Hold these currently as she was somewhat dehydrated on admission Hypokalemia. Supplement. Check levels again in the morning along with magnesium. History of seizures in the past. Continue Keppra currently. SCDs for DVT prophylaxis. Full code Discharge planning will need to work on follow-up on discharge. From my understanding she has been fired from several primary care provider offices. Transfer to floor Attestations Medical Necessity Statement*: Needs continued hospitalization for close follow-up of abdominal discomfort, close follow-up of neurologic status secondary to confusion, and further testing to determine if ascites is present. Coding Level of Care Code Acute Ged Instructor for g Fwd Diagnoses Muscular deconditioning R29.898 Alcohol dependence with withdrawal F10.239 Transaminitis R74.0 Alcoholic gastritis K29.20 Chronicity: chronic Gastritis bleeding: without bleeding Thrombocytopenia D69.6 Encephalopathy G93.40 Hepatitis C B18.2 Hepatic coma status: without hepatic coma Viral hepatitis chronicity: chronic
--- NOTE | 2020-02-02 14:00 | PC.NURSE ---
1340 Transfered to [facility] via w/c with all belongings. After moving in w/c did c/o of nausea. I did try to call , Jerrell, but no answer and no voice mailbox availalbe. I notified patient of not being able to reach Jerrell, she said she can call him. All belongings sent with patient. Put patient in bed, connected Iv to pump and gave call light. Spoke with Rosa about pt at doorway.
[2020-02-02] MEDS: ondansetron 2 mg/ML SDV 2 mL 4 MG IVP (15:37)
[2020-02-02] MEDS: pantoprazole DR 40 mg Tablet PO (17:12)
[2020-02-02] MEDS: LORazepam 2 mg Tablet PO (17:12)
[2020-02-02] MEDS: ipratropium-albuterol 3 mL Neb INHALATION (18:01)
[2020-02-03] VITALS (12 sets, daily range): BP systolic 97–152; BP diastolic 62–81; PULSE 82–127; RESP 16–20; TEMP 36.6–37.2; O2SAT 93–96
[2020-02-03] MEDS: oxyCODONE 5 mg IR Tab/Cap PO ×3 (01:56→18:44)
[2020-02-03] MEDS: levETIRAcetam 500 mg Tablet PO ×2 (04:24→18:19)
[2020-02-03] MEDS: LORazepam 2 mg/mL INJ 1 mL IVP ×3 (04:25→21:41)
[2020-02-03 05:19] LABS: Basophils % 0.5 %; Eosinophils % 0.5 %; Hematocrit 28.6 % (37.0-47.0); Hemoglobin 9.2 g/dL (11.5-15.3); Lymphocytes # 0.8 10^3/uL (0.8-4.8); Lymphocytes % 19.7 %; Mean Corpuscular HGB Conc 32.2 g/dL (30.0-36.0); Mean Corpuscular Hemoglobin 30.7 pg (28.0-34.0); Mean Corpuscular Volume 95.3 fL (81-99); Monocytes % 26.3 %; Neutrophils # 2.1 10^3/uL (1.8-7.7); Neutrophils % 51.7 %; Nucleated Red Blood Cells % 0 %; Platelet Count 40 10^3/cmm (130-400); Red Cell Distribution Width 20.4 % (12.1-15.1)
[2020-02-03 05:30] LABS: Ammonia 40 umol/L (11-51)
[2020-02-03 05:32] LABS: Alanine Aminotransferase 21 U/L (0-33); Albumin Level 2.7 g/dL (3.5-5.2); Alkaline Phosphatase 170 IU/L (35-105); Anion Gap 12.9 (5-19); Aspartate Amino Transferase 120 U/L (0-32); Blood Urea Nitrogen 4 mg/dL (6-20); Calcium 8.6 mg/dL (8.5-10.5); Carbon Dioxide 26 mmol/L (22-29); Chloride 98 mmol/L (98-107); Globulin 4.3 g/dL (1.3-4.6); Glomerular Filtration Rate 228.5 mL/min (90-130); Glucose 114 mg/dL (65-115); Magnesium 1.1 mg/dL (1.7-2.3); Osmolality Calculated 273 mOsm/kg (285-295); Phosphorus 2.3 mg/dL (2.5-4.5); Potassium 3.9 mmol/L (3.5-5.1); Sodium 133 mmol/L (136-145)
[2020-02-03] MEDS: cefTRIAXone 1,000 MG in sodium chloride 0.9% (plus) 50 ML 100 MG IV (08:09)
[2020-02-03] MEDS: multivitamin therapeutic Tablet 1 TAB PO (08:10)
[2020-02-03] MEDS: folic acid 1 mg Tablet PO (08:10)
[2020-02-03] MEDS: thiamine 100 mg Tablet PO (08:10)
[2020-02-03] MEDS: pantoprazole DR 40 mg Tablet PO ×2 (08:11→18:19)
[2020-02-03] MEDS: sodium chlor 0.9% + KCl 20 mEq 20 MEQ/1,000 ML BAG 75 MEQ IV ×2 (09:19→20:24)
--- NOTE | 2020-02-03 10:11 | PC.CHAP ---
Pastoral Care Encounter/Spiritual Assessment Type of Contact [] Declined mri manager visit [] Patient/Family/Request visit [] Outpatient visit [] Follow-up visit [] Physician referral [] Code/Alert [x] Routine visit [] Staff referral [] Actively dying [] Patient sleeping [] Family support [] [] Out of room [] Palliative care [] [] Receiving care in room [] Pre-surgical visit [] Trauma [] Long length of stay [] ICU visit [] Other: Relational/Emotional Strength [] Patient feels connected with others/family/visitors/staff [] Distress [] Loneliness/isolation [] Abandonment Spirituality of Patient [] Person of [place] [] Attends Christian of their [place] [] Believes in Prayer [] Reads Bible or Jainism materials [] There are Spiritual issues to be addressed Cement Mixer Interventions [x] Prayer [] Active listening [] Non-anxious presence [] Spiritual/emotional support [] Crisis/trauma care [] Spiritual counseling [] Bereavement support [] Provided bereavement packet [] Provided Bible/devotional materials [] Provided toy/stuffed animal, coloring book to patient or family member [] Provided Communion [] Anointing/[place] [] Salvation [x Completed spiritual assessment [] Other: Impact on Illness or Injury [] Angry [] Fearful [] Anxious [] Often cries [] Exhaustion [] Unable to work [] Unable to attend taoist [x] Unable to walk/stand [] Unable to read [] Unable to drive [] Unable to eat/drink [] Unable to sleep [] Unable to be with family [] Patient intubated [] Other: Summary patient unable respond to conversation. Setting in chair- awaiting bed to be changed. Time spent with patient 10 min
--- NOTE | 2020-02-03 12:37 | PC.RESP ---
SMOKING CESSATION AND PULMONARY REHAB INFORMATION SENT TO PATIENT.
--- NOTE | 2020-02-03 15:05 | PC.NURSE ---
PATIENT IN NOT ALERT, GAVE VERBAL PERMISSION TO TALK TO DAUGHTER EMANUEL TIERNEY
[2020-02-03] MEDS: magnesium sulfate premix 4 GM/100 ML PREMIX IV (15:44)
--- NOTE | 2020-02-03 20:18 | PM.PN ---
Subjective Subjective: Interval history: She is somewhat tremulous, otherwise initially responsive, appears very anxious. However, soon as she laid down in bed, fell asleep, occasionally answering some questions by nodding. He cannot tell whether she did not feel like speaking, or actually became lethargic after some Ativan, as she was arousable to loud voice. She did report chronic pain in her lower back and legs. Vitals/I&O/Wt Last Vital Signs Temp 97.9 F 02/03/20 15:51 Pulse 101 H 02/03/20 15:51 Resp 18 02/03/20 18:44 BP 117/78 02/03/20 15:51 Pulse Ox 95 02/03/20 18:44 02/03/20 02/03/20 02/03/20 06:59 14:59 22:59 Intake Total 100 / 2510 1067.5 / 1067.5 Output Total 850 / 850 Balance 100 / 2410 217.5 / 217.5 Weight last 48 hrs Weight 53.524 kg Physical Exam Const: COMMON NORMALS: no acute distress and patient oriented x3 (Although it took her several times to get the date correctly.) GENERAL APPEARANCE: lethargic ORIENTATION/CONSCIOUSNESS: Yes lethargic OTHER: Tremor HENMT: COMMON NORMALS: oropharynx normal Neck/C-Spine: COMMON NORMALS: no JVD Resp: COMMON NORMALS: normal respiratory effort and clear to auscultation bilaterally AUSCULTATION: clear to auscultation bilaterally Cardio: COMMON NORMALS: no JVD, regular rhythm, S1 normal heart sound present, S2 normal heart sound present and No murmurs present (Cardio) RHYTHM: regular rhythm HEART SOUNDS: S1 normal heart sound present and S2 normal heart sound present GI: COMMON NORMALS: Normal to inspection, nondistended, normoactive bowel sounds present, Soft to palpation and non-tender PALPATION: Yes Soft to palpation Extremity: COMMON NORMALS: no joint enlargement and no pedal edema Neuro: COMMON NORMALS: patient oriented x3 (Although it took her several times to get the date correctly.) and moves all extremities SENSORIUM/ORIENTATION: Yes lethargic Skin: GENERAL SKIN EXAM: ecchymosis and petechiae Data : 02/03/20 05:02 02/03/20 05:02 Micro: Microbiology 02/02/20 04:20 Urine Culture - Preliminary Urine,Clean Catch 02/01/20 23:58 Blood Culture - Preliminary Blood NEGATIVE TO DATE 02/01/20 23:59 Blood Culture - Preliminary Blood NEGATIVE TO DATE A&P Assessment and plan (1) Encephalopathy: Multifactorial encephalopathy secondary to alcohol withdrawal, with history of Wernicke's encephalopathy likely contributing, but also appears to have at least mild degree of alcoholic hepatitis, Maddrey's discriminant function of 25. At this time does not qualify for steroid therapy. Discussed her condition in detail for at least half an hour over the phone with her . We discussed her underlying liver cirrhosis, meld score appears at baseline to be around 11. Discussed also chronic hepatitis C, as well as alcohol dependence and concerned that worsening cirrhosis is imminent, potentially with very poor outcome if she does not start making healthier choices including stopping alcohol intake, following through on appointments and arranging for hepatitis C treatment, as well as following through on referral to hepatology, as potentially she needs at least follow-up with specialist, and possibly even depending on circumstances referral for transplantation may need to be considered. The verbalized understanding of the severity of her condition, as well as the importance of follow-up after the current acute condition. States that he will look into specialists whom she may follow-up with closest to their home. At this time continue treatment for hepatic encephalopathy, monitor liver parameters and provide supportive care with regards to alcohol-related hepatitis. Monitor for any development of hepatic encephalopathy, although so far ammonia has been normal. Restarting lactulose. At this time hold off additional IV fluids. For now diuretics have been on hold. Status: Acute (2) Alcohol dependence with withdrawal: [facility] protocol and monitor closely for withdrawal Vitamin replacement. Appreciate discharge planning efforts to provide additional options for alcohol rehabilitation, although does not appear she had shown interest to stop drinking. Her states will try to discuss with her again to see if she may change her mind. Status: Acute (3) Alcoholic gastritis: Continue Protonix Likely needs outpatient EGD Status: Acute Qualifiers: Chronicity: chronic Gastritis bleeding: without bleeding Qualified Code(s): K29.20 - Alcoholic gastritis without bleeding (4) Muscular deconditioning: PT evaluation Status: Acute (5) Transaminitis: As above, suspected related to alcohol-related hepatitis, with abnormal INR, mental status changes Status: Acute (6) Thrombocytopenia: Continue to monitor. No anticoagulants for DVT prophylaxis. Continue PPI. Secondary to her alcoholic and hepatitis C induced cirrhosis Status: Acute (7) Hepatitis C: Encouraged to help her achieving follow-up to initiate treatment Status: Acute Qualifiers: Hepatic coma status: without hepatic coma Viral hepatitis chronicity: chronic Qualified Code(s): B18.2 - Chronic viral hepatitis C Additional A&P Information Concern of ascites. No significant enough ascites noted for paracentesis. Empirically on Rocephin with anemia. For now continue, monitor clinically, if continues to do well without signs of acute infection/sepsis, potentially may be able to discontinue. Cirrhosis. Meld at her baseline values appears to be around 11, currently some of the labs are worse possibly due to acute condition. On hold Aldactone and Lasix. Discussed with , he understands that she needs close follow-up with PCP and specialist due to progressive cirrhosis, need for hepatitis C treatment, need for alcohol cessation, consideration of possible transplantation if she were to become a candidate, as well as monitoring for hepatic malignancy, as well as other parameters recommended with liver cirrhosis. Discussed with the , in case she is not willing or wanting to pursue additional treatments, and preferring to pursue comfort/hospice care instead, this may be another option depending on her wishes. Hypokalemia. Replaced Severe hypomagnesemia: Requested replacement History of seizures in the past. Continue Keppra currently. Discharge planning will need to work on follow-up on discharge. She has been fired from several primary care provider offices. Attestations Medical Necessity Statement*: Continue admission for assessment of management of acute encephalopathy, alcohol withdrawal, alcohol related hepatitis in setting of liver cirrhosis, alcohol addiction, hepatitis C. Coding Level of Care Code Acute Umbrella Tipper Machine for [facility] Fwd Diagnoses Encephalopathy G93.40 Alcohol dependence with withdrawal F10.239 Alcoholic gastritis K29.20 Chronicity: chronic Gastritis bleeding: without bleeding Muscular deconditioning R29.898 Transaminitis R74.0 Thrombocytopenia D69.6 Hepatitis C B18.2 Hepatic coma status: without hepatic coma Viral hepatitis chronicity: chronic
[2020-02-04] VITALS (12 sets, daily range): BP systolic 104–131; BP diastolic 67–88; PULSE 85–116; RESP 16–20; TEMP 36.6–37.1; O2SAT 92–97
[2020-02-04] MEDS: oxyCODONE 5 mg IR Tab/Cap PO ×4 (02:36→19:49)
[2020-02-04 04:27] LABS: Basophils % 0.9 %; Eosinophils # 0.1 10^3/uL (0.0-0.8); Eosinophils % 2.8 %; Hematocrit 26.8 % (37.0-47.0); Hemoglobin 8.4 g/dL (11.5-15.3); Lymphocytes # 0.9 10^3/uL (0.8-4.8); Lymphocytes % 28.3 %; Mean Corpuscular HGB Conc 31.3 g/dL (30.0-36.0); Mean Corpuscular Hemoglobin 30.1 pg (28.0-34.0); Mean Corpuscular Volume 96.1 fL (81-99); Mean Platelet Volume 11.9 fL (7.4-10.4); Monocytes # 0.8 10^3/uL (0.2-0.9); Monocytes % 24.6 %; Neutrophils # 1.4 10^3/uL (1.8-7.7); Neutrophils % 42.8 %; Nucleated Red Blood Cells % 0 %; Platelet Count 37 10^3/cmm (130-400); Red Blood Count 2.79 10^6/uL (4.1-5.3); Red Cell Distribution Width 19.9 % (12.1-15.1); White Blood Count 3.3 10^3/uL (4.0-10.0)
[2020-02-04 04:38] LABS: Alanine Aminotransferase 16 U/L (0-33); Albumin Level 2.6 g/dL (3.5-5.2); Alkaline Phosphatase 130 IU/L (35-105); Ammonia 46 umol/L (11-51); Anion Gap 9.9 (5-19); Aspartate Amino Transferase 83 U/L (0-32); Blood Urea Nitrogen 5 mg/dL (6-20); Calcium 7.6 mg/dL (8.5-10.5); Carbon Dioxide 27 mmol/L (22-29); Chloride 98 mmol/L (98-107); Creatine Phosphokinase 28 U/L (26-192); Globulin 3.7 g/dL (1.3-4.6); Glomerular Filtration Rate 228.5 mL/min (90-130); Glucose 88 mg/dL (65-115); Osmolality Calculated 267 mOsm/kg (285-295); Phosphorus 2.7 mg/dL (2.5-4.5); Potassium 3.9 mmol/L (3.5-5.1); Sodium 131 mmol/L (136-145); Total Bilirubin 1.8 mg/dL (0.15-1.2); Total Protein 6.3 g/dL (6.6-8.7)
[2020-02-04] MEDS: levETIRAcetam 500 mg Tablet PO ×2 (05:51→17:42)
[2020-02-04] MEDS: multivitamin therapeutic Tablet 1 TAB PO (09:14)
[2020-02-04] MEDS: thiamine 100 mg Tablet PO (09:14)
[2020-02-04] MEDS: folic acid 1 mg Tablet PO (09:14)
[2020-02-04] MEDS: pantoprazole DR 40 mg Tablet PO ×2 (09:14→17:42)
[2020-02-04] MEDS: cefTRIAXone 1,000 MG in sodium chloride 0.9% (plus) 50 ML 100 MG IV (09:14)
--- NOTE | 2020-02-04 11:04 | PC.RESP ---
SMOKING CESSATION AND PULMONARY REHAB INFORMATION SENT TO PATIENT.
[2020-02-04 13:48] LABS: Magnesium 1.9 mg/dL (1.7-2.3)
--- NOTE | 2020-02-04 15:33 | PM.PN ---
Subjective Subjective: Interval history: Today she is more alert, she states she barely remembers speaking to me yesterday, today she is complaining of pain in her left haji after falling down, as well as the lower back which she states is chronic. Asking for some pain medication. She otherwise is oriented x3. Discussed with discharge planning with regards to post discharge rehabilitation. Later this afternoon in an apparent episode of somnolence patient was found on her knees hugging the bedside commode. Currently she is again better and alert. Stating she does not remember how exactly she slumped down, but has been having episodes of sleepiness. Per discussion w nursing staff she has been requesting for pain medications despite these episodes, and concern is contributing to them. It appears after requesting morphine due to medication being unavailable she requested she would leave the hospital. We had a lengthy discussion with regards to her acute condition superimposed on the chronically progressive cirrhosis, with associated comorbidities of coagulopathy, thrombocytopenia, esophageal varices, and other associated risks. We also discussed with her that from perspective of alcohol induced hepatitis she is showing imprvement with better mental status, some improvement in liver parameters. We would like to see that she is steadily improving, and mental status is better before she can safely return home. She understands this. She is able to verbalize the risks of her episodes of somnolence, risks of falling, and associated risk of if things were to get worse, or if she fell and developed life-threatening bleeding. She is agreeable to stay through today, to monitor things, and make sure discharge arrangements are made. We had a lengthy discussion with her daughter Azucena Gonzalez who is her primary contact about her mother's acute and chronic conditions including alcoholic hepatitis, alcohol withdrawal, progressive liver cirrhosis, hepatitis C, as well as cirrhosis associated complications, as well as recent progression of cirrhosis, and concerned that if overall things continue the same way, her prognosis likely is not good. We discussed that from acute side of things she is showing improvement, and needs a great deal of support and encouragement to make healthier life choices, as well as follow-up with a specialist for regular reassessments of liver cirrhosis to stem the progression of the debilitating chronic illness, helping her with alcohol addiction, (and so far she has been receiving assistance withcare coordination for arrangements for rehabilitation), and initiation of treatment for hepatitis C, as well as if needed continued follow-up consideration of liver transplantation if needed. The it appears lodged a complain that he is unable to visit her in the hospital, although as discussed with him previously due to current safety restrictions and due to her not currently being under terminal/comfort care, unfortunately visitation is not possible per policy. Of unrelated but important note, I am also finding out the unfortunately has previously been observed to bring alcoholic beverages for her for the ride home. As the patient is decisional at this time discussed with the daughter it would be up to her as to where she returns to. Her daughter is concerned that home environment is not optimal for her mother to quit as her current it appears drinks alcohol himself and buys alcohol for the patient. (Patient previously did express that he [] can drink if he wants to and can go outside to do so as she does not want to be drinking any longer ). Reportedly had told the daughter previously when she asked where she gets the alcohol that he gives her alcohol when she asks and that patient tries to drink but can't as it makes her sick . The daughter is asking to take her mother in for post-hospitalization care and to help with recovery and follow up. Patient is understanding and able to make decisions at this time, expressing in presence of nursing staff that she would like to stay for additional evaluation currently and says wants to stay with her daughter after discharge. Vitals/I&O/Wt Last Vital Signs Temp 98.0 F 02/04/20 11:33 Pulse 92 02/04/20 11:33 Resp 20 H 02/04/20 11:33 BP 104/67 02/04/20 11:33 Pulse Ox 95 02/04/20 11:33 02/04/20 02/04/20 02/04/20 06:59 14:59 22:59 Intake Total 240 / 240 Output Total 100 / 1050 Balance -100 / 898.75 240 / 240 Physical Exam Const: COMMON NORMALS: no acute distress and patient oriented x3 OTHER: Awake, alert currently. HENMT: COMMON NORMALS: oropharynx normal Neck/C-Spine: COMMON NORMALS: no JVD Resp: COMMON NORMALS: normal respiratory effort and clear to auscultation bilaterally AUSCULTATION: clear to auscultation bilaterally Cardio: COMMON NORMALS: no JVD, regular rhythm, S1 normal heart sound present, S2 normal heart sound present and No murmurs present (Cardio) RHYTHM: regular rhythm HEART SOUNDS: S1 normal heart sound present and S2 normal heart sound present GI: COMMON NORMALS: Normal to inspection, nondistended, normoactive bowel sounds present, Soft to palpation and non-tender PALPATION: Yes Soft to palpation Extremity: COMMON NORMALS: no joint enlargement and no pedal edema Neuro: COMMON NORMALS: patient oriented x3 and moves all extremities Skin: GENERAL SKIN EXAM: ecchymosis and petechiae Data : 02/04/20 04:10 02/04/20 04:10 Micro: Microbiology 02/02/20 04:20 Urine Culture - Final Urine,Clean Catch A&P Assessment and plan (1) Encephalopathy: Gradually improving, although some episodes of somnolence appears possibly exacerbated by pain medicines, although which she still requests for for chronic pain. She is agreeable to reduced dosing due to intermittent somnolence, risk of fall, aspiration, etc. Was noted fallen asleep over bedside commode which appears happened when tried to move there to use it. XR imaging of knees, as well as L haji ordered. Bruising noted on L haji. Overall her alcohol related hepatitis appears to be slowly improving. Multifactorial encephalopathy secondary to alcohol withdrawal, with history of Wernicke's encephalopathy likely contributing, but also appears to have at least mild degree of alcoholic hepatitis, Maddrey's discriminant function of 25. At this time does not qualify for steroid therapy. At home she takes tramadol, and will restart this at decreased dosing of twice daily as discussed with her due to concern for changes in mental status. Alcohol withdrawal appears to be improving, CIWA scores today better. At this time continue treatment for hepatic encephalopathy, monitor liver parameters and provide supportive care with regards to alcohol-related hepatitis. Monitor for any development of hepatic encephalopathy, although so far ammonia has been normal. Restarting lactulose. At this time hold off additional IV fluids. For now diuretics have been on hold. Patient is deciding where to go after discharge and at this time is leaning to going to daughter's [facility] for recovery after hospitalization. There have been increasing requests from the to visit her here I am hearing. Returning home is likely not optimal, as it appears it may not be a supportive environment for her quitting drinking as per discussion with her daughter, although patient is in charge of choosing her disposition. Status: Acute (2) Alcohol dependence with withdrawal: Improving. [place] protocol and monitor closely for withdrawal Vitamin replacement. Received assistance Appreciate discharge planning efforts to provide additional options for alcohol rehabilitation, although does not appear she had shown interest to stop drinking. Her states will try to discuss with her again to see if she may change her mind. Status: Acute (3) Alcoholic gastritis: Continue Protonix. Possibly the cause of her getting sick after drinking as described by her . May benefit from outpatient EGD follow up. Status: Acute Qualifiers: Chronicity: chronic Gastritis bleeding: without bleeding Qualified Code(s): K29.20 - Alcoholic gastritis without bleeding (4) Muscular deconditioning: PT Status: Acute (5) Transaminitis: As above, suspected related to alcohol-related hepatitis, with abnormal INR, mental status changes Status: Acute (6) Thrombocytopenia: Continue to monitor. No anticoagulants for DVT prophylaxis. Continue PPI. Secondary to her alcoholic and hepatitis C induced cirrhosis Status: Acute (7) Hepatitis C: Encouraged and daughter to help her achieving follow-up to initiate treatment Status: Acute Qualifiers: Hepatic coma status: without hepatic coma Viral hepatitis chronicity: chronic Qualified Code(s): B18.2 - Chronic viral hepatitis C Additional A&P Information Concern of ascites. No significant enough ascites noted for paracentesis. Empirically on Rocephin with anemia. For now continue, monitor clinically, if continues to do well without signs of acute infection/sepsis, potentially may be able to discontinue. Cirrhosis. MELD at baseline values appears to be around 11, currently some of the labs are worse possibly due to acute condition. On hold Aldactone and Lasix. Encouraged both and daughter mrs Gonzalez to facilitate follow up and alcohol absitinence. earlier and daughter today both verbalized understand that she needs close follow-up with PCP and specialist due to progressive cirrhosis, need for hepatitis C treatment, need for alcohol cessation, consideration of possible transplantation if she were to become a candidate, as well as monitoring for hepatic malignancy, as well as other parameters recommended with liver cirrhosis. Discussed with the , in case she is not willing or wanting to pursue additional treatments, and preferring to pursue comfort/hospice care instead, this may be another option depending on her wishes. So far she has not been interested in comfort care, and he had expressed did not want to pursue hospice but wanted to continue to try get her into acute follow up after she recovers here. Hypokalemia. Replaced Severe hypomagnesemia: Requested replacement History of seizures in the past. Continue Keppra currently. Discharge planning will need to work on follow-up on discharge. She has been fired from several primary care provider offices. Attestations Medical Necessity Statement*: Continue admission for assessment and management of alcohol related hepatitis, alcohol withdrawal, with underlying liver cirrhosis, chronic hepatitis C, alcohol-related gastritis. Coding Level of Care Code Acute Hoister for [facility] Fwd Exam Comprehensive Diagnoses Encephalopathy G93.40 Alcohol dependence with withdrawal F10.239 Alcoholic gastritis K29.20 Chronicity: chronic Gastritis bleeding: without bleeding Muscular deconditioning R29.898 Transaminitis R74.0 Thrombocytopenia D69.6 Hepatitis C B18.2 Hepatic coma status: without hepatic coma Viral hepatitis chronicity: chronic
--- NOTE | 2020-02-04 15:39 | XR_ITS ---
WS: [id number] XR tibia fibula LT 2V 24021 REASON FOR EXAM: fall prior to admit, persistent pain FINDINGS: The tibia-fibula appear to be normal no definite fractures. No soft tissue swelling is seen. No abnormal calcification. XR/XR tibia fibula LT 2V 63381 IMPRESSION: Negative tibia-fibula study left side
--- NOTE | 2020-02-04 15:41 | XR_ITS ---
WS: [id number] XR knee LT 1-2V 24550 REASON FOR EXAM: fall FINDINGS: A cortical fracture through the superior aspects of the patella is noted no gross transvers e fractures are seen. The tibia-fibula appear to be normal. XR/XR knee LT 1-2V 15838 IMPRESSION: Small cortical fracture through the superior aspects of the patella no gross di splacement only involves the outer cortex.
--- NOTE | 2020-02-04 15:41 | XR_ITS ---
WS: [id number] XR knee RT 1-2V 49026 REASON FOR EXAM: fall FINDINGS: A small defect is seen along the superior cortex of the patella consistent with a nondispla dwaine patella fracture. Mild calcification is seen in both the medial and lateral malleolus suggesting chondrocalcinosis. No other fractures are seen. XR/XR knee RT 1-2V [id number] IMPRESSION: Cortical fracture of the superior patella. Chondral calcinosis of the menisci.
--- NOTE | 2020-02-04 17:37 | PC.NURSE ---
PTS DAUGHTER CALLED ABOUT THE [facility] POLICY. SHE WAS VERY UPSET AND USING PROFANITY TO DESCRIBE HER THOUGHTS ABOUT THE HOSPITAL [facility] POLICY THAT IS CURRENTLY IN PLACE. CLOTH SHEARING SUPERVISOR ACTIVELY LISTENED AND EMPATHIZED WITH THE DAUGHTER. DAUGHTER WANTED TO TALK TO SOMEONE ELSE BECAUSE OF HOW STUPID THE POLICY WAS AND SHE WANTED IT CHANGED FOR HER MOTHER. KRISTIE, CLINICAL CARTRIDGE BELT PUNCHER TOOK THE CALL AND REITERATED THE [facility] POLICY THAT IS CURRENTLY IN PLACE, SHE ALSO NOTIFIED DR MINER.
--- NOTE | 2020-02-04 17:37 | PC.NURSE ---
Patient daughter and called demanding to see patient. Explained to family that the only visitors that are allowed to see patients on this floor were those that were end of life care. Family states patient is dying and needed a liver transplant. Again policy was explained. Informed family that I would convey this information to the physician and crane manager.
[2020-02-04] MEDS: LORazepam 2 mg/mL INJ 1 mL IVP ×2 (18:18→22:50)
[2020-02-04] MEDS: TRAMadol 50 mg Tablet PO (18:21)
--- NOTE | 2020-02-04 19:08 | PC.NURSE ---
pt states it is okay for staff to talk to Ant duenas if he calls to get an update.
--- NOTE | 2020-02-04 19:47 | XR_ITS ---
WS: [id number] XR lumbar spine 2-3V* [id number] REASON FOR EXAM: chronic lower back pain, falls FINDINGS: The disc spaces and vertebral body heights are normal. There is heavy arteriosclerotic changes of the aorta and iliac arteries. There is a mild scoliotic curve convex to the left. The lumbosacral angle shows increase angle angle weightbearing is anterior to the base of the sacrum. XR/XR lumbar spine 2-3V* [id number] IMPRESSION: Increased lordosis Mild thoracolumbar rotoscoliosis. No definite fractures seen. Heavy arteriosclerotic changes.
[2020-02-05] VITALS (9 sets, daily range): BP systolic 105–123; BP diastolic 69–81; PULSE 86–113; RESP 16–24; TEMP 36.3–37.2; O2SAT 92–95
[2020-02-05] MEDS: oxyCODONE 5 mg IR Tab/Cap PO ×3 (02:37→19:20)
[2020-02-05 04:30] LABS: Basophils % 0.8 %; Eosinophils # 0.1 10^3/uL (0.0-0.8); Eosinophils % 2.8 %; Hematocrit 28.2 % (37.0-47.0); Hemoglobin 8.9 g/dL (11.5-15.3); Lymphocytes % 24.3 %; Mean Corpuscular HGB Conc 31.6 g/dL (30.0-36.0); Mean Corpuscular Hemoglobin 30.7 pg (28.0-34.0); Mean Corpuscular Volume 97.2 fL (81-99); Mean Platelet Volume 11.6 fL (7.4-10.4); Monocytes # 0.8 10^3/uL (0.2-0.9); Monocytes % 21.1 %; Neutrophils % 50.7 %; Nucleated Red Blood Cells % 0 %; Platelet Count 44 10^3/cmm (130-400); Red Cell Distribution Width 19.6 % (12.1-15.1)
[2020-02-05 04:40] LABS: Alanine Aminotransferase 19 U/L (0-33); Albumin Level 2.5 g/dL (3.5-5.2); Alkaline Phosphatase 143 IU/L (35-105); Anion Gap 13.2 (5-19); Aspartate Amino Transferase 94 U/L (0-32); Blood Urea Nitrogen 5 mg/dL (6-20); Calcium 8.6 mg/dL (8.5-10.5); Carbon Dioxide 25 mmol/L (22-29); Chloride 97 mmol/L (98-107); Globulin 4.3 g/dL (1.3-4.6); Glomerular Filtration Rate 228.5 mL/min (90-130); Glucose 92 mg/dL (65-115); Osmolality Calculated 267 mOsm/kg (285-295); Potassium 4.2 mmol/L (3.5-5.1); Sodium 131 mmol/L (136-145); Total Protein 6.8 g/dL (6.6-8.7)
[2020-02-05 04:41] LABS: Magnesium 1.5 mg/dL (1.7-2.3)
[2020-02-05 04:42] LABS: Ammonia 51 umol/L (11-51)
[2020-02-05] MEDS: levETIRAcetam 500 mg Tablet PO ×2 (04:45→18:03)
[2020-02-05] MEDS: thiamine 100 mg Tablet PO (08:15)
[2020-02-05] MEDS: cefTRIAXone 1,000 MG in sodium chloride 0.9% (plus) 50 ML 100 MG IV (08:15)
[2020-02-05] MEDS: folic acid 1 mg Tablet PO (08:15)
[2020-02-05] MEDS: multivitamin therapeutic Tablet 1 TAB PO (08:15)
[2020-02-05] MEDS: pantoprazole DR 40 mg Tablet PO ×2 (08:15→18:03)
--- NOTE | 2020-02-05 12:31 | MR_ITS ---
WS: [id number] MRI LUMBAR SPINE NONCONTRAST HISTORY: back pain, LE weakness COMPARISON: None available. TECHNIQUE: Sagittal and axial multisequence imaging is submitted. Normal lumbar alignment with no compression fractures or marrow edema. Disc spaces and vertebral body heights are well-preserved. Conus terminates normally at L1. L1-L2: Normal. L2-L3: Mild annular disc bulge with a shallow LEFT foraminal disc protrusion with associated annular fissure. Slight contact with no displacement upon the L2 nerve root. L3-L4: Mild annular disc bulging. Small amount of fluid in the facet joints. No stenosis. L4-L5: Mild diffuse annular disc bulging. Broad-based central disc protrusion encroaches upon the jeffrey tral thecal sac. There is mild abutment without displacement of the L5 nerve roots. L5-S1: Normal. Paravertebral soft tissues are negative. There is a small amount of free fluid in the pelvis. MR/MR lumbar spine wo con* [id number] IMPRESSION: 1. Broad-based central disc protrusion at L4-5 with contact on the L5 nerve ro ots bilaterally but greater on the LEFT. 2. Shallow disc protrusion LEFT L2-3 foramen with mild contact on the LEFT L2 nerve root. 3. No central stenosis.
--- NOTE | 2020-02-05 12:35 | PM.PN ---
Subjective Subjective: Interval history: She is having pain in her L haji, lower back when moves. It takes her some time to gather thoughts as to why she is in the hospital. She recalls that she had been drinking. Initially thought it was because of a seizure. She is able to tell me about her liver cirrhosis, hepatitis C. She states she does not have full recollection of events from yesterday. Does remember us talking. States she has not given much thought yet as to whether she would return home with her , go to inpatient rehabilitation, or return home to stay with her daughter. Thinking about it she may want to stay with her daughter Misty Gonzalez, although will let us know. Vitals/I&O/Wt Last Vital Signs Temp 98.0 F 02/05/20 07:37 Pulse 98 02/05/20 07:37 Resp 18 02/05/20 07:37 BP 123/81 02/05/20 07:37 Pulse Ox 92 02/05/20 07:37 02/04/20 02/05/20 02/05/20 22:59 06:59 14:59 Intake Total 120 / 120 Output Total 690 / 690 585 / 1275 425 / 425 Balance -690 / -400 -585 / -985 -305 / -305 Physical Exam Const: COMMON NORMALS: no acute distress OTHER: Awake, alert currently. About to have lunch. Somewhat sluggish movements. Takes her some time to gather her thoughts. HENMT: COMMON NORMALS: oropharynx normal Neck/C-Spine: COMMON NORMALS: no JVD Resp: COMMON NORMALS: normal respiratory effort and clear to auscultation bilaterally AUSCULTATION: clear to auscultation bilaterally Cardio: COMMON NORMALS: no JVD, regular rhythm, S1 normal heart sound present, S2 normal heart sound present and No murmurs present (Cardio) RHYTHM: regular rhythm HEART SOUNDS: S1 normal heart sound present and S2 normal heart sound present GI: COMMON NORMALS: Normal to inspection, nondistended, normoactive bowel sounds present, Soft to palpation and non-tender PALPATION: Yes Soft to palpation Extremity: COMMON NORMALS: no joint enlargement and no pedal edema OTHER: Bruise on anterior lateral left haji Neuro: COMMON NORMALS: moves all extremities (LE persistently weak. Some effort against gravity. ) SENSORIUM/ORIENTATION: Yes somnolent (Mental status significantly better today) Skin: GENERAL SKIN EXAM: ecchymosis and petechiae OTHER: Bruise and associated tenderness of anterolateral L haji Data : 02/05/20 04:05 02/05/20 04:05 Micro: Microbiology 02/02/20 04:20 Urine Culture - Final Urine,Clean Catch A&P Assessment and plan (1) Encephalopathy: This is been gradually improving, however, still somewhat sluggish, sometimes somnolent, now most of the time has been awake. Is about to eat lunch during my visit. Vaguely remembers us speaking yesterday, is able to tell me about her chronic conditions, as well as states she is in the hospital because I was drinking . Overall liver parameters have been gradually improving, although plateaued somewhat today. She remains afebrile. She does have weakness in lower extremities and persistent lower back pain. She has been complaining of pain in the left haji, and says had fallen at home. This was imaged and no fracture noted. Seems she has been falling at home, but also yesterday found slumped on her knees, with arms around the commode, knees were imaged, with finding of cortical fracture bilateral upper patella. She is having some pain in her knees, overall legs are weak, at full risk, so for now discussed with on-call orthopedics, and will place in knee immobilizer. She could follow-up in office after discharge. Given persistent back pain, lower extremity weakness, will image lower back with MRI to exclude acute cord compression. She did not have stool incontinence, sometimes per nursing staff if they do not make it on time may have urinary incontinence, although most of the time is able to hold it. Pain medicines appear perhaps exacerbating her somnolence at times, although is awake and alert during my visit. Multifactorial encephalopathy secondary to alcohol withdrawal, with history of Wernicke's encephalopathy likely contributing, but also appears to have alcoholic hepatitis, Maddrey's discriminant function of 25. At this time does not qualify for steroid therapy. Alcohol withdrawal improving, CIWA scores today better. At this time continue treatment for hepatic encephalopathy, monitor liver parameters and provide supportive care with regards to alcohol-related hepatitis. Monitor for any development of hepatic encephalopathy, although so far ammonia has been normal. Restarting lactulose. For now diuretics have been on hold. Today will discontinue antibiotic. Monitor without it. Overall it appears she may be reaching a baseline. If continues to improve/remain stable, perhaps could discharge for further outpatient follow up tomorrow. Patient is deciding where to go after discharge she says she is considering perhaps going to stay with her daughter, but will let us know. We had a long discussion regarding alternatives including inpatient rehabilitation and back home with her . She would like to think about it further. Discharge planning is working on the case and will be speaking further with patient and family. Status: Acute (2) Alcohol dependence with withdrawal: Improving. [facility] protocol and monitor closely for withdrawal Vitamin replacement. Received assistance Appreciate discharge planning efforts to provide additional options for alcohol rehabilitation, although does not appear she had shown interest to stop drinking. Her states will try to discuss with her again to see if she may change her mind. Status: Acute (3) Alcoholic gastritis: Continue Protonix. Possibly the cause of her getting sick after drinking as described by her . May benefit from outpatient EGD follow up. Status: Acute Qualifiers: Chronicity: chronic Gastritis bleeding: without bleeding Qualified Code(s): K29.20 - Alcoholic gastritis without bleeding (4) Muscular deconditioning: PT Status: Acute (5) Transaminitis: As above, suspected related to alcohol-related hepatitis, with abnormal INR, mental status changes Status: Acute (6) Thrombocytopenia: Continue to monitor. No anticoagulants for DVT prophylaxis. Continue PPI. Secondary to her alcoholic and hepatitis C induced cirrhosis Status: Acute (7) Hepatitis C: Encouraged and daughter to help her achieving follow-up to initiate treatment Status: Acute Qualifiers: Hepatic coma status: without hepatic coma Viral hepatitis chronicity: chronic Qualified Code(s): B18.2 - Chronic viral hepatitis C (8) Patellar fracture: She has been complaining of pain in the left haji, and says had fallen at home. This was imaged and no fracture noted. Seems she has been falling at home, but also yesterday found slumped on her knees, with arms around the commode, knees were imaged, with finding of cortical fracture bilateral upper patella. She is having some pain in her knees, overall legs are weak, at full risk, so for now discussed with on-call orthopedics, and will place in knee immobilizer. She could follow-up in office after discharge. Status: Acute (9) Lower extremity weakness: She has been generally weak, but overall recently has been having difficulties with walking, her lower extremities are persistently weak, persistent back pain. She tries to lift legs off the bed, but only having some effort against gravity. Cannot get them up in the air. Will assess MRI of her back. Status: Acute Additional A&P Information Concern of ascites. No significant enough ascites noted for paracentesis. Empirically on Rocephin with anemia. For now continue, monitor clinically, if continues to do well without signs of acute infection/sepsis, potentially may be able to discontinue. Cirrhosis. MELD at baseline values appears to be around 11, currently some of the labs are worse possibly due to acute condition. On hold Aldactone and Lasix. Encouraged both and daughter mrs Gonzalez to facilitate follow up and alcohol absitinence. earlier and daughter today both verbalized understand that she needs close follow-up with PCP and specialist due to progressive cirrhosis, need for hepatitis C treatment, need for alcohol cessation, consideration of possible transplantation if she were to become a candidate, as well as monitoring for hepatic malignancy, as well as other parameters recommended with liver cirrhosis. Discussed with the , in case she is not willing or wanting to pursue additional treatments, and preferring to pursue comfort/hospice care instead, this may be another option depending on her wishes. So far she has not been interested in comfort care, and he had expressed did not want to pursue hospice but wanted to continue to try get her into acute follow up after she recovers here. Hypokalemia. Replaced Severe hypomagnesemia: Requested replacement History of seizures in the past. Continue Keppra currently. Discharge planning will need to work on follow-up on discharge. She has been fired from several primary care provider offices. Attestations Medical Necessity Statement*: Continue admission for assessment of management of lower extremity weakness, difficulty walking, acute encephalopathy, alcoholic hepatitis superimposed on liver cirrhosis, discharge planning. Coding Level of Care Code Acute Plunger Shovel Operator for g Fwd Diagnoses Encephalopathy G93.40 Alcohol dependence with withdrawal F10.239 Alcoholic gastritis K29.20 Chronicity: chronic Gastritis bleeding: without bleeding Muscular deconditioning R29.898 Transaminitis R74.0 Thrombocytopenia D69.6 Hepatitis C B18.2 Hepatic coma status: without hepatic coma Viral hepatitis chronicity: chronic Patellar fracture S82.009A Lower extremity weakness R29.898
[2020-02-05] MEDS: magnesium sulfate premix 4 GM/100 ML PREMIX IV (13:26)
[2020-02-06] VITALS (11 sets, daily range): BP systolic 94–119; BP diastolic 57–81; PULSE 78–104; RESP 16–24; TEMP 36.8–37.3; O2SAT 87–99
[2020-02-06] MEDS: oxyCODONE 5 mg IR Tab/Cap PO (04:49)
[2020-02-06] MEDS: levETIRAcetam 500 mg Tablet PO ×2 (05:57→17:28)
[2020-02-06 05:59] LABS: Basophils % 0.8 %; Eosinophils # 0.1 10^3/uL (0.0-0.8); Eosinophils % 2.1 %; Hematocrit 26.7 % (37.0-47.0); Hemoglobin 8.5 g/dL (11.5-15.3); Lymphocytes # 0.9 10^3/uL (0.8-4.8); Lymphocytes % 23.1 %; Mean Corpuscular HGB Conc 31.8 g/dL (30.0-36.0); Mean Corpuscular Hemoglobin 30.1 pg (28.0-34.0); Mean Corpuscular Volume 94.7 fL (81-99); Mean Platelet Volume 11.6 fL (7.4-10.4); Monocytes # 0.8 10^3/uL (0.2-0.9); Monocytes % 21.5 %; Neutrophils % 52.2 %; Nucleated Red Blood Cells % 0 %; Platelet Count 49 10^3/cmm (130-400); Red Blood Count 2.82 10^6/uL (4.1-5.3); Red Cell Distribution Width 19.2 % (12.1-15.1); White Blood Count 3.9 10^3/uL (4.0-10.0)
[2020-02-06 06:27] LABS: Alanine Aminotransferase 17 U/L (0-33); Albumin Level 2.7 g/dL (3.5-5.2); Alkaline Phosphatase 155 IU/L (35-105); Anion Gap 12.7 (5-19); Aspartate Amino Transferase 79 U/L (0-32); Blood Urea Nitrogen 6 mg/dL (6-20); Calcium 8.6 mg/dL (8.5-10.5); Carbon Dioxide 26 mmol/L (22-29); Chloride 100 mmol/L (98-107); Globulin 3.9 g/dL (1.3-4.6); Glomerular Filtration Rate 228.5 mL/min (90-130); Glucose 107 mg/dL (65-115); Osmolality Calculated 276 mOsm/kg (285-295); Potassium 3.7 mmol/L (3.5-5.1); Sodium 135 mmol/L (136-145); Total Protein 6.6 g/dL (6.6-8.7)
--- NOTE | 2020-02-06 06:28 | PC.NURSE ---
SHIFT SUMMARY Has rested for intervals tonight. Has had 1:1 sitter at bedside throughout shift. Has some occ confusion and to what day and month it is but mostly seems quite forgetful. Asks for pain meds forgetting that she had just recently had something. Did receive OXYIR po X2 for c/o pain in back and legs. Was medicated X1 with po Ativan per CIWA. Was c/o increased anxiety and sitter reported restlessness. Had some slight nausea and headache also. Had good relief with the Ativan. Is quiet unsteady when assisted up to BSC. Has several bruises from recent falls. Side rails padded per sz precautions
[2020-02-06] MEDS: folic acid 1 mg Tablet PO (09:09)
[2020-02-06] MEDS: pantoprazole DR 40 mg Tablet PO ×2 (09:09→17:27)
[2020-02-06] MEDS: multivitamin therapeutic Tablet 1 TAB PO (09:09)
[2020-02-06] MEDS: thiamine 100 mg Tablet PO (09:09)
[2020-02-06] MEDS: TRAMadol 50 mg Tablet PO ×2 (09:11→17:30)
--- NOTE | 2020-02-06 13:06 | P.CONIM_ITS ---
Providers/Reason For Consult Consulting Physican/Specialty*: Orthopedic surgery Reason for Consult*: Abnormality left patella Attending Physician: Nicola Simons History of Present Illness History of Present Illness Apurva Arteaga is a 59 year old female admitted for alcohol withdrawal. She apparently had a fall on both knees and complains of resulting knee pain. Radiographs revealed a subtle avulsion fracture of her left proximal patella. Orthopedics is asked to see the patient Meds/Allergies Home Medications and Allergies Home Medications Medication Instructions Recorded Confirmed Last Taken Type levetiracetam [Keppra] 500 mg PO Q12H 30 Days #60 tab 11/17/19 01/15/20 01/14/20 Rx clonazepam [Klonopin] 0.25 mg PO DAILY 01/11/20 02/02/20 01/10/20 History folic acid 1 mg PO DAILY 01/11/20 01/15/20 01/14/20 History furosemide 40 mg PO DAILY 01/11/20 01/15/20 01/14/20 History lactulose 20 g PO BID 01/11/20 01/15/20 Unknown History propranolol 10 mg PO BID 01/11/20 01/15/20 01/14/20 History spironolactone 100 mg PO DAILY 01/11/20 01/15/20 01/14/20 History aspirin 81 mg PO DAILY 01/15/20 02/02/20 Unknown History tramadol 50 mg PO BID PRN #14 tab 01/15/20 Unknown Rx vit B comp with C-calcium carb 1 tab PO DAILY 01/15/20 01/15/20 01/14/20 History Allergies Allergy/AdvReac Type Severity Reaction Status Date / Time codeine Allergy ALGY-Swell Verified 01/14/20 10:51 Lip/Tongue/Throat Current Medications Current Medications Generic Name Dose Route Start Last Admin Trade Name Freq PRN Reason Stop Dose Admin Albuterol/Ipratropium 3 ml 02/02/20 17:18 02/02/20 18:01 Duoneb INHALATION 3 ml Q4H PRN Administration SHORTNESS OF BREATH Folic Acid 1 mg 02/02/20 09:00 02/06/20 09:09 Folic Acid PO 1 mg DAILY YARELI Administration Levetiracetam 500 mg 02/02/20 04:35 02/06/20 05:57 Keppra PO 500 mg Q12H YARELI Administration Multivitamins Therapeutic 1 tab 02/02/20 09:00 02/06/20 09:09 Multivitamin Tab PO 1 tab DAILY YARELI Administration Ondansetron HCl 4 mg 02/02/20 14:45 02/02/20 15:37 Zofran IVP 4 mg Q6H PRN Administration NAUSEA AND VOMITING Pantoprazole Sodium 40 mg 02/02/20 18:00 02/06/20 09:09 Protonix PO 40 mg BID YARELI Administration Thiamine Mononitrate 100 mg 02/02/20 09:00 02/06/20 09:09 Vitamin B-1 PO 100 mg DAILY YARELI Administration Tramadol HCl 50 mg 02/04/20 15:32 02/06/20 09:11 Ultram PO 50 mg BID PRN Administration MODERATE PAIN PFSH Acute PFSH: Medical History Alcohol abuse Cirrhosis Ascites, esophageal varices, COPD (chronic obstructive pulmonary disease) Hepatitis C Not treated in the past, and is stating she was not able to afford medications Hypertension Non-compliant behavior Does not have a PCP, missed many appointments with [facility] neck Portal hypertension Seizure disorder Smoker Surgical History H/O: hysterectomy Family History Mother Multiple sclerosis Social History Smoking and tobacco status: current every day smoker Alcohol intake: current Alcohol type: beer Household members: spouse and family Housing: House Marital status: Current occupation: pt states [employer] and states 13 steps to bedrooms. Vitals/I&O/Wt Last Vital Signs Temp 98.3 F 02/06/20 11:24 Pulse 97 02/06/20 11:24 Resp 18 02/06/20 11:24 BP 94/58 02/06/20 11:24 Pulse Ox 89 L 02/06/20 11:24 02/05/20 02/06/20 02/06/20 22:59 06:59 14:59 Intake Total 200 / 440 200 / 640 600 / 600 Output Total 400 / 825 550 / 1375 350 / 350 Balance -200 / -385 -350 / -735 250 / 250 Physical Exam Narrative: EXAM NARRATIVE: Patient has no ecchymoses, effusions, or localizing tenderness to either knee. She can perform a straight leg raise bilaterally. Knee motion is from full extension to 100 degrees bilaterally. Data Imaging^: Xray Ortho: My impression: Radiographs of the left knee are reviewed .a small cortical irregularity is seen superior to the left patella A&P Assessment and plan (1) Contusion of left knee: I see no evidence of significant injury to the left knee. I would recommend mobilization as tolerated. There is no need for further orthopedic work-up or follow-up. Status: Acute Coding Level of Care Code Acute [employer] School Librarian for Hammad Churchill Diagnoses Contusion of left knee S80.02XA
[2020-02-06] MEDS: ipratropium-albuterol 3 mL Neb INHALATION (15:18)
--- NOTE | 2020-02-06 16:38 | P.PN_ITS ---
Subjective Subjective: Interval history: Complaining of pain in back and knees. Requesting for a pain medication. Sleeping during my visit, but wakes up easily, oriented x3. Was just seen by orthopedics. Memory at times is hazy, but does remember why she is in the hospital, is able to state her chronic conditions. Vitals/I&O/Wt Last Vital Signs Temp 99.2 F 02/06/20 16:00 Pulse 78 02/06/20 16:00 Resp 17 02/06/20 16:00 BP 116/81 02/06/20 16:00 Pulse Ox 99 02/06/20 16:00 02/06/20 02/06/20 02/06/20 06:59 14:59 22:59 Intake Total 200 / 640 600 / 600 Output Total 550 / 1375 700 / 700 Balance -350 / -735 -100 / -100 Physical Exam Const: COMMON NORMALS: no acute distress OTHER: Somewhat sluggish. HENMT: COMMON NORMALS: oropharynx normal Neck/C-Spine: COMMON NORMALS: no JVD Resp: COMMON NORMALS: normal respiratory effort and clear to auscultation bilaterally AUSCULTATION: clear to auscultation bilaterally Cardio: COMMON NORMALS: no JVD, regular rhythm, S1 normal heart sound present, S2 normal heart sound present and No murmurs present (Cardio) RHYTHM: regular rhythm HEART SOUNDS: S1 normal heart sound present and S2 normal heart sound present GI: COMMON NORMALS: Normal to inspection, nondistended, normoactive bowel sounds present, Soft to palpation and non-tender PALPATION: Yes Soft to palpation Extremity: COMMON NORMALS: no joint enlargement and no pedal edema Neuro: COMMON NORMALS: moves all extremities (LE persistently weak. Some effort against gravity. ) SENSORIUM/ORIENTATION: Yes somnolent (Mental status significantly better today) Skin: GENERAL SKIN EXAM: ecchymosis and petechiae OTHER: Bruise and associated tenderness of anterolateral L haji Data : 02/06/20 05:06 02/06/20 05:06 A&P Assessment and plan (1) Lower extremity weakness: Was seen by orthopedics for bilateral patellar fractures. Not found to need immobilizer, with recommendation for mobilization as tolerating, follow-up only as needed. MRI of the back with bed degenerative changes, disk protrusion L4-5, central bulge, L5 contact on nerve roots worse on the left. It is not surprising she is having back pain. Less pronounced changes L2-3. After assessed by ortho was assessed by PT. Even with walker requiring significant assistance, and expressed concern about returning home. With this also very high fall risk, and with coagulation and platelet deficiency related to cirrhosis also at very high risk of bleeding. Discussed all findings with her. She is agreeable that would benefit from additional skilled rehabilitation, and is wanting to go to [facility]. Discharge planning will work with her to make arrangements. Status: Acute (2) COPD exacerbation: She is now also having COPD exacerbation with noted hypoxia, 89% on 2 L nasal cannula. states intermittently gets quite a bit of secretions, wheezing, and was supposed to be on oxygen at home, but has not been. He would like to find out about a portable oxygen concentrator. Discussed w him that at this time she is at elevated risk of bleeding. We may cautiously try inhaled steroid, but even that, and anything would not be safe given already present gastritis, as well as coagulopathy and thrombocytopenia due to cirrhosis. He verbalized understanding. We will add breathing treatments. Continue oxygen support as needed. Goal saturation 88-92%. Will need oxygen after discharge. states he understands that she needs to quit smoking. Status: Acute (3) Encephalopathy: Mental status appears to have stabilized. states that at home he frequently needs to assist her with walking around, per her report also stated that he frequently puts medications in her mouth. Difficult to gauge the actual baseline, but. She is close to it currently. She is somnolent at times, but wakes up easily, persistently oriented, slightly sluggish, takes her some time together her thoughts, but answers questions, is able to state her chronic conditions, reason why she was in the hospital, and discussed discharge planning. She does request for pain medicines quite often, and unfortunately pain medicines appear to exacerbate her symptoms sometimes. This may need to be loren tored cautiously after discharge as well. Multifactorial encephalopathy secondary to alcohol withdrawal, with history of Wernicke's encephalopathy likely contributing, but also appears to have alcoho lic hepatitis, Maddrey's discriminant function of 25. At this time does not qualify for steroid therapy. Alcohol withdrawal resolved. At this time continue treatment for hepatic encephalopathy, monitor liver parameters and provide supportive care with regards to alcohol-related hepatitis. Monitor for any development of hepatic encephalopathy, although so far ammonia has been normal. Restarted lactulose, however, does not appear she has had bowel movements charted. Discussed with RN, will make sure she is receiving lactulose and having bowel movements. For now diuretics have been on hold. Status: Acute (4) Alcohol dependence with withdrawal: Alcohol withdrawal should now be resolved. [facility] protocol and monitor closely for withdrawal Vitamin replacement. Received assistance with initiating alcohol rehabilitation. Status: Acute (5) Alcoholic gastritis: Continue Protonix. Possibly the cause of her getting sick after drinking as described by her . May benefit from outpatient EGD follow up. Status: Acute Qualifiers: Chronicity: chronic Gastritis bleeding: without bleeding Qualified Code(s): K29.20 - Alcoholic gastritis without bleeding (6) Muscular deconditioning: PT Status: Acute (7) Transaminitis: As above, suspected related to alcohol-related hepatitis, with abnormal INR, mental status changes Status: Acute (8) Thrombocytopenia: Continue to monitor. No anticoagulants for DVT prophylaxis. Continue PPI. Secondary to her alcoholic and hepatitis C induced cirrhosis Status: Acute (9) Hepatitis C: Encouraged and daughter to help her achieving follow-up to initiate treatment Status: Acute Qualifiers: Hepatic coma status: without hepatic coma Viral hepatitis chronicity: chronic Qualified Code(s): B18.2 - Chronic viral hepatitis C (10) Patellar fracture: Appreciate orthopedic assessment. Mobilize. Fall precautions. She has been complaining of pain in the left haji, and says had fallen at home. This was imaged and no fracture noted. Seems she has been falling at home, but also yesterday found slumped on her knees, with arms around the commode, knees were imaged, with finding of cortical fracture bilateral upper patella. She is having some pain in her knees, overall legs are weak, at full risk, so for now discussed with on-call orthopedics, and will place in knee immobilizer. She could follow-up in office after discharge. Status: Acute Additional A&P Information Concern of ascites. No significant enough ascites noted for paracentesis. Empirically on Rocephin with anemia. For now continue, monitor clinically, if continues to do well without signs of acute infection/sepsis, potentially may be able to discontinue. Cirrhosis. MELD at baseline values appears to be around 11, currently some of the labs are worse possibly due to acute condition. On hold Aldactone and Lasix. Encouraged both and daughter mrs Gonzalez to facilitate follow up and alcohol absitinence. earlier and daughter today both verbalized understand that she needs close follow-up with PCP and specialist due to progressive cirrhosis, need for hepatitis C treatment, need for alcohol cessa tion, consideration of possible transplantation if she were to become a candidate, as well as monitoring for hepatic malignancy, as well as other parameters recommended with liver cirrhosis. Hypokalemia. Replaced Severe hypomagnesemia: Requested replacement History of seizures in the past. Continue Keppra currently. Discharge planning will need to work on follow-up on discharge. She has been fired from several primary care provider offices. Attestations Medical Necessity Statement*: Continue admission for assessment of management of gradually improving alcoholic hepatitis, generalized weakness, lower extremity weakness, disposition arrangements also in the setting of alcohol addiction, treatment of COPD exacerbation, hypoxia in the setting of elevated risk of bleeding. 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
[2020-02-06] MEDS: lactulose oral liq 20 gm/30 mL UDC PO (21:19)
--- NOTE | 2020-02-06 23:43 | PC.NURSE ---
Pt was complaining of pain in her tailbone, her ultram is 4hrs too early to give. I applied a heat pack to her tailbone and sent secure message to Dr. Lowe.
[2020-02-07] VITALS (12 sets, daily range): BP systolic 98–112; BP diastolic 62–73; PULSE 74–93; RESP 16–20; TEMP 36.6–37.5; O2SAT 92–97
[2020-02-07] MEDS: TRAMadol 50 mg Tablet PO ×3 (01:28→17:42)
[2020-02-07 05:01] LABS: Basophils % 0.8 %; Eosinophils # 0.1 10^3/uL (0.0-0.8); Eosinophils % 1.3 %; Hematocrit 26.8 % (37.0-47.0); Hemoglobin 8.6 g/dL (11.5-15.3); Lymphocytes # 0.8 10^3/uL (0.8-4.8); Lymphocytes % 16.3 %; Mean Corpuscular HGB Conc 32.1 g/dL (30.0-36.0); Mean Corpuscular Hemoglobin 29.9 pg (28.0-34.0); Mean Corpuscular Volume 93.1 fL (81-99); Mean Platelet Volume 11.8 fL (7.4-10.4); Monocytes # 1.1 10^3/uL (0.2-0.9); Monocytes % 23.1 %; Neutrophils # 2.7 10^3/uL (1.8-7.7); Neutrophils % 58.1 %; Nucleated Red Blood Cells % 0 %; Platelet Count 61 10^3/cmm (130-400); Red Blood Count 2.88 10^6/uL (4.1-5.3); Red Cell Distribution Width 19.1 % (12.1-15.1); White Blood Count 4.7 10^3/uL (4.0-10.0)
[2020-02-07 05:26] LABS: Ammonia 72 umol/L (11-51)
[2020-02-07 05:27] LABS: Alanine Aminotransferase 16 U/L (0-33); Albumin Level 2.5 g/dL (3.5-5.2); Alkaline Phosphatase 135 IU/L (35-105); Anion Gap 11.8 (5-19); Aspartate Amino Transferase 66 U/L (0-32); Blood Urea Nitrogen 5 mg/dL (6-20); Calcium 8.9 mg/dL (8.5-10.5); Carbon Dioxide 26 mmol/L (22-29); Chloride 98 mmol/L (98-107); Globulin 4.2 g/dL (1.3-4.6); Glomerular Filtration Rate 364.8 mL/min (90-130); Glucose 101 mg/dL (65-115); Magnesium 1.4 mg/dL (1.7-2.3); Osmolality Calculated 270 mOsm/kg (285-295); Potassium 3.8 mmol/L (3.5-5.1); Sodium 132 mmol/L (136-145); Total Bilirubin 2.1 mg/dL (0.15-1.2); Total Protein 6.7 g/dL (6.6-8.7)
[2020-02-07] MEDS: levETIRAcetam 500 mg Tablet PO ×2 (05:38→17:42)
--- NOTE | 2020-02-07 06:14 | PC.NURSE ---
END OF SHIFT NOTE Pt has required 1 tramadol 50mg throughout shift for pain in back and knees. [place] [facility] [place] When ambulating with Pt she is very weak and does not move fluidly.
[2020-02-07] MEDS: pantoprazole DR 40 mg Tablet PO ×2 (08:07→17:42)
[2020-02-07] MEDS: multivitamin therapeutic Tablet 1 TAB PO (08:07)
[2020-02-07] MEDS: thiamine 100 mg Tablet PO (08:07)
[2020-02-07] MEDS: folic acid 1 mg Tablet PO (08:07)
[2020-02-07] MEDS: lactulose oral liq 20 gm/30 mL UDC PO ×3 (08:08→21:30)
[2020-02-07] MEDS: ipratropium-albuterol 3 mL Neb INHALATION ×3 (08:20→20:08)
[2020-02-07] MEDS: budesonide 0.5 mg/2 mL Neb INHALATION ×3 (08:20→20:08)
[2020-02-07] MEDS: magnesium sulfate premix 4 GM/100 ML PREMIX IV (14:52)
--- NOTE | 2020-02-07 15:14 | P.PN_ITS ---
Subjective Subjective: Interval history: Asking for pain medication for back pain. We discussed again regarding her disposition on discharge. Clarified that if she were going to prison she would stay there for at least couple of weeks to get more intensive physical therapy, before returning home. She states that she would be interested in doing that. Vitals/I&O/Wt Last Vital Signs Temp 97.9 F 02/07/20 11:09 Pulse 86 02/07/20 15:06 Resp 17 02/07/20 14:56 BP 103/71 02/07/20 11:09 Pulse Ox 93 02/07/20 14:56 02/07/20 02/07/20 02/07/20 06:59 14:59 22:59 Intake Total 960 / 1800 Output Total 100 / 800 400 / 400 Balance 860 / 1000 -400 / -400 Physical Exam Const: COMMON NORMALS: no acute distress OTHER: Somewhat sluggish. HENMT: COMMON NORMALS: oropharynx normal Neck/C-Spine: COMMON NORMALS: no JVD Resp: COMMON NORMALS: normal respiratory effort and clear to auscultation bilaterally AUSCULTATION: clear to auscultation bilaterally OTHER: Breathing is better today. Yesterday was having wheezing. Decreased air entry. Rhonchi. Cardio: COMMON NORMALS: no JVD, regular rhythm, S1 normal heart sound present, S2 normal heart sound present and No murmurs present (Cardio) RHYTHM: regular rhythm HEART SOUNDS: S1 normal heart sound present and S2 normal heart sound present GI: COMMON NORMALS: Normal to inspection, nondistended, normoactive bowel sounds present, Soft to palpation and non-tender PALPATION: Yes Soft to palpation Extremity: COMMON NORMALS: no joint enlargement and no pedal edema OTHER: Bruise on anterior lateral left haji Neuro: COMMON NORMALS: moves all extremities (LE persistently weak. Some effort against gravity. ) SENSORIUM/ORIENTATION: Yes somnolent (Mental status significantly better today) Skin: GENERAL SKIN EXAM: ecchymosis and petechiae OTHER: Bruise and associated tenderness of anterolateral L haji Data : 02/07/20 04:30 02/07/20 04:30 Micro: Microbiology 02/01/20 23:58 Blood Culture - Final Blood NO GROWTH AFTER 5 DAYS 02/01/20 23:59 Blood Culture - Final Blood NO GROWTH AFTER 5 DAYS A&P Assessment and plan (1) Encephalopathy: Ammonia is up today to 72. Appears has not had a bowel movement in several days. Requested to intensify lactulose frequency so she can have a bowel movement. Goal 2-3 soft bowel movements per day. Again hypomagnesemia, 1.4. Requested replacement. With multiple medical conditions requiring attention, as well as severe deconditioning, as well as degenerative back disease and lower extremity weakness, very high risk of fall, very high risk of bleeding, needs additional skilled therapy prior to return home. Discharge planning is working on placement to senior living facility. Again discussed in detail with both her daughter and her on the phone regarding her condition, and plans, and both are in agreement. states has contacted Dr. Novak's office, and she could follow-up there after discharge. Alcohol-related hepatitis appears to be slowly improving, AST, alk phos, improving. Bili appears to have stabilized around 2. Mental status appears to have stabilized so far. states that at home he frequently needs to assist her with walking around, per her report also stated that he frequently puts medications in her mouth. Difficult to gauge the actual baseline, but. She is close to it currently. She is somnolent at times, but wakes up easily, persistently oriented, slightly sluggish, takes her some time together her thoughts, but answers questions, is able to state her chronic conditions, reason why she was in the hospital, and discussed discharge planning. She does request for pain medicines quite often, and unfortunately pain medicines appear to exacerbate her symptoms sometimes. This may need to be monitored cautiously after discharge as well. Multifactorial encephalopathy secondary to alcohol withdrawal, with history of Wernicke's encephalopathy likely contributing, but also appears to have alcoholic hepatitis, Maddrey's discriminant function of 25. At this time does not qualify for steroid therapy. Alcohol withdrawal resolved. At this time continue treatment for hepatic encephalopathy, monitor liver parameters and provide supportive care with regards to alcohol-related hepatitis. Monitor for any development of hepatic encephalopathy, although so far ammonia has been normal. Restarted lactulose, however, does not appear she has had bowel movements charted. Discussed with RN, will make sure she is receiving lactulose and having bowel movements. For now diuretics have been on hold. Status: Acute (2) Lower extremity weakness: Pending SNF placement. Continue PT. Was seen by orthopedics for bilateral patellar fractures. Not found to need immobilizer, with recommendation for mobilization as tolerating, follow-up only as needed. MRI of the back with bed degenerative changes, disk protrusion L4-5, central bulge, L5 contact on nerve roots worse on the left. It is not surprising she is having back pain. Less pronounced changes L2-3. After assessed by ortho was assessed by PT. Even with walker requiring significant assistance, and expressed concern about returning home. With this also very high fall risk, and with coagulation and platelet deficiency related to cirrhosis also at very high risk of bleeding. Discussed all findings with her. She is agreeable that would benefit from additional skilled rehabil itation, and is wanting to go to a senior living place. Discharge planning will work with her to make arrangements. Status: Acute (3) COPD exacerbation: This is imrpving. Today she sounds better, no wheezing. Continue inhaled steroid for now, continue nebulization. She is now also having COPD exacerbation with noted hypoxia, 89% on 2 L nasal cannula. states intermittently gets quite a bit of secretions, wheezing, and was supposed to be on oxygen at home, but has not been. He would like to find out about a portable oxygen concentrator. Discussed w him that at this time she is at elevated risk of bleeding. We may cautiously try inhaled steroid, but even that, and anything would not be safe angela tolliver already present gastritis, as well as coagulopathy and thrombocytopenia due to cirrhosis. He verbalized understanding. We will add breathing treatments. Continue oxygen support as needed. Goal saturation 88-92%. Will need oxygen after discharge. states he understands that she needs to quit smoking. Status: Acute (4) Alcohol dependence with withdrawal: Alcohol withdrawal should now be resolved. [facility] protocol and monitor closely for withdrawal Vitamin replacement. Received assistance with initiating alcohol rehabilitation. Status: Acute (5) Alcoholic gastritis: Continue Protonix. Possibly the cause of her getting sick after drinking as described by her . May benefit from outpatient EGD follow up. Status: Acute Qualifiers: Chronicity: chronic Gastritis bleeding: without bleeding Qualified Code(s): K29.20 - Alcoholic gastritis without bleeding (6) Muscular deconditioning: PT Status: Acute (7) Transaminitis: As above, suspected related to alcohol-related hepatitis, with abnormal INR, mental status changes Status: Acute (8) Thrombocytopenia: Continue to monitor. No anticoagulants for DVT prophylaxis. Continue PPI. Secondary to her alcoholic and hepatitis C induced cirrhosis Status: Acute (9) Hepatitis C: Encouraged and daughter to help her achieving follow-up to initiate treatment Status: Acute Qualifiers: Hepatic coma status: without hepatic coma Viral hepatitis chronicity: chronic Qualified Code(s): B18.2 - Chronic viral hepatitis C (10) Patellar fracture: Appreciate orthopedic assessment. Mobilize. Fall precautions. She has been complaining of pain in the left haji, and says had fallen at home. This was imaged and no fracture noted. Seems she has been falling at home, but also yesterday found slumped on her knees, with arms around the commode, knees were imaged, with finding of cortical fracture bilateral upper patella. She is having some pain in her knees, overall legs are weak, at full risk, so for now discussed with on-call orthopedics, and will place in knee immobilizer. She could follow-up in office after discharge. Status: Acute Additional A&P Information Concern of ascites. No significant enough ascites noted for paracentesis. Empirically on Rocephin with anemia. For now continue, monitor clinically, if continues to do well without signs of acute infection/sepsis, potentially may be able to discontinue. Cirrhosis. MELD at baseline values appears to be around 11, currently some of the labs are worse possibly due to acute condition. On hold Aldactone and Lasix. Encouraged both and daughter mrs Gonzalez to facilitate follow up and alcohol absitinence. earlier and daughter today both verbalized understand that she needs close follow-up with PCP and specialist due to progressive cirrhosis, need for hepatitis C treatment, need for alcohol cessation, consideration of possible transplantation if she were to become a candidate, as well as monitoring for hepatic malignancy, as well as other parameters recommended with liver cirrhosis. Once out of acute episode restart propranolol. Restart spironolactone. Hypokalemia. Replaced Severe hypomagnesemia: Requested replacement History of seizures in the past. Continue Keppra currently. Discharge planning will need to work on follow-up on discharge. She has been fired from several primary care provider offices. Attestations Medical Necessity Statement*: Continue admission for assessment management of alcohol-related hepatitis, hyperammonemia, hypomagnesemia, with underlying liver cirrhosis, severe generalized weakness, deconditioning, COPD exacerbation, as well as lower extremity weakness, with severe degenerative back disease, high risk of falls, at the same time high risk of bleeding due to cirrhosis, with pending arrangements trying to place to SNF. 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
--- NOTE | 2020-02-07 18:11 | PC.NURSE ---
End of shift summary Patient has decided that she will go to a SNF if they will except her. Patient is on room air. Patient is refusing to wear her heart monitor. Patient is still in need of having a bowel movement. Lactulose given today. Patient did speak on the phone to her today about being placed in a SNF.
--- NOTE | 2020-02-07 20:17 | PC.NURSE ---
Shift Assessment Pt A&Ox4, laying in bed sleeping, complained of generalized body pain rated 3/10. No other needs voiced at this time.
--- NOTE | 2020-02-07 22:36 | PC.NURSE ---
Addendum entered by Brenda Rojas RN 02/08/20 01:16: No further orders given. Original Note: Pt stated that she no longer wants to take lactulose due to it making her nauseas, doctor notified.
[2020-02-08] VITALS (7 sets, daily range): BP systolic 92–111; BP diastolic 57–75; PULSE 70–94; RESP 16–22; TEMP 36.6–37.6; O2SAT 93–97
[2020-02-08] MEDS: TRAMadol 50 mg Tablet PO ×3 (02:22→19:54)
[2020-02-08] MEDS: ipratropium-albuterol 3 mL Neb INHALATION ×2 (03:03→09:07)
[2020-02-08 05:25] LABS: Basophils % 0.4 %; Eosinophils % 0.4 %; Hematocrit 27.9 % (37.0-47.0); Lymphocytes # 0.8 10^3/uL (0.8-4.8); Lymphocytes % 14.3 %; Mean Corpuscular HGB Conc 32.3 g/dL (30.0-36.0); Mean Platelet Volume 12.1 fL (7.4-10.4); Monocytes # 1.3 10^3/uL (0.2-0.9); Monocytes % 24.3 %; Neutrophils # 3.3 10^3/uL (1.8-7.7); Neutrophils % 60.2 %; Nucleated Red Blood Cells % 0 %; Platelet Count 81 10^3/cmm (130-400); Red Cell Distribution Width 19.1 % (12.1-15.1); White Blood Count 5.4 10^3/uL (4.0-10.0)
[2020-02-08 05:37] LABS: Alanine Aminotransferase 17 U/L (0-33); Albumin Level 2.6 g/dL (3.5-5.2); Alkaline Phosphatase 137 IU/L (35-105); Anion Gap 14.4 (5-19); Aspartate Amino Transferase 59 U/L (0-32); Blood Urea Nitrogen 4 mg/dL (6-20); Carbon Dioxide 23 mmol/L (22-29); Chloride 96 mmol/L (98-107); Globulin 4.2 g/dL (1.3-4.6); Glomerular Filtration Rate 364.8 mL/min (90-130); Glucose 115 mg/dL (65-115); Osmolality Calculated 267 mOsm/kg (285-295); Potassium 3.4 mmol/L (3.5-5.1); Sodium 130 mmol/L (136-145); Total Bilirubin 2.2 mg/dL (0.15-1.2); Total Protein 6.8 g/dL (6.6-8.7)
[2020-02-08 05:43] LABS: Ammonia 46 umol/L (11-51); Magnesium 1.7 mg/dL (1.7-2.3)
[2020-02-08] MEDS: levETIRAcetam 500 mg Tablet PO ×2 (06:20→18:19)
[2020-02-08] MEDS: thiamine 100 mg Tablet PO (08:48)
[2020-02-08] MEDS: folic acid 1 mg Tablet PO (08:48)
[2020-02-08] MEDS: pantoprazole DR 40 mg Tablet PO ×2 (08:48→18:19)
[2020-02-08] MEDS: multivitamin therapeutic Tablet 1 TAB PO (08:48)
[2020-02-08] MEDS: spironolactone 25 mg Tablet 12.5 MG PO (08:48)
[2020-02-08] MEDS: budesonide 0.5 mg/2 mL Neb INHALATION (09:07)
--- NOTE | 2020-02-08 22:18 | PM.PN ---
Subjective Subjective: Interval history: She is awake, alert, comfortable. Not as bothered by back pain today. Vitals/I&O/Wt Last Vital Signs Temp 98.3 F 02/08/20 19:45 Pulse 81 02/08/20 19:45 Resp 20 H 02/08/20 19:45 BP 92/57 02/08/20 19:45 Pulse Ox 96 02/08/20 19:45 02/08/20 02/08/20 02/08/20 06:59 14:59 22:59 Intake Total 300 / 600 120 / 120 240 / 360 Output Total 600 / 1450 675 / 675 380 / 1055 Balance -300 / -850 -555 / -555 -140 / -695 Physical Exam Const: COMMON NORMALS: no acute distress OTHER: Appears more alert today. HENMT: COMMON NORMALS: oropharynx normal Neck/C-Spine: COMMON NORMALS: no JVD Resp: COMMON NORMALS: normal respiratory effort and clear to auscultation bilaterally AUSCULTATION: clear to auscultation bilaterally OTHER: Breathing is better. Better air entry. No wheezing. Cardio: COMMON NORMALS: no JVD, regular rhythm, S1 normal heart sound present, S2 normal heart sound present and No murmurs present (Cardio) RHYTHM: regular rhythm HEART SOUNDS: S1 normal heart sound present and S2 normal heart sound present GI: COMMON NORMALS: Normal to inspection, nondistended, normoactive bowel sounds present, Soft to palpation and non-tender PALPATION: Yes Soft to palpation Extremity: COMMON NORMALS: no joint enlargement and no pedal edema OTHER: Bruise on anterior lateral left haji Neuro: COMMON NORMALS: moves all extremities (LE persistently weak. Some effort against gravity. ) SENSORIUM/ORIENTATION: Yes somnolent (Mental status significantly better today) Skin: GENERAL SKIN EXAM: ecchymosis and petechiae OTHER: Bruise and associated tenderness of anterolateral L haji Data : 02/08/20 05:11 02/08/20 05:11 A&P Assessment and plan (1) Encephalopathy: Hyperammonemia improved. She appears more lucid. Had a bowel movement yesterday and today. Continue lactulose. Replace hypomagnesemia. Continue mobilization. Physical therapy. There is worsening hyponatremia. Sodium down to 130, although at this time would not treat yet. Monitor. Spironolactone was restarted, although blood pressure is soft. Monitor for now. For now hold off adding Lasix. With multiple medical conditions requiring attention, as well as severe deconditioning, as well as degenerative back disease and lower extremity weakness, very high risk of fall, very high risk of bleeding, needs additional skilled therapy prior to return home. Discharge planning is working on placement to rehab at [facility]. Again discussed in detail with both her daughter and her on the phone regarding her condition, and plans, and both are in agreement. states has contacted Dr. Novak's office, and she could follow-up there after discharge. Alcohol-related hepatitis appears stabilizing. Bili appears to have stabilized around 2. Multifactorial encephalopathy secondary to alcohol withdrawal, with history of Wernicke's encephalopathy likely contributing, but also appears to have alcoholic hepatitis, Maddrey's discriminant function of 25. Alcohol withdrawal resolved. Status: Acute (2) Lower extremity weakness: Pending rehab placement. Continue PT. Was seen by orthopedics for bilateral patellar fractures. Not found to need immobilizer, with recommendation for mobilization as tolerating, follow-up only as needed. MRI of the back with bed degenerative changes, disk protrusion L4-5, central bulge, L5 contact on nerve roots worse on the left. It is not surprising she is having back pain. Less pronounced changes L2-3. After assessed by ortho was assessed by PT. Even with walker requiring significant assistance, and expressed concern about returning home. With this also very high fall risk, and with coagulation and platelet deficiency related to cirrhosis also at very high risk of bleeding. Discussed all findings with her. She is agreeable that would benefit from additional skilled rehabilitation, and is wanting to go to a nursing home place. Discharge planning will work with her to make arrangements. Status: Acute (3) COPD exacerbation: Improving. Monitor for any signs of worsening gastritis, if so low threshold to discontinue budesonide. Monitor hemoglobin due to risk of bleeding. Cannot receive systemic steroid. Continue breathing treatments. states intermittently gets quite a bit of secretions, wheezing, and was supposed to be on oxygen at home, but has not been. He would like to find out about a portable oxygen concentrator. Goal saturation 88-92%. Will need oxygen after discharge. Continue to encourage smoking cessation. Status: Acute (4) Alcohol dependence with withdrawal: Alcohol withdrawal should now be resolved. [facility] protocol and monitor closely for withdrawal Vitamin replacement. Received assistance with initiating alcohol rehabilitation. Status: Acute (5) Alcoholic gastritis: Continue Protonix. Possibly the cause of her getting sick after drinking as described by her . May benefit from outpatient EGD follow up. Status: Acute Qualifiers: Chronicity: chronic Gastritis bleeding: without bleeding Qualified Code(s): K29.20 - Alcoholic gastritis without bleeding (6) Muscular deconditioning: PT Status: Acute (7) Transaminitis: As above, suspected related to alcohol-related hepatitis, with abnormal INR, mental status changes Status: Acute (8) Thrombocytopenia: Continue to monitor. No anticoagulants for DVT prophylaxis. Continue PPI. Secondary to her alcoholic and hepatitis C induced cirrhosis Status: Acute (9) Hepatitis C: Encouraged and daughter to help her achieving follow-up to initiate treatment Status: Acute Qualifiers: Hepatic coma status: without hepatic coma Viral hepatitis chronicity: chronic Qualified Code(s): B18.2 - Chronic viral hepatitis C (10) Patellar fracture: Appreciate orthopedic assessment. Mobilize. Fall precautions. She has been complaining of pain in the left haji, and says had fallen at home. This was imaged and no fracture noted. Seems she has been falling at home, but also yesterday found slumped on her knees, with arms around the commode, knees were imaged, with finding of cortical fracture bilateral upper patella. She is having some pain in her knees, overall legs are weak, at full risk, so for now discussed with on-call orthopedics, and will place in knee immobilizer. She could follow-up in office after discharge. Status: Acute Additional A&P Information Concern of ascites. No significant enough ascites noted for paracentesis. Empirically on Rocephin with anemia. For now continue, monitor clinically, if continues to do well without signs of acute infection/sepsis, potentially may be able to discontinue. Cirrhosis. MELD at baseline values appears to be around 11, currently some of the labs are worse possibly due to acute condition. On hold Aldactone and Lasix. Encouraged both and daughter mrs Gonzalez to facilitate follow up and alcohol absitinence. earlier and daughter today both verbalized understand that she needs close follow-up with PCP and specialist due to progressive cirrhosis, need for hepatitis C treatment, need for alcohol cessation, consideration of possible transplantation if she were to become a candidate, as well as monitoring for hepatic malignancy, as well as other parameters recommended with liver cirrhosis. Once out of acute episode restart propranolol. Restart spironolactone. Hypokalemia. Replaced Severe hypomagnesemia: Requested replacement History of seizures in the past. Continue Keppra currently. Discharge planning will need to work on follow-up on discharge. She has been fired from several primary care provider offices. Attestations Medical Necessity Statement*: Continue assessment management of multifactorial encephalopathy, COPD exacerbation with concomitant alcohol related gastritis, high risk of bleeding, discharge arrangements with placement to rehabilitation due to severe deconditioning, generalized weakness, bilateral patellar fractures, severe degenerative changes of the spine with bilateral lower extremity weakness. Coding Level of Care Code Acute Slot Technician for [facility] Fwd Diagnoses Encephalopathy G93.40 Lower extremity weakness R29.898 COPD exacerbation J44.1 Alcohol dependence with withdrawal F10.239 Alcoholic gastritis K29.20 Chronicity: chronic Gastritis bleeding: without bleeding Muscular deconditioning R29.898 Transaminitis R74.0 Thrombocytopenia D69.6 Hepatitis C B18.2 Hepatic coma status: without hepatic coma Viral hepatitis chronicity: chronic Patellar fracture S82.009A
[2020-02-08] MEDS: magnesium sulfate premix 2 GM/50 ML PIGGYBACK IV (23:29)
[2020-02-08] MEDS: acetaminophen 325 mg Tablet 650 MG PO (23:30)
[2020-02-09 04:00] VITALS: BP 106/69; PULSE 72; RESP 20; TEMP 37.3; O2SAT 93
[2020-02-09 06:06] LABS: Basophils # 0.1 10^3/uL (0.0-0.1); Basophils % 1.3 %; Eosinophils # 0.1 10^3/uL (0.0-0.8); Eosinophils % 1.3 %; Hematocrit 30.1 % (37.0-47.0); Hemoglobin 9.3 g/dL (11.5-15.3); Lymphocytes # 1.1 10^3/uL (0.8-4.8); Lymphocytes % 25.3 %; Mean Corpuscular HGB Conc 30.9 g/dL (30.0-36.0); Mean Corpuscular Hemoglobin 30.1 pg (28.0-34.0); Mean Corpuscular Volume 97.4 fL (81-99); Mean Platelet Volume 11.3 fL (7.4-10.4); Monocytes # 1.4 10^3/uL (0.2-0.9); Monocytes % 30.8 %; Neutrophils # 1.8 10^3/uL (1.8-7.7); Neutrophils % 40.9 %; Nucleated Red Blood Cells % 0 %; Platelet Count 92 10^3/cmm (130-400); Red Blood Count 3.09 10^6/uL (4.1-5.3); Red Cell Distribution Width 19.4 % (12.1-15.1); White Blood Count 4.5 10^3/uL (4.0-10.0)
[2020-02-09 06:21] LABS: Alanine Aminotransferase 15 U/L (0-33); Albumin Level 2.6 g/dL (3.5-5.2); Alkaline Phosphatase 135 IU/L (35-105); Anion Gap 11.2 (5-19); Aspartate Amino Transferase 53 U/L (0-32); Blood Urea Nitrogen 7 mg/dL (6-20); Calcium 8.3 mg/dL (8.5-10.5); Carbon Dioxide 23 mmol/L (22-29); Chloride 99 mmol/L (98-107); Globulin 3.8 g/dL (1.3-4.6); Glomerular Filtration Rate 228.5 mL/min (90-130); Glucose 90 mg/dL (65-115); Osmolality Calculated 263 mOsm/kg (285-295); Potassium 4.2 mmol/L (3.5-5.1); Sodium 129 mmol/L (136-145); Total Bilirubin 1.9 mg/dL (0.15-1.2); Total Protein 6.4 g/dL (6.6-8.7)
[2020-02-09 06:23] LABS: Ammonia 65 umol/L (11-51)
[2020-02-09 07:32] VITALS: BP 109/68; PULSE 75; RESP 18; TEMP 37.1; O2SAT 96
[2020-02-09] MEDS: levETIRAcetam 500 mg Tablet PO ×2 (08:01→21:24)
[2020-02-09] MEDS: folic acid 1 mg Tablet PO (08:01)
[2020-02-09] MEDS: pantoprazole DR 40 mg Tablet PO ×2 (08:01→18:09)
[2020-02-09] MEDS: multivitamin therapeutic Tablet 1 TAB PO (08:01)
[2020-02-09] MEDS: spironolactone 25 mg Tablet 12.5 MG PO (08:01)
[2020-02-09] MEDS: thiamine 100 mg Tablet PO (08:01)
[2020-02-09] MEDS: lactulose oral liq 20 gm/30 mL UDC PO (08:09)
[2020-02-09] MEDS: TRAMadol 50 mg Tablet PO ×2 (08:21→20:08)
[2020-02-09 11:38] VITALS: BP 98/64; PULSE 76; RESP 18; TEMP 36.9; O2SAT 95
[2020-02-09] MEDS: acetaminophen 325 mg Tablet 650 MG PO ×2 (13:16→20:09)
[2020-02-09 15:25] VITALS: BP 120/67; PULSE 76; RESP 18; TEMP 37.1; O2SAT 94
[2020-02-09 20:00] VITALS: BP 107/69; PULSE 82; RESP 18; TEMP 36.6; O2SAT 96
--- NOTE | 2020-02-09 22:08 | PM.PN ---
Subjective Subjective: Interval history: Today she is awake and alert. She is doing well. Later complaining of itching in her eyes. Vitals/I&O/Wt Last Vital Signs Temp 98 F 02/09/20 20:00 Pulse 82 02/09/20 20:00 Resp 18 02/09/20 20:00 BP 107/69 02/09/20 20:00 Pulse Ox 96 02/09/20 20:00 02/09/20 02/09/20 02/09/20 06:59 14:59 22:59 Intake Total 200 / 560 760 / 760 Output Total 800 / 2055 1000 / 1000 Balance -600 / -1495 760 / 760 -1000 / -240 Physical Exam Const: COMMON NORMALS: no acute distress OTHER: Today she is lucid. HENMT: COMMON NORMALS: oropharynx normal Neck/C-Spine: COMMON NORMALS: no JVD Resp: COMMON NORMALS: normal respiratory effort and clear to auscultation bilaterally AUSCULTATION: clear to auscultation bilaterally OTHER: Breathing is better. Better air entry. No wheezing. Cardio: COMMON NORMALS: no JVD, regular rhythm, S1 normal heart sound present, S2 normal heart sound present and No murmurs present (Cardio) RHYTHM: regular rhythm HEART SOUNDS: S1 normal heart sound present and S2 normal heart sound present GI: COMMON NORMALS: Normal to inspection, nondistended, normoactive bowel sounds present, Soft to palpation and non-tender PALPATION: Yes Soft to palpation Extremity: COMMON NORMALS: no joint enlargement and no pedal edema OTHER: Bruise on anterior lateral left haji Neuro: COMMON NORMALS: moves all extremities (LE persistently weak. Some effort against gravity. ) SENSORIUM/ORIENTATION: Yes somnolent (Mental status significantly better today) Skin: GENERAL SKIN EXAM: ecchymosis and petechiae OTHER: Bruise and associated tenderness of anterolateral L haji Data : 02/09/20 05:58 02/09/20 05:58 A&P Assessment and plan (1) Encephalopathy: Remains lucid. She has been very cooperative with PT. Pending approval for placement. Continue lactulose for hepatic encephalopathy. Replace hypomagnesemia. Continue mobilization. Physical therapy. There is worsening hyponatremia. Sodium down to 130, although at this time would not treat unless starts trending below 125, becoming symptomatic. Monitor. With multiple medical conditions requiring attention, as well as severe deconditioning, as well as degenerative back disease and lower extremity weakness, very high risk of fall, very high risk of bleeding, needs additional skilled therapy prior to return home. She is agreeable for placement to [facility] in [place]. Next best option, if unavailable, she would return home with home health to her , although her daughter and her have also been making plan for her daughter to pick her up and take her to [place] to stay there to help with recovery from alcohol addiction. states has contacted Dr. Novak's office, and she could follow-up there after discharge. Needs gastroenterology/hepatology follow-up with regards to progressing cirrhosis, treatment of hepatitis C, and ultimately possibly consideration of referral for transplantation. Alcohol-related hepatitis appears stabilizing. With gradual improvement in AST, alk phos. Mental status. Bili appears to have stabilized around 2. Multifactorial encephalopathy secondary to alcohol withdrawal, with history of Wernicke's encephalopathy likely contributing, but also appears to have alcoholic hepatitis, Maddrey's discriminant function of 25. Alcohol withdrawal resolved. Continue lactulose to prevent hepatic encephalopathy. Status: Acute (2) Lower extremity weakness: Pending rehab placement. Continue PT. Was seen by orthopedics for bilateral patellar fractures. Not found to need immobilizer, with recommendation for mobilization as tolerating, follow-up only as needed. MRI of the back with bed degenerative changes, disk protrusion L4-5, central bulge, L5 contact on nerve roots worse on the left. It is not surprising she is having back pain. Less pronounced changes L2-3. After assessed by ortho was assessed by PT. Even with walker requiring significant assistance, and expressed concern about returning home. With this also very high fall risk, and with coagulation and platelet deficiency related to cirrhosis also at very high risk of bleeding. Discussed all findings with her. She is agreeable that would benefit from additional skilled rehabilitation, and is wanting to go to a [facility]. Discharge planning will work with her to make arrangements. Status: Acute (3) COPD exacerbation: Improving. Weaned down to room air. Monitor for any signs of worsening gastritis, if so low threshold to discontinue budesonide. Monitor hemoglobin due to risk of bleeding. Cannot receive systemic steroid. Continue breathing treatments. states intermittently gets quite a bit of secretions, wheezing, and was supposed to be on oxygen at home, but has not been. He would like to find out about a portable oxygen concentrator. Goal saturation 88-92%. Will need oxygen after discharge. Continue to encourage smoking cessation. Status: Acute (4) Alcohol dependence with withdrawal: Alcohol withdrawal should now be resolved. [facility] protocol and monitor closely for withdrawal Vitamin replacement. Received assistance with initiating alcohol rehabilitation. Status: Acute (5) Alcoholic gastritis: Continue Protonix. Possibly the cause of her getting sick after drinking as described by her . May benefit from outpatient EGD follow up. Status: Acute Qualifiers: Chronicity: chronic Gastritis bleeding: without bleeding Qualified Code(s): K29.20 - Alcoholic gastritis without bleeding (6) Muscular deconditioning: PT Status: Acute (7) Transaminitis: As above, suspected related to alcohol-related hepatitis, with abnormal INR, mental status changes Status: Acute (8) Thrombocytopenia: Continue to monitor. No anticoagulants for DVT prophylaxis. Continue PPI. Secondary to her alcoholic and hepatitis C induced cirrhosis Status: Acute (9) Hepatitis C: Encouraged and daughter to help her achieving follow-up to initiate treatment Status: Acute Qualifiers: Hepatic coma status: without hepatic coma Viral hepatitis chronicity: chronic Qualified Code(s): B18.2 - Chronic viral hepatitis C (10) Patellar fracture: Appreciate orthopedic assessment. Mobilize. Fall precautions. She has been complaining of pain in the left haji, and says had fallen at home. This was imaged and no fracture noted. Seems she has been falling at home, but also yesterday found slumped on her knees, with arms around the commode, knees were imaged, with finding of cortical fracture bilateral upper patella. She is having some pain in her knees, overall legs are weak, at full risk, so for now discussed with on-call orthopedics, and will place in knee immobilizer. She could follow-up in office after discharge. Status: Acute Additional A&P Information Concern of ascites. No significant enough ascites noted for paracentesis. Empirically on Rocephin with anemia. For now continue, monitor clinically, if continues to do well without signs of acute infection/sepsis, potentially may be able to discontinue. Cirrhosis. Spironolactone restarted. MELD at baseline values appears to be around 11, currently some of the labs are worse possibly due to acute condition. On hold Aldactone and Lasix. Encouraged both and daughter Enice Gonzalez to facilitate follow up and alcohol absitinence. earlier and daughter today both verbalized understand that she needs close follow-up with PCP and specialist due to progressive cirrhosis, need for hepatitis C treatment, need for alcohol cessation, consideration of possible transplantation if she were to become a candidate, as well as monitoring for hepatic malignancy, as well as other parameters recommended with liver cirrhosis. Once out of acute episode restart propranolol. Hypokalemia. Replaced Severe hypomagnesemia: Requested replacement History of seizures in the past. Continue Keppra currently. Discharge planning will need to work on follow-up on discharge. She has been fired from several primary care provider offices. Attestations Medical Necessity Statement*: Continue admission for arrangements for placement to SNF for rehabilitation, supportive care following multifactorial encephalopathy including alcoholic hepatitis. Coding Level of Care Code Acute Director Of Vendor Management for [facility] Fwd Diagnoses Encephalopathy G93.40 Lower extremity weakness R29.898 COPD exacerbation J44.1 Alcohol dependence with withdrawal F10.239 Alcoholic gastritis K29.20 Chronicity: chronic Gastritis bleeding: without bleeding Muscular deconditioning R29.898 Transaminitis R74.0 Thrombocytopenia D69.6 Hepatitis C B18.2 Hepatic coma status: without hepatic coma Viral hepatitis chronicity: chronic Patellar fracture S82.009A
[2020-02-10] VITALS (7 sets, daily range): BP systolic 96–112; BP diastolic 60–73; PULSE 73–86; RESP 16–20; TEMP 36.8–37.1; O2SAT 95–98
[2020-02-10] MEDS: acetaminophen 325 mg Tablet 650 MG PO ×3 (04:07→20:42)
[2020-02-10] MEDS: TRAMadol 50 mg Tablet PO ×3 (04:08→22:01)
[2020-02-10 05:53] LABS: Basophils # 0.1 10^3/uL (0.0-0.1); Basophils % 1.8 %; Eosinophils # 0.1 10^3/uL (0.0-0.8); Eosinophils % 1.1 %; Hematocrit 26.4 % (37.0-47.0); Hemoglobin 8.7 g/dL (11.5-15.3); Lymphocytes # 0.9 10^3/uL (0.8-4.8); Lymphocytes % 19.7 %; Mean Corpuscular Hemoglobin 30.1 pg (28.0-34.0); Mean Corpuscular Volume 91.3 fL (81-99); Mean Platelet Volume 11.7 fL (7.4-10.4); Monocytes # 1.3 10^3/uL (0.2-0.9); Monocytes % 27.9 %; Neutrophils # 2.2 10^3/uL (1.8-7.7); Neutrophils % 49.1 %; Nucleated Red Blood Cells % 0 %; Platelet Count 118 10^3/cmm (130-400); Red Blood Count 2.89 10^6/uL (4.1-5.3); Red Cell Distribution Width 18.7 % (12.1-15.1); White Blood Count 4.5 10^3/uL (4.0-10.0)
[2020-02-10 06:02] LABS: Ammonia 53 umol/L (11-51)
[2020-02-10 06:12] LABS: Alanine Aminotransferase 16 U/L (0-33); Albumin Level 2.6 g/dL (3.5-5.2); Alkaline Phosphatase 134 IU/L (35-105); Anion Gap 14.2 (5-19); Aspartate Amino Transferase 60 U/L (0-32); Blood Urea Nitrogen 6 mg/dL (6-20); Carbon Dioxide 22 mmol/L (22-29); Chloride 99 mmol/L (98-107); Globulin 4.4 g/dL (1.3-4.6); Glomerular Filtration Rate 364.8 mL/min (90-130); Glucose 97 mg/dL (65-115); Osmolality Calculated 268 mOsm/kg (285-295); Potassium 4.2 mmol/L (3.5-5.1); Sodium 131 mmol/L (136-145); Total Bilirubin 2.1 mg/dL (0.15-1.2)
[2020-02-10 06:15] LABS: Magnesium 1.5 mg/dL (1.7-2.3)
[2020-02-10 06:38] LABS: Slide Review Slide Review Perform
[2020-02-10] MEDS: folic acid 1 mg Tablet PO (09:08)
[2020-02-10] MEDS: levETIRAcetam 500 mg Tablet PO ×2 (09:08→20:42)
[2020-02-10] MEDS: spironolactone 25 mg Tablet 12.5 MG PO (09:08)
[2020-02-10] MEDS: pantoprazole DR 40 mg Tablet PO ×2 (09:08→17:06)
[2020-02-10] MEDS: olopatadine 0.1% Op Soln 5 mL Btl 1 DROP EYE-BOTH ×2 (09:08→17:06)
[2020-02-10] MEDS: thiamine 100 mg Tablet PO (09:08)
[2020-02-10] MEDS: multivitamin therapeutic Tablet 1 TAB PO (09:08)
--- NOTE | 2020-02-10 10:28 | PM.PN ---
Subjective Subjective: Interval history: Feels better. Asking about pain medication and wondering why she cannot have it more frequently. Reviewed with her that most pain medications are metabolized in some degree to the liver and many such as what she describes as taking at home, hydrocodone have Tylenol which has to be limited with her liver problems. Let her know that I would review medications. Pain is primarily in the abdomen, right upper quadrant. She also complains of pain in her knees but primarily abdominal. No new complaints today. Medications: Reviewed: Yes Medication Review Details: Reviewed home medications. She is not had anything filled at a pharmacy that we can verify since November. She got some tramadol No. 14 tablets prescribed to her I believe from urgent care or ER on January 15. She states that she takes hydrocodone at home but I do not see any prescriptions for this. Reviewed with her that Tylenol-containing products are not good for her, including [id number] Tylenol and hydrocodone tablets.. Vitals/I&O/Wt Last Vital Signs Temp 98.7 F 02/10/20 07:59 Pulse 86 02/10/20 08:23 Resp 18 02/10/20 08:23 BP 100/66 02/10/20 07:59 Pulse Ox 97 02/10/20 08:23 02/09/20 02/10/20 02/10/20 22:59 06:59 14:59 Intake Total 30 / 790 240 / 240 Output Total 1000 / 1000 Balance -1000 / -240 30 / -210 240 / 240 Physical Exam Const: OTHER: Alert, oriented x3, cooperative HENMT: OTHER: Normocephalic atraumatic, moist mucus membranes Eye: OTHER: Pupils equally round and reactive to light Neck/C-Spine: OTHER: Supple Resp: OTHER: Scattered wheezes noted, no accessory muscle use. Cardio: OTHER: Regular rate and rhythm, no murmurs gallops or rubs. Pulses equal throughout. GI: OTHER: Abdomen soft, mild RUQ tenderness without rebound or guarding. Rounded but without fluid wave or tympany noted. Positive bowel sounds Extremity: NARRATIVE EXTREMITY EXAM: No cyanosis, clubbing or edema, no acute synovitis Neuro: OTHER: Face symmetric, speech clear, moves all extremities, no asterixis Psych: OTHER: Normal affect, not anxious appearing Skin: OTHER: Bruises noted upper extremities and left lower extremity> right lower extremity. Skin dry. Data : 02/10/20 05:25 02/10/20 05:25 A&P Assessment and plan (1) Encephalopathy: Hepatic encephalopathy plus acute alcohol withdrawal, improved Status: Acute (2) Alcohol dependence with withdrawal: Status: Acute Qualifiers: Complication of substance-induced condition: uncomplicated Qualified Code(s): F10.230 - Alcohol dependence with withdrawal, uncomplicated (3) Alcoholic gastritis: Status: Acute Qualifiers: Chronicity: chronic Gastritis bleeding: without bleeding Qualified Code(s): K29.20 - Alcoholic gastritis without bleeding (4) COPD exacerbation: Status: Acute (5) Patellar fracture: Bilateral Status: Acute Qualifiers: Encounter type: initial encounter Fracture type: closed Fracture morphology: unspecified fracture morphology Fracture alignment: nondisplaced Laterality: unspecified laterality Qualified Code(s): S82.009A - Unspecified fracture of unspecified patella, initial encounter for closed fracture (6) Muscular deconditioning: Status: Inactive (7) Lower extremity weakness: Improving Status: Acute Qualifiers: Laterality: bilateral Qualified Code(s): R29.898 - Other symptoms and signs involving the musculoskeletal system (8) Thrombocytopenia: Status: Acute (9) Hepatitis C: Untreated Status: Chronic Qualifiers: Hepatic coma status: without hepatic coma Viral hepatitis chronicity: chronic Qualified Code(s): B18.2 - Chronic viral hepatitis C (10) Cirrhosis: Meld score around 11 Status: Acute Qualifiers: Ascites presence: unspecified Hepatic cirrhosis type: alcoholic cirrhosis Qualified Code(s): K70.30 - Alcoholic cirrhosis of liver without ascites Additional A&P Information Rolling walker ordered We will need to evaluate if she should continue oxygen therapyHypokalemia Replaced Severe hypomagnesemia -replaced History of seizures, prescribed Keppra on an outpatient basis After much discussion and consideration, patient has decided to go home with her daughter. She has requested that we not speak to her at all any further. I did talk with patient's daughter and she is willing to take her mother home. Tentative plan is for discharge tomorrow Walker has been ordered for home use Has been on room air as I do not anticipate that she will need oxygen Will need a supply of medications to go with her We will need to arrange for primary care provider locally and eventual follow-up with somebody who is willing to potentially consider management for hepatitis C and can do paracentesis should she need that. Change Tylenol to 500 mg tablets so that we do not go above 2 g a day Given reported history of seizures I am not willing to go up on the tramadol that she is currently on Not comfortable adding any additional Tylenol products I discussed with both patient and the daughter that she should not take more than 2 g or four 500 mg Tylenol tablets a day Try to increase Aldactone to 25 mg daily Try to resume propanolol 10 mg p.o. twice daily Continue multivitamin folic acid Continue lactulose although patient did refuse a dose earlier today Continue breathing treatments as needed including Pulmicort Tentative discharge plans for tomorrow with patient going home with her daughter. I gave the daughter and patient an opportunity to ask questions. Not on any pharmacological DVT prophylaxis secondary to thrombocytopenia and known esophageal varices Refused SCDs Has been off of Ativan and other benzodiazepines since February 05 Attestations Medical Necessity Statement*: Requires ongoing inpatient stay will be continue to adjust medications and make arrangements for safe disposition as noted. Coding Level of Care Code Acute Clerk Entry Level for [facility] Zhao Diagnoses Encephalopathy G93.40 Alcohol dependence with withdrawal F10.230 Complication of substance-induced condition: uncomplicated Alcoholic gastritis K29.20 Chronicity: chronic Gastritis bleeding: without bleeding COPD exacerbation J44.1 Patellar fracture S82.009A Encounter type: initial encounter Fracture type: closed Fracture morphology: unspecified fracture morphology Fracture alignment: nondisplaced Laterality: unspecified laterality Muscular deconditioning R29.898 Lower extremity weakness R29.898 Laterality: bilateral Thrombocytopenia D69.6 Hepatitis C B18.2 Hepatic coma status: without hepatic coma Viral hepatitis chronicity: chronic Cirrhosis K70.30 Ascites presence: unspecified Hepatic cirrhosis type: alcoholic cirrhosis
--- NOTE | 2020-02-10 12:25 | PC.RESP ---
SMOKING CESSATION AND PULMONARY REHAB INFORMATION SENT TO PATIENT.
--- NOTE | 2020-02-10 13:11 | PC.NURSE ---
Patient's (Jerrell) called and said that patient called him and said she is being discharged tomorrow. Patient's asked if that was true. Netting Weaver explained that that is the plan but could change if patient's condition changes. Netting Weaver also explained that patient said she was planning to go to her daughter's house in [place]. Patient's said she lives here and that don't make any since. Netting Weaver also explained that we are working on getting patient a PCP. Patient's said she has a PCP, it is Dr Santiago and she has an appointment on February 11 @ 1838. Netting Weaver also read that Dr Dent was planning to call patient's today with update, per SS note. Netting Weaver called Dr Santiago's office [phone], spoke with Vi, she confirmed patient's appointment but said it is only follow up for Hep C.
--- NOTE | 2020-02-10 13:43 | PC.NURSE ---
patient said she doesn't want her involved in her care and if he calls not to tell him anything at all. patient said that her is trying to cause trouble. commercial insurance underwriter notified Dr Dent and SS of patient's request.
--- NOTE | 2020-02-10 14:08 | PC.NURSE ---
Updated patient's authorization to discuss PHI form. Called Admissions and asked that patient's be removed from list of contacts as requested by patient.
--- NOTE | 2020-02-10 15:41 | PC.NURSE ---
Notified Dr Dent that patient refuses lactulose. No new orders per Dr Dent.
[2020-02-11] VITALS: BP 116/76; PULSE 74; RESP 20; TEMP 37.1; O2SAT 96
[2020-02-11 03:59] VITALS: BP 112/71; PULSE 79; RESP 16; TEMP 37.3; O2SAT 97
[2020-02-11] MEDS: acetaminophen 500 mg Tablet PO ×2 (04:03→10:25)
[2020-02-11 06:00] LABS: Basophils # 0.1 10^3/uL (0.0-0.1); Basophils % 1.7 %; Eosinophils % 0.8 %; Hematocrit 30.4 % (37.0-47.0); Hemoglobin 9.4 g/dL (11.5-15.3); Lymphocytes # 1.1 10^3/uL (0.8-4.8); Lymphocytes % 22.7 %; Mean Corpuscular HGB Conc 30.9 g/dL (30.0-36.0); Mean Corpuscular Hemoglobin 30.3 pg (28.0-34.0); Mean Corpuscular Volume 98.1 fL (81-99); Mean Platelet Volume 11.3 fL (7.4-10.4); Monocytes # 1.2 10^3/uL (0.2-0.9); Monocytes % 26.3 %; Neutrophils # 2.3 10^3/uL (1.8-7.7); Neutrophils % 48.3 %; Nucleated Red Blood Cells % 0 %; Platelet Count 153 10^3/cmm (130-400); Red Cell Distribution Width 18.8 % (12.1-15.1); White Blood Count 4.7 10^3/uL (4.0-10.0)
[2020-02-11 06:30] LABS: Ammonia 49 umol/L (11-51); Magnesium 1.6 mg/dL (1.7-2.3)
[2020-02-11 06:31] LABS: Alanine Aminotransferase 17 U/L (0-33); Albumin Level 2.6 g/dL (3.5-5.2); Alkaline Phosphatase 129 IU/L (35-105); Aspartate Amino Transferase 60 U/L (0-32); Blood Urea Nitrogen 5 mg/dL (6-20); Calcium 9.3 mg/dL (8.5-10.5); Carbon Dioxide 21 mmol/L (22-29); Chloride 97 mmol/L (98-107); Globulin 4.7 g/dL (1.3-4.6); Glomerular Filtration Rate 228.5 mL/min (90-130); Glucose 92 mg/dL (65-115); Osmolality Calculated 265 mOsm/kg (285-295); Sodium 130 mmol/L (136-145); Total Protein 7.3 g/dL (6.6-8.7)
[2020-02-11 07:56] VITALS: BP 119/75; PULSE 83; RESP 20; TEMP 36.7; O2SAT 96
[2020-02-11] MEDS: levETIRAcetam 500 mg Tablet PO (08:25)
[2020-02-11] MEDS: folic acid 1 mg Tablet PO (08:25)
[2020-02-11] MEDS: olopatadine 0.1% Op Soln 5 mL Btl 1 DROP EYE-BOTH (08:25)
[2020-02-11] MEDS: multivitamin therapeutic Tablet 1 TAB PO (08:25)
[2020-02-11] MEDS: pantoprazole DR 40 mg Tablet PO (08:25)
[2020-02-11] MEDS: thiamine 100 mg Tablet PO (08:25)
[2020-02-11] MEDS: spironolactone 25 mg Tablet PO (08:30)
[2020-02-11] MEDS: propranolol 20 mg Tablet 10 MG PO (08:30)
--- NOTE | 2020-02-11 10:02 | PM.DCS ---
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 Gastritis bleeding: without bleeding Qualified Code(s): K29.20 - Alcoholic gastritis without bleeding (4) COPD exacerbation: Status: Acute (5) Patellar fracture: Status: Acute Qualifiers: Encounter type: initial encounter Fracture alignment: nondisplaced Fracture morphology: unspecified fracture morphology Fracture type: closed Laterality: unspecified laterality Qualified Code(s): S82.009A - Unspecified fracture of unspecified patella, initial encounter for closed fracture (6) Lower extremity weakness: Status: Acute Qualifiers: Laterality: bilateral Qualified Code(s): R29.898 - Other symptoms and signs involving the musculoskeletal system (7) Thrombocytopenia: Status: Acute (8) Cirrhosis: Status: Acute Problem details: Ascites, esophageal varices, hypoproteinemia, hepatic encephalopathy, thrombocytopenia, abnormal liver enzymes Qualifiers: Ascites presence: unspecified Hepatic cirrhosis type: alcoholic cirrhosis Qualified Code(s): K70.30 - Alcoholic cirrhosis of liver without ascites (9) Hepatitis C: Status: Chronic Problem details: Not treated in the past, and is stating she was not able to afford medications Qualifiers: Hepatic coma status: without hepatic coma Viral hepatitis chronicity: chronic Qualified Code(s): B18.2 - Chronic viral hepatitis C Reason for Visit Reason for Visit: WEAKNESS / CONFUSION Hospital Course Hospital Course: Patient is a 59-year-old female who presented to the emergency room with weakness and confusion. She had evidence of hepatic encephalopathy, multiple electrolyte abnormalities and abdominal findings consistent with cirrhosis. She was experiencing alcohol withdrawal as well as evidence of alcoholic gastritis. She was admitted for further care. She was not able to recognize family members leading to the admission. She was started on alcohol withdrawal protocol. Has presented with similar admissions previously. She was put on some twice daily PPI and propranolol. Old records indicate a history of some varices but no bleeding was noted while she was here. She was treated empirically with cephalosporins and started on some lactulose. Mental status improved. She has not had any benzodiazepines since February 05. During the course of the hospital stay she was noted to have difficulty walking. Imaging studies revealed bilateral patellar fractures, nondisplaced. PT and OT worked with her. She is currently using a walker although can walk around in the room holding onto things. Arrangements were made for a walker upon discharge. We attempted to get her into a skilled facility but she actually improved. Ultimately she decided to go home with her daughter rather than back home with her . Daughter lives in [facility]. She requested that we not communicate with her so he has not been updated. I spoke with the daughter in anticipation of discharge yesterday. Other family will be coming up to pick her up. I explained to her that more pain medication has not been ordered due to her chronic liver disease and risk of combining medications with alcohol combined with risk of addiction of any form of narcotic. Reviewed with her extensively that the maximum amount of Tylenol that she can take is 2 g a day and that she should not do this regularly. Explained that 500 mg tablets, 4 of them total is only takes to reach 2 g of Tylenol a day. Patient expressed understanding that taking excessive amounts of Tylenol could hasten progressive liver failure. Patient has a known history of hepatitis C but has not received any treatment to date. In addition to hepatic encephalopathy and history of esophageal varices, patient had evidence of portal hypertension noted on abdominal imaging, mild ascitic fluid, elevated INR, elevated liver enzymes, hypoproteinemia. Meld score is around 11. She was resumed back on spironolactone low-dose in addition to propranolol. Patient is chronically been on Keppra for described seizure disorder. I am not sure but suspect these are seizures related to alcohol withdrawal. Given the fractures in her kneecaps, she was given a total of 10 tramadol and told to take it only sparingly. No benzodiazepines were prescribed at discharge. Again patient has been without benzodiazepines for several days with out significant anxiety, increasing tremor, abnormal vital signs. Encouraged her to also maintain nicotine cessation if at all possible. It was made clear to the patient that if she continued to drink she would ultimately from alcohol related illnesses. She expressed understanding of this as well as a desire to quit drinking. Patient had several electrolyte abnormalities that were addressed during the hospital stay. All in all she was felt stable for discharge. Lungs were clear. She had regular rhythm. No asterixis. Was alert and oriented x3 as well as cooperative. She expressed understanding about limits of Tylenol and other pain medications. Encouraged her to reach out for AA or other supportive groups to help her on her journey. Daughter indicated that she would work on arranging a primary care provider locally closer to [facility] where they will be going. Patient will also need follow-up with orthopedics to evaluate for healing of her patellar fractures and recommend hepatology/GI doctor as well for potential progressive liver disease, outpatient endoscopy and consideration for treatment of hepatitis C down the road. Daughter was given an opportunity to ask questions. Discharge Data Data Completed and Pending: Completed Studies During Hospitalization Category Date Time Status CT head wo con* 7 0450 Stat Cat Scan 02/01/20 23:45 Completed XR chest 1V janeth ble [id number] Stat Exams 02/01/20 23:45 Completed XR knee LT 1-2V 7 3560 Routine Exams 02/04/20 15:41 Completed XR knee RT 1-2V 7 3560 Routine Exams 02/04/20 15:41 Completed XR lumbar spine 2 -3V* [id number] Routine Exams 02/04/20 19:47 Completed XR tibia fibula L T 2V [id number] Routine Exams 02/04/20 15:39 Completed MR lumbar spine w o con* [id number] Routi ne MRI 02/05/20 12:31 Completed US abdomen limite d [id number] Routine Ultrasound 02/02/20 07:59 Completed Pending at discharge Category Date Time Status Complete Blood Co unt w/Auto AM LABS Lab 02/12/20 04:00 Ordered Comprehensive Met abolic Panel AM LA BS Lab 02/12/20 04:00 Ordered Labs from last 24 hours 02/11/20 02/11/20 02/11/20 05:28 05:28 05:28 WBC 4.7 RBC 3.10 L Hgb 9.4 L Hct 30.4 L MCV 98.1 MCH 30.3 MCHC 30.9 RDW 18.8 H Plt Count 153 MPV 11.3 H Neut % (Auto) 48.3 Lymph % (Auto) 22.7 [place] % (Auto) 26.3 Eos % (Auto) 0.8 Baso % (Auto) 1.7 Neut # (Auto) 2.3 Lymph # (Auto) 1.1 [place] # (Auto) 1.2 H Eos # (Auto) 0.0 Baso # (Auto) 0.1 Nucleated RBC % (a uto) 0 Nucleated RBCs # 0.0 Sodium 130 L Potassium 4.0 Chloride 97 L Carbon Dioxide 21 L Anion Gap 16.0 BUN 5 L Creatinine 0.3 L GFR Calculation 228.5 H Glucose 92 Calculated Osmolal ity 265 L Calcium 9.3 Magnesium 1.6 Total Bilirubin 2.0 H AST 60 H ALT 17 Alkaline Phosphata se 129 H Ammonia 49 Total Protein 7.3 Albumin 2.6 L Globulin 4.7 H Imaging^: Xray Ortho: Radiologist's impression: Right knee XR knee RT 1-2V [id number] REASON FOR EXAM: fall FINDINGS: A small defect is seen along the superior cortex of the patella consistent with a nondisplaced patella fracture. Mild calcification is seen in both the medial and lateral malleolus suggesting chondrocalcinosis. No other fractures are seen. XR/XR knee RT 1-2V 91590 IMPRESSION: Cortical fracture of the superior patella. Chondral calcinosis of the menisci. Left knee XR knee LT 1-2V [id number] REASON FOR EXAM: fall FINDINGS: A cortical fracture through the superior aspects of the patella is noted no gross transverse fractures are seen. The tibia-fibula appear to be normal. XR/XR knee LT 1-2V 24951 IMPRESSION: Small cortical fracture through the superior aspects of the patella no gross displacement only involves the outer cortex. tib fib left XR tibia fibula LT 2V [id number] REASON FOR EXAM: fall prior to admit, persistent pain FINDINGS: The tibia-fibula appear to be normal no definite fractures. No soft tissue swelling is seen. No abnormal calcification. XR/XR tibia fibula LT 2V [id number] IMPRESSION: Negative tibia-fibula study left side lumbar spine XR lumbar spine 2-3V* [id number] REASON FOR EXAM: chronic lower back pain, falls FINDINGS: The disc spaces and vertebral body heights are normal. There is heavy arteriosclerotic changes of the aorta and iliac arteries. There is a mild scoliotic curve convex to the left. The lumbosacral angle shows increase angle angle weightbearing is anterior to the base of the sacrum. XR/XR lumbar spine 2-3V* [id number] IMPRESSION: Increased lordosis Mild thoracolumbar rotoscoliosis. No definite fractures seen. Heavy arteriosclerotic changes. MRI: Radiologist's impression: LUMBAR SPINE Normal lumbar alignment with no compression fractures or marrow edema. Disc spaces and vertebral body heights are well-preserved. Conus terminates normally at L1. L1-L2: Normal. L2-L3: Mild annular disc bulge with a shallow LEFT foraminal disc protrusion with associated annular fissure. Slight contact with no displacement upon the L2 nerve root. L3-L4: Mild annular disc bulging. Small amount of fluid in the facet joints. No stenosis. L4-L5: Mild diffuse annular disc bulging. Broad-based central disc protrusion encroaches upon the ventral thecal sac. There is mild abutment without displacement of the L5 nerve roots. L5-S1: Normal. Paravertebral soft tissues are negative. There is a small amount of free fluid in the pelvis. MR/MR lumbar spine wo con* [id number] IMPRESSION: 1. Broad-based central disc protrusion at L4-5 with contact on the L5 nerve roots bilaterally but greater on the LEFT. 2. Shallow disc protrusion LEFT L2-3 foramen with mild contact on the LEFT L2 nerve root. 3. No central stenosis. CT Head: Radiologist's impression: FINDINGS: Brain: Normal. No hemorrhage. Unremarkable white matter. No mass effect. Ventricles: Normal. No ventriculomegaly. Bones/joints: Unremarkable. No acute fracture. Sinuses: Visualized sinuses are unremarkable. No fluid levels. Mastoid air cells: Visualized mastoid air cells are well aerated. Soft tissues: Unremarkable. CT/CT head wo con* [id number] IMPRESSION: Negative for intracranial hemorrhage or mass effect. US: Radiologist's impression: Abdomen FINDINGS: Liver: Fatty infiltration of the incompletely visualized liver. Intraperitoneal space: Small quantity of intraperitoneal fluid. The remaining abdominal viscera were not visualized on the examination performed. US/US abdomen limited [id number] IMPRESSION: Small quantity of intraperitoneal fluid. CXR: Radiologist's impression: FINDINGS: Lungs: Unremarkable. No consolidation. Pleural space: Unremarkable. No pleural effusion. No pneumothorax. Heart/Mediastinum: Unremarkable. No cardiomegaly. Bones/joints: Unremarkable. XR/XR chest 1V portable [id number] IMPRESSION: Negative for infiltrate. Addt'l Data from Hospital Stay: Laboratory Tests 02/02/20 02/07/20 02/11/20 00:19 04:30 05:28 Ammonia 72 H 49 TSH 1.26 Vitals: Last Vital Signs Temp 98.1 F 02/11/20 07:56 Pulse 83 02/11/20 07:56 Resp 20 H 02/11/20 07:56 BP 119/75 02/11/20 07:56 Pulse Ox 96 02/11/20 07:56 Discharge Plan Discharge Patient Disposition: Home, Self-Care Condition: Stable Prescriptions: New spironolactone 25 mg Tablet 25 mg PO DAILY Qty: 30 RF: 1 propranolol 20 mg Tablet 10 mg PO BID Qty: 60 RF: 1 Vitamin B-1 (mononitrate) 100 mg Tablet 100 mg PO DAILY Qty: 30 RF: 0 pantoprazole 40 mg Tablet,Delayed Release (Dr/Ec) 40 mg PO BID Qty: 60 RF: 0 Continued Keppra 500 mg Tablet 500 mg PO Q12H 30 Days Qty: 60 RF: 1 aspirin 81 mg Tablet,Delayed Release (Dr/Ec) 81 mg PO DAILY Qty: 30 RF: 0 tramadol 50 mg tablet 50 mg PO BID PRN (Reason: moderate to severe pain) Qty: 10 RF: 0 folic acid 1 mg Tablet 1 mg PO DAILY Qty: 30 RF: 0 vit B comp with C-calcium carb 300 mg-150 mg calcium Tablet 1 tab PO DAILY Qty: 30 RF: 0 lactulose 20 gram/30 mL Solution 20 g PO BID Qty: 1800 RF: 1 Discontinued furosemide 40 mg Tablet 40 mg PO DAILY RF: 0 clonazepam [Klonopin] 0.5 mg tablet 0.25 mg PO DAILY RF: 0 spironolactone 100 mg Tablet 100 mg PO DAILY RF: 0 propranolol 20 mg/5 mL (4 mg/mL) Solution 10 mg PO BID RF: 0 Discharge Orders: Discharge Order (Routine); Ordered 02/11/20 Ordered By: Maria Del Carmen Dent Other Ambulatory Orders: DME: Bob (Order) Location: None Selected Ordered By: Maria Del Carmen Dent Referrals: New PCP, Quentin [Other] - 7-10 days Discharge Diet: Regular Discharge Activity: Increase activity as tolerated and Use walker/crutches as instructed Patient Instructions: Alcoholism, COPD, Propranolol (By mouth), Spironolactone (By mouth), Thiamine (Vitamin B-1) (By mouth), Pantoprazole (By mouth), Cirrhosis (DC), Hepatic Encephalopathy (DC), Patellar Fracture (DC), Alcohol Withdrawal (DC), COPD Stoplight Activity Restrictions/Additional Instructions: Try to find a support group such as [facility] or other alternatives to help you with alcohol cessation and eventual recovery. Take your lactulose regularly with a goal of having at least 2-3 loose bowel movements a day to clear your body of ammonia buildup. If you miss this medication too many days in a row you will become less responsive. This may lead to hospitalization. You have not had a drink or cigarette in over a week. Try to maintain abstinence for your overall long-term health Most pain medications are cleared by your liver in some way or are contraindicated because of known liver disease. If you choose to take an [id number] pain medication, the only thing you can really safely take is Tylenol but you must not exceed 2 g of Tylenol per 24-hour period of time and should not take this regularly. 2 g of Tylenol equals [id number] mg Tylenol tablets. Use walker with ambulation You will need to arrange follow-up with orthopedics to evaluate patellar fracture for healing. Will need referral from new primary care provider Recommend seeing if you can get in with a transformer assembly supervisor or sales representative advertising for liver disease and evaluation of possible treatment of hepatitis C. Will need referral from new primary care provider. Discharge Attestations Time Spent in Discharge Care*: greater than 30 min Specific Discharge Activities: Specific discharge activities: educating patient, discussing with case manager specialist/social workers/dc planners, documenting/other paperwork and evaluating patient/reviewing data Quality Metrics Clinical Quality Measures During this hospital stay, did patient experience: None Coding Level of Care Code Acute Curbstone Setter for Hammad Fwd Diagnoses Encephalopathy G93.40 Alcohol dependence with withdrawal F10.230 Complication of substance-induced condition: uncomplicated Alcoholic gastritis K29.20 Chronicity: chronic Gastritis bleeding: without bleeding COPD exacerbation J44.1 Patellar fracture S82.009A Encounter type: initial encounter Fracture alignment: nondisplaced Fracture morphology: unspecified fracture morphology Fracture type: closed Laterality: unspecified laterality Lower extremity weakness R29.898 Laterality: bilateral Thrombocytopenia D69.6 Cirrhosis K70.30 Ascites presence: unspecified Hepatic cirrhosis type: alcoholic cirrhosis Hepatitis C B18.2 Hepatic coma status: without hepatic coma Viral hepatitis chronicity: chronic
[2020-02-11] MEDS: TRAMadol 50 mg Tablet PO (15:14)
[2020-02-11 16:00] VITALS: BP 114/72; PULSE 72; RESP 16; TEMP 36.8; O2SAT 99
--- NOTE | 2020-02-11 16:11 | PC.NURSE ---
Discharge Instructions Discharge paperwork given to pt. Education on new meds, alcoholism, COPD stoplight, and importance of finding a PCP in [place] given. Pt has no questions at this time. Pt sitting on side of bed, waiting for grandson to pick her up. Informed pt this nurse will still be available if she needs anything before she leaves.
--- NOTE | 2020-02-11 17:22 | PC.NURSE ---
Pt's called to [facility] after discharge stating he had brought up several things to pt during admission. Pt had several bags with her at discharge. Room checked again for belongings. One bottle of lactulose was found in the closet. This nurse took it down to ER entrance to give to and he was nowhere to be found. Lactulose brought back to [facility] and kept at nurses station in the event he calls back.
[2020-02-11 17:25] VITALS: BP 114/72; PULSE 72; RESP 16; TEMP 36.8; O2SAT 99
== END 2020-02-11 17:26 | disposition home or self-care (01) | DRG 433 ==
LOC: ER 02-02 → ICU 02-02 02:41 → MEDSURG 02-02 13:55
PROVIDERS: Emergency Medicine; Internal Medicine; Admitting Provider Internal Medicine; Visit Provider Hospitalist
DX: K70.40 Alcoholic hepatic failure without coma (principal); S82.092A Other fracture of left patella, initial encounter for closed fracture; F10.239 Alcohol dependence with withdrawal, unspecified; J44.1 Chronic obstructive pulmonary disease with (acute) exacerbation; I85.10 Secondary esophageal varices without bleeding; K76.6 Portal hypertension; Z99.81 Dependence on supplemental oxygen; Z91.14 Patient's other noncompliance with medication regimen; B18.2 Chronic viral hepatitis C; F17.210 Nicotine dependence, cigarettes, uncomplicated; R56.9 Unspecified convulsions; E86.0 Dehydration; K70.31 Alcoholic cirrhosis of liver with ascites; M62.84 Sarcopenia; K29.20 Alcoholic gastritis without bleeding; D69.6 Thrombocytopenia, unspecified; G62.1 Alcoholic polyneuropathy; E87.6 Hypokalemia; G89.29 Other chronic pain; Z79.891 Long term (current) use of opiate analgesic; Z79.82 Long term (current) use of aspirin; M51.26 Other intervertebral disc displacement, lumbar region; E83.42 Hypomagnesemia; R29.898 Other symptoms and signs involving the musculoskeletal system; R29.6 Repeated falls; W18.30XA Fall on same level, unspecified, initial encounter
CPT/HCPCS: 12345; 36415; 36600; 70450; 71045; 72100; 72148; 73560; 73590; 76705; 80051; 80053; 80306; 80307; 81001; 82009; 82140; 82550; 82810; 83605; 83690; 83735; 83986; 84100; 84443; 84484; 85025; 85610; 87040; 87086; 93005; 94640; 96365; 96366; 96375; 97110; 97116; 97161; 97530; 99284; 99285; J0696; J2060; J2405; J3411; J3475; J3480; J7030; J7626

== ENCOUNTER 2020-02-01 23:40 | Emergency (ER) | payer MEDICAID, SELFPAY | END 2020-02-02 04:37 | disposition admitted as inpatient to this hospital (09) | LOC: ER 03-02 16:02 | PROVIDERS: Emergency Provider Emergency Medicine | DX: R41.82 Altered mental status, unspecified (principal); Z86.19 Personal history of other infectious and parasitic diseases; E46 Unspecified protein-calorie malnutrition; K29.20 Alcoholic gastritis without bleeding; F10.129 Alcohol abuse with intoxication, unspecified; J44.9 Chronic obstructive pulmonary disease, unspecified; I10 Essential (primary) hypertension; F17.210 Nicotine dependence, cigarettes, uncomplicated | CPT/HCPCS: 12345; 36600; 70450; 71045; 80051; 80053; 80307; 82009; 82140; 82550; 82810; 83605; 83690; 83735; 83986; 84443; 84484; 85025; 85610; 87040; 93005; 96365; 96366; 99284; 99285; J3480; J7030 ==

== ENCOUNTER 2020-04-14 18:59 | Inpatient (IN) | payer MEDICAID, SELFPAY ==
[2020-04-14] VITALS (9 sets, daily range): BP systolic 88–111; BP diastolic 50–72; PULSE 110–122; RESP 18–22; TEMP 37.3; O2SAT 93–98; BMI 22.4
--- NOTE | 2020-04-14 19:27 | ED_ITS ---
HPI - Abdominal Pain General: Chief Complaint: Abdominal Pain Stated Complaint: ABD PAIN Time Seen by Provider: 04/14/20 19:08 Source: patient Mode of arrival: EMS History of Present Illness: HPI narrative: Patient is a poor historian. She presents to the emergency department with complaints of abdominal pain for about 4 days that is progressively worsening. She says she believes her abdomen is distended at this time. She has some generalized weakness, nausea but no vomiting. No change in her bowel habits. She has a history of alcoholism, cirrhosis, hep C, varices and portal hypertension. She claims as she has had an abdominal paracentesis several weeks ago in her doctor's office. She denies any fever, but has some chills. MD elicited complaint: abdominal pain Onset (ago): day(s) (4) Pain Consistency: constant Location: RUQ and RLQ Severity: severe Quality: aching Radiation: none Migration to: no migration Exacerbating factors: nothing Relieving factors: nothing Associated Symptoms: Reports chills, nausea and poor appetite; Denies change in bowel habits, change in stool character, coffee ground emesis, dyspepsia, dysuria and excessive flatus Review of Systems General: Reports: 10 or more systems reviewed and unremarkable except in HPI and below Const: Reports: chills Card: Denies: palpitations, irregular heart rhythm, edema or swelling of feet/ankles Resp: Denies: dyspnea, productive cough or non-productive cough GI: Reports: abdominal pain and nausea; Denies: coffee ground emesis, excessive flatus, change in bowel habits or change in stool character : Denies: dysuria Musc: Denies: neck pain, back pain or extremity swelling Skin/Breast: Denies: rash, pruritus or erythema Neuro: Denies: headache(s), numbness in extremities or weakness in extremities Endo: Denies: polyuria, polydipsia or tired all the time PFSH ED PFSH: Medical History (Reviewed 04/14/20 @ 19:43 by Frances Burris MD, [facility] [place]) Alcohol abuse With dependence Cirrhosis Ascites, esophageal varices, hypoproteinemia, hepatic encephalopathy, thrombocytopenia, abnormal liver enzymes COPD (chronic obstructive pulmonary disease) Hepatitis C Not treated in the past, and is stating she was not able to afford medications Hypertension Portal hypertension Seizure disorder Suspect secondary to alcohol Surgical History (Reviewed 04/14/20 @ 19:43 by Frances Burris MD, [facility] [place]) H/O: hysterectomy Family History (Reviewed 04/14/20 @ 19:43 by Frances Burris MD, [facility] [place]) Mother Multiple sclerosis Social History (Reviewed 04/14/20 @ 19:43 by Frances Burris MD, [facility] [place]) Smoking and tobacco status: current every day smoker Alcohol intake: current Alcohol type: beer Household members: spouse and family Housing: House Marital status: Current occupation: pt states [employer] and states 13 steps to bedrooms. Physical Exam Const: COMMON NORMALS: no acute distress, average body habitus, patient oriented x3, no limitations, healthy appearing, alert and well nourished Neck/C-Spine: COMMON NORMALS: full ROM, supple, no meningeal signs, no JVD and No carotid bruits Resp: COMMON NORMALS: normal respiratory effort, No retractions, No use of accessory muscles, clear to auscultation bilaterally and percussion normal AUSCULTATION: clear to auscultation bilaterally PERCUSSION: percussion normal Cardio: COMMON NORMALS: no JVD, regular rhythm, S1 normal heart sound present, S2 normal heart sound present, No gallops present (Cardio), No clicks present (Cardio), No murmurs present (Cardio), No rub (Cardio) and Peripheral pulses 2+ throughout RATE: tachycardic RHYTHM: regular rhythm HEART SOUNDS: S1 normal heart sound present and S2 normal heart sound present PERIPHERAL PULSES: Peripheral pulses 2+ throughout GI: COMMON NORMALS: Soft to palpation, non-tender and no masses INSPECTION: Yes abdominal distension PALPATION: Yes Soft to palpation and Yes Tenderness to palpation present (GI) Details: RLQ and RUQ : COMMON NORMALS: Yes no CVA tenderness BLADDER/KIDNEY EXAM: Yes no CVA tenderness Back/Pelvis: COMMON NORMALS: no CVA tenderness Extremity: COMMON NORMALS: normal to inspection, full ROM, capillary refill normal, no calf tenderness and no pedal edema Neuro: COMMON NORMALS: patient oriented x3 SENSORIUM/ORIENTATION: Yes alert MENINGEAL SIGNS: Yes no meningeal signs Skin: COMMON NORMALS: no rashes or lesions noted, no wounds, turgor normal, no jaundice, no petechiae and no mottling GENERAL SKIN EXAM: no rashes or lesions noted and turgor normal Course ED course: 59-year-old female with liver cirrhosis who presented with abdom inal pain. Blood pressure has been soft in the emergency department, complains of abdominal pain. She is thrombocytopenic and anemic. She going to be admitted for further work-up and management. Consultations: Consultation #1: Discussed with Dr. ling, hospitalist. She will come and see the patient and decide on whether she needs to be admitted or not. Time: 22:45 Consultation #2: Dr. Ling evaluated the patient and she kindly accepted the p atient to her service Time: 23:00 Vital Signs: Vital signs: Vital Signs Temperature 99.2 F 04/14/20 19:04 Pulse Rate 122 H 04/14/20 23:00 Respiratory Rate 20 H 04/14/20 23:00 Blood Pressure 88/50 04/14/20 23:00 Pulse Oximetry 98 04/14/20 23:00 MDM - Abdominal Pain MDM Narrative: Medical decision making narrative: 59-year-old female patient with liver cirrhosis, alcohol abuse, hep C, who is a noncompliant patient presents to the emergency department with complaints of abdominal pain. She also claims that she has abdominal distention. Evaluation in the ED shows she has right-sided abdominal tenderness, abdomen is slightly distended but it is not hard or causing her to have difficulty breathing. She does have moderate ascites on CT scan. CT scan is also showing some increased nodules on her liver consistent with neoplastic disease. She has mild thrombocytopenia and her blood pressure is on the lower side. Because of all these the patient is being admitted to the hospital for further evaluation. Medical Records: Attestation: I reviewed the patient's medical records. Lab Data: Attestation: I reviewed the patient's lab results. Labs: Lab Results 04/14/20 04/14/20 04/14/20 Range/Units 20:09 20:09 20:09 WBC 8.6 (4.0-10.0) 10^3/ uL RBC 3.08 L (4.1-5.3) 10^6/u L Hgb 8.4 L (11.5-15.3) g/dL Hct 26.8 L (37.0-47.0) % MCV 87.0 (81-99) fL MCH 27.3 L (28.0-34.0) pg MCHC 31.3 (30.0-36.0) g/dL RDW 20.5 H (12.1-15.1) % Plt Count 66 L (130-400) 10^3/c mm MPV 10.0 (7.4-10.4) fL Neut % (Auto) 77.5 % Lymph % (Auto) 12.1 % [place] % (Auto) 8.8 % Eos % (Auto) 0.2 % Baso % (Auto) 0.8 % Neut # (Auto) 6.67 (1.8-7.7) 10^3/u L Lymph # (Auto) 1.0 (0.8-4.8) 10^3/u L [place] # (Auto) 0.8 (0.2-0.9) 10^3/u L Eos # (Auto) 0.0 (0.0-0.8) 10^3/u L Baso # (Auto) 0.1 (0.0-0.1) 10^3/u L Nucleated RBC % (a uto) 0 % Nucleated RBCs # 0.0 /100WBC PT (12.1-14.9) SECO NDS INR (0.8-1.2) Sodium 137 (136-145) mmol/L Potassium 3.4 L (3.5-5.1) mmol/L Chloride 102 (98-107) mmol/L Carbon Dioxide 22 (22-29) mmol/L Anion Gap 16.4 (5-19) BUN 7 (6-20) mg/dL Creatinine 0.3 L (0.5-0.9) mg/dL GFR Calculation 228.5 H (90-130) mL/min Glucose 90 (65-115) mg/dL Calculated Osmolal ity 279 L (285-295) mOsm/k g Lactate 2.2 (0.5-2.2) mmol/L Calcium 7.0 L (8.5-10.5) mg/dL Total Bilirubin 1.5 H (0.15-1.2) mg/dL AST 76 H (0-32) U/L ALT 16 (0-33) U/L Alkaline Phosphata se 127 H (35-105) IU/L C-Reactive Protein 5.4 H (0.0-4.9) mg/L Total Protein 7.4 (6.6-8.7) g/dL Albumin 2.5 L (3.5-5.2) g/dL Globulin 4.9 H (1.3-4.6) g/dL Urine Color (Yellow) Urine Appearance (CLEAR) Urine pH (5-7) Ur Specific Gravit y (1.005-1.030) Urine Protein (Negative) Urine Glucose (UA) (Normal) Urine Ketones (Negative) Urine Blood (Negative) Urine Nitrate (Negative) Urine Bilirubin (NEGATIVE) Urine Urobilinogen (Negative) mg/dL Ur Leukocyte Loni ase (Negative) Urine RBC (0-2) /hpf Urine WBC (0-5) /hpf Ur Squamous Epith Cells (0-5) Amorphous Sediment Urine Bacteria (NONE) 04/14/20 04/14/20 Range/Units 20:09 21:00 WBC (4.0-10.0) 10^3/ uL RBC (4.1-5.3) 10^6/u L Hgb (11.5-15.3) g/dL Hct (37.0-47.0) % MCV (81-99) fL MCH (28.0-34.0) pg MCHC (30.0-36.0) g/dL RDW (12.1-15.1) % Plt Count (130-400) 10^3/c mm MPV (7.4-10.4) fL Neut % (Auto) % Lymph % (Auto) % [place] % (Auto) % Eos % (Auto) % Baso % (Auto) % Neut # (Auto) (1.8-7.7) 10^3/u L Lymph # (Auto) (0.8-4.8) 10^3/u L [place] # (Auto) (0.2-0.9) 10^3/u L Eos # (Auto) (0.0-0.8) 10^3/u L Baso # (Auto) (0.0-0.1) 10^3/u L Nucleated RBC % (a uto) % Nucleated RBCs # /100WBC PT 18.80 H (12.1-14.9) SECO NDS INR 1.52 H (0.8-1.2) Sodium (136-145) mmol/L Potassium (3.5-5.1) mmol/L Chloride (98-107) mmol/L Carbon Dioxide (22-29) mmol/L Anion Gap (5-19) BUN (6-20) mg/dL Creatinine (0.5-0.9) mg/dL GFR Calculation (90-130) mL/min Glucose (65-115) mg/dL Calculated Osmolal ity (285-295) mOsm/k g Lactate (0.5-2.2) mmol/L Calcium (8.5-10.5) mg/dL Total Bilirubin (0.15-1.2) mg/dL AST (0-32) U/L ALT (0-33) U/L Alkaline Phosphata se (35-105) IU/L C-Reactive Protein (0.0-4.9) mg/L Total Protein (6.6-8.7) g/dL Albumin (3.5-5.2) g/dL Globulin (1.3-4.6) g/dL Urine Color Yellow (Yellow) Urine Appearance Sl hazy (CLEAR) Urine pH 5 (5-7) Ur Specific Gravit y 1.025 (1.005-1.030) Urine Protein Neg (Negative) Urine Glucose (UA) Norm (Normal) Urine Ketones 1+ H (Negative) Urine Blood Neg (Negative) Urine Nitrate Negative (Negative) Urine Bilirubin 1+ H (NEGATIVE) Urine Urobilinogen 4 H (Negative) mg/dL Ur Leukocyte Loni ase Negative (Negative) Urine RBC Rare (0-2) /hpf Urine WBC Rare (0-5) /hpf Ur Squamous Epith Cells 0-4 H (0-5) Amorphous Sediment Not Reportable Urine Bacteria 1+ H (NONE) Imaging Data ^: CT Abd/Pel: Radiologist's impression: [place] [address] CT Scan Report Signed Patient: Kristie Arteaga #: [id number] : 1Acct#:[id number] Age/Sex: 59 / FADM Date: 04/14/20 Loc: ERRoom/Bed: Attending Dr: Ordering Provider/Ordering MD: Frances Burris MD, [facility] [place] Date of Service: 04/14/20 Procedure(s): CT abdomen pelvis wo con [id number] Accession Number(s): [id number] Report Number: [id number] PROCEDURE INFORMATION: Exam: CT Abdomen And Pelvis Without Contrast Exam date and time: 04/14/2020 9:39 PM Age: 59 years old Clinical indication: Abdominal tenderness and bloating and nausea; Abdominal pain; Prior surgery; Surgery type: Hyst; Additional info: Abd pain, distension, HX of cirrhosis TECHNIQUE: Imaging protocol: Computed tomography of the abdomen and pelvis without contrast. Radiation optimization: All CT scans at this facility use at least one of these dose optimization techniques: automated exposure control; mA and/or kV adjustment per patient size (includes targeted exams where dose is matched to clinical indication); or iterative reconstruction. COMPARISON: CT abdomen pelvis w con* [id number] 11/11/2019 7:18 PM RADIATION DOSE METRICS: Total DLP (mGy-cm): 449.52 FINDINGS: Lungs: There is subpleural atelectasis of the dependent portions of the lungs. Mediastinal space: A small hiatal hernia is present. There is wall thickening in the distal esophagus compatible with lack of distension versus a soft a giant is. Liver: The liver is extremely heterogeneous in density concerning for infiltrative neoplasm or metastatic disease with multiple masslike lesions with 1 of the largest being the hypodense mass series 2, image 11 measuring 4.8 x 6.1 cm. These are not identified on the prior exam. The liver has a nodular contour and there is relative hypertrophy of the caudate lobe, consistent with cirrhosis. Gallbladder and bile ducts: Normal. No calcified stones. No ductal dilation. Pancreas: Normal. No ductal dilation. Spleen: Normal. No splenomegaly. Adrenals: Normal. No mass. Kidneys and ureters: There is no evidence of hydronephrosis. There is no evidence of renal calcifications. Stomach and bowel: Extensive diverticulosis is present in the distal colon. The wall of the colon is thickened but collapsed. This appearance may reflect lack of distention versus mild colitis. There is no evidence of intestinal perforation or obstruction. The loops of small bowel have an appropriate appearance. The wall of the duodenum appears mildly thickened as does the stomach. This may reflect mild gastritis and duodenitis versus lack of distension. Appendix: The appendix is not definitively identified. However, there is no CT evidence of a right lower quadrant inflammatory process. Intraperitoneal space: There is a moderate amount of ascites. This is increased compared to the prior study. Vasculature: Unremarkable.No abdominal aortic aneurysm. Lymph nodes: Unremarkable.No enlarged lymph nodes. Bladder: Unremarkable as visualized. Reproductive: Unremarkable as visualized. Bones/joints: There is osteopenia with moderate to severe degenerative changes in the spine and pelvis. No acute bony abnormality. Soft tissues: Unremarkable. CT/CT abdomen pelvis wo con [id number] IMPRESSION: 1. The wall of the colon is thickened but collapsed. This appearance may reflect lack of distention versus mild colitis. 2. Moderate amount of ascites. This is increased since the prior exam. Increased/new heterogeneous liver compatible with cirrhosis with poorly defined hypodensity in the liver concerning for infiltrative neoplasm or metastatic disease. Abdomen/liver MRI may be helpful for further evaluation. 3. The wall of the duodenum appears mildly thickened as does the stomach. This may reflect mild gastritis and duodenitis versus lack of distension. Radiation Dose CTDIVOL = (mGy): DLP = 449.52 (mGy-cm) Dictated By:Kera De Los Santos Signed By:Mark De Los Santosigned Date/Time:04/14/202216 DD/ 15 Discharge Plan Discharge Patient Disposition: Admitted As Inpatient Clinical Impression: Thrombocytopenia Abdominal ascites Qualifiers: Ascites type: due to alcoholic cirrhosis Qualified Code(s): K70.31 - Alcoholic cirrhosis of liver with ascites Cirrhosis Qualifiers: Hepatic cirrhosis type: alcoholic cirrhosis Ascites presence: with ascites Qualified Code(s): K70.31 - Alcoholic cirrhosis of liver with ascites Condition: Stable Referrals: Dez Novak MD [Primary Care Provider] - Coding Level of Care Code ED Human Resource Advisor for [facility] Fwd Exam Comprehensive
[2020-04-14 20:16] LABS: Basophils # 0.1 10^3/uL (0.0-0.1); Basophils % 0.8 %; Eosinophils % 0.2 %; Hematocrit 26.8 % (37.0-47.0); Hemoglobin 8.4 g/dL (11.5-15.3); Lymphocytes % 12.1 %; Mean Corpuscular HGB Conc 31.3 g/dL (30.0-36.0); Mean Corpuscular Hemoglobin 27.3 pg (28.0-34.0); Monocytes # 0.8 10^3/uL (0.2-0.9); Monocytes % 8.8 %; Neutrophils # 6.67 10^3/uL (1.8-7.7); Neutrophils % 77.5 %; Nucleated Red Blood Cells % 0 %; Platelet Count 66 10^3/cmm (130-400); Red Blood Count 3.08 10^6/uL (4.1-5.3); Red Cell Distribution Width 20.5 % (12.1-15.1); White Blood Count 8.6 10^3/uL (4.0-10.0)
[2020-04-14] MEDS: fentaNYL 50 mcg/mL INJ 2mL 25 MCG IVP (20:30)
[2020-04-14 20:35] LABS: Alanine Aminotransferase 16 U/L (0-33); Albumin Level 2.5 g/dL (3.5-5.2); Alkaline Phosphatase 127 IU/L (35-105); Anion Gap 16.4 (5-19); Aspartate Amino Transferase 76 U/L (0-32); Blood Urea Nitrogen 7 mg/dL (6-20); C Reactive Protein 5.4 mg/L (0.0-4.9); Carbon Dioxide 22 mmol/L (22-29); Chloride 102 mmol/L (98-107); Globulin 4.9 g/dL (1.3-4.6); Glomerular Filtration Rate 228.5 mL/min (90-130); Glucose 90 mg/dL (65-115); Osmolality Calculated 279 mOsm/kg (285-295); Potassium 3.4 mmol/L (3.5-5.1); Sodium 137 mmol/L (136-145); Total Bilirubin 1.5 mg/dL (0.15-1.2); Total Protein 7.4 g/dL (6.6-8.7)
[2020-04-14 20:36] LABS: Lactate (Lactic Acid level) 2.2 mmol/L (0.5-2.2)
[2020-04-14 20:56] LABS: INR 1.52 (0.8-1.2)
--- NOTE | 2020-04-14 21:35 | CTR_ITS ---
PROCEDURE INFORMATION: Exam: CT Abdomen And Pelvis Without Contrast Exam date and time: 04/14/2020 9:39 PM Age: 59 years old Clinical indication: Abdominal tenderness and bloating and nausea; Abdominal pain; Prior surgery; Surgery type: Hyst; Additional info: Abd pain, distension, HX of cirrhosis TECHNIQUE: Imaging protocol: Computed tomography of the abdomen and pelvis without contrast. Radiation optimization: All CT scans at this facility use at least one of these dose optimization techniques: automated exposure control; mA and/or kV adjustment per patient size (includes targeted exams where dose is matched to clinical indication); or iterative reconstruction. COMPARISON: CT abdomen pelvis w con* [id number] 11/11/2019 7:18 PM RADIATION DOSE METRICS: Total DLP (mGy-cm): 449.52 FINDINGS: Lungs: There is subpleural atelectasis of the dependent portions of the lungs. Mediastinal space: A small hiatal hernia is present. There is wall thickening in the distal esophagus compatible with lack of distension versus a soft a giant is. Liver: The liver is extremely heterogeneous in density concerning for infiltrative neoplasm or metastatic disease with multiple masslike lesions with 1 of the largest being the hypodense mass series 2, image 11 measuring 4.8 x 6.1 cm. These are not identified on the prior exam. The liver has a nodular contour and there is relative hypertrophy of the caudate lobe, consistent with cirrhosis. Gallbladder and bile ducts: Normal. No calcified stones. No ductal dilation. Pancreas: Normal. No ductal dilation. Spleen: Normal. No splenomegaly. Adrenals: Normal. No mass. Kidneys and ureters: There is no evidence of hydronephrosis. There is no evidence of renal calcifications. Stomach and bowel: Extensive diverticulosis is present in the distal colon. The wall of the colon is thickened but collapsed. This appearance may reflect lack of distention versus mild colitis. There is no evidence of intestinal perforation or obstruction. The loops of small bowel have an appropriate appearance. The wall of the duodenum appears mildly thickened as does the stomach. This may reflect mild gastritis and duodenitis versus lack of distension. Appendix: The appendix is not definitively identified. However, there is no CT evidence of a right lower quadrant inflammatory process. Intraperitoneal space: There is a moderate amount of ascites. This is increased compared to the prior study. Vasculature: Unremarkable.No abdominal aortic aneurysm. Lymph nodes: Unremarkable.No enlarged lymph nodes. Bladder: Unremarkable as visualized. Reproductive: Unremarkable as visualized. Bones/joints: There is osteopenia with moderate to severe degenerative changes in the spine and pelvis. No acute bony abnormality. Soft tissues: Unremarkable. CT/CT abdomen pelvis wo con [id number] IMPRESSION: 1. The wall of the colon is thickened but collapsed. This appearance may reflect lack of distention versus mild colitis. 2. Moderate amount of ascites. This is increased since the prior exam. Increased/new heterogeneous liver compatible with cirrhosis with poorly defined hypodensity in the liver concerning for infiltrative neoplasm or metastatic disease. Abdomen/liver MRI may be helpful for further evaluation. 3. The wall of the duodenum appears mildly thickened as does the stomach. This may reflect mild gastritis and duodenitis versus lack of distension. Radiation Dose CTDIVOL = (mGy): DLP = 449.52 (mGy-cm)
[2020-04-14 21:40] LABS: Add Urine Microscopic? YES; Bilirubin Urine 1+ (NEGATIVE); Blood Urine Neg (Negative); Glucose Urine UA Norm (Normal); Ketones Urine 1+ (Negative); Leukocyte Esterase Urine Negative (Negative); Nitrate Urine Negative (Negative); Protein Urine Neg (Negative); Specific Gravity, Urine 1.025 (1.005-1.030); Urine Appearance SL Hazy (CLEAR); Urine Color Yellow (Yellow); Urobilinogen Urine 4 mg/dL (Negative); pH Urine 5 (5-7)
[2020-04-14 21:41] LABS: Bacteria Urine 1+; RBC Urine RARE /hpf (0-2); Squamous Epithelial Cell Urine 0-4 (0-5); WBC Urine RARE /hpf (0-5)
[2020-04-14] MEDS: sodium chloride 0.9% 500 ML IV (22:08)
--- NOTE | 2020-04-14 23:15 | PM.HP ---
Providers/Chief Complaint Admitting Physician: Filipe Primary Care Provider: unknown; patient reported Spurling but confirmed that she does not see Spurling, she has previously seen Dr. Novak but does not appear to have kept appointments with him recently, was noncompliant with follow-up at [facility] when that have been arranged. I am not sure that she is actually seeing anybody consistently. Chief Complaint: ABD PAIN History of Present Illness Apurva Arteaga is a 59 year old female who presented to the emergency room with complaint of abdominal pain according to ER records and not breathing per my discussion with her. Mrs. Brunson is a very poor historian. In the time that I spent talking with her she contradicted herself on almost every single point so I am not really sure what led to the visit or what has been going on recently. I had discharged her back in February of this year to live with her daughter in [facility]. She was voluntarily getting away from her here who was not a good influence on her. Prior to that disposition, we had been working on getting her into a skilled facility for a while but she declined that. She initially told me that she was back here by herself and then admitted that she is living with her again. She states that her called 911 because she was not breathing but can offer no further details. By her report she stayed with her daughter for maybe a week. She will not elaborate on what led to her coming back here. I am unable to get her to tell me what is necessarily acutely bothering her at the moment beyond abdominal pain. She cannot describe in detail the pain nor provide a comparison to how her belly felt even yesterday. She is unsure when her last drink was. She states she has not smoked today. She says she has not had a breathing treatment today. Denies fever, cough, runny nose, sore throat. She has been feeling poorly. Denies any contact with anybody who has been sick, particularly with COVID but again she is not a fully reliable patient. She had some abdominal distention and discomfort noted on examination in the ED. A CT of the abdomen was done and did show increased ascites compared to prior. On my examination in the emergency room her belly is a bit more distended than I recall. She tells me that she had some fluid pulled off a few weeks ago. She has not had any medical visits to [facility] since I discharged her back in February. She proceeded to tell me that she had been seeing Dr. Rizzo. He was called and does not know her. When confronted with this patient states that she may have just seen a nurse and Dr. Rizzo's office and that nurse touched her stomach. I explained that touching her stomach is not the same as having fluid drawn off her stomach. She cannot tell me when the last time was she had a paracentesis. I do not recall that she had one when she was here but it was something that we had discussed she might need down the road. I suspect that her alcohol level and/or ammonia level are elevated. Laboratory studies as noted below are a little off from what she is when she is doing well. She reports being thirsty. Denies any bleeding anywhere. She is being admitted for further evaluation and treatment. Review of Systems Const: Reports: change in appetite; Denies: fever(s) or chills Eyes: Denies: change in vision ENMT: Reports: dry mouth; Denies: throat pain or nasal congestion Card: Denies: chest pain, palpitations or edema Resp: Reports: dyspnea and wheezing; Denies: productive cough, non-productive cough, pain on inspiration, change in phlegm color or hemoptysis GI: Reports: abdominal pain and nausea; Denies: vomiting, diarrhea or constipation : Denies: difficulty voiding or urinary frequency Musc: Reports: back pain and extremity pain Skin/Breast: Reports: pruritus; Denies: rash Neuro: Reports: other (General weakness); Denies: headache(s), numbness in extremities, difficulty walking, frequent falls, dizziness or involuntary movements Psych: Reports: anxiety; Denies: depression Taj/Lymph: Denies: easy bruising or easy bleeding Medications/Allergies Home Medications Medication Instructions Recorded Confirmed Last Taken Type aspirin 81 mg PO DAILY #30 tab 02/11/20 04/14/20 Unknown Rx folic acid 1 mg PO DAILY #30 tab 02/11/20 04/14/20 Unknown Rx levetiracetam [Keppra] 500 mg PO Q12H 30 Days #60 tab 02/11/20 04/14/20 Unknown Rx pantoprazole 40 mg PO BID #60 tab 02/11/20 04/14/20 Unknown Rx propranolol 10 mg PO BID #60 tab 02/11/20 04/14/20 Unknown Rx spironolactone 25 mg PO DAILY #30 tab 02/11/20 04/14/20 Unknown Rx thiamine mononitrate (vit B1) 100 mg PO DAILY #30 tab 02/11/20 04/14/20 Unknown Rx [Vitamin B-1 (mononitrate)] vit B comp with C-calcium carb 1 tab PO DAILY #30 tab 02/11/20 04/14/20 Unknown Rx potassium chloride 20 meq PO DAILY 04/14/20 04/14/20 Unknown History Allergies Allergy/AdvReac Type Severity Reaction Status Date / Time codeine Allergy ALGY-Swell Verified 04/14/20 20:11 Lip/Tongue/Throat PFSH Acute PFSH: Medical History (Updated 04/15/20 @ 02:30 by Maria Del Carmen Dent MD) Alcohol abuse With dependence Cirrhosis Ascites, esophageal varices, hypoproteinemia, hepatic encephalopathy, thrombocytopenia, abnormal liver enzymes COPD (chronic obstructive pulmonary disease) Hepatitis C Not treated in the past, and is stating she was not able to afford medications Patellar fracture (~02/2020) Portal hypertension Seizure disorder Suspect secondary to alcohol Surgical History H/O: hysterectomy Family History Mother Multiple sclerosis Social History (Updated 04/14/20 @ 23:28 by Maria Del Carmen Dent MD) Smoking and tobacco status: current every day smoker Alcohol intake: current Alcohol type: beer Substance/Drug Use: unknown Household members: spouse Marital status: Vitals/I&O/Wt Last Vital Signs Temp 99.2 F 04/14/20 19:04 Pulse 122 H 04/14/20 23:00 Resp 20 H 04/14/20 23:00 BP 88/50 04/14/20 23:00 Pulse Ox 98 04/14/20 23:00 Weight last 48 hrs Weight 52.163 kg Physical Exam Const: OTHER: Patient is asleep but arousable, changes answers to questions frequently, she does know that she is in the hospital and who she is but cannot tell me consistently why she ended up here. She smells of alcohol and looks considerably worse than when I discharged her in February overall HENMT: OTHER: Normocephalic atraumatic, lips are dry as are her mucous membranes, lips and tongue are red in color, she indicates that she had some thing red to drink at some point today Eye: OTHER: Pupils equally round and reactive to light, lateral nystagmus is noted, conjunctive are injected Neck/C-Spine: OTHER: Supple Resp: OTHER: Inspiratory and expiratory wheezes are noted bilaterally, no accessory muscle use noted Cardio: OTHER: Tachycardic, regular rhythm, no murmurs GI: OTHER: Abdomen soft, distended but not taut, positive bowel sounds, tender to palpation throughout without any rebound or guarding noted, stria noted on the abdomen : OTHER: Deferred Extremity: NARRATIVE EXTREMITY EXAM: Trace pitting edema, still tenderness to palpation at knee but not near like it had been Neuro: OTHER: Face symmetric, speech slurred at times, moves all extremities, no abnormal movements or asterixis noted Psych: ATTITUDE: Yes Other attitude/behavior findings present (Psych) (A little irritated at times but for the most part cooperative) Skin: NARRATIVE SKIN EXAM: Patient with dry skin, bronze coloration, striae on the abdomen, no areas of significant ecchymoses noted Data : 04/14/20 20:09 04/14/20 20:09 Other Labs: Laboratory Tests 04/14/20 04/14/20 20:09 20:09 INR Lactate 2.2 Calcium 7.0 L Total Bilirubin 1.5 H AST 76 H ALT 16 Alkaline Phosphatase 127 H C-Reactive Protein 5.4 H Total Protein 7.4 Albumin 2.5 L Globulin 4.9 H 04/14/20 04/14/20 20:09 21:00 INR 1.52 H Ur Specific [place] 1.025 Urine Protein Neg Urine Glucose (UA) Norm Urine Ketones 1+ H Urine Blood Neg Urine Nitrate Negative Urine Bilirubin 1+ H Ur Leukocyte Esterase Negative Micro: Microbiology 04/14/20 20:08 Blood Culture - Preliminary Blood SPECIMEN COLLECTED 04/14/20 20:09 Blood Culture - Preliminary Blood SPECIMEN COLLECTED CT Abd/Pel: Radiologist's impression: FINDINGS: Lungs: There is subpleural atelectasis of the dependent portions of the lungs. Mediastinal space: A small hiatal hernia is present. There is wall thickening in the distal esophagus compatible with lack of distension versus a soft a giant is. Liver: The liver is extremely heterogeneous in density concerning for infiltrative neoplasm or metastatic disease with multiple masslike lesions with 1 of the largest being the hypodense mass series 2, image 11 measuring 4.8 x 6.1 cm. These are not identified on the prior exam. The liver has a nodular contour and there is relative hypertrophy of the caudate lobe, consistent with cirrhosis. Gallbladder and bile ducts: Normal. No calcified stones. No ductal dilation. Pancreas: Normal. No ductal dilation. Spleen: Normal. No splenomegaly. Adrenals: Normal. No mass. Kidneys and ureters: There is no evidence of hydronephrosis. There is no evidence of renal calcifications. Stomach and bowel: Extensive diverticulosis is present in the distal colon. The wall of the colon is thickened but collapsed. This appearance may reflect lack of distention versus mild colitis. There is no evidence of intestinal perforation or obstruction. The loops of small bowel have an appropriate appearance. The wall of the duodenum appears mildly thickened as does the stomach. This may reflect mild gastritis and duodenitis versus lack of distension. Appendix: The appendix is not definitively identified. However, there is no CT evidence of a right lower quadrant inflammatory process. Intraperitoneal space: There is a moderate amount of ascites. This is increased compared to the prior study. Vasculature: Unremarkable.No abdominal aortic aneurysm. Lymph nodes: Unremarkable.No enlarged lymph nodes. Bladder: Unremarkable as visualized. Reproductive: Unremarkable as visualized. Bones/joints: There is osteopenia with moderate to severe degenerative changes in the spine and pelvis. No acute bony abnormality. Soft tissues: Unremarkable. CT/CT abdomen pelvis con [id number] IMPRESSION: 1. The wall of the colon is thickened but collapsed. This appearance may reflect lack of distention versus mild colitis. 2. Moderate amount of ascites. This is increased since the prior exam. Increased/new heterogeneous liver compatible with cirrhosis with poorly defined hypodensity in the liver concerning for infiltrative neoplasm or metastatic disease. Abdomen/liver MRI may be helpful for further evaluation. 3. The wall of the duodenum appears mildly thickened as does the stomach. This may reflect mild gastritis and duodenitis versus lack of distension. A&P Assessment and plan (1) Acute abdominal pain: Patient has complained of abdominal pain when I have seen her in the past. Current examination is similar to examinations when I saw her in February. I am less inclined to think that this is SBP. CT imaging indicate some changes in the liver concerning for possibility of malignancy by description. There may be an acute component on top of chronic abdominal discomfort. Lactic acid was normal as was white blood count. Status: Acute (2) Hepatic encephalopathy: Suspected diagnosis presently based on inability to get appropriate response to question from her and her sleepiness; difficulty conversing and making sense could however be related to acute intoxication, chronic effects of alcohol or other process Status: Acute (3) Abdominal ascites: Increased from prior evaluations. I have not been able to find definitive evidence that she has had prior diagnostic paracentesis this evening though she states that she has. I know I talked to her and her daughter about it when she was here before as something that she may need to have at some point in the future. Status: Acute Qualifiers: Ascites type: due to alcoholic cirrhosis Qualified Code(s): K70.31 - Alcoholic cirrhosis of liver with ascites (4) Sinus tachycardia: Concern may be indicative of early withdrawal currently Status: Acute (5) Alcohol abuse: With dependence, possibly acute intoxication versus early withdrawal Status: Chronic (6) COPD exacerbation: Clinically present on examination, she continues to smoke Status: Acute (7) Thrombocytopenia: Lower than last time she was checked the end of hospital stay in February but not beyond the realm what she has frequently had dating back to April of last year Status: Acute (8) Cirrhosis: Alcoholic plus or minus impact of hepatitis C associated with ascites, esophageal varices, hypoproteinemia, hepatic encephalopathy, thrombocytopenia, abnormal liver enzymes Status: Chronic Qualifiers: Ascites presence: with ascites Hepatic cirrhosis type: alcoholic cirrhosis Qualified Code(s): K70.31 - Alcoholic cirrhosis of liver with ascites (9) Hepatitis C: Has not been treated Status: Chronic Qualifiers: Hepatic coma status: without hepatic coma Viral hepatitis chronicity: chronic Qualified Code(s): B18.2 - Chronic viral hepatitis C (10) Seizure disorder: Suspect related to either alcohol withdrawal or chronic alcohol use, chronically he is prescribed Keppra Status: Chronic (11) Nicotine dependence, cigarettes, with other nicotine-induced disorders: Status: Chronic (12) Non-compliant behavior: Historically an issue with Mrs. Arteaga Status: Acute Additional A&P Information Inpatient admission Check ammonia level and blood alcohol level Check lipase Check EKG Telemetry monitoring [facility] protocol Ultrasound-guided paracentesis for in the morning We will send fluid for culture, glucose, LDH, albumin and total protein as well as cytology, orders are in the hold queue Depending on results of above can consider antibiotics as appropriate Banana bag tonight then continue oral thiamine, folate and multivitamin Lactulose daily PPI Resume spironolactone and Lasix, monitoring blood pressure response closely Not unusual for patient to run in the mid 90s or even low 90s systolic Continue Keppra If blood pressure tolerates resumption of diuretics, can consider resumption of propranolol As patient reports not having any medicines for a while did not want to resume everything at one time Tylenol, 2 g max a day for pain control; trying to avoid narcotics in this dependent patient if we can SCDs for DVT prophylaxis if she will accept them, she refused last hospital stay Nicotine patch as needed Supportive care otherwise Patient appears to be about equally deconditioned as she was last time she was here. Disposition was a significant challenge as patient went back and forth about what she wanted to do changing sometimes throughout the course of a day between home with her and home health, to a nursing facility, not to a nursing facility, home with her daughter and so on. I expect that we will experience a similar process this hospital stay potentially with a different outcome from last time. We will ask social media coordinator to go on and get directly involved secondary to this PT evaluation when medically stable Plans were discussed with patient as much as she could follow, including paracentesis evaluation Full code Attestations Medical Necessity Statement*: Anticipated stay greater than 2 midnights in this patient with alcohol dependence and associated alcoholic cirrhosis presenting with unclear history and reporting abdominal pain. I suspect that she has hepatic encephalopathy along with acute alcohol intoxication. May require paracentesis. Plans are as noted above Coding Level of Care Code Acute Boxing Trainer for Angelg Fwd Diagnoses Acute abdominal pain R10.9 Hepatic encephalopathy K72.90 Abdominal ascites K70.31 Ascites type: due to alcoholic cirrhosis Sinus tachycardia R00.0 Alcohol abuse F10.10 COPD exacerbation J44.1 Thrombocytopenia D69.6 Cirrhosis K70.31 Ascites presence: with ascites Hepatic cirrhosis type: alcoholic cirrhosis Hepatitis C B18.2 Hepatic coma status: without hepatic coma Viral hepatitis chronicity: chronic Seizure disorder G40.909 Nicotine dependence, cigarettes, with other nicotine-induced disorders F17.218 Non-compliant behavior R46.89
--- NOTE | 2020-04-14 23:39 | XR_ITS ---
WS: [id number] Portable AP upright chest, 04/14/2020 Clinical Data: wheezing and sob Comparison: Portable chest, 02/02/2020. Findings: No nodules, masses or effusions are seen. The heart is normal. The pulmonary vascularity is not increased. No pneumonia or pneumothorax is seen. Monitor leads on the chest wall. XR/XR chest 1V portable [id number] Impression: Negative chest.
[2020-04-14 23:44] LABS: Alcohol Level 229 mg/dL (0-10); Ammonia 48 umol/L (11-51)
[2020-04-15] VITALS (14 sets, daily range): BP systolic 91–110; BP diastolic 56–71; PULSE 90–136; RESP 12–24; TEMP 37.1–38.7; O2SAT 95–100
[2020-04-15 01:14] LABS: Lipase 50 U/L (13-60)
[2020-04-15] MEDS: LORazepam 2 mg/mL INJ 1 mL IM ×4 (01:14→21:56)
--- NOTE | 2020-04-15 02:37 | ECG_ITS ---
[facility] Test Date: 2020-04-15 Pat Name: Apurva Arteaga Department: Room: 250 Gender: Female Sterilization Specialist: : [id number] Requested By: Maria Del Carmen Dent Order Number: [id number] Nancy MD: Susan Rausch M.D. Measurements Intervals [place] Rate: 127 P: 3 HI: 133 QRS: -50 QRSD: 91 T: 57 QT: 321 QTc: 467 Interpretive Statements SINUS TACHYCARDIA LOW QRS VOLTAGE [QRS DEFLECTION < 0.5/1.0 mV IN LIMB/CHEST LEADS] LEFT ANTERIOR FASCICULAR BLOCK [QRS AXIS <= -45, QR IN I, RS IN II] WARNING: DATA QUALITY MAY AFFECT INTERPRETATION INTERPRETATION BASED ON A DEFAULT AGE OF 40 YEARS Compared to ECG 02/02/2020 05:56:08 Low QRS voltage now present Left anterior fascicular block now present Sinus rhythm no longer present Left-axis deviation no longer present Incomplete right bundle-branch block no longer present ST (T wave) deviation no longer present Electronically Signed On 04-15-2020 21:24:00 CDT by Susan Rausch M.D. [id number]
--- NOTE | 2020-04-15 04:14 | PC.NURSE ---
Patient is resting with eyes closed. Will assess CIWA when awake.
[2020-04-15] MEDS: spironolactone 25 mg Tablet 50 MG PO (05:47)
--- NOTE | 2020-04-15 06:00 | US_ITS ---
WS: [id number] ULTRASOUND-GUIDED PARACENTESIS CLINICAL INFORMATION: diagnostic and therapeutic paracentesis COMPARISON: None. Procedure Informed consent: The risks, benefits, and alternatives of the procedure were discussed with the gayla ent. Verbal and written consent was obtained. Timeout: A timeout was performed to confirm the correct patient, procedure, and site. Preparation: A suitable skin site was identified. The patient was prepped and draped in usual sterile fashion. Lidocaine 1% was used for local anesthesia. Catheter: 4 Uzbek One-step Yueh catheter. Side: Right Lower quadrant. Fluid Volume: 760 ml Color: Yellow-green 50 cc sent for requested diagnostic tests. Complications: None. US/US paracentesis abd w [id number] IMPRESSION: Uncomplicated ultrasound-guided paracentesis. Removal of 760 cc
[2020-04-15] MEDS: ondansetron 2 mg/ML SDV 2 mL 4 MG IVP (06:02)
[2020-04-15] MEDS: acetaminophen 500 mg Tablet PO ×2 (06:12→16:00)
[2020-04-15] MEDS: pantoprazole DR 40 mg Tablet PO ×2 (08:55→21:28)
[2020-04-15] MEDS: lactulose oral liq 20 gm/30 mL UDC PO (08:55)
[2020-04-15] MEDS: thiamine 100 mg Tablet PO (08:55)
[2020-04-15] MEDS: folic acid 1 mg Tablet PO (08:56)
[2020-04-15] MEDS: levETIRAcetam 500 mg Tablet PO ×2 (08:56→21:28)
[2020-04-15] MEDS: multivitamin therapeutic Tablet 1 TAB PO (08:56)
[2020-04-15] MEDS: FUROsemide 20 mg Tablet PO (08:56)
--- NOTE | 2020-04-15 10:51 | PC.CHAP ---
Pastoral Care Encounter/Spiritual Assessment Type of Contact [] Declined mannequin molder visit [] Patient/Family/Request visit [] Outpatient visit [] Follow-up visit [] Physician referral [] Code/Alert [x] Routine visit [] Staff referral [] Actively dying [] Patient sleeping [] Family support [] [] Out of room [] Palliative care [] [] Receiving care in room [] Pre-surgical visit [] Trauma [] Long length of stay [] ICU visit [] Other: Relational/Emotional Strength [] Patient feels connected with others/family/visitors/staff [] Distress [] Loneliness/isolation [] Abandonment Spirituality of Patient [] Person of [place] [] Attends Anabaptist of their [place] [] Believes in Prayer [] Reads Bible or Caodaism materials [] There are Spiritual issues to be addressed Chief Deputy Sheriff Interventions [x] Prayer [x] Active listening [x] Non-anxious presence [x] Spiritual/emotional support [] Crisis/trauma care [] Spiritual counseling [] Bereavement support [] Provided bereavement packet [] Provided Bible/devotional materials [] Provided toy/stuffed animal, coloring book to patient or family member [] Provided Communion [] Anointing/Bypro [] Salvation [x] Completed spiritual assessment [] Other: Impact on Illness or Injury [] Angry [] Fearful [] Anxious [] Often cries [] Exhaustion [] Unable to work [] Unable to attend zoroastrianism [] Unable to walk/stand [] Unable to read [] Unable to drive [] Unable to eat/drink [] Unable to sleep [] Unable to be with family [] Patient intubated [] Other: Summary patient resting Time spent with patient 5 min
--- NOTE | 2020-04-15 11:24 | PC.NURSE ---
PT called he is not on the PHI racebook writer informed him that we are unable to release information to him and he became upset continued asking questions racebook writer continued to tell him unable to tell him anything he stated that he was not satified with those answers and hung up the phone. Inspector And Mender notified pt daughter to inform her that he had called trying to get information.
[2020-04-15 12:51] LABS: Body Fluid Polynuclear #Cells 0.017 10^3/uL; Body Fluid WBC 106 /uL; Monocytes # Body Fluid 0.089 10^3/uL; RBC, Body Fluid 1 10^3/uL (0-0)
[2020-04-15 12:57] LABS: Apprearance, Body Fluid CLEAR (CLEAR); Color, Body Fluid YELLOW (PALE YELLOW); PATH Referral YES
--- NOTE | 2020-04-15 12:59 | PC.NURSE ---
Chairlift Operator spoke to pt wanting information on pt editorial writer informed him again that he is not on the PHI but that he is down as the visitor for her visit.
--- NOTE | 2020-04-15 14:21 | PC.RESP ---
Smoking Cessation and Pulmonary Rehab information sent to patient.
--- NOTE | 2020-04-15 14:35 | P.PN_ITS ---
Subjective Subjective: Interval history: Chart reviewed, sitting in chair by bedside, alert though quite somnolent, aware she is in the hospital and gave her correctly. Quite tremulous, assisted back into bed and one-on-one requested. High CIWA score so we will give additional Ativan. Very high risk for continued withdrawal. States that her last alcoholic drink was about a week ago. confirms this and states that she attempted to drink yesterday but had some nausea and vomiting shortly thereafter. Intermittently hypotensive, febrile with a T-max of 101.6F, currently afebrile, tachycardic in the 110-120 range, on 2 L nasal cannula. Does report feeling better following paracentesis with removal of 760 mL, fluid analysis requested. Medications: Reviewed: Yes Medication Review Details: Active Medications Generic Name Dose Route Start Last Admin Trade Name Freq PRN Reason Stop Dose Admin Acetaminophen 500 mg 04/15/20 00:46 04/15/20 06:12 Tylenol PO 500 mg Q6H PRN Administration MILD PAIN OR INCR EASE TEMP Albuterol/Ipratrop ium 3 ml 04/15/20 03:00 04/15/20 09:04 Duoneb INHALATION Not Given Q6H.RESPIRATORY S CH Albuterol/Ipratrop ium 3 ml 04/15/20 02:17 Duoneb INHALATION Q6H PRN SHORTNESS OF RYLEE TH Folic Acid 1 mg 04/15/20 09:00 04/15/20 08:56 Folic Acid PO 1 mg DAILY YARELI Administration Furosemide 20 mg 04/15/20 09:00 04/15/20 08:56 Lasix PO 20 mg DAILY YARELI Administration Lactulose 20 gm 04/15/20 09:00 04/15/20 08:55 Constulose PO 20 gm DAILY YARELI Administration Levetiracetam 500 mg 04/15/20 09:00 04/15/20 08:56 Keppra PO 500 mg Q12H YARELI Administration Lorazepam 2 mg 04/15/20 00:46 04/15/20 09:12 Ativan IM 2 mg PROTOCOL PRN Administration ALCOWD Protocol Lorazepam 2 mg 04/15/20 00:46 Ativan PO PROTOCOL PRN WITHDRAWAL Protocol Multivitamins Ther apeutic 1 tab 04/15/20 09:00 04/15/20 08:56 Multivitamin Tab PO 1 tab DAILY YARELI Administration Nicotine 1 patch 04/15/20 02:28 Nicoderm 14 Mg P atch TRANSDERMA DAILY PRN nicotine withdraw al Ondansetron HCl 4 mg 04/15/20 00:46 04/15/20 06:02 Zofran IVP 4 mg Q8H PRN Administration vomiting, or N/V if npo Pantoprazole Sodiu m 40 mg 04/15/20 09:00 04/15/20 08:55 Protonix PO 40 mg Q12H YARELI Administration Spironolactone 50 mg 04/15/20 06:00 04/15/20 05:53 Aldactone PO Not Given DAILY@06 [facility] Thiamine Mononitra te 100 mg 04/15/20 09:00 04/15/20 08:55 Vitamin B-1 PO 100 mg DAILY YARELI Administration codeine Allergy (Verified 04/14/20 20:11) ALGY-Swell Lip/Tongue/Throat Vitals/I&O/Wt Last Vital Signs Temp 99.8 F H 04/15/20 12:00 Pulse 122 H 04/15/20 12:00 Resp 20 H 04/15/20 12:00 BP 91/57 04/15/20 12:00 Pulse Ox 95 04/15/20 12:00 04/14/20 04/15/20 04/15/20 22:59 06:59 14:59 Intake Total 1015.2 / 1015.2 Balance 1015.2 / 1015.2 Weight last 48 hrs Weight 54.63 kg Weight 52.163 kg Physical Exam Const: COMMON NORMALS: no acute distress and patient oriented x3 GENERAL APPEARANCE: cooperative, comfortable, appears older than stated age and odor of alcohol detected ORIENTATION/CONSCIOUSNESS: Yes awake OTHER: -Somnolent, overtly tremulous HENMT: COMMON NORMALS: normocephalic, atraumatic, hearing grossly normal bilaterally and moist oral mucous membranes HEAD & SCALP: normocephalic and atraumatic Eye: COMMON NORMALS: Equal, round and reactive pupils present, EOMs intact bilaterally and conjunctivae normal CONJUNCTIVA: Yes conjunctivae normal PUPIL: Yes Equal, round and reactive pupils present Neck/C-Spine: COMMON NORMALS: full ROM GENERAL: Yes normal visual inspectio n and Yes trachea midline Resp: COMMON NORMALS: normal respiratory effort, No retractions, No use of accessory muscles and clear to auscultation bilaterally EFFORT & INSPECTION: Yes able to speak in complete sentences, Yes symmetric chest movement and No tachypneic AUSCULTATION: clear to auscultation bilaterally Cardio: COMMON NORMALS: regular rate, regular rhythm, S1 normal heart sound present, S2 normal heart sound present and No murmurs present (Cardio) RATE: regular rate RHYTHM: regular rhythm HEART SOUNDS: S1 normal heart sound present and S2 normal heart sound present GI: COMMON NORMALS: Normal to inspection, nondistended, normoactive bowel sounds present, Soft to palpation and non-tender PALPATION: Yes Soft to palpation Extremity: COMMON NORMALS: normal to inspection, full ROM and no clubbing, cyanosis or edema; negative for no pedal edema Neuro: COMMON NORMALS: patient oriented x3, moves all extremities, no focal motor deficits and no sensory deficits noted SENSORIUM/ORIENTATION: Yes somnolent SPEECH: speech normal Psych: COMMON NORMALS: mental status grossly normal, Normal thought process present, cooperative, normal affect and speech normal SPEECH: Yes normal speech THOUGHT PROCESS: Normal thought process present Skin: COMMON NORMALS: no rashes or lesions noted, no jaundice, no petechiae and no mottling GENERAL SKIN EXAM: no rashes or lesions noted Data : 04/14/20 20:09 04/14/20 20:09 Micro: Microbiology 04/14/20 20:08 Blood Culture - Preliminary Blood SPECIMEN COLLECTED 04/14/20 20:09 Blood Culture - Preliminary Blood SPECIMEN COLLECTED A&P Assessment and plan (1) Acute abdominal pain: -Likely an acute on chronic issue -Noted imaging findings including CT scan indicating moderate ascites, mild colitis, mild gastritis and duodenitis, poorly defined liver hypodensity concerning for infiltrative neoplasm/metastatic disease. May require further evaluation with MRI -Pain control as needed, limit narcotic use due to sedation, limit Tylenol use due to underlying liver disease -We will cover with empiric antibiotics particularly due to noted fever and ascites -On PPI Status: Acute (2) Sinus tachycardia: -Likely secondary to alcohol withdrawal -Telemetry monitoring Status: Acute (3) Abdominal ascites: -s/p paracentesis with removal of 760 mL -Follow-up fluid analysis including cytology and culture results Status: Acute Qualifiers: Ascites type: due to alcoholic cirrhosis Qualified Code(s): K70.31 - Alcoholic cirrhosis of liver with ascites (4) Alcohol dependence with withdrawal: -High risk for severe withdrawal given history; alcohol level of 229 on admission -[facility] protocol -Continue thiamine, folic acid, multivitamins Status: Acute Qualifiers: Complication of substance-induced condition: uncomplicated Qualified Code(s): F10.230 - Alcohol dependence with withdrawal, uncomplicated (5) COPD exacerbation: -Chest x-ray unremarkable -Continued close monitoring of respiratory status, supplemental oxygen as needed -Neb treatments as needed -Would avoid steroid use secondary to concern for bleeding risk with underlying anemia, thrombocytopenia, hx of esophageal varices Status: Acute (6) Cirrhosis: -Continue diuretics, lactulose -Initial concern for hepatic encephalopathy given her previous history but ammonia level is normal at 48 -T bili of 1.5, AST of 76, ALP of 127; continue to trend LFTs -Noted evidence of cirrhosis on imaging Status: Chronic Qualifiers: Ascites presence: with ascites Hepatic cirrhosis type: alcoholic cirrhosis Qualified Code(s): K70.31 - Alcoholic cirrhosis of liver with ascites (7) Thrombocytopenia: -Monitor for bleeding, monitor platelet count Status: Chronic (8) Hepatitis C: Status: Chronic Qualifiers: Hepatic coma status: without hepatic coma Viral hepatitis chronicity: chronic Qualified Code(s): B18.2 - Chronic viral hepatitis C (9) Seizure disorder: -Seizure precautions Status: Chronic (10) Nicotine dependence, cigarettes, with other nicotine-induced disorders: Status: Chronic Additional A&P Information -Complicated social situation as previously documented with concern for enabling behavior from -Strict fall precautions; requires one-on-one monitoring -Keep n.p.o. for now until more consistently awake -GI ppx with PPI -DVT ppx with SCDs if agreeable -Dispo: came from home and may have home health services, case management consulted due to complicated disposition during prior admission including pursuing SNF placement; declined by several facilities -Code status: FULL code -Low threshold for decompensation Attestations Medical Necessity Statement*: Patient requires hospitalization for continued management of abdominal pain with evidence of colitis and gastritis, alcohol w ithdrawal, ascites status post paracentesis. Time Spent in Patient Care: Greater than 35 minutes (>than 50% of time spent in counselling and/or direct pt care on unit) . 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
[2020-04-15] MEDS: ipratropium-albuterol 3 mL Neb INHALATION ×2 (14:44→22:58)
[2020-04-15 14:56] LABS: Albumin Body Fluid 0.5 g/dL; LDH Body Fluid 48 U/L; Total Protein Body Fluid 2 g/dL
[2020-04-15] MEDS: metroNIDAZOLE IV 500 MG/100 ML PREMIX 100 MG IV ×2 (16:09→22:38)
[2020-04-15] MEDS: ciprofloxacin 400 MG/200 ML PREMIX 200 MG IV (16:10)
--- NOTE | 2020-04-15 17:06 | PC.NURSE ---
fiction and nonfiction prose writer gave Ativan IV to patient per protocol. Order was for Ativan IM or PO. Aboriginal Education Worker Coordinator notified Dr Gibson and per Dr Gibson, ok to give Ativan IV.
[2020-04-15] MEDS: LORazepam 2 mg/mL INJ 1 mL IVP (22:01)
[2020-04-16] VITALS (11 sets, daily range): BP systolic 78–108; BP diastolic 50–67; PULSE 89–114; RESP 16–24; TEMP 36.9–37.2; O2SAT 91–98
[2020-04-16] MEDS: LORazepam 2 mg/mL INJ 1 mL IVP ×3 (02:32→16:36)
[2020-04-16] MEDS: ciprofloxacin 400 MG/200 ML PREMIX 200 MG IV ×2 (02:32→15:21)
[2020-04-16] MEDS: ipratropium-albuterol 3 mL Neb INHALATION ×3 (05:02→21:50)
[2020-04-16] MEDS: spironolactone 25 mg Tablet 50 MG PO (05:51)
--- NOTE | 2020-04-16 05:52 | PC.NURSE ---
Pt scored a 15 on the CIWA and required more ativan, it was early due to CIWA score
[2020-04-16 06:07] LABS: Alanine Aminotransferase 15 U/L (0-33); Albumin Level 2.1 g/dL (3.5-5.2); Alkaline Phosphatase 97 IU/L (35-105); Anion Gap 9.9 (5-19); Aspartate Amino Transferase 67 U/L (0-32); Blood Urea Nitrogen 11 mg/dL (6-20); Calcium 6.9 mg/dL (8.5-10.5); Carbon Dioxide 25 mmol/L (22-29); Chloride 107 mmol/L (98-107); Globulin 4.6 g/dL (1.3-4.6); Glomerular Filtration Rate 228.5 mL/min (90-130); Glucose 99 mg/dL (65-115); Osmolality Calculated 284 mOsm/kg (285-295); Sodium 139 mmol/L (136-145); Total Bilirubin 1.3 mg/dL (0.15-1.2); Total Protein 6.7 g/dL (6.6-8.7)
[2020-04-16 06:11] LABS: Potassium 2.9 mmol/L (3.5-5.1)
[2020-04-16 06:22] LABS: Basophils % 0.5 %; Eosinophils % 0.6 %; Hematocrit 25.2 % (37.0-47.0); Hemoglobin 7.4 g/dL (11.5-15.3); Lymphocytes # 0.8 10^3/uL (0.8-4.8); Lymphocytes % 11.9 %; Mean Corpuscular HGB Conc 29.4 g/dL (30.0-36.0); Mean Corpuscular Hemoglobin 27.2 pg (28.0-34.0); Mean Corpuscular Volume 92.6 fL (81-99); Mean Platelet Volume 10.9 fL (7.4-10.4); Monocytes # 0.9 10^3/uL (0.2-0.9); Monocytes % 13.5 %; Neutrophils # 4.65 10^3/uL (1.8-7.7); Neutrophils % 73.2 %; Nucleated Red Blood Cells % 0 %; Platelet Count 46 10^3/cmm (130-400); Positive M 1; Red Blood Count 2.72 10^6/uL (4.1-5.3); Red Cell Distribution Width 21.1 % (12.1-15.1); White Blood Count 6.4 10^3/uL (4.0-10.0)
[2020-04-16] MEDS: metroNIDAZOLE IV 500 MG/100 ML PREMIX 100 MG IV ×3 (06:22→23:19)
[2020-04-16 06:25] LABS: Slide Review Slide Review Perform
[2020-04-16] MEDS: nicotine 14 mg Patch 1 PATCH TRANSDERMA (07:45)
[2020-04-16] MEDS: lactulose oral liq 20 gm/30 mL UDC PO (09:48)
[2020-04-16] MEDS: multivitamin therapeutic Tablet 1 TAB PO (09:48)
[2020-04-16] MEDS: FUROsemide 20 mg Tablet PO (09:48)
[2020-04-16] MEDS: thiamine 100 mg Tablet PO (09:48)
[2020-04-16] MEDS: levETIRAcetam 500 mg Tablet PO ×2 (09:48→22:18)
[2020-04-16] MEDS: folic acid 1 mg Tablet PO (09:48)
[2020-04-16] MEDS: potassium chloride ER 10 mEq Tablet 40 MEQ PO ×2 (09:48→19:22)
[2020-04-16] MEDS: pantoprazole DR 40 mg Tablet PO ×2 (09:52→22:18)
[2020-04-16] MEDS: acetaminophen 500 mg Tablet PO (12:22)
[2020-04-16 12:26] LABS: Hematocrit 27.3 % (37.0-47.0); Hemoglobin 8.4 g/dL (11.5-15.3)
--- NOTE | 2020-04-16 17:56 | P.PN_ITS ---
Subjective Subjective: Interval history: Normotensive, tachycardic, febrile overnight with a T-max of 100 point 8F, currently afebrile, on room air. One-to-one sitter at bedside. Noted improvement in LFTs today. Worsening hypokalemia, supplementation ongoing. Has had a better day overall, speech more clear and coherent, has intermittently been restless but easily redirected. Has required one dose of Ativan throughout the day. Had a good visit with her and will be going to stay with her son on d/c. Sitter noted some difficulty with liquids, seemed to do ok with food. Medications: Reviewed: Yes Medication Review Details: Active Medications Generic Name Dose Route Start Last Admin Trade Name Freq PRN Reason Stop Dose Admin Acetaminophen 500 mg 04/15/20 00:46 04/16/20 12:22 Tylenol PO 500 mg Q6H PRN Administration MILD PAIN OR INCR EASE TEMP Albuterol/Ipratrop ium 3 ml 04/15/20 03:00 04/16/20 14:48 Duoneb INHALATION 3 ml Q6H.RESPIRATORY S CH Administration Albuterol/Ipratrop ium 3 ml 04/15/20 02:17 Duoneb INHALATION Q6H PRN SHORTNESS OF RYLEE TH Folic Acid 1 mg 04/15/20 09:00 04/16/20 09:48 Folic Acid PO 1 mg DAILY YARELI Administration Furosemide 20 mg 04/15/20 09:00 04/16/20 09:48 Lasix PO 20 mg DAILY YARELI Administration Ciprofloxacin/Dext isai 400 mg in 200 mls @ 200 mls/hr 04/15/20 15:00 04/16/20 16:31 Cipro IV Infused Q12H YARELI Infusion Protocol Metronidazole 500 mg in 100 mls @ 100 mls/hr 04/15/20 15:00 04/16/20 17:28 Flagyl Iv IV Infused Q8H YARELI Infusion Protocol Lactulose 20 gm 04/15/20 09:00 04/16/20 09:48 Constulose PO 20 gm DAILY YARELI Administration Levetiracetam 500 mg 04/15/20 09:00 04/16/20 09:48 Keppra PO 500 mg Q12H YARELI Administration Lorazepam 2 mg 04/15/20 00:46 04/15/20 15:06 Ativan IM 2 mg PROTOCOL PRN Administration ALCOWD Protocol Lorazepam 2 mg 04/15/20 00:46 Ativan PO PROTOCOL PRN WITHDRAWAL Protocol Lorazepam 2 mg 04/15/20 19:28 04/16/20 16:36 Ativan IVP 2 mg Q4H PRN Administration ALCOHOL WITHDRAWA L Multivitamins Ther apeutic 1 tab 04/15/20 09:00 04/16/20 09:48 Multivitamin Tab PO 1 tab DAILY YARELI Administration Nicotine 1 patch 04/15/20 02:28 04/16/20 07:45 Nicoderm 14 Mg P atch TRANSDERMA 1 patch DAILY PRN Administration nicotine withdraw al Ondansetron HCl 4 mg 04/15/20 00:46 04/15/20 06:02 Zofran IVP 4 mg Q8H PRN Administration vomiting, or N/V if npo Pantoprazole Sodiu m 40 mg 04/15/20 09:00 04/16/20 09:52 Protonix PO 40 mg Q12H YARELI Administration Potassium Chloride 40 meq 04/16/20 09:00 04/16/20 09:48 Klor-Con 10 PO 40 meq DAILY YARELI Administration Spironolactone 50 mg 04/15/20 06:00 04/16/20 05:51 Aldactone PO 50 mg DAILY@06 YARELI Administration Thiamine Mononitra te 100 mg 04/15/20 09:00 04/16/20 09:48 Vitamin B-1 PO 100 mg DAILY YARELI Administration codeine Allergy (Verified 04/14/20 20:11) ALGY-Swell Lip/Tongue/Throat Vitals/I&O/Wt Last Vital Signs Temp 98.8 F 04/16/20 11:26 Pulse 110 H 04/16/20 14:55 Resp 20 H 04/16/20 16:00 BP 108/62 04/16/20 11:26 Pulse Ox 96 04/16/20 14:48 04/16/20 04/16/20 04/16/20 06:59 14:59 22:59 Intake Total 300 / 600 340 / 340 540 / 880 Balance 300 / 600 340 / 340 540 / 880 Weight last 48 hrs Weight 55.168 kg Weight 54.63 kg Weight 52.163 kg Physical Exam Const: COMMON NORMALS: no acute distress, patient oriented x3 and alert GENERAL APPEARANCE: cooperative, comfortable, appears older than stated age and odor of alcohol detected ORIENTATION/CONSCIOUSNESS: Yes awake OTHER: - alert, easy to engage in conversation HENMT: COMMON NORMALS: normocephalic, atraumatic, hearing grossly normal bilaterally and moist oral mucous membranes HEAD & SCALP: normocephalic and atraumatic Eye: COMMON NORMALS: Equal, round and reactive pupils present, EOMs intact bilaterally and conjunctivae normal CONJUNCTIVA: Yes conjunctivae normal PUPIL: Yes Equal, round and reactive pupils present Neck/C-Spine: COMMON NORMALS: full ROM GENERAL: Yes normal visual inspection and Yes trachea midline Resp: COMMON NORMALS: normal respiratory effort, No retractions, No use of accessory muscles and clear to auscultation bilaterally EFFORT & INSPECTION: Yes able to speak in complete sentences, Yes symmetric chest movement and No tachypneic AUSCULTATION: clear to auscultation bilaterally Cardio: COMMON NORMALS: regular rate, regular rhythm, S1 normal heart sound present, S2 normal heart sound present and No murmurs present (Cardio) RATE: regular rate RHYTHM: regular rhythm HEART SOUNDS: S1 normal heart sound present and S2 normal heart sound present GI: COMMON NORMALS: Normal to inspection, nondistended, normoactive bowel sounds present, Soft to palpation and non-tender PALPATION: Yes Soft to palpation Extremity: COMMON NORMALS: normal to inspection, full ROM, no clubbing, cyanosis or edema and no pedal edema Neuro: COMMON NORMALS: patient oriented x3, moves all extremities, no focal motor deficits and no sensory deficits noted SENSORIUM/ORIENTATION: Yes alert SPEECH: speech normal Psych: COMMON NORMALS: mental status grossly normal, Normal thought process present, cooperative, normal affect and speech normal SPEECH: Yes normal speech THOUGHT PROCESS: Normal thought process present Skin: COMMON NORMALS: no rashes or lesions noted, no jaundice, no petechiae and no mottling GENERAL SKIN EXAM: no rashes or lesions noted Data : 04/16/20 12:08 04/16/20 04:40 Micro: Microbiology 04/15/20 12:00 Gram Stain - Final Peritoneal Fluid Anaerobic Culture - Preliminary Body Fluid Culture - Preliminary 04/14/20 20:09 Blood Culture - Preliminary Blood Gram positive cocci 04/14/20 20:08 Blood Culture - Preliminary Blood NEGATIVE TO DATE A&P Assessment and plan (1) Acute abdominal pain: -Likely an acute on chronic issue -Noted imaging findings including CT scan indicating moderate ascites, mild colitis, mild gastritis and duodenitis, poorly defined liver hypodensity concerning for infiltrative neoplasm/metastatic disease. May require further evaluation with MRI -Pain control as needed, limit narcotic use due to sedation, limit Tylenol use due to underlying liver disease -continue empiric antibiotics particularly due to noted fever and ascites -On PPI -blood cx: 09/06 bottles positive for GPC, order repeat set Status: Acute (2) Sinus tachycardia: -Likely secondary to alcohol withdrawal -Telemetry monitoring Status: Acute (3) Abdominal ascites: -s/p paracentesis with removal of 760 mL (04/15) -cytology pending -culture prelim negative, gram stain negative Status: Acute Qualifiers: Ascites type: due to alcoholic cirrhosis Qualified Code(s): K70.31 - Alcoholic cirrhosis of liver with ascites (4) Alcohol dependence with withdrawal: -High risk for severe withdrawal given history; alcohol level of 229 on admission -[facility] protocol -Continue thiamine, folic acid, multivitamins Status: Acute Qualifiers: Complication of substance-induced condition: uncomplicated Qualified Code(s): F10.230 - Alcohol dependence with withdrawal, uncomplicated (5) COPD exacerbation: -Chest x-ray unremarkable -Continued close monitoring of respiratory status, supplemental oxygen as needed -Neb treatments as needed -Would avoid steroid use secondary to concern for bleeding risk with underlying anemia, thrombocytopenia, hx of esophageal varices Status: Acute (6) Cirrhosis: -Continue diuretics, lactulose -Initial concern for hepatic encephalopathy given her previous history but ammonia level is normal at 48 -T bili of 1.5, AST of 76, ALP of 127; continue to trend LFTs -Noted evidence of cirrhosis on imaging Status: Chronic Qualifiers: Ascites presence: with ascites Hepatic cirrhosis type: alcoholic cirrhosis Qualified Code(s): K70.31 - Alcoholic cirrhosis of liver with ascites (7) Thrombocytopenia: -continue to monitor for bleeding, monitor platelet count Status: Chronic (8) Hepatitis C: Status: Chronic Qualifiers: Hepatic coma status: without hepatic coma Viral hepatitis chronicity: chronic Qualified Code(s): B18.2 - Chronic viral hepatitis C (9) Seizure disorder: -Seizure precautions Status: Chronic (10) Nicotine dependence, cigarettes, with other nicotine-induced disorders: Status: Chronic Additional A&P Information -Complicated social situation as previously documented with concern for enabling behavior from -Strict fall precautions; requires one-on-one monitoring -Keep n.p.o. for now until more consistently awake -GI ppx with PPI -DVT ppx with SCDs if agreeable -PT and ST evaluations requested -Dispo: came from home and may have home health services, case management cons ulted due to complicated disposition during prior admission including pursuing SNF placement; declined by several facilities. May be going to live with her son on d/c -Code status: FULL code -Low threshold for decompensation Attestations Medical Necessity Statement*: Patient requires hospitalization for continued management of alcohol withdrawal, abdominal pain, hypokalemia. Time Spent in Patient Care: 16 - 35 minutes (>than 50% of time spent in counselling and/or direct pt care on unit) . Coding Level of Care Code Acute Political Geographer for Chg Fwd Exam Comprehensive Diagnoses Acute abdominal pain R10.9 Sinus tachycardia R00.0 Abdominal ascites K70.31 Ascites type: due to alcoholic cirrhosis Alcohol dependence with withdrawal F10.230 Complication of substance-induced condition: uncomplicated COPD exacerbation J44.1 Cirrhosis K70.31 Ascites presence: with ascites Hepatic cirrhosis type: alcoholic cirrhosis Thrombocytopenia D69.6 Hepatitis C B18.2 Hepatic coma status: without hepatic coma Viral hepatitis chronicity: chronic Seizure disorder G40.909 Nicotine dependence, cigarettes, with other nicotine-induced disorders F17.218
[2020-04-16] MEDS: sodium chloride 0.9% 250 ML IV (22:18)
[2020-04-17] VITALS (21 sets, daily range): BP systolic 86–132; BP diastolic 50–86; PULSE 84–113; RESP 16–21; TEMP 36.4–37.6; O2SAT 90–97
[2020-04-17] MEDS: acetaminophen 500 mg Tablet PO ×2 (02:44→08:32)
[2020-04-17] MEDS: LORazepam 2 mg Tablet PO ×2 (02:44→19:56)
[2020-04-17] MEDS: ciprofloxacin 400 MG/200 ML PREMIX 200 MG IV (02:50)
[2020-04-17 04:07] LABS: Basophils % 0.7 %; Eosinophils # 0.1 10^3/uL (0.0-0.8); Eosinophils % 2.3 %; Hematocrit 22.6 % (37.0-47.0); Lymphocytes % 17.2 %; Mean Corpuscular Volume 90.4 fL (81-99); Monocytes # 0.6 10^3/uL (0.2-0.9); Monocytes % 10.5 %; Neutrophils # 3.86 10^3/uL (1.8-7.7); Neutrophils % 68.6 %; Nucleated Red Blood Cells % 0 %; Platelet Count 50 10^3/cmm (130-400); White Blood Count 5.6 10^3/uL (4.0-10.0)
[2020-04-17 04:33] LABS: Alanine Aminotransferase 13 U/L (0-33); Albumin Level 2.1 g/dL (3.5-5.2); Alkaline Phosphatase 96 IU/L (35-105); Anion Gap 8.4 (5-19); Aspartate Amino Transferase 49 U/L (0-32); Blood Urea Nitrogen 11 mg/dL (6-20); Calcium 7.1 mg/dL (8.5-10.5); Carbon Dioxide 25 mmol/L (22-29); Chloride 104 mmol/L (98-107); Glomerular Filtration Rate 163.9 mL/min (90-130); Glucose 129 mg/dL (65-115); Osmolality Calculated 276 mOsm/kg (285-295); Potassium 3.4 mmol/L (3.5-5.1); Sodium 134 mmol/L (136-145); Total Protein 6.1 g/dL (6.6-8.7)
[2020-04-17] MEDS: ipratropium-albuterol 3 mL Neb INHALATION ×2 (05:02→08:50)
[2020-04-17 05:06] LABS: Slide Review Slide Review Perform
[2020-04-17] MEDS: spironolactone 25 mg Tablet 50 MG PO (06:05)
[2020-04-17] MEDS: metroNIDAZOLE IV 500 MG/100 ML PREMIX 100 MG IV ×2 (06:05→23:26)
[2020-04-17] MEDS: FUROsemide 20 mg Tablet PO (08:29)
[2020-04-17] MEDS: multivitamin therapeutic Tablet 1 TAB PO (08:29)
[2020-04-17] MEDS: lactulose oral liq 20 gm/30 mL UDC PO (08:29)
[2020-04-17] MEDS: pantoprazole DR 40 mg Tablet PO ×2 (08:29→20:00)
[2020-04-17] MEDS: thiamine 100 mg Tablet PO (08:29)
[2020-04-17] MEDS: levETIRAcetam 500 mg Tablet PO ×2 (08:29→20:00)
[2020-04-17] MEDS: folic acid 1 mg Tablet PO (08:29)
[2020-04-17] MEDS: potassium chloride ER 10 mEq Tablet 40 MEQ PO (08:30)
--- NOTE | 2020-04-17 12:42 | PC.CHAP ---
Pastoral Care Encounter/Spiritual Assessment Type of Contact [] Declined blending technician visit [] Patient/Family/Request visit [] Outpatient visit [] Follow-up visit [] Physician referral [] Code/Alert [] Routine visit [] Staff referral [] Actively dying [] Patient sleeping [] Family support [] [] Out of room [] Palliative care [] [] Receiving care in room [] Pre-surgical visit [] Trauma [] Long length of stay [] ICU visit [X] Other: FOLLOW UP NEEDED Relational/Emotional Strength [] Patient feels connected with others/family/visitors/staff [] Distress [] Loneliness/isolation [] Abandonment Spirituality of Patient [] Person of [place] [] Attends Holiness of their [place] [] Believes in Prayer [] Reads Bible or Synagogue materials [] There are Spiritual issues to be addressed Mix Maker Interventions [] Prayer [] Active listening [] Non-anxious presence [] Spiritual/emotional support [] Crisis/trauma care [] Spiritual counseling [] Bereavement support [] Provided bereavement packet [] Provided Bible/devotional materials [] Provided toy/stuffed animal, coloring book to patient or family member [] Provided Communion [] Anointing/[place] [] Salvation [] Completed spiritual assessment [] Other: Impact on Illness or Injury [] Angry [] Fearful [] Anxious [] Often cries [] Exhaustion [] Unable to work [] Unable to attend latter day [] Unable to walk/stand [] Unable to read [] Unable to drive [] Unable to eat/drink [] Unable to sleep [] Unable to be with family [] Patient intubated [] Other: Summary PT IS NOT TO BE DISTURBED TODAY BUT MAY BE ABLE TO HAVE COUNSELING AIDE VISIT TOMORROW (04/18/2020) FOLLOW UP REQUESTED. Time spent with patient 2 MINUTES COUNSELING AIDE JAMES CORTÉS
[2020-04-17] MEDS: LORazepam 2 mg/mL INJ 1 mL IVP (12:54)
--- NOTE | 2020-04-17 14:02 | P.PN_ITS ---
Subjective Subjective: Interval history: Overnight was intermittently hypotensive, tachycardic, afebrile. Received a 250 mL normal saline bolus overnight due to hypotension with some improvement in her blood pressure. Noted drop in hemoglobin today from 8.4->7.0 so we will transfuse 2 units of PRBCs. Stable platelet count. Improved hypokalemia, stable renal function, improved LFTs. Has had 1 large bowel movement so far today. Accompanied patient to the [facility] for MRI of the abdomen with and without contrast. She has been quite confused today, updated at bedside. Medications: Reviewed: Yes Medication Review Details: Active Medications Generic Name Dose Route Start Last Admin Trade Name Freq PRN Reason Stop Dose Admin Acetaminophen 500 mg 04/15/20 00:46 04/17/20 08:32 Tylenol PO 500 mg Q6H PRN Administration MILD PAIN OR INCR EASE TEMP Albuterol/Ipratrop ium 3 ml 04/15/20 03:00 04/17/20 08:50 Duoneb INHALATION 3 ml Q6H.RESPIRATORY S CH Administration Albuterol/Ipratrop ium 3 ml 04/15/20 02:17 Duoneb INHALATION Q6H PRN SHORTNESS OF RYLEE TH Folic Acid 1 mg 04/15/20 09:00 04/17/20 08:29 Folic Acid PO 1 mg DAILY YARELI Administration Furosemide 20 mg 04/15/20 09:00 04/17/20 08:29 Lasix PO 20 mg DAILY YARELI Administration Ciprofloxacin/Dext isai 400 mg in 200 mls @ 200 mls/hr 04/15/20 15:00 04/17/20 02:50 Cipro IV 200 mls/hr Q12H YARELI Administration Protocol Metronidazole 500 mg in 100 mls @ 100 mls/hr 04/15/20 15:00 04/17/20 06:05 Flagyl Iv IV 100 mls/hr Q8H YARELI Administration Protocol Lactulose 20 gm 04/15/20 09:00 04/17/20 08:29 Constulose PO 20 gm DAILY YARELI Administration Levetiracetam 500 mg 04/15/20 09:00 04/17/20 08:29 Keppra PO 500 mg Q12H YARELI Administration Lorazepam 2 mg 04/15/20 00:46 04/15/20 15:06 Ativan IM 2 mg PROTOCOL PRN Administration ALCOWD Protocol Lorazepam 2 mg 04/15/20 00:46 04/17/20 02:44 Ativan PO 2 mg PROTOCOL PRN Administration WITHDRAWAL Protocol Lorazepam 2 mg 04/15/20 19:28 04/17/20 12:54 Ativan IVP 2 mg Q4H PRN Administration ALCOHOL WITHDRAWA L Multivitamins Ther apeutic 1 tab 04/15/20 09:00 04/17/20 08:29 Multivitamin Tab PO 1 tab DAILY YARELI Administration Nicotine 1 patch 04/15/20 02:28 04/16/20 07:45 Nicoderm 14 Mg P atch TRANSDERMA 1 patch DAILY PRN Administration nicotine withdraw al Ondansetron HCl 4 mg 04/15/20 00:46 04/15/20 06:02 Zofran IVP 4 mg Q8H PRN Administration vomiting, or N/V if npo Pantoprazole Sodiu m 40 mg 04/15/20 09:00 04/17/20 08:29 Protonix PO 40 mg Q12H YARELI Administration Potassium Chloride 40 meq 04/16/20 09:00 04/17/20 08:30 Klor-Con 10 PO 40 meq DAILY YARELI Administration Spironolactone 50 mg 04/15/20 06:00 04/17/20 06:05 Aldactone PO 50 mg DAILY@06 YARELI Administration Thiamine Mononitra te 100 mg 04/15/20 09:00 04/17/20 08:29 Vitamin B-1 PO 100 mg DAILY YARELI Administration codeine Allergy (Verified 04/14/20 20:11) ALGY-Swell Lip/Tongue/Throat Vitals/I&O/Wt Last Vital Signs Temp 98.3 F 04/17/20 12:00 Pulse 84 04/17/20 12:00 Resp 18 04/17/20 12:00 BP 108/64 04/17/20 12:00 Pulse Ox 97 04/17/20 11:17 04/16/20 04/17/20 04/17/20 22:59 06:59 14:59 Intake Total 540 / 880 400 / 1280 320 / 320 Balance 540 / 880 400 / 1280 320 / 320 Weight last 48 hrs Weight 56.387 kg Weight 55.168 kg Physical Exam Const: COMMON NORMALS: no acute distress and alert GENERAL APPEARANCE: cooperative, comfortable and appears older than stated age ORIENTATION/CONSCIOUSNESS: Yes awake and Yes confused HENMT: COMMON NORMALS: normocephalic, atraumatic and hearing grossly normal bilaterally HEAD & SCALP: normocephalic and atraumatic MOUTH: moist mucous membranes abnormal Details: cracked Eye: COMMON NORMALS: Equal, round and reactive pupils present, EOMs intact bilaterally and conjunctivae normal CONJUNCTIVA: Yes conjunctivae normal PUPIL: Yes Equal, round and reactive pupils present Neck/C-Spine: COMMON NORMALS: full ROM GENERAL: Yes normal visual inspection and Yes trachea midline Resp: COMMON NORMALS: normal respiratory effort, No retractions, No use of accessory muscles and clear to auscultation bilaterally EFFORT & INSPECTION: Yes able to speak in complete sentences, Yes symmetric chest movement and No tachypneic AUSCULTATION: clear to auscultation bilaterally Cardio: COMMON NORMALS: regular rate, regular rhythm, S1 normal heart sound present, S2 normal heart sound present and No murmurs present (Cardio) RATE: regular rate RHYTHM: regular rhythm HEART SOUNDS: S1 normal heart sound present and S2 normal heart sound present GI: COMMON NORMALS: Normal to inspection, nondistended, normoactive bowel sounds present, Soft to palpation and non-tender PALPATION: Yes Soft to palpation Extremity: COMMON NORMALS: normal to inspection, full ROM, no clubbing, cya nosis or edema and no pedal edema Neuro: COMMON NORMALS: moves all extremities, no focal motor deficits and no sensory deficits noted SENSORIUM/ORIENTATION: Yes alert SPEECH: speech normal Psych: COMMON NORMALS: cooperative and speech normal SPEECH: Yes normal sp eech MOOD & AFFECT: Yes Flat affect present THOUGHT PROCESS: confused INSIGHT: Limited insight present (Psych) JUDGEMENT: Limited judgement present (Psych) Skin: COMMON NORMALS: no rashes or lesions noted, no jaundice, no petechiae and no mottling NARRATIVE SKIN EXAM: -scattered bruising on extremities GENERAL SKIN EXAM: no rashes or lesions noted Data : 04/17/20 03:35 04/17/20 03:35 Micro: Microbiology 04/16/20 18:30 Blood Culture - Preliminary Blood SPECIMEN COLLECTED 04/16/20 18:35 Blood Culture - Preliminary Blood SPECIMEN COLLECTED 04/15/20 12:00 Gram Stain - Final Peritoneal Fluid Anaerobic Culture - Preliminary Body Fluid Culture - Preliminary 04/14/20 20:09 Blood Culture - Preliminary Blood Gram positive cocci A&P Assessment and plan (1) Acute abdominal pain: -Likely an acute on chronic issue -Noted imaging findings including CT scan indicating moderate ascites, mild colitis, mild gastritis and duodenitis, poorly defined liver hypodensity concerning for infiltrative neoplasm/metastatic disease. MRI ordered for further evaluation -Pain control as needed, limit narcotic use due to sedation, limit Tylenol use due to underlying liver disease -continue empiric antibiotics particularly due to noted fever and ascites -On PPI -blood cx: 09/06 bottles positive for GPC, repeat set pending Status: Acute (2) Chronic anemia: -Has chronic normocytic anemia which is likely multifactorial given poor nutrition status, underlying chronic disease with cirrhosis with esophageal varices -Baseline hemoglobin appears to be around 10 -Acute drop noted today with hemoglobin of 7 this morning, plan to transfuse 2 units of PRBCs particularly due to noted hypotension and persistent tachycardia -Close monitoring of H&H -Monitoring for bleeding, none so far -from review of medical record, no noted endoscopy or colonoscopy. May need further GI workup if continued anemia Status: Acute (3) Sinus tachycardia: -Likely secondary to alcohol withdrawal versus acutely worsening anemia -Telemetry monitoring Status: Acute (4) Abdominal ascites: -s/p paracentesis with removal of 760 mL (04/15) -cytology pending -culture prelim negative, gram stain negative Status: Acute Qualifiers: Ascites type: due to alcoholic cirrhosis Qualified Code(s): K70.31 - Alcoholic cirrhosis of liver with ascites (5) Alcohol dependence with withdrawal: -High risk for severe withdrawal given history; alcohol level of 229 on admission -[facility] protocol -Continue thiamine, folic acid, multivitamins Status: Acute Qualifiers: Complication of substance-induced condition: uncomplicated Qualified Code(s): F10.230 - Alcohol dependence with withdrawal, uncomplicated (6) COPD exacerbation: -Chest x-ray unremarkable -Continued close monitoring of respiratory status, supplemental oxygen as needed -Neb treatments as needed -Would avoid steroid use secondary to concern for bleeding risk with underlying anemia, thrombocytopenia, hx of esophageal varices Status: Acute (7) Cirrhosis: -Continue diuretics, lactulose -Initial concern for hepatic encephalopathy given her previous history but ammonia level is normal at 48 -LFTs trending down; continue to monitor -Noted evidence of cirrhosis on imaging Status: Chronic Qualifiers: Ascites presence: with ascites Hepatic cirrhosis type: alcoholic cirrhosis Qualified Code(s): K70.31 - Alcoholic cirrhosis of liver with ascites (8) Thrombocytopenia: -continue to monitor for bleeding, monitor platelet count, stable so far Status: Chronic (9) Hepatitis C: Status: Chronic Qualifiers: Hepatic coma status: without hepatic coma Viral hepatitis chronicity: chronic Qualified Code(s): B18.2 - Chronic viral hepatitis C (10) Seizure disorder: -Seizure precautions Status: Chronic (11) Nicotine dependence, cigarettes, with other nicotine-induced disorders: Status: Chronic Additional A&P Information -Complicated social situation as previously documented with concern for enabling behavior from -Strict fall precautions; requires one-on-one monitoring -mechanical soft diet as tolerated -GI ppx with PPI -DVT ppx with SCDs if agreeable -PT and ST evaluations requested -Dispo: came from home and may have home health services, case management consulted due to complicated disposition during prior admission including pursuing SNF placement; declined by several facilities. May be going to live with her son on d/c -Code status: FULL code -Low threshold for decompensation -called and updated daughter Azucena Gonzalez on patient's clinical status including imaging findings, worsening anemia. Updated at bedside. Attestations Medical Necessity Statement*: Patient requires hospitalization for continued management of anemia requiring transfusion of blood products, further evaluation of noted liver lesion concerning for possible malignancy. Time Spent in Patient Care: 16 - 35 minutes (>than 50% of time spent in counselling and/or direct pt care on unit) . Coding Level of Care Code Acute Drill Setup Operator for g Fwd Exam Comprehensive Diagnoses Acute abdominal pain R10.9 Chronic anemia D64.9 Sinus tachycardia R00.0 Abdominal ascites K70.31 Ascites type: due to alcoholic cirrhosis Alcohol dependence with withdrawal F10.230 Complication of substance-induced condition: uncomplicated COPD exacerbation J44.1 Cirrhosis K70.31 Ascites presence: with ascites Hepatic cirrhosis type: alcoholic cirrhosis Thrombocytopenia D69.6 Hepatitis C B18.2 Hepatic coma status: without hepatic coma Viral hepatitis chronicity: chronic Seizure disorder G40.909 Nicotine dependence, cigarettes, with other nicotine-induced disorders F17.218
--- NOTE | 2020-04-17 14:05 | MRR_ITS ---
PROCEDURE INFORMATION: Exam: MR Abdomen Without and With Contrast; Liver Exam date and time: 04/17/2020 2:07 PM Age: 59 years old Clinical indication: Bloating and mass, lump, or swelling; Additional info: Liver hypodensity with concern for malignancy TECHNIQUE: Imaging protocol: MR Abdomen with and without intravenous contrast. Exam focused on the liver. Contrast material: PROHANCE; Contrast volume: 11 ml; Contrast route: INTRAVENOUS (IV); COMPARISON: CT abdomen pelvis wo con [id number] 04/14/2020 9:43 PM FINDINGS: Pleura: Bilateral pleural effusions. Bibasilar atelectasis. Liver: Inhomogenous cirrhotic liver with a nodular contour. No suspicious enhancing nodules. Gallbladder and bile ducts: Normal gallbladder. No biliary ductal dilatation. Pancreas: Normal. Kidneys and ureters: Normal kidneys. Visualized ureters are unremarkable. Intraperitoneal space: Moderate ascites. Vasculature: Only a single axial T1 fat sat portal venous phase, and a coronal 2D Fiesta postcontrast sequences were submitted. There are no suspicious enhancing nodules on these sequences. A 3 phase set of postcontrast images were not submitted. MR/MR abdomen wo/w con* [id number] IMPRESSION: 1. Cirrhotic inhomogenous liver. 2. No suspicious nodule identified in the liver on this limited postcontrast study. NOTE: Only a single portal venous phase postcontrast axial sequence was submitted, which is considered nondiagnostic for excluding liver nodules or liver malignancy. Three-phase imaging of the liver is recommended. 2. Moderate ascites. 3. Bilateral pleural effusions with atelectasis.
[2020-04-17] MEDS: nicotine 14 mg Patch 1 PATCH TRANSDERMA (15:24)
--- NOTE | 2020-04-17 17:24 | PC.SLP ---
HOSPICE EDUCATOR attempted to eval pt, however, pt is at MRI at this time.
[2020-04-17] MEDS: octreotide 100 mcg/mL SDV 50 MCG IVP (18:35)
[2020-04-17] MEDS: cefTRIAXone 1,000 MG in sodium chloride 0.9% (plus) 50 ML 100 MG IV (18:35)
[2020-04-17] MEDS: octreotide 500 MCG in sodium chloride 0.9% (100 ml) 100 ML 10.1 MCG IV (18:35)
[2020-04-17] MEDS: sodium chloride 0.9% (100 ml) 100 ML 200 ML (18:37)
--- NOTE | 2020-04-17 20:43 | PC.NURSE ---
Blood had transfused, but had not been documented in the computer. This nurse called day shift nurseAmber LPN. Day shift nurse stated patient's blood had finished transfusing just after patient came back from [facility] at around 1800. Vital signs had not been documented while patient was away. Day shift nurse stated vitals were taken when patient returned but vitals were not documented either. After speaking with day shift nurse, this nurse went into [facility] and documented the transfusion time the day shift nurse had reported.
--- NOTE | 2020-04-17 22:04 | PC.NURSE ---
THE PATIENT'S CALLED AND STATES HE SPOKE WITH HIS FAMILY AND THEY ALL AGREED THE PATIENT NEEDS TRANSFERRED TO [facility] IN [place], [place]. HE STATES HE WAS RECOMMENDED THIS BY THE HOSPITALIST. INFORMATION GIVEN TO PATIENT'S CARE NURSE.
[2020-04-18] VITALS (18 sets, daily range): BP systolic 113–126; BP diastolic 75–82; PULSE 98–114; RESP 16–18; TEMP 36.2–37.6; O2SAT 93–97
[2020-04-18] MEDS: LORazepam 2 mg/mL INJ 1 mL IVP ×2 (00:49→21:12)
[2020-04-18] MEDS: sodium chloride 0.9% (100 ml) 100 ML 125 ML (02:04)
[2020-04-18] MEDS: ciprofloxacin 400 MG/200 ML PREMIX 200 MG IV (03:05)
[2020-04-18] MEDS: ipratropium-albuterol 3 mL Neb INHALATION ×4 (03:46→19:59)
[2020-04-18 03:58] LABS: Basophils % 0.8 %; Eosinophils # 0.1 10^3/uL (0.0-0.8); Eosinophils % 1.9 %; Hematocrit 36.1 % (37.0-47.0); Hemoglobin 11.4 g/dL (11.5-15.3); Lymphocytes # 0.7 10^3/uL (0.8-4.8); Mean Corpuscular HGB Conc 31.6 g/dL (30.0-36.0); Mean Corpuscular Hemoglobin 27.8 pg (28.0-34.0); Mean Platelet Volume 11.3 fL (7.4-10.4); Monocytes # 0.6 10^3/uL (0.2-0.9); Monocytes % 13.5 %; Neutrophils # 3.23 10^3/uL (1.8-7.7); Neutrophils % 68.4 %; Nucleated Red Blood Cells % 0 %; Platelet Count 62 10^3/cmm (130-400); Red Cell Distribution Width 19.9 % (12.1-15.1); White Blood Count 4.7 10^3/uL (4.0-10.0)
[2020-04-18 04:21] LABS: Alanine Aminotransferase 15 U/L (0-33); Albumin Level 2.6 g/dL (3.5-5.2); Alkaline Phosphatase 113 IU/L (35-105); Anion Gap 10.9 (5-19); Aspartate Amino Transferase 46 U/L (0-32); Blood Urea Nitrogen 4 mg/dL (6-20); Calcium 7.3 mg/dL (8.5-10.5); Carbon Dioxide 25 mmol/L (22-29); Chloride 101 mmol/L (98-107); Globulin 4.7 g/dL (1.3-4.6); Glomerular Filtration Rate 228.5 mL/min (90-130); Glucose 167 mg/dL (65-115); Osmolality Calculated 275 mOsm/kg (285-295); Potassium 3.9 mmol/L (3.5-5.1); Sodium 133 mmol/L (136-145); Total Bilirubin 1.7 mg/dL (0.15-1.2); Total Protein 7.3 g/dL (6.6-8.7)
[2020-04-18] MEDS: spironolactone 25 mg Tablet 50 MG PO (05:16)
[2020-04-18] MEDS: metroNIDAZOLE IV 500 MG/100 ML PREMIX 100 MG IV (06:03)
--- NOTE | 2020-04-18 06:07 | PC.NURSE ---
Shift Summary pt awake most of night. pt had lost both IV accesses, pt became agitated with attempts to obtain IV access. pt confused throughout the night and kept talking to different people she believes to be seeing in the room. IV access was attained in the left ankle, one unit of blood was transfused through this, as well as antibiotics. pt had good urinary output tonight.
[2020-04-18] MEDS: thiamine 100 mg Tablet PO (08:28)
[2020-04-18] MEDS: multivitamin therapeutic Tablet 1 TAB PO (08:28)
[2020-04-18] MEDS: levETIRAcetam 500 mg Tablet PO ×2 (08:28→20:53)
[2020-04-18] MEDS: pantoprazole DR 40 mg Tablet PO ×2 (08:28→20:53)
[2020-04-18] MEDS: folic acid 1 mg Tablet PO (08:29)
[2020-04-18] MEDS: potassium chloride ER 10 mEq Tablet 40 MEQ PO (08:29)
[2020-04-18] MEDS: lactulose oral liq 20 gm/30 mL UDC PO (08:30)
[2020-04-18] MEDS: FUROsemide 20 mg Tablet PO (08:30)
[2020-04-18] MEDS: octreotide 500 MCG in sodium chloride 0.9% (100 ml) 100 ML 10.1 MCG IV (10:47)
--- NOTE | 2020-04-18 12:16 | PC.NURSE ---
Attempt to assist patient to eat. Patient took two bites and refused. ST here to attempt as well. Patient is refusing. Visual hallucinations noted as evidenced by patient talking to someone sitting next to her bed. Patient continues to try to take out IV to right hand with her teeth. Iv wrapped with coban. Sitter at bedside.
--- NOTE | 2020-04-18 12:52 | PC.OT ---
Attempted evaluation; however, patient was very confused and not appropriate for evaluation at this time.
--- NOTE | 2020-04-18 13:02 | P.PN_ITS ---
Subjective Subjective: Interval history: Hemoglobin improved following transfusion of 2 units of PRBCs yesterday evening. Labs otherwise stable including platelet count. Had 1 small bowel movement earlier today. Sitter at bedside due to noted increased confusion today. Reviewed MRI report, suboptimal but with noted cirrhotic liver and bilateral pleural effusions. Resting quietly in bed during my visit, updated at bedside, reports that SNF is an option they are considering in terms of disposition. Medications: Reviewed: Yes Medication Review Details: Active Medications Generic Name Dose Route Start Last Admin Trade Name Freq PRN Reason Stop Dose Admin Acetaminophen 500 mg 04/15/20 00:46 04/17/20 08:32 Tylenol PO 500 mg Q6H PRN Administration MILD PAIN OR INCR EASE TEMP Albuterol/Ipratrop ium 3 ml 04/15/20 03:00 04/18/20 08:06 Duoneb INHALATION 3 ml Q6H.RESPIRATORY S CH Administration Albuterol/Ipratrop ium 3 ml 04/15/20 02:17 Duoneb INHALATION Q6H PRN SHORTNESS OF RYLEE TH Folic Acid 1 mg 04/15/20 09:00 04/18/20 08:29 Folic Acid PO 1 mg DAILY YARELI Administration Furosemide 20 mg 04/15/20 09:00 04/18/20 08:30 Lasix PO 20 mg DAILY YARELI Administration Ceftriaxone Sodium 1,000 mg/ 50 mls @ 100 mls/ hr 04/17/20 15:30 04/17/20 18:35 Sodium Chloride IV 100 mls/hr Q24H YARELI Administration Protocol Lactulose 20 gm 04/15/20 09:00 04/18/20 08:30 Constulose PO 20 gm DAILY YARELI Administration Levetiracetam 500 mg 04/15/20 09:00 04/18/20 08:28 Keppra PO 500 mg Q12H YARELI Administration Lorazepam 2 mg 04/15/20 00:46 04/15/20 15:06 Ativan IM 2 mg PROTOCOL PRN Administration ALCOWD Protocol Lorazepam 2 mg 04/15/20 00:46 04/17/20 19:56 Ativan PO 2 mg PROTOCOL PRN Administration WITHDRAWAL Protocol Lorazepam 2 mg 04/15/20 19:28 04/18/20 00:49 Ativan IVP 2 mg Q4H PRN Administration ALCOHOL WITHDRAWA L Multivitamins Ther apeutic 1 tab 04/15/20 09:00 04/18/20 08:28 Multivitamin Tab PO 1 tab DAILY YARELI Administration Nicotine 1 patch 04/15/20 02:28 04/17/20 15:24 Nicoderm 14 Mg P atch TRANSDERMA 1 patch DAILY PRN Administration nicotine withdraw al Ondansetron HCl 4 mg 04/15/20 00:46 04/15/20 06:02 Zofran IVP 4 mg Q8H PRN Administration vomiting, or N/V if npo Pantoprazole Sodiu m 40 mg 04/15/20 09:00 04/18/20 08:28 Protonix PO 40 mg Q12H YARELI Administration Potassium Chloride 40 meq 04/16/20 09:00 04/18/20 08:29 Klor-Con 10 PO 40 meq DAILY YARELI Administration Spironolactone 50 mg 04/15/20 06:00 04/18/20 05:16 Aldactone PO 50 mg DAILY@06 YARELI Administration Thiamine Mononitra te 100 mg 04/15/20 09:00 04/18/20 08:28 Vitamin B-1 PO 100 mg DAILY YARELI Administration codeine Allergy (Verified 04/14/20 20:11) ALGY-Swell Lip/Tongue/Throat Vitals/I&O/Wt Last Vital Signs Temp 97.2 F L 04/18/20 11:37 Pulse 102 H 04/18/20 11:37 Resp 18 04/18/20 11:37 BP 126/82 04/18/20 11:37 Pulse Ox 96 04/18/20 11:37 04/17/20 04/18/20 04/18/20 22:59 06:59 14:59 Intake Total 34.508 / 454.508 650 / 1104.508 346.492 / 346.492 Output Total 350 / 350 Balance -315.492 / 104.508 650 / 754.508 346.492 / 346.492 Weight last 48 hrs Weight 54.658 kg Weight 56.387 kg Physical Exam Const: COMMON NORMALS: no acute distress GENERAL APPEARANCE: comfortable and appears older than stated age ORIENTATION/CONSCIOUSNESS: Yes confused OTHER: -resting in bed HENMT: COMMON NORMALS: normocephalic, atraumatic and hearing grossly normal bilaterally HEAD & SCALP: normocephalic and atraumatic Eye: COMMON NORMALS: Equal, round and reactive pupils present, EOMs intact bilaterally and conjunctivae normal CONJUNCTIVA: Yes conjunctivae normal PUPIL: Yes Equal, round and reactive pupils present Neck/C-Spine: COMMON NORMALS: full ROM GENERAL: Yes normal visual inspectio n and Yes trachea midline Resp: COMMON NORMALS: normal respiratory effort, No retractions, No use of accessory muscles and clear to auscultation bilaterally EFFORT & INSPECTION: Yes able to speak in complete sentences, Yes symmetric chest movement and No tachypneic AUSCULTATION: clear to auscultation bilaterally Cardio: COMMON NORMALS: regular rate, regular rhythm, S1 normal heart sound present, S2 normal heart sound present and No murmurs present (Cardio) RATE: regular rate RHYTHM: regular rhythm HEART SOUNDS: S1 normal heart sound present and S2 normal heart sound present GI: COMMON NORMALS: Normal to inspection, nondistended, normoactive bowel sounds present, Soft to palpation and non-tender PALPATION: Yes Soft to palpation Extremity: COMMON NORMALS: normal to inspection, full ROM, no clubbing, cyanosis or edema and no pedal edema Neuro: COMMON NORMALS: moves all extremities, no focal motor deficits and no sensory deficits noted SPEECH: speech normal Psych: COMMON NORMALS: cooperative and speech normal SPEECH: Yes normal speech MOOD & AFFECT: Yes Flat affect present THOUGHT PROCESS: confused INSIGHT: Limited insight present (Psych) JUDGEMENT: Limited judgement present (Psych) Skin: COMMON NORMALS: no rashes or lesions noted, no jaundice, no petechiae and no mottling NARRATIVE SKIN EXAM: -scattered bruising on extremities GENERAL SKIN EXAM: no rashes or lesions noted Data : 04/18/20 03:37 04/18/20 03:37 Micro: Microbiology 04/15/20 12:00 Gram Stain - Final Peritoneal Fluid Anaerobic Culture - Preliminary Body Fluid Culture - Final 04/16/20 18:30 Blood Culture - Preliminary Blood NEGATIVE TO DATE 04/16/20 18:35 Blood Culture - Preliminary Blood NEGATIVE TO DATE 04/14/20 20:09 Blood Culture - Preliminary Blood Coagulase negativ staphylococc A&P Assessment and plan (1) Acute abdominal pain: -Likely an acute on chronic issue -Noted imaging findings including CT scan indicating moderate ascites, mild colitis, mild gastritis and duodenitis, poorly defined liver hypodensity concerning for infiltrative neoplasm/metastatic disease. MRI ordered for further evaluation -Pain control as needed, limit narcotic use due to sedation, limit Tylenol use due to underlying liver disease -continue empiric antibiotics particularly due to noted fever and ascites; has been afebrile x > 48 hrs, will d/c IV abx and switch to PO -On PPI -blood cx: 09/06 bottles positive for GPC, repeat set prelim negative Status: Acute (2) Chronic anemia: -Has chronic normocytic anemia which is likely multifactorial given poor nutrition status, underlying chronic disease with cirrhosis with esophageal varices -Baseline hemoglobin appears to be around 10 -s/p 2 units of PRBCs (04/17) with increased Hg to 11.4 today -Monitoring for bleeding, none so far -from review of medical record, no noted endoscopy or colonoscopy. May need further GI workup if continued anemia -on PPI -had been on octreotide drip, d/c Status: Acute (3) Sinus tachycardia: -Likely secondary to alcohol withdrawal versus acutely worsening anemia -Telemetry monitoring Status: Acute (4) Abdominal ascites: -s/p paracentesis with removal of 760 mL (04/15) -cytology pending -culture prelim negative, gram stain negative Status: Acute Qualifiers: Ascites type: due to alcoholic cirrhosis Qualified Code(s): K70.31 - Alcoholic cirrhosis of liver with ascites (5) Alcohol dependence with withdrawal: -High risk for severe withdrawal given history; alcohol level of 229 on admission -[facility] protocol -Continue thiamine, folic acid, multivitamins Status: Acute Qualifiers: Complication of substance-induced condition: uncomplicated Qualified Code(s): F10.230 - Alcohol dependence with withdrawal, uncomplicated (6) COPD exacerbation: -Chest x-ray unremarkable -Continued close monitoring of respiratory status, supplemental oxygen as needed -Neb treatments as needed -Would avoid steroid use secondary to concern for bleeding risk with underlying anemia, thrombocytopenia, hx of esophageal varices Status: Acute (7) Cirrhosis: -Continue diuretics, lactulose -Initial concern for hepatic encephalopathy given her previous history but ammonia level is normal at 48 -continue to monitor LFTs -Noted evidence of cirrhosis on imaging Status: Chronic Qualifiers: Ascites presence: with ascites Hepatic cirrhosis type: alcoholic cirrhosis Qualified Code(s): K70.31 - Alcoholic cirrhosis of liver with ascites (8) Thrombocytopenia: -continue to monitor for bleeding, monitor platelet count, stable so far Status: Chronic (9) Hepatitis C: Status: Chronic Qualifiers: Hepatic coma status: without hepatic coma Viral hepatitis chronicity: chronic Qualified Code(s): B18.2 - Chronic viral hepatitis C (10) Seizure disorder: -Seizure precautions Status: Chronic (11) Nicotine dependence, cigarettes, with other nicotine-induced disorders: Status: Chronic Additional A&P Information -Complicated social situation as previously documented with concern for enabling behavior from -Strict fall precautions; requires one-on-one monitoring -Altered mental status; 1:1 monitoring, repeat ammonia in AM, on lactulose -mechanical soft diet as tolerated -GI ppx with PPI -DVT ppx with SCDs if agreeable -PT and ST evaluations requested -Dispo: came from home and may have home health services, case management consulted due to complicated disposition during prior admission including pursuing SNF placement; declined by several facilities. May be going to live with her son on d/c. states that SNF is an option again, will need to f/u on this with case management -Code status: FULL code -Low threshold for decompensation -Updated at bedside. Attestations Medical Necessity Statement*: Patient requires hospitalization for continued management of altered mental status, on 1:1 monitoring, remains confused; pending appropriate disposition. Time Spent in Patient Care: 16 - 35 minutes (>than 50% of time spent in counselling and/or direct pt care on unit) . 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218
[2020-04-18] MEDS: FUROsemide 10 mg/mL SDV 4mL 40 MG IVP (13:14)
--- NOTE | 2020-04-18 15:35 | PC.NURSE ---
Patient encouraged to eat her meals, given assistance. Her appetite remains poor. Patient refuses to set up on edge of bed and has resisted hygiene care.
[2020-04-18] MEDS: cefTRIAXone 1,000 MG in sodium chloride 0.9% (plus) 50 ML 100 MG IV (16:48)
[2020-04-18] MEDS: nicotine 14 mg Patch 1 PATCH TRANSDERMA (17:18)
[2020-04-18] MEDS: LORazepam 2 mg/mL INJ 1 mL IM (17:20)
[2020-04-18] MEDS: metroNIDAZOLE 500 MG Tablet PO (20:53)
[2020-04-19] VITALS (7 sets, daily range): BP systolic 92–132; BP diastolic 58–91; PULSE 103–116; RESP 16–20; TEMP 36.4–37.3; O2SAT 93–99
[2020-04-19 04:30] LABS: Basophils # 0.1 10^3/uL (0.0-0.1); Eosinophils # 0.1 10^3/uL (0.0-0.8); Eosinophils % 2.3 %; Hematocrit 36.2 % (37.0-47.0); Hemoglobin 11.6 g/dL (11.5-15.3); Lymphocytes # 1.1 10^3/uL (0.8-4.8); Lymphocytes % 21.9 %; Mean Corpuscular Hemoglobin 27.8 pg (28.0-34.0); Mean Corpuscular Volume 86.6 fL (81-99); Mean Platelet Volume 10.6 fL (7.4-10.4); Monocytes # 1.3 10^3/uL (0.2-0.9); Monocytes % 24.4 %; Neutrophils # 2.59 10^3/uL (1.8-7.7); Neutrophils % 49.6 %; Nucleated Red Blood Cells % 0 %; Platelet Count 63 10^3/cmm (130-400); Red Blood Count 4.18 10^6/uL (4.1-5.3); Red Cell Distribution Width 20.3 % (12.1-15.1); White Blood Count 5.2 10^3/uL (4.0-10.0)
[2020-04-19 04:55] LABS: Alanine Aminotransferase 14 U/L (0-33); Albumin Level 2.4 g/dL (3.5-5.2); Alkaline Phosphatase 103 IU/L (35-105); Blood Urea Nitrogen 3 mg/dL (6-20); Calcium 7.4 mg/dL (8.5-10.5); Carbon Dioxide 24 mmol/L (22-29); Chloride 99 mmol/L (98-107); Globulin 4.9 g/dL (1.3-4.6); Glomerular Filtration Rate 228.5 mL/min (90-130); Glucose 115 mg/dL (65-115); Osmolality Calculated 269 mOsm/kg (285-295); Sodium 131 mmol/L (136-145); Total Bilirubin 1.6 mg/dL (0.15-1.2); Total Protein 7.3 g/dL (6.6-8.7)
[2020-04-19 04:57] LABS: Anion Gap 11.5 (5-19); Aspartate Amino Transferase 51 U/L (0-32); Potassium 3.5 mmol/L (3.5-5.1)
[2020-04-19] MEDS: spironolactone 25 mg Tablet 50 MG PO (05:12)
[2020-04-19] MEDS: LORazepam 2 mg Tablet PO ×2 (05:12→19:23)
[2020-04-19 05:18] LABS: Ammonia 54 umol/L (11-51)
[2020-04-19] MEDS: ciprofloxacin 500 mg Tablet PO ×2 (08:14→18:34)
[2020-04-19] MEDS: metroNIDAZOLE 500 MG Tablet PO ×3 (08:14→21:14)
[2020-04-19] MEDS: lactulose oral liq 20 gm/30 mL UDC PO ×2 (08:14→21:14)
[2020-04-19] MEDS: levETIRAcetam 500 mg Tablet PO ×2 (08:14→21:14)
[2020-04-19] MEDS: pantoprazole DR 40 mg Tablet PO ×2 (08:14→21:13)
[2020-04-19] MEDS: folic acid 1 mg Tablet PO (08:14)
[2020-04-19] MEDS: potassium chloride ER 10 mEq Tablet 40 MEQ PO (08:15)
[2020-04-19] MEDS: multivitamin therapeutic Tablet 1 TAB PO (08:15)
[2020-04-19] MEDS: FUROsemide 20 mg Tablet PO (08:15)
[2020-04-19] MEDS: thiamine 100 mg Tablet PO (08:15)
[2020-04-19] MEDS: LORazepam 2 mg/mL INJ 1 mL IVP (11:48)
--- NOTE | 2020-04-19 12:47 | PC.OT ---
Attempted to see patient twice today for evaluation. Patient was sleeping both times. Nursing reports patient becomes agitated when woken. Will attempt evaluation again tomorrow.
[2020-04-19] MEDS: acetaminophen 500 mg Tablet PO (15:42)
[2020-04-19] MEDS: cefTRIAXone 1,000 MG in sodium chloride 0.9% (plus) 50 ML 100 MG IV (15:43)
--- NOTE | 2020-04-19 17:58 | PM.PN ---
Subjective Subjective: Interval history: Continues to be quite somnolent and requiring one-on-one monitoring, hemoglobin normalized hemodynamically stable. Discussed possibility of SNF placement which she is agreeable to. Medications: Reviewed: Yes Medication Review Details: Active Medications Generic Name Dose Route Start Last Admin Trade Name Freq PRN Reason Stop Dose Admin Acetaminophen 500 mg 04/15/20 00:46 04/19/20 15:42 Tylenol PO 500 mg Q6H PRN Administration MILD PAIN OR INCR EASE TEMP Albuterol/Ipratrop ium 3 ml 04/15/20 03:00 04/19/20 08:27 Duoneb INHALATION Not Given Q6H.RESPIRATORY S CH Albuterol/Ipratrop ium 3 ml 04/15/20 02:17 Duoneb INHALATION Q6H PRN SHORTNESS OF RYLEE TH Ciprofloxacin HCl 500 mg 04/18/20 18:00 04/19/20 08:14 Cipro PO 500 mg BID YARELI Administration Protocol Folic Acid 1 mg 04/15/20 09:00 04/19/20 08:14 Folic Acid PO 1 mg DAILY YARELI Administration Furosemide 20 mg 04/15/20 09:00 04/19/20 08:15 Lasix PO 20 mg DAILY YARELI Administration Ceftriaxone Sodium 1,000 mg/ 50 mls @ 100 mls/ hr 04/17/20 15:30 04/19/20 15:43 Sodium Chloride IV 100 mls/hr Q24H YARELI Administration Protocol Lactulose 20 gm 04/15/20 09:00 04/19/20 08:14 Constulose PO 20 gm DAILY YARELI Administration Levetiracetam 500 mg 04/15/20 09:00 04/19/20 08:14 Keppra PO 500 mg Q12H YARELI Administration Lorazepam 2 mg 04/15/20 00:46 04/18/20 17:20 Ativan IM 2 mg PROTOCOL PRN Administration ALCOWD Protocol Lorazepam 2 mg 04/15/20 00:46 04/19/20 05:12 Ativan PO 2 mg PROTOCOL PRN Administration WITHDRAWAL Protocol Lorazepam 2 mg 04/15/20 19:28 04/19/20 11:48 Ativan IVP 2 mg Q4H PRN Administration ALCOHOL WITHDRAWA L Metronidazole 500 mg 04/18/20 15:00 04/19/20 15:43 Flagyl Tab PO 500 mg TID YARELI Administration Multivitamins Ther apeutic 1 tab 04/15/20 09:00 04/19/20 08:15 Multivitamin Tab PO 1 tab DAILY YARELI Administration Nicotine 1 patch 04/15/20 02:28 04/18/20 17:18 Nicoderm 14 Mg P atch TRANSDERMA 1 patch DAILY PRN Administration nicotine withdraw al Ondansetron HCl 4 mg 04/15/20 00:46 04/15/20 06:02 Zofran IVP 4 mg Q8H PRN Administration vomiting, or N/V if npo Pantoprazole Sodiu m 40 mg 04/15/20 09:00 04/19/20 08:14 Protonix PO 40 mg Q12H YARELI Administration Potassium Chloride 40 meq 04/16/20 09:00 04/19/20 08:15 Klor-Con 10 PO 40 meq DAILY YARELI Administration Spironolactone 50 mg 04/15/20 06:00 04/19/20 05:12 Aldactone PO 50 mg DAILY@06 YARELI Administration Thiamine Mononitra te 100 mg 04/15/20 09:00 04/19/20 08:15 Vitamin B-1 PO 100 mg DAILY YARELI Administration codeine Allergy (Verified 04/14/20 20:11) ALGY-Swell Lip/Tongue/Throat Vitals/I&O/Wt Last Vital Signs Temp 98.6 F 04/19/20 16:00 Pulse 105 H 04/19/20 16:00 Resp 18 04/19/20 16:00 BP 100/71 04/19/20 16:00 Pulse Ox 95 04/19/20 16:00 04/19/20 04/19/20 04/19/20 06:59 14:59 22:59 Intake Total 300 / 300 Balance 300 / 300 Weight last 48 hrs Weight 51.211 kg Weight 54.658 kg Physical Exam Const: COMMON NORMALS: no acute distress GENERAL APPEARANCE: comfortable and appears older than stated age ORIENTATION/CONSCIOUSNESS: Yes confused OTHER: -resting in bed HENMT: COMMON NORMALS: normocephalic, atraumatic and hearing grossly normal bilaterally HEAD & SCALP: normocephalic and atraumatic MOUTH: moist mucous membranes abnormal Details: parched Eye: COMMON NORMALS: Equal, round and reactive pupils present, EOMs intact bilaterally and conjunctivae normal CONJUNCTIVA: Yes conjunctivae normal PUPIL: Yes Equal, round and reactive pupils present Neck/C-Spine: COMMON NORMALS: full ROM GENERAL: Yes normal visual inspection and Yes trachea midline Resp: COMMON NORMALS: normal respiratory effort, No retractions, No use of accessory muscles and clear to auscultation bilaterally EFFORT & INSPECTION: Yes able to speak in complete sentences, Yes symmetric chest movement and No tachypneic AUSCULTATION: clear to auscultation bilaterally OTHER: -on RA Cardio: COMMON NORMALS: regular rate, regular rhythm, S1 normal heart sound present, S2 normal heart sound present and No murmurs present (Cardio) RATE: regular rate RHYTHM: regular rhythm HEART SOUNDS: S1 normal heart sound present and S2 normal heart sound present GI: COMMON NORMALS: Normal to inspection, nondistended, normoactive bowel sounds present, Soft to palpation and non-tender PALPATION: Yes Soft to palpation Extremity: COMMON NORMALS: normal to inspection, full ROM, no clubbing, cyanosis or edema and no pedal edema Neuro: COMMON NORMALS: moves all extremities, no focal motor deficits and no sensory deficits noted SPEECH: speech normal Psych: COMMON NORMALS: cooperative and speech normal SPEECH: Yes normal speech MOOD & AFFECT: Yes Flat affect present THOUGHT PROCESS: confused INSIGHT: Limited insight present (Psych) JUDGEMENT: Limited judgement present (Psych) Skin: COMMON NORMALS: no rashes or lesions noted, no jaundice, no petechiae and no mottling NARRATIVE SKIN EXAM: -scattered bruising on extremities GENERAL SKIN EXAM: no rashes or lesions noted Data : 04/19/20 04:07 04/19/20 04:07 A&P Assessment and plan (1) Acute abdominal pain: -Likely an acute on chronic issue -Noted imaging findings including CT scan indicating moderate ascites, mild colitis, mild gastritis and duodenitis, poorly defined liver hypodensity concerning for infiltrative neoplasm/metastatic disease. MRI ordered for further evaluation -Pain control as needed, limit narcotic use due to sedation, limit Tylenol use due to underlying liver disease -continue empiric antibiotics particularly due to noted fever and ascites; has been afebrile x > 48 hrs, will d/c IV abx and switch to PO -On PPI -blood cx: 1/3 bottles positive for GPC, repeat set prelim negative Status: Acute (2) Chronic anemia: -Has chronic normocytic anemia which is likely multifactorial given poor nutrition status, underlying chronic disease with cirrhosis with esophageal varices -Baseline hemoglobin appears to be around 10 -s/p 2 units of PRBCs (04/17) with increased Hg to 11.4 today -Monitoring for bleeding, none so far -from review of medical record, no noted endoscopy or colonoscopy. May need further GI workup if continued anemia -on PPI -had been on octreotide drip, d/c Status: Acute (3) Sinus tachycardia: -Likely secondary to alcohol withdrawal versus acutely worsening anemia -Telemetry monitoring Status: Acute (4) Abdominal ascites: -s/p paracentesis with removal of 760 mL (04/15) -cytology pending -culture prelim negative, gram stain negative Status: Acute Qualifiers: Ascites type: due to alcoholic cirrhosis Qualified Code(s): K70.31 - Alcoholic cirrhosis of liver with ascites (5) Alcohol dependence with withdrawal: -High risk for severe withdrawal given history; alcohol level of 229 on admission -[facility] protocol -Continue thiamine, folic acid, multivitamins Status: Acute Qualifiers: Complication of substance-induced condition: uncomplicated Qualified Code(s): F10.230 - Alcohol dependence with withdrawal, uncomplicated (6) COPD exacerbation: -Chest x-ray unremarkable -Continued close monitoring of respiratory status, supplemental oxygen as needed -Neb treatments as needed -Would avoid steroid use secondary to concern for bleeding risk with underlying anemia, thrombocytopenia, hx of esophageal varices Status: Acute (7) Cirrhosis: -Continue diuretics, lactulose -Initial concern for hepatic encephalopathy given her previous history but ammonia level is normal at 48 -continue to monitor LFTs -Noted evidence of cirrhosis on imaging Status: Chronic Qualifiers: Ascites presence: with ascites Hepatic cirrhosis type: alcoholic cirrhosis Qualified Code(s): K70.31 - Alcoholic cirrhosis of liver with ascites (8) Thrombocytopenia: -continue to monitor for bleeding, monitor platelet count, stable so far Status: Chronic (9) Hepatitis C: Status: Chronic Qualifiers: Hepatic coma status: without hepatic coma Viral hepatitis chronicity: chronic Qualified Code(s): B18.2 - Chronic viral hepatitis C (10) Seizure disorder: -Seizure precautions Status: Chronic (11) Nicotine dependence, cigarettes, with other nicotine-induced disorders: Status: Chronic Additional A&P Information -Complicated social situation as previously documented with concern for enabling behavior from -Strict fall precautions; requires one-on-one monitoring -Altered mental status; 1:1 monitoring, repeat ammonia-54, on lactulose -mechanical soft diet as tolerated -GI ppx with PPI -DVT ppx with SCDs if agreeable -PT and ST evaluations requested -Dispo: came from home and may have home health services, case management consulted due to complicated disposition during prior admission including pursuing SNF placement; declined by several facilities. May be going to live with her son on d/c. states that SNF is an option again, will need to f/u on this with case management -Code status: FULL code -Low threshold for decompensation Attestations Medical Necessity Statement*: Patient requires hospitalization pending improved mental status, appropriate disposition. Time Spent in Patient Care: 16 - 35 minutes (>than 50% of time spent in counselling and/or direct pt care on unit). 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
[2020-04-20] MEDS: acetaminophen 500 mg Tablet PO ×2 (03:06→14:01)
[2020-04-20] MEDS: lanolin oint 7 gm 1 APPLIC TOPICAL (03:15)
[2020-04-20 03:21] VITALS: BP 97/65; PULSE 109; RESP 20; TEMP 37.2; O2SAT 93
[2020-04-20] MEDS: spironolactone 25 mg Tablet 50 MG PO (05:24)
--- NOTE | 2020-04-20 06:02 | PC.NURSE ---
SHIFT SUMMARY Has slept most of the night. Some confusion when awake. Received po Ativan at beginning of shift for CIWA score of 11. Has been under 10 rest of the night. c/o bilat leg pain and says they hurt when she moves them. Has been incont urine and loose watery BM's. Changed as needed with good nithin care given. Using Aloe [place] ointment to reddened sacral/buttocks/nithin area. Lips very dry and chapped. Lanolin ointment obtained and used to lips. This morning she stated they already felt better. Several bruises to arms. Has difficulty swallowing pills and does better with them crushed in applesauce or pudding. Does ok with water. 1:1 sitter at bedside all shift.
[2020-04-20] MEDS: lactulose oral liq 20 gm/30 mL UDC PO (07:54)
[2020-04-20 08:00] VITALS: BP 99/62; PULSE 106; RESP 18; TEMP 37.1; O2SAT 93
[2020-04-20] MEDS: potassium chloride ER 10 mEq Tablet 40 MEQ PO (08:00)
[2020-04-20] MEDS: metroNIDAZOLE 500 MG Tablet PO ×2 (08:00→15:26)
[2020-04-20] MEDS: pantoprazole DR 40 mg Tablet PO (08:01)
[2020-04-20] MEDS: multivitamin therapeutic Tablet 1 TAB PO (08:01)
[2020-04-20] MEDS: ciprofloxacin 500 mg Tablet PO (08:01)
[2020-04-20] MEDS: levETIRAcetam 500 mg Tablet PO (08:01)
[2020-04-20] MEDS: FUROsemide 20 mg Tablet PO (08:01)
[2020-04-20] MEDS: folic acid 1 mg Tablet PO (08:02)
[2020-04-20] MEDS: thiamine 100 mg Tablet PO (08:03)
--- NOTE | 2020-04-20 09:33 | PC.NURSE ---
HEART TO HEART ROUNDING NOTE Lactulose BID rather than TID? No changes until mental status has improved Provide education to family on not bringing in home medications RT: No report Rehab: Hasn't been participating secondary to mental status changes CM: patient refusing to go to [place], would prefer to go home with family. Daughter is willing to take her, but would prefer going with son. Son's spouse doesn't wish for her to come live with them. Case Management to continue to speak with patient and family on possible d/c plans.
[2020-04-20 11:13] VITALS: BP 100/63; PULSE 104; RESP 18; TEMP 37; O2SAT 94
--- NOTE | 2020-04-20 12:25 | PM.PN ---
Subjective Subjective: Interval history: Apurva is awake, reporting that she has minimal epigastric pain. She states she wants to go home, but admits that she is very weak. Sitter is present with her in the room and reports her confusion has been much less today. Medications: Reviewed: Yes Vitals/I&O/Wt Last Vital Signs Temp 98.6 F 04/20/20 11:13 Pulse 104 H 04/20/20 11:13 Resp 18 04/20/20 11:13 BP 100/63 04/20/20 11:13 Pulse Ox 94 04/20/20 11:13 04/19/20 04/20/20 04/20/20 22:59 06:59 14:59 Intake Total 120 / 420 150 / 570 200 / 200 Output Total Balance 120 / 420 149 / 569 200 / 200 Weight last 48 hrs Weight 51.483 kg Weight 51.211 kg Physical Exam Narrative: EXAM NARRATIVE: General exam no apparent distress Cardiovascular regular rate and rhythm without murmur, no S3 or S4 Lungs clear no wheezing or crackles Abdomen is soft, slight tenderness epigastric area. Liver edge is felt. Extremities no cyanosis clubbing or edema Data : 04/19/20 04:07 04/19/20 04:07 Micro: Microbiology 04/15/20 12:00 Gram Stain - Final Peritoneal Fluid Anaerobic Culture - Preliminary Body Fluid Culture - Final 04/14/20 20:08 Blood Culture - Final Blood NO GROWTH AFTER 5 DAYS A&P Assessment and plan (1) Acute abdominal pain: Multifactorial. CT scan indicated colitis. She also had ascites. Past history of mild gastritis, duodenitis. Paracentesis did not indicate SBP 1 blood culture set positive for coag negative staph, with repeat sets negative, thought to be contaminant Status: Acute (2) Chronic anemia: Received 2 units of packed red blood cells while in the hospital. No evidence of active bleeding Anemia multifactorial. Does have history of esophageal varices. GI referral at discharge will be useful. Status: Acute (3) Sinus tachycardia: Improved Status: Acute (4) Abdominal ascites: Paracentesis April 15 cc Cultures negative Cytology pending Status: Acute Qualifiers: Ascites type: due to alcoholic cirrhosis Qualified Code(s): K70.31 - Alcoholic cirrhosis of liver with ascites (5) Alcohol dependence with withdrawal: [facility] protocol Continue thiamine Withdrawal abating Status: Acute Qualifiers: Complication of substance-induced condition: uncomplicated Qualified Code(s): F10.230 - Alcohol dependence with withdrawal, uncomplicated (6) COPD exacerbation: No evidence of exacerbation Status: Acute (7) Cirrhosis: Continue lactulose, Aldactone, Lasix Consider referral to GI on discharge Encourage abstention from alcohol Status: Chronic Qualifiers: Ascites presence: with ascites Hepatic cirrhosis type: alcoholic cirrhosis Qualified Code(s): K70.31 - Alcoholic cirrhosis of liver with ascites (8) Thrombocytopenia: Stable Status: Chronic (9) Hepatitis C: Status: Chronic Qualifiers: Hepatic coma status: without hepatic coma Viral hepatitis chronicity: chronic Qualified Code(s): B18.2 - Chronic viral hepatitis C (10) Seizure disorder: No seizures in hospital. Continuet Keppra Status: Chronic (11) Nicotine dependence, cigarettes, with other nicotine-induced disorders: Status: Chronic Additional A&P Information Colitis. She was placed on Cipro and Flagyl Full code SCDs for DVT prophylaxis Avoid anticoagulation secondary to anemia and past history of esophageal varices Family would like her to go to nursing home facility for rehabilitation. Attestations Medical Necessity Statement*: Needs continued hospital stay, for close monitoring pending placement Coding Level of Care Code Acute Canary Breeder for Chg Fwd Diagnoses Acute abdominal pain R10.9 Chronic anemia D64.9 Sinus tachycardia R00.0 Abdominal ascites K70.31 Ascites type: due to alcoholic cirrhosis Alcohol dependence with withdrawal F10.230 Complication of substance-induced condition: uncomplicated COPD exacerbation J44.1 Cirrhosis K70.31 Ascites presence: with ascites Hepatic cirrhosis type: alcoholic cirrhosis Thrombocytopenia D69.6 Hepatitis C B18.2 Hepatic coma status: without hepatic coma Viral hepatitis chronicity: chronic Seizure disorder G40.909 Nicotine dependence, cigarettes, with other nicotine-induced disorders F17.218
--- NOTE | 2020-04-20 14:18 | P.DS_ITS ---
Discharge Providers Date of Admission: 04/15/20 00:13 Date of Discharge: April 20, 2020 Attending Provider at Admission: Maria Del Carmen Dent MD Attending Provider at Discharge: Glen Garza MD Primary Care Provider: Dez Novak MD Diagnoses at Discharge Discharge Diagnosis (1) Acute abdominal pain: Status: Acute Problem details: Improved, multifactorial. Concerned patient had colitis and will finish 7 more days of Cipro and Flagyl (2) Chronic anemia: Status: Acute Problem details: Status post transfusion of 2 units packed red blood cells (3) Sinus tachycardia: Status: Acute (4) Abdominal ascites: Status: Acute Problem details: Status post paracentesis, no evidence of SBP Qualifiers: Ascites type: due to alcoholic cirrhosis Qualified Code(s): K70.31 - Alcoholic cirrhosis of liver with ascites (5) Alcohol dependence with withdrawal: Status: Acute Qualifiers: Complication of substance-induced condition: uncomplicated Qualified Code(s): F10.230 - Alcohol dependence with withdrawal, uncomplicated (6) COPD exacerbation: Status: Acute (7) Cirrhosis: Status: Chronic Problem details: Ascites, esophageal varices, hypoproteinemia, hepatic encephalopathy, thrombocytopenia, abnormal liver enzymes Qualifiers: Ascites presence: with ascites Hepatic cirrhosis type: alcoholic cirrhosis Qualified Code(s): K70.31 - Alcoholic cirrhosis of liver with ascites (8) Thrombocytopenia: Status: Chronic (9) Hepatitis C: Status: Chronic Problem details: Not treated in the past, and is stating she was not able to afford medications Qualifiers: Hepatic coma status: without hepatic coma Viral hepatitis chronicity: chronic Qualified Code(s): B18.2 - Chronic viral hepatitis C (10) Seizure disorder: Status: Chronic Problem details: Suspect secondary to alcohol (11) Nicotine dependence, cigarettes, with other nicotine-induced disorders: Status: Chronic Reason for Visit Reason for Visit: ABD PAIN Hospital Course Hospital Course: Apurva spinal on April 14 with abdominal discomfort, ascites, confusion, and alcohol intoxication. There was concern on CT scan that she might have colitis. She was placed on Cipro and Flagyl. CIWA protocol was started shortly after admission for withdrawal symptoms. Secondary to concern of possible liver lesion on CT scan she ultimately underwent an MRI demonstrating no nodule or malignancy although three-phase imaging was recommended to exclude this completely. During her hospital stay her mental status gradually cleared. She underwent a paracentesis of approximately 800 cc of ascitic fluid that did not appear to be consistent with SBP and ultimately grew no organisms. She received 2 units of blood secondary to anemia with hemoglobin as low as 7 during her hospital stay, although no evidence of acute bleeding was noted. Discharge disposition was in question during the last several days of her hospital stay. Ultimately, she refused to go to a nursing facility for rehabilitation, or for rehabilitation for alcohol. I discussed w ith her as well as her daughter and her that she has significant cirrhosis, and that further alcohol intake will cause and/or permanent disability. She was adamant that she be discharged on April 20. Discharge planning also talked with her regarding disposition other than home but she refused. Overall, her prognosis is extremely guarded. I encouraged her to abstain from alcohol, follow-up with her primary care provider in 3 to 5 days with lab work to check her hemoglobin liver tests and kidney function. She had no evidence of acute withdrawal on discharge. She will finish 7 days of antibiotics for colitis. Medication was adjusted during her hospital stay to try to prevent recurrent ascites. Physical Exam Narrative: EXAM NARRATIVE: See exam from earlier today Discharge Data Data Completed and Pending: Completed Studies During Hospitalization Category Date Time Status CT abdomen pelvis wo con [id number] Urge nt Cat Scan 04/14/20 21:35 Completed XR chest 1V janeth ble [id number] Urgent Exams 04/14/20 23:39 Completed MR abdomen wo/w c on* [id number] Routine MRI 04/17/20 14:05 Com[place] bd w [id number] Urgent Ultrasound 04/15/20 06:00 Completed Pending at discharge Category Date Time Status Ammonia AM LABS Lab 04/21/20 04:00 Ordered Anaerobic Culture Routine Lab 04/15/20 12:00 Results Blood Culture Sta t Lab 04/14/20 20:08 Results Blood Culture Sta t Lab 04/16/20 18:30 Results Body Fluid Cultur e & GS Routine Lab 04/15/20 12:00 Results Complete Blood Co unt w/Auto AM LABS Lab 04/21/20 04:00 Ordered Comprehensive Met abolic Panel AM LA BS Lab 04/21/20 04:00 Ordered Magnesium AM LABS Lab 04/21/20 04:00 Ordered Cytology [PTH] Ro utine Pth 04/15/20 06:58 Received Vitals: Last Vital Signs Temp 98.6 F 04/20/20 11:13 Pulse 104 H 04/20/20 11:13 Resp 18 04/20/20 11:13 BP 100/63 04/20/20 11:13 Pulse Ox 94 04/20/20 11:13 Discharge Plan Discharge Patient Disposition: Home Health Service Condition: Stable Prescriptions: New potassium chloride 10 mEq Tablet Extended Release 40 meq PO DAILY Qty: 120 RF: 0 furosemide 20 mg Tablet 20 mg PO DAILY Qty: 30 RF: 0 spironolactone 25 mg Tablet 50 mg PO DAILY@06 Qty: 60 RF: 0 ciprofloxacin HCl 500 mg Tablet 500 mg PO BID Qty: 14 RF: 0 metronidazole 500 mg Tablet 500 mg PO TID Qty: 21 RF: 0 lactulose 20 gram/30 mL Solution 20 g PO TID Qty: 270 RF: 0 Continued propranolol 20 mg Tablet 10 mg PO BID Qty: 60 RF: 1 thiamine mononitrate (vit B1) [Vitamin B-1 (mononitrate)] 100 mg Tablet 100 mg PO DAILY Qty: 30 RF: 0 pantoprazole 40 mg Tablet,Delayed Release (Dr/Ec) 40 mg PO BID Qty: 60 RF: 0 levetiracetam [Keppra] 500 mg Tablet 500 mg PO Q12H 30 Days Qty: 60 RF: 1 aspirin 81 mg Tablet,Delayed Release (Dr/Ec) 81 mg PO DAILY Qty: 30 RF: 0 folic acid 1 mg Tablet 1 mg PO DAILY Qty: 30 RF: 0 vit B comp with C-calcium carb 300 mg-150 mg calcium Tablet 1 tab PO DAILY Qty: 30 RF: 0 Discontinued spironolactone 25 mg Tablet 25 mg PO DAILY Qty: 30 RF: 1 potassium chloride 20 mEq Tablet Extended Release 20 meq PO DAILY RF: 0 Referrals: Dez Novak MD [Primary Care Provider] - 4-7 days Activity Restrictions/Additional Instructions: Take all medicine as prescribed Stop alcohol Discharge Attestations Time Spent in Discharge Care*: greater than 30 min Quality Metrics Clinical Quality Measures During this hospital stay, did patient experience: None Coding Level of Care Code Acute Leak Detection Engineer for Angelg Fwd Diagnoses Acute abdominal pain R10.9 Chronic anemia D64.9 Sinus tachycardia R00.0 Abdominal ascites K70.31 Ascites type: due to alcoholic cirrhosis Alcohol dependence with withdrawal F10.230 Complication of substance-induced condition: uncomplicated COPD exacerbation J44.1 Cirrhosis K70.31 Ascites presence: with ascites Hepatic cirrhosis type: alcoholic cirrhosis Thrombocytopenia D69.6 Hepatitis C B18.2 Hepatic coma status: without hepatic coma Viral hepatitis chronicity: chronic Seizure disorder G40.909 Nicotine dependence, cigarettes, with other nicotine-induced disorders F17.218
[2020-04-20 15:47] VITALS: BP 103/68; PULSE 114; RESP 18; TEMP 37.2; O2SAT 96
[2020-04-20 19:07] VITALS: BP 103/68; PULSE 114; RESP 18; TEMP 37.2; O2SAT 96
== END 2020-04-20 18:40 | disposition home health service (06) | DRG 433 ==
LOC: ER 23:17 → MEDSURG 04-15 00:25
PROVIDERS: Family Medicine; Admitting Provider Hospitalist; PCP Internal Medicine; Visit Provider Internal Medicine
DX: K70.31 Alcoholic cirrhosis of liver with ascites (principal); K76.6 Portal hypertension; I85.10 Secondary esophageal varices without bleeding; F10.239 Alcohol dependence with withdrawal, unspecified; J44.1 Chronic obstructive pulmonary disease with (acute) exacerbation; G40.509 Epileptic seizures related to external causes, not intractable, without status epilepticus; F10.229 Alcohol dependence with intoxication, unspecified; Y90.7 Blood alcohol level of 200-239 mg/100 ml; D69.59 Other secondary thrombocytopenia; B18.2 Chronic viral hepatitis C; F17.210 Nicotine dependence, cigarettes, uncomplicated; R00.0 Tachycardia, unspecified; I95.9 Hypotension, unspecified; E87.6 Hypokalemia; D64.9 Anemia, unspecified; K52.9 Noninfective gastroenteritis and colitis, unspecified; K29.70 Gastritis, unspecified, without bleeding; K29.80 Duodenitis without bleeding; Z79.82 Long term (current) use of aspirin
CPT/HCPCS: 12345; 36415; 36430; 49083; 71045; 74176; 74183; 80053; 80307; 80500; 81001; 82042; 82140; 82945; 83605; 83615; 83690; 84157; 85014; 85018; 85025; 85610; 86140; 86850; 86900; 86920; 87040; 87070; 87075; 87205; 88112; 88305; 89050; 92526; 92610; 93005; 94640; 96372; 96375; 97161; 97166; 97530; 99283; A9579; J0696; J0744; J1940; J2060; J2354; J2405; J3010; J3411; J3475; J3490; J7030; J7040; J7050; P9016; S0030

== ENCOUNTER → 2020-05-26 15:31 | Outpatient (BNVA) | payer MEDICAID, SELFPAY | PROVIDERS: PCP Internal Medicine; Visit Provider Internal Medicine | DX: D64.9 Anemia, unspecified (principal); E11.9 Type 2 diabetes mellitus without complications; B18.2 Chronic viral hepatitis C | CPT/HCPCS: 85025; 87522 ==

== ENCOUNTER 2020-10-09 21:30 | Emergency (ER) | payer MEDICAID, SELFPAY ==
--- NOTE | 2020-10-09 03:22 | XRR_ITS ---
PROCEDURE INFORMATION: Exam: XR Chest, 1 View Exam date and time: 10/09/2020 9:42 PM Age: 60 years old Clinical indication: Chest pain; Additional info: Cp TECHNIQUE: Imaging protocol: XR of the chest Views: 1 view. Total images: 1 COMPARISON: CR XR chest 1V portable [id number] 04/14/2020 11:40 PM FINDINGS: Lungs: No visible active interstitial or alveolar airspace disease. Suspected component of COPD/chronic bronchitis. Pleural spaces: Unremarkable. No pleural effusion. No pneumothorax. Heart/Mediastinum: Unremarkable. No cardiomegaly. Bones/joints: Unremarkable. XR/XR chest 1V portable [id number] IMPRESSION: No acute findings.
[2020-10-09 21:34] VITALS: BP 104/70; PULSE 84; RESP 18; TEMP 36.6; O2SAT 95; BMI 25.0
--- NOTE | 2020-10-09 21:39 | ECG_ITS ---
[facility] Test Date: 2020-10-09 Pat Name: Apurva Arteaga Department: Room: Gender: Female Director Property: : 1960 Requested By: Roger Lawrence Order Number: [id number] Nancy MD: Jesse Weaver M.D. Measurements Intervals [place] Rate: 80 P: 38 MS: 137 QRS: -41 QRSD: 114 T: 50 QT: 389 QTc: 451 Interpretive Statements SINUS RHYTHM WITH OCCASIONAL VENTRICULAR PREMATURE COMPLEXES LEFT AXIS DEVIATION [QRS AXIS < -30] INCOMPLETE RIGHT BUNDLE BRANCH BLOCK [90+ ms QRS DURATION, TERMINAL R IN V1/V2, 40+ ms S IN I/aVL/V4/V5/V6] Compared to ECG 04/15/2020 02:56:44 Ventricular premature complex(es) now present Left-axis deviation now present Incomplete right bundle-branch block now present Sinus tachycardia no longer present Left anterior fascicular block no longer present Electronically Signed On 10-10-2020 10:50:17 RAW STOCK DRIER TENDER by Jesse Weaver M.D. [email or web address]
[2020-10-09 21:57] LABS: Basophils # 0.1 10^3/uL (0.0-0.1); Basophils % 1.6 %; Eosinophils # 0.2 10^3/uL (0.0-0.8); Eosinophils % 3.7 %; Lymphocytes # 1.9 10^3/uL (0.8-4.8); Lymphocytes % 45.3 %; Mean Corpuscular HGB Conc 31.4 g/dL (30.0-36.0); Mean Corpuscular Hemoglobin 30.4 pg (28.0-34.0); Mean Corpuscular Volume 96.7 fL (81-99); Mean Platelet Volume 9.7 fL (7.4-10.4); Monocytes # 0.6 10^3/uL (0.2-0.9); Monocytes % 14.5 %; Neutrophils # 1.49 10^3/uL (1.8-7.7); Neutrophils % 34.9 %; Nucleated Red Blood Cells % 0 %; Platelet Count 157 10^3/cmm (130-400); Red Blood Count 3.62 10^6/uL (4.1-5.3); Red Cell Distribution Width 16.8 % (12.1-15.1); White Blood Count 4.3 10^3/uL (4.0-10.0)
[2020-10-09 22:01] LABS: INR 1.28 (0.8-1.2)
[2020-10-09 22:10] LABS: Troponin(5th) Baseline 12 ng/L (0-10)
[2020-10-09 22:19] LABS: Alanine Aminotransferase 16 U/L (0-33); Albumin Level 3.4 g/dL (3.5-5.2); Alkaline Phosphatase 128 IU/L (35-105); Anion Gap 15.1 (5-19); Aspartate Amino Transferase 39 U/L (0-32); Blood Urea Nitrogen 11 mg/dL (6-20); Calcium 8.3 mg/dL (8.5-10.5); Carbon Dioxide 24 mmol/L (22-29); Chloride 105 mmol/L (98-107); Creatinine Clr Calc Pharmacy 117.4573; Glomerular Filtration Rate 126.3 mL/min (90-130); Glucose 91 mg/dL (65-115); Lipase 48 U/L (13-60); NT Pro B Type Natriuretic Pept 100 pg/mL (0-125); Osmolality Calculated 289 mOsm/kg (285-295); Potassium 4.1 mmol/L (3.5-5.1); Sodium 140 mmol/L (136-145); Total Bilirubin 0.5 mg/dL (0.15-1.2); Total Protein 7.4 g/dL (6.6-8.7)
--- NOTE | 2020-10-09 22:23 | W.ED.CHESTPA ---
HPI - Chest Pain General: Chief Complaint: Chest Pain Stated Complaint: chest pain with resp Time Seen by Provider: 10/09/20 21:38 History of Present Illness: HPI narrative: 60-year-old intoxicated female complains of left-sided upper chest pain. It started this evening she says I was watching an episode of been smoking when it started. She is a poor historian, and does not know any other details. She evidently is not more short of breath than usual, does not use oxygen at home, and has not been febrile or coughing. MD complaint: chest pain Onset (ago): hour(s) Timing of current episode: constant Prior episodes: Yes Onset: during rest Pain location: left chest Pain radiation: none Severity: moderate Quality: sharp Relieving factors: nothing Exacerbating factors: movement Associated symptoms: Reports nausea; Deny abdominal pain, dyspnea, palpitations, syncope or vomiting Treatment prior to arrival: none Review of Systems General: Reports: ROS unobtainable due to mental status Card: Denies: palpitations or syncope Resp: Denies: dyspnea GI: Reports: nausea; Denies: abdominal pain or vomiting PFS ED PFSH: Medical History (Updated 10/09/20 @ 23:40 by Roger Tyler DO) Alcohol abuse With dependence Cirrhosis Ascites, esophageal varices, hypoproteinemia, hepatic encephalopathy, thrombocytopenia, abnormal liver enzymes COPD (chronic obstructive pulmonary disease) Hepatitis C Her virus is undetectable. Patellar fracture (~02/2020) Portal hypertension Seizure disorder Suspect secondary to alcohol Surgical History H/O: hysterectomy Family History Mother Multiple sclerosis Social History Smoking and tobacco status: current every day smoker Alcohol intake: current Alcohol type: beer Household members: spouse Marital status: History of recent travel: No Physical Exam Const: EXAM LIMITATIONS: altered mental status GENERAL APPEARANCE: odor of alcohol detected ORIENTATION/CONSCIOUSNESS: Yes oriented to person and Yes oriented to place; not oriented to time HENMT: COMMON NORMALS: normocephalic, external ears normal and Normal external nose present HEAD & SCALP: normocephalic FACE & SINUS: normal facial exam NOSE: Normal external nose present EXTERNAL EAR: Yes external ears normal Chest: COMMONS NORMALS: normal inspection of the chest CHEST: No tenderness Resp: COMMON NORMALS: normal respiratory effort and No use of accessory muscles EFFORT & INSPECTION: No stridor AUSCULTATION: no rales, no rhonchi and wheezes Cardio: COMMON NORMALS: regular rate, regular rhythm and Peripheral pulses 2+ throughout RATE: regular rate RHYTHM: regular rhythm PERIPHERAL PULSES: Peripheral pulses 2+ throughout Neuro: SENSORIUM/ORIENTATION: Yes oriented to person, Yes oriented to place and No oriented to time Psych: COMMON NORMALS: cooperative ATTITUDE: Yes calm ACTIVITY/MOTOR BEHAVIOR: Yes psychomotor slowing SPEECH: Yes slurred Course Vital Signs: Vital signs: Vital Signs Temperature 97.9 F 10/09/20 21:34 Pulse Rate 82 10/09/20 23:51 Respiratory Rate 18 10/09/20 23:51 Blood Pressure 101/69 10/09/20 23:51 Pulse Oximetry 96 10/09/20 23:51 MDM - Chest Pain MDM Narrative: Medical decision making narrative: 60-year-old intoxicated female. Her alcohol level is quite high at 353 on arrival. Her hemoglobin is 11. Her EKG shows a sinus rhythm with no acute ST changes. Her first troponin was 12. It was 11 in January. This is likely her baseline. Is a 1.28 INR which indicates early alcoholic liver disease. Pain is more pleuritic in nature than cardiac at least by history. She was given Toradol which helped her chest pain significantly. She is not hypoxic. Her is here with her. They are wanting to go home. We explained to the the risk of leaving prior to the second troponin, which obviously includes heart attack and . They would still like to go. They will be discharged home. Lab Data: Labs: Lab Results 10/09/20 10/09/20 10/09/20 Range/Units 21:45 21:45 21:45 WBC 4.3 (4.0-10.0) 10^3/ uL RBC 3.62 L (4.1-5.3) 10^6/u L Hgb 11.0 L (11.5-15.3) g/dL Hct 35.0 L (37.0-47.0) % MCV 96.7 (81-99) fL MCH 30.4 (28.0-34.0) pg MCHC 31.4 (30.0-36.0) g/dL RDW 16.8 H (12.1-15.1) % Plt Count 157 (130-400) 10^3/c mm MPV 9.7 (7.4-10.4) fL Neut % (Auto) 34.9 % Lymph % (Auto) 45.3 % Beadle % (Auto) 14.5 % Eos % (Auto) 3.7 % Baso % (Auto) 1.6 % Neut # (Auto) 1.49 L (1.8-7.7) 10^3/u L Lymph # (Auto) 1.9 (0.8-4.8) 10^3/u L Beadle # (Auto) 0.6 (0.2-0.9) 10^3/u L Eos # (Auto) 0.2 (0.0-0.8) 10^3/u L Baso # (Auto) 0.1 (0.0-0.1) 10^3/u L Nucleated RBC % (a uto) 0 % Nucleated RBCs # 0.0 /100WBC PT 16.50 H (12.1-14.9) SECO NDS INR 1.28 H (0.8-1.2) Sodium 140 (136-145) mmol/L Potassium 4.1 (3.5-5.1) mmol/L Chloride 105 (98-107) mmol/L Carbon Dioxide 24 (22-29) mmol/L Anion Gap 15.1 (5-19) BUN 11 (6-20) mg/dL Creatinine 0.5 (0.5-0.9) mg/dL GFR Calculation 126.3 (90-130) mL/min Glucose 91 (65-115) mg/dL Calculated Osmolal ity 289 (285-295) mOsm/k g Calcium 8.3 L (8.5-10.5) mg/dL Total Bilirubin 0.5 (0.15-1.2) mg/dL AST 39 H (0-32) U/L ALT 16 (0-33) U/L Alkaline Phosphata se 128 H (35-105) IU/L Troponin T Baselin e (0-10) ng/L NT-Pro-B Natriuret Pep 100 (0-125) pg/mL Total Protein 7.4 (6.6-8.7) g/dL Albumin 3.4 L (3.5-5.2) g/dL Globulin 4.0 (1.3-4.6) g/dL Lipase 48 (13-60) U/L Ethyl Alcohol 353 H* (0-10) mg/dL 10/09/20 Range/Units 21:45 WBC (4.0-10.0) 10^3/ uL RBC (4.1-5.3) 10^6/u L Hgb (11.5-15.3) g/dL Hct (37.0-47.0) % MCV (81-99) fL MCH (28.0-34.0) pg MCHC (30.0-36.0) g/dL RDW (12.1-15.1) % Plt Count (130-400) 10^3/c mm MPV (7.4-10.4) fL Neut % (Auto) % Lymph % (Auto) % Beadle % (Auto) % Eos % (Auto) % Baso % (Auto) % Neut # (Auto) (1.8-7.7) 10^3/u L Lymph # (Auto) (0.8-4.8) 10^3/u L Beadle # (Auto) (0.2-0.9) 10^3/u L Eos # (Auto) (0.0-0.8) 10^3/u L Baso # (Auto) (0.0-0.1) 10^3/u L Nucleated RBC % (a uto) % Nucleated RBCs # /100WBC PT (12.1-14.9) SECO NDS INR (0.8-1.2) Sodium (136-145) mmol/L Potassium (3.5-5.1) mmol/L Chloride (98-107) mmol/L Carbon Dioxide (22-29) mmol/L Anion Gap (5-19) BUN (6-20) mg/dL Creatinine (0.5-0.9) mg/dL GFR Calculation (90-130) mL/min Glucose (65-115) mg/dL Calculated Osmolal ity (285-295) mOsm/k g Calcium (8.5-10.5) mg/dL Total Bilirubin (0.15-1.2) mg/dL AST (0-32) U/L ALT (0-33) U/L Alkaline Phosphata se (35-105) IU/L Troponin T Baselin e 12 H (0-10) ng/L NT-Pro-B Natriuret Pep (0-125) pg/mL Total Protein (6.6-8.7) g/dL Albumin (3.5-5.2) g/dL Globulin (1.3-4.6) g/dL Lipase (13-60) U/L Ethyl Alcohol (0-10) mg/dL Discharge Plan Discharge Patient Disposition: Home Clinical Impression: Chest pain, Alcohol intoxication Condition: Stable Prescriptions: No Action clonazepam 0.5 mg tablet 0.5 mg PO DAILY RF: 0 gabapentin 100 mg capsule 100 mg PO TID RF: 0 tramadol 50 mg tablet 50 mg PO BID PRNRF: 0 albuterol sulfate 90 mcg/actuation HFA aerosol inhaler 1 inh INHALATION QID RF: 0 ipratropium-albuterol 0.5 mg-3 mg(2.5 mg base)/3 mL solution for nebulization 3 ml INHALATION BID PRNRF: 0 Anoro Ellipta 62.5-25 mcg/actuation blister with device 1 inh INHALATION DAILY RF: 0 levetiracetam [Keppra] 500 mg tablet 500 mg PO Q12H 30 Days Qty: 60 RF: 1 hydrocodone-acetaminophen 10-325 mg tablet 1 tab PO BID PRN (Reason: pain) 30 Days Qty: 60 RF: 0 propranolol 20 mg Tablet 10 mg PO BID Qty: 60 RF: 1 thiamine mononitrate (vit B1) [Vitamin B-1 (mononitrate)] 100 mg Tablet 100 mg PO DAILY Qty: 30 RF: 0 pantoprazole 40 mg Tablet,Delayed Release (Dr/Ec) 40 mg PO BID Qty: 60 RF: 0 aspirin 81 mg Tablet,Delayed Release (Dr/Ec) 81 mg PO DAILY Qty: 30 RF: 0 folic acid 1 mg Tablet 1 mg PO DAILY Qty: 30 RF: 0 vit B comp with C-calcium carb 300 mg-150 mg calcium Tablet 1 tab PO DAILY Qty: 30 RF: 0 potassium chloride 10 mEq Tablet Extended Release 40 meq PO DAILY Qty: 120 RF: 0 spironolactone 25 mg Tablet 50 mg PO DAILY@06 Qty: 60 RF: 0 furosemide 20 mg Tablet 20 mg PO DAILY Qty: 30 RF: 0 lactulose 20 gram/30 mL Solution 20 g PO TID Qty: 270 RF: 0 Discharge Orders: Discharge ED (Routine); Ordered 10/09/20 Ordered By: Roger Tyler Referrals: Dez Novak MD [Primary Care Provider] - Activity Restrictions/Additional Instructions: Abstain from alcohol. Return for worsening chest pain, shortness of breath, fever, other concerning symptoms peer Coding Level of Care Code ED Process Maintenance Technician for Chg Fwd Exam Detailed
[2020-10-09 22:24] LABS: Alcohol Level 353 mg/dL (0-10)
[2020-10-09 22:25] VITALS: BP 106/68; PULSE 80; RESP 18; O2SAT 96
[2020-10-09] MEDS: ketorolac 30 mg/mL INJ IVP (22:41)
[2020-10-09 23:16] VITALS: BP 118/81; PULSE 82; RESP 18; O2SAT 96
[2020-10-09 23:51] VITALS: BP 101/69; PULSE 82; RESP 18; O2SAT 96
== END 2020-10-09 23:54 | disposition home or self-care (01) ==
PROVIDERS: Emergency Provider Emergency Medicine; PCP Internal Medicine
DX: R07.9 Chest pain, unspecified (principal); F10.129 Alcohol abuse with intoxication, unspecified; Z79.82 Long term (current) use of aspirin; Y90.8 Blood alcohol level of 240 mg/100 ml or more; J44.9 Chronic obstructive pulmonary disease, unspecified; Z86.19 Personal history of other infectious and parasitic diseases; F17.210 Nicotine dependence, cigarettes, uncomplicated
CPT/HCPCS: 12345; 71045; 80053; 80307; 83690; 83880; 84484; 85025; 85610; 93005; 99283; 99284; J1885

== ENCOUNTER 2020-11-19 06:22 | Inpatient (IN) | payer MEDICAID, SELFPAY ==
[2020-11-19] VITALS (18 sets, daily range): BP systolic 90–121; BP diastolic 53–80; PULSE 67–125; RESP 16–20; TEMP 36.8–37.6; O2SAT 88–100; BMI 18.1
--- NOTE | 2020-11-19 06:50 | W.ED.ABDPA2 ---
HPI - Abdominal Pain General: Chief Complaint: Abdominal Pain Stated Complaint: DIARRHEA FOR 2 WEEKS Time Seen by Provider: 11/19/20 06:38 Source: patient Mode of arrival: EMS Limitations: no limitations History of Present Illness: HPI narrative: 60-year-old female has had abdominal pain, bloating, nausea, vomiting and diarrhea for the last 2 weeks. Also subjective fever, decreased appetite, and generalized weakness. She has a history of alcohol use disorder, hepatitis C with cirrhosis. She denies coffee-ground emesis or melanotic stools. She also has a productive cough, Denies chest pain or shortness of breath. MD elicited complaint: abdominal pain Onset (ago): week(s) Associated Symptoms: Reports bloating, chills, GI cramping, diarrhea, fever(s) and nausea; Denies coffee ground emesis, dysuria and hematemesis Review of Systems General: Reports: 10 or more systems reviewed and unremarkable except in HPI and below Const: Reports: fever(s), chills, body aches, change in appetite, change in weight, fatigue and malaise Eyes: Denies: change in vision, blurry vision or blind spots ENMT: Denies: throat pain, odynophagia or nasal congestion Card: Denies: chest pain, palpitations, irregular heart rhythm or edema Resp: Reports: dyspnea, productive cough, pain on inspiration and chest congestion; Denies: hemoptysis GI: Reports: nausea, vomiting, diarrhea, bloating and GI cramping; Denies: hematemesis or coffee ground emesis : Denies: difficulty voiding, dysuria or urinary frequency Musc: Reports: neck pain, back pain and extremity pain; Denies: extremity swelling Skin/Breast: Denies: rash, pruritus, erythema or photosensitivity Neuro: Denies: headache(s), numbness in extremities or weakness in extremities Endo: Reports: tired all the time and cold intolerance; Denies: polyuria or polydipsia Taj/Lymph: Reports: easy bruising and easy bleeding [facility] ED PFSH: Medical History (Updated 11/19/20 @ 11:04 by Brynn Gupta MD) Alcohol abuse With dependence Cirrhosis Ascites, esophageal varices, hypoproteinemia, hepatic encephalopathy, thrombocytopenia, abnormal liver enzymes COPD (chronic obstructive pulmonary disease) Hepatitis C Her virus is undetectable. Patellar fracture (~02/2020) Portal hypertension Seizure disorder Suspect secondary to alcohol Surgical History H/O: hysterectomy Family History Mother Multiple sclerosis Social History Smoking and tobacco status: current every day smoker Alcohol intake: current Alcohol type: beer Household members: spouse Marital status: History of recent travel: No Physical Exam Const: COMMON NORMALS: patient oriented x3 GENERAL APPEARANCE: cooperative, disheveled, lethargic, ill appearing, frail appearing and appears older than stated age NUTRITIONAL APPEARANCE: underweight ORIENTATION/CONSCIOUSNESS: Yes lethargic HENMT: COMMON NORMALS: normocephalic and atraumatic HEAD & SCALP: normocephalic and atraumatic FACE & SINUS: normal facial exam, face symmetric and other (Dry mucous membranes) Eye: COMMON NORMALS: Equal, round and reactive pupils present GENERAL EYE: appearance normal, both eyes and all related structures SCLERA: sclerae normal CORNEA: Yes corneas normal PUPIL: Yes Equal, round and reactive pupils present EOM: Yes EOM abnormal Neck/C-Spine: COMMON NORMALS: full ROM, no lymphadenopathy, supple and no JVD Chest: COMMONS NORMALS: normal inspection of the chest and normal palpation of entire chest wall Resp: COMMON NORMALS: normal respiratory effort EFFORT & INSPECTION: No tachypneic, No respiratory distress and Yes Actively coughing AUSCULTATION: crackles, rhonchi and bronchial breath sounds Cardio: COMMON NORMALS: no JVD and regular rhythm RATE: tachycardic RHYTHM: regular rhythm BRUITS: no abdominal aortic bruits GI: COMMON NORMALS: Soft to palpation INSPECTION: Yes abdominal distension, No visible pulsation, No caput medusae present, Yes Fluid wave present and No GI erythema present AUSCULTATION: Yes Hypoactive bowel sounds present PALPATION: Yes Soft to palpation, No Tenderness to palpation present (GI), No Guarding due to palpation present (GI), No Rigid due to palpation and Yes Hepatosplenomegaly present PERCUSSION: Fluid wave present Extremity: COMMON NORMALS: capillary refill normal and no clubbing, cyanosis or edema Neuro: COMMON NORMALS: patient oriented x3 SENSORIUM/ORIENTATION: Yes lethargic CRANIAL NERVES: Yes CN normal except as noted Psych: COMMON NORMALS: cooperative ATTITUDE: Yes calm Skin: COMMON NORMALS: no wounds GENERAL SKIN EXAM: dry skin, pallor and turgor decreased RASHES: no rashes TRAUMA: no lacerations or abrasions Course Vital Signs: Vital signs: Vital Signs Temperature 98.2 F 11/19/20 06:25 Pulse Rate 106 H 11/19/20 11:00 Respiratory Rate 18 11/19/20 11:00 Blood Pressure 104/62 11/19/20 11:00 Pulse Oximetry 100 11/19/20 11:00 MDM - Abdominal Pain MDM Narrative: Medical decision making narrative: 60-year-old female with underlying cirrhotic liver disease presenting with diarrhea for 2 weeks. Acutely ill and dehydrated appearing on initial exam. Critical hypokalemia, 2.8; normal mag, initially gave oral replacement, however the patient threw up shortly after, so IV replacement will be started. Stool appeared melanotic to the nurse, so octreotide drip was started after I reviewed prior imaging showing significant gastroesophageal varices. Did not appreciate coffee grounds or bright red blood in her emesis. She was also given IV Protonix and prophylactic Rocephin, 1 g IV Platelets 68; baseline seems to range between 40-150 CT abdomen shows minimal change in the degree of cirrhosis, ascites, portal hypertension, and esophageal varices compared to prior exam on 04/14/2020. There is new diffuse bowel wall edema which may be due to use of contrast. Stool positive for C. difficile; vancomycin 250 mg p.o. Discussed the case with Dr. Calvert, who accepts the admission Differential Diagnosis: Differential diagnosis abdominal pain: Likely abdominal pain, acute appendicitis, calculus of kidney, constipation, diverticulitis, gastroenteritis, pancreatitis and small bowel obstruction Medical Records: Attestation: I reviewed the patient's medical records. Lab Data: Attestation: I reviewed the patient's lab results. Labs: Lab Results 11/19/20 11/19/20 11/19/20 Range/Units 07:04 07:04 07:04 WBC 8.0 (4.0-10.0) 10^3/ uL RBC 3.46 L (4.1-5.3) 10^6/u L Hgb 10.4 L (11.5-15.3) g/dL Hct 32.2 L (37.0-47.0) % MCV 93.1 (81-99) fL MCH 30.1 (28.0-34.0) pg MCHC 32.3 (30.0-36.0) g/dL RDW 18.7 H (12.1-15.1) % Plt Count 68 L (130-400) 10^3/c mm MPV 9.7 (7.4-10.4) fL Neut % (Auto) 71.3 % Lymph % (Auto) 6.1 % Williams % (Auto) 14.0 % Eos % (Auto) 1.5 % Baso % (Auto) 0.5 % Neut # (Auto) 5.68 (1.8-7.7) 10^3/u L Lymph # (Auto) 0.5 L (0.8-4.8) 10^3/u L Williams # (Auto) 1.1 H (0.2-0.9) 10^3/u L Eos # (Auto) 0.1 (0.0-0.8) 10^3/u L Baso # (Auto) 0.0 (0.0-0.1) 10^3/u L Nucleated RBC % (a uto) 0 % Nucleated RBCs # 0.0 /100WBC PT 19.50 H (12.1-14.9) SECO NDS INR 1.59 H (0.8-1.2) Sodium 135 L (136-145) mmol/L Potassium 2.8 L* (3.5-5.1) mmol/L Chloride 95 L (98-107) mmol/L Carbon Dioxide 19 L (22-29) mmol/L Anion Gap 23.8 H (5-19) BUN 12 (6-20) mg/dL Creatinine 0.4 L (0.5-0.9) mg/dL GFR Calculation 163.4 H (90-130) mL/min Glucose 69 (65-115) mg/dL Calculated Osmolal ity 278 L (285-295) mOsm/k g Lactic Acid (0.5-2.2) mmol/L Lactic Acid (Sepsi s) (0.5-2.2) mmol/L Calcium 7.8 L (8.5-10.5) mg/dL Phosphorus (2.5-4.5) mg/dL Magnesium 1.8 (1.7-2.3) mg/dL Total Bilirubin 2.7 H (0.15-1.2) mg/dL AST 113 H (0-32) U/L ALT 27 (0-33) U/L Alkaline Phosphata se 202 H (35-105) IU/L Ammonia (11-51) umol/L Lactate Dehydrogen ase 166 (135-214) U/L Total Protein 8.0 (6.6-8.7) g/dL Albumin 3.1 L (3.5-5.2) g/dL Globulin 4.9 H (1.3-4.6) g/dL Lipase 25 (13-60) U/L Urine Color (Yellow) Urine Appearance (CLEAR) Urine pH (5-7) Ur Specific Gravit y (1.005-1.030) Urine Protein (Negative) Urine Glucose (UA) (Normal) Urine Ketones (Negative) Urine Blood (Negative) Urine Nitrate (Negative) Urine Bilirubin (Negative) Urine Urobilinogen (Negative) mg/dL Ur Leukocyte Loni ase (Negative) Urine RBC (0-2) /hpf Urine WBC (0-5) /hpf Ur Squamous Epith Cells (0-5) /hpf Amorphous Sediment Urine Bacteria (NONE) /hpf Ethyl Alcohol 281 H (0-10) mg/dL 11/19/20 11/19/20 11/19/20 Range/Units 07:04 07:04 07:09 WBC (4.0-10.0) 10^3/ uL RBC (4.1-5.3) 10^6/u L Hgb (11.5-15.3) g/dL Hct (37.0-47.0) % MCV (81-99) fL MCH (28.0-34.0) pg MCHC (30.0-36.0) g/dL RDW (12.1-15.1) % Plt Count (130-400) 10^3/c mm MPV (7.4-10.4) fL Neut % (Auto) % Lymph % (Auto) % Williams % (Auto) % Eos % (Auto) % Baso % (Auto) % Neut # (Auto) (1.8-7.7) 10^3/u L Lymph # (Auto) (0.8-4.8) 10^3/u L Williams # (Auto) (0.2-0.9) 10^3/u L Eos # (Auto) (0.0-0.8) 10^3/u L Baso # (Auto) (0.0-0.1) 10^3/u L Nucleated RBC % (a uto) % Nucleated RBCs # /100WBC PT (12.1-14.9) SECO NDS INR (0.8-1.2) Sodium (136-145) mmol/L Potassium (3.5-5.1) mmol/L Chloride (98-107) mmol/L Carbon Dioxide (22-29) mmol/L Anion Gap (5-19) BUN (6-20) mg/dL Creatinine (0.5-0.9) mg/dL GFR Calculation (90-130) mL/min Glucose (65-115) mg/dL Calculated Osmolal ity (285-295) mOsm/k g Lactic Acid 2.5 H (0.5-2.2) mmol/L Lactic Acid (Sepsi s) (0.5-2.2) mmol/L Calcium (8.5-10.5) mg/dL Phosphorus 2.0 L (2.5-4.5) mg/dL Magnesium (1.7-2.3) mg/dL Total Bilirubin (0.15-1.2) mg/dL AST (0-32) U/L ALT (0-33) U/L Alkaline Phosphata se (35-105) IU/L Ammonia 30 (11-51) umol/L Lactate Dehydrogen ase (135-214) U/L Total Protein (6.6-8.7) g/dL Albumin (3.5-5.2) g/dL Globulin (1.3-4.6) g/dL Lipase (13-60) U/L Urine Color (Yellow) Urine Appearance (CLEAR) Urine pH (5-7) Ur Specific Gravit y (1.005-1.030) Urine Protein (Negative) Urine Glucose (UA) (Normal) Urine Ketones (Negative) Urine Blood (Negative) Urine Nitrate (Negative) Urine Bilirubin (Negative) Urine Urobilinogen (Negative) mg/dL Ur Leukocyte Loni ase (Negative) Urine RBC (0-2) /hpf Urine WBC (0-5) /hpf Ur Squamous Epith Cells (0-5) /hpf Amorphous Sediment Urine Bacteria (NONE) /hpf Ethyl Alcohol (0-10) mg/dL 11/19/20 11/19/20 Range/Units 08:00 10:02 WBC (4.0-10.0) 10^3/ uL RBC (4.1-5.3) 10^6/u L Hgb (11.5-15.3) g/dL Hct (37.0-47.0) % MCV (81-99) fL MCH (28.0-34.0) pg MCHC (30.0-36.0) g/dL RDW (12.1-15.1) % Plt Count (130-400) 10^3/c mm MPV (7.4-10.4) fL Neut % (Auto) % Lymph % (Auto) % Williams % (Auto) % Eos % (Auto) % Baso % (Auto) % Neut # (Auto) (1.8-7.7) 10^3/u L Lymph # (Auto) (0.8-4.8) 10^3/u L Williams # (Auto) (0.2-0.9) 10^3/u L Eos # (Auto) (0.0-0.8) 10^3/u L Baso # (Auto) (0.0-0.1) 10^3/u L Nucleated RBC % (a uto) % Nucleated RBCs # /100WBC PT (12.1-14.9) SECO NDS INR (0.8-1.2) Sodium (136-145) mmol/L Potassium (3.5-5.1) mmol/L Chloride (98-107) mmol/L Carbon Dioxide (22-29) mmol/L Anion Gap (5-19) BUN (6-20) mg/dL Creatinine (0.5-0.9) mg/dL GFR Calculation (90-130) mL/min Glucose (65-115) mg/dL Calculated Osmolal ity (285-295) mOsm/k g Lactic Acid (0.5-2.2) mmol/L Lactic Acid (Sepsi s) 2.4 H (0.5-2.2) mmol/L Calcium (8.5-10.5) mg/dL Phosphorus (2.5-4.5) mg/dL Magnesium (1.7-2.3) mg/dL Total Bilirubin (0.15-1.2) mg/dL AST (0-32) U/L ALT (0-33) U/L Alkaline Phosphata se (35-105) IU/L Ammonia (11-51) umol/L Lactate Dehydrogen ase (135-214) U/L Total Protein (6.6-8.7) g/dL Albumin (3.5-5.2) g/dL Globulin (1.3-4.6) g/dL Lipase (13-60) U/L Urine Color Dark yellow (Yellow) Urine Appearance Hazy A (CLEAR) Urine pH 5 (5-7) Ur Specific Gravit y 1.020 (1.005-1.030) Urine Protein Trace (Negative) Urine Glucose (UA) Norm (Normal) Urine Ketones 1+ H (Negative) Urine Blood Neg (Negative) Urine Nitrate Positive H (Negative) Urine Bilirubin 1+ H (Negative) Urine Urobilinogen 4 H (Negative) mg/dL Ur Leukocyte Loni ase Negative (Negative) Urine RBC 0-4 H (0-2) /hpf Urine WBC 0-4 H (0-5) /hpf Ur Squamous Epith Cells 0-4 H (0-5) /hpf Amorphous Sediment Not Reportable Urine Bacteria 2+ H (NONE) /hpf Ethyl Alcohol (0-10) mg/dL Discharge Plan Discharge Patient Disposition: Admitted As Inpatient Admit Provider: Saúl Calvert Clinical Impression: Thrombocytopenia, Chronic anemia, End stage liver disease, Clostridium difficile colitis Cirrhosis Qualifiers: Hepatic cirrhosis type: alcoholic cirrhosis Ascites presence: with ascites Qualified Code(s): K70.31 - Alcoholic cirrhosis of liver with ascites Hepatitis C Qualifiers: Viral hepatitis chronicity: chronic Hepatic coma status: without hepatic coma Qualified Code(s): B18.2 - Chronic viral hepatitis C UTI (urinary tract infection) Qualifiers: Urinary tract infection type: acute cystitis Hematuria presence: with hematuria Qualified Code(s): N30.01 - Acute cystitis with hematuria Condition: Stable Coding Level of Care Code ED Make Up Worker for [facility] Fwd Exam Comprehensive
[2020-11-19 07:24] LABS: Basophils % 0.5 %; Eosinophils # 0.1 10^3/uL (0.0-0.8); Eosinophils % 1.5 %; Hematocrit 32.2 % (37.0-47.0); Hemoglobin 10.4 g/dL (11.5-15.3); Lymphocytes # 0.5 10^3/uL (0.8-4.8); Lymphocytes % 6.1 %; Mean Corpuscular HGB Conc 32.3 g/dL (30.0-36.0); Mean Corpuscular Hemoglobin 30.1 pg (28.0-34.0); Mean Corpuscular Volume 93.1 fL (81-99); Mean Platelet Volume 9.7 fL (7.4-10.4); Monocytes # 1.1 10^3/uL (0.2-0.9); Neutrophils # 5.68 10^3/uL (1.8-7.7); Neutrophils % 71.3 %; Nucleated Red Blood Cells % 0 %; Platelet Count 68 10^3/cmm (130-400); Red Blood Count 3.46 10^6/uL (4.1-5.3); Red Cell Distribution Width 18.7 % (12.1-15.1)
[2020-11-19 07:27] LABS: INR 1.59 (0.8-1.2)
[2020-11-19 07:32] LABS: Alanine Aminotransferase 27 U/L (0-33); Albumin Level 3.1 g/dL (3.5-5.2); Alcohol Level 281 mg/dL (0-10); Alkaline Phosphatase 202 IU/L (35-105); Anion Gap 23.8 (5-19); Aspartate Amino Transferase 113 U/L (0-32); Blood Urea Nitrogen 12 mg/dL (6-20); Calcium 7.8 mg/dL (8.5-10.5); Carbon Dioxide 19 mmol/L (22-29); Chloride 95 mmol/L (98-107); Globulin 4.9 g/dL (1.3-4.6); Glomerular Filtration Rate 163.4 mL/min (90-130); Glucose 69 mg/dL (65-115); Lactate Dehydrogenase 166 U/L (135-214); Lipase 25 U/L (13-60); Magnesium 1.8 mg/dL (1.7-2.3); Osmolality Calculated 278 mOsm/kg (285-295); Sodium 135 mmol/L (136-145); Total Bilirubin 2.7 mg/dL (0.15-1.2)
[2020-11-19 07:33] LABS: Ammonia 30 umol/L (11-51); Lactic Sepsis W/Reflex 2.5 mmol/L (0.5-2.2)
--- NOTE | 2020-11-19 07:33 | CT_ITS ---
WS: [id number] CT abdomen pelvis w con* [id number] REASON FOR EXAM: Abd pain, distention IV CONTRAST ADMINISTERED: 95 mL of Omnipaque 300. TOTAL EXAM DLP: 1093.[address] scans at [facility] use at least one of these dose optimization techniques: automat ed exposure control; mA and/or kV adjustment per patient size (includes targeted exams where dose is matched to clinical indication); or iterative reconstruction. FINDINGS: ABDOMEN: Diffuse inhomogeneously of the liver with multiple focal and confluent areas of hypoattenuation. No d iscrete focal lesion. The spleen is enlarged. Multiple large varices are present along the gastric fu ndus and distal esophagus. Portal vein is patent. Pancreas, adrenals, and kidneys are within normal limits. Gallbladder is normal. No abdominal mass or adenopathy. Moderately significant ascites. There is diffuse edema and small bowel and colonic wall. The abdominal aorta and its major branches demonstrate extensive calcification without aneurysm or ma salma branch occlusion. PELVIS Moderate ascites. Normal urinary bladder. Diffuse edema in the rectosigmoid and rectum. No mass. No significant bony abnormality involving the lumbar spine or pelvis. CT/CT abdomen pelvis w con* [id number] IMPRESSION: Late stage cirrhosis with portal venous hypertension, esophageal varices. Paten t portal vein. Ascites. These findings are relatively unchanged compared to pre vious examination of 04/14/2020. The diffuse bowel wall edema was not previously noted which may be secondary to the fact that intravenous contrast was not administered on the previous examin ation. This diffuse edema is most likely due to hypoalbuminemia.
[2020-11-19 07:40] LABS: Slide Review Slide Review Perform
[2020-11-19] MEDS: sodium chloride 0.9% 1,000 ML 999 ML IV (07:40)
[2020-11-19] MEDS: fentaNYL 50 mcg/mL INJ 2mL IVP (07:40)
[2020-11-19] MEDS: ondansetron 2 mg/ML SDV 2 mL 4 MG IVP ×2 (07:40→17:48)
[2020-11-19 07:57] LABS: Potassium 2.8 mmol/L (3.5-5.1)
[2020-11-19] MEDS: iohexol 300 mg/mL 100 mL Btl IV (08:22)
[2020-11-19] MEDS: cefTRIAXone 1,000 MG in sodium chloride 0.9% (plus) 50 ML 100 MG IV (08:35)
[2020-11-19] MEDS: pantoprazole 40 mg SDV IVP (08:36)
[2020-11-19] MEDS: octreotide 500 MCG in sodium chloride 0.9% (100 ml) 100 ML 10.1 MCG IV (08:39)
[2020-11-19] MEDS: potassium chloride oral liq 20 mEq/15 mL UDC 40 MEQ PO (08:39)
[2020-11-19] MEDS: octreotide 100 mcg/mL SDV 50 MCG IVP (08:39)
--- NOTE | 2020-11-19 08:58 | XR_ITS ---
WS: [id number] XR chest 1V portable [id number] REASON FOR EXAM: cough, copd, cirrhosis FINDINGS: The chest is unchanged compared to previous examination of 10/09/2020. There is mild tortuosity of the thoracic aorta. Normal heart size. Calcified granulomatous changes bilaterally. No active pulmonary parenchymal pleural disease. Mild changes of degenerative spondylosis in the mid and lower thoracic spine. XR/XR chest 1V portable [id number] IMPRESSION: No acute chest abnormality.
[2020-11-19 08:59] LABS: Reflex Lactate Order REFLEX LACTIC ORDERD
[2020-11-19 09:58] LABS: Add Urine Microscopic? YES; Bilirubin Urine 1+ (Negative); Blood Urine Neg (Negative); Glucose Urine UA Norm (Normal); Ketones Urine 1+ (Negative); Leukocyte Esterase Urine Negative (Negative); Nitrate Urine Positive (Negative); Protein Urine Trace (Negative); Urine Appearance Hazy (CLEAR); Urine Color Dark Yellow (Yellow); Urobilinogen Urine 4 mg/dL (Negative); pH Urine 5 (5-7)
[2020-11-19 09:59] LABS: Add Urine Culture? Yes; Bacteria Urine 2+ /hpf; RBC Urine 0-4 /hpf (0-2); Squamous Epithelial Cell Urine 0-4 /hpf (0-5); WBC Urine 0-4 /hpf (0-5)
[2020-11-19 10:31] LABS: Lactic Acid level (Lactate) 2.4 mmol/L (0.5-2.2)
[2020-11-19] MEDS: lactated ringers 1,000 ML 500 ML IV (10:57)
--- NOTE | 2020-11-19 17:27 | P.HP_ITS ---
Providers/Chief Complaint Admitting Physician: Saúl Calvert MD Primary Care Provider: Dez Novak MD Chief Complaint: DIARRHEA FOR 2 WEEKS History of Present Illness Apurva Arteaga is a 60 year old female with PMH of Alcohol abuse with dependence , Decompensated end Stage liver disease with MELD Na ( ), (Child .P . score ) Cirrhosis, Ascites, esophageal varices, hepatic encephalopathy, thrombocytopenia, COPD (chronic obstructive pulmonary disease) , Hepatitis C, Portal hyper tension, Seizure disorder, came in with c/o abdominal pain, bloating, nausea, recurrent vomiting unable to keep any food down , and diarrhea for the last 2 weeks. Also subjective fever, decreased appetite, and generalized weakness. She denies coffee-ground emesis or melanotic stools. She was also complaining of productive cough, Denies chest pain or shortness of breath. Upon arrival in the ER she was worked up for the above mentioned complain. Pertinent labs : Lactic acid : 2.5 , wbc : 8 , H/H: 10.4/ 32 ,Platelets 68; baseline seems to range between 40-150, BUN/SCR: 12/0.4,Serum Na: 135 , AST : 113, ALT: 27, ALP: 202 , Ammonia : 30, LDH: 166, Albumin:3.1 Serum K 2.8; ,ethyl alcohol 353, normal mag, initially gave oral replacement, however the patient threw up shortly after, so IV repl acement was done.Initially Stool appeared melanotic to the nurse, so octreotide drip was started by the ER Physician but later it was stopped as the ER Physicain as she did not appreciate coffee grounds or bright red blood in her emesis as well as melanotic stool.CT abdomen shows minimal change in the degree of cirrhosis, ascites, portal hypertension, and esophageal varices compared to prior exam on 04/14/2020. There is new diffuse bowel wall edema which may be due to use of contrast. She was also given IV Protonix and prophylactic Rocephin, 1 g IV. Stool positive for C. difficile; vancomycin 250 mg p.o. Review of Systems Resp: Denies: wheezing or pain on inspiration GI: Denies: constipation Musc: Denies: extremity swelling Neuro: Denies: headache(s), difficulty walking or confusion Medications/Allergies Home Medications Medication Instructions Recorded Confirmed Last Taken Type aspirin 81 mg PO DAILY #30 tab 06/05/2411/19/20 11/18/20 Rx folic acid 1 mg PO DAILY #30 tab 02/11/20 11/19/20 11/18/20 Rx pantoprazole 40 mg PO BID #60 tab 02/11/20 11/19/20 11/18/20 Rx potassium chloride 40 meq PO DAILY #120 tab 04/20/20 11/19/20 11/18/20 Rx albuterol sulfate 90 mcg/actuation 1 inh INHALATION QID PRN 05/26/20 11/19/20 Unknown History aerosol inhaler gabapentin 100 mg capsule 100 mg PO TID 05/26/20 11/19/20 11/18/20 History ipratropium 0.5 mg-albuterol 3 mg 3 ml INHALATION BID PRN ml 05/26/20 11/19/20 Unknown History (2.5 mg base)/3 mL nebulization soln levetiracetam 500 mg tablet 500 mg PO Q12H 30 Days #60 tab 05/26/20 11/19/20 11/19/20 Rx umeclidinium 62.5 mcg-vilanterol 1 inh INHALATION DAILY 05/26/20 11/19/20 Unknown History 25 mcg/actuation powdr for inhalation hydrocodone 10 mg-acetaminophen 1 tab PO BID PRN 30 Days #60 tab 06/18/20 11/19/20 Unknown Rx 325 mg tablet furosemide 20 mg PO DAILY PRN 11/19/20 11/19/20 Unknown History spironolactone 50 mg PO DAILY 11/19/20 11/19/20 11/18/20 History Allergies Allergy/AdvReac Type Severity Reaction Status Date / Time codeine Allergy KIMY-Swell Verified 06/18/20 11:53 Lip/Tongue/Throat PFSH Acute PFSH: Medical History (Updated 11/20/20 @ 06:56 by Saúl Calvert MD) Alcohol abuse With dependence Cirrhosis Ascites, esophageal varices, hypoproteinemia, hepatic encephalopathy, thrombocytopenia, abnormal liver enzymes COPD (chronic obstructive pulmonary disease) Hepatitis C Patellar fracture (~02/2020) Portal hypertension Seizure disorder Suspect secondary to alcohol Surgical History H/O: hysterectomy Family History Mother Multiple sclerosis Social History Smoking and tobacco status: current every day smoker Alcohol intake: current Alcohol type: beer Household members: spouse Marital status: History of recent travel: No Vitals/I&O/Wt Last Vital Signs Temp 99.6 F 11/19/20 17:00 Pulse 68 11/19/20 17:00 Resp 18 11/19/20 17:00 BP 90/68 11/19/20 17:00 Pulse Ox 96 11/19/20 17:00 11/19/20 11/19/20 11/19/20 06:59 14:59 22:59 Intake Total 2264.1998 Balance 226.1998 Weight last 48 hrs Weight 48.081 kg Physical Exam Const: COMMON NORMALS: patient oriented x3 HENMT: COMMON NORMALS: normocephalic and atraumatic HEAD & SCALP: no rmocephalic and atraumatic Eye: GENERAL EYE: appearance normal, both eyes and all related structures Chest: COMMONS NORMALS: normal inspection of the chest and normal palpation of entire chest wall CHEST: Yes Symmetrical chest wall rise Resp: COMMON NORMALS: normal respiratory effort, No retractions, No use of accessory muscles and clear to auscultation bilaterally EFFORT & INSPECTION: Yes symmetric chest movement AUSCULTATION: clear to auscultation bilaterally Cardio: COMMON NORMALS: regular rate, regular rhythm, S1 normal heart sound present, S2 normal heart sound present, No gallops present (Cardio), No murmurs present (Cardio), No rub (Cardio) and Peripheral pulses 2+ throughout RATE: regular rate RHYTHM: regular rhythm HEART SOUNDS: S1 normal heart sound present and S2 normal heart sound present PERIPHERAL PULSES: Peripheral pulse s 2+ throughout GI: INSPECTION: Yes abdominal distension AUSCULTATION: Yes Hypoactive bowel sounds present PALPATION: Yes Tenderness to palpation present (GI) and Yes Ascites present PERCUSSION: Fluid wave present RECTAL EXAM: deferred Extremity: COMMON NORMALS: no clubbing, cyanosis or edema and no pedal edema Neuro: COMMON NORMALS: patient oriented x3 Urinary Catheter Management^: Lipscomb: Cath Placed During This Visit: yes Urinary Catheter Date of Insertion: 11/19/20 Urinary Catheter Time of Insertion: 11:31 Data : 11/19/20 07:04 11/20/20 05:27 Micro: Microbiology 11/19/20 08:00 C.difficile Toxin B Gene (PCR) - Final Stool - Stool Aspirate A&P Assessment and plan (1) Clostridium difficile colitis: Continue Vancomycin 250 mg po QID. Ns@75cc/hr Status: Acute (2) End stage liver disease: Currently not a transplant Candidate.Given continued alcohol use. Will encourage to quit alcohol use. Status: Acute (3) Chronic pain: Status: Acute Qualifiers: Chronic pain type: chronic pain syndrome Qualified Code(s): G89.4 - Chronic pain syndrome (4) Chronic anemia: Status: Acute (5) Alcohol abuse: Status: Chronic (6) Nicotine dependence, cigarettes, with other nicotine-induced disorders: Status: Chronic (7) Cirrhosis: Status: Chronic Qualifiers: Ascites presence: with ascites Hepatic cirrhosis type: alcoholic cirrhosis Qualified Code(s): K70.31 - Alcoholic cirrhosis of liver with ascites (8) Thrombocytopenia: Chronic Thrombocytopenia in the setting of End stage liver disease. Status: Chronic (9) Hepatitis C: Untreated Hep C. Most recent documentation states Viral Load Undetectable. Status: Chronic Qualifiers: Hepatic coma status: without hepatic coma Viral hepatitis chronicity: chronic Qualified Code(s): B18.2 - Chronic viral hepatitis C (10) Malnourished: Status: Acute Qualifiers: Malnutrition type: unspecified type Qualified Code(s): E46 - Unspecified protein-calorie malnutrition Additional A&P Information R/O SBP: Subjective fever, abodominal tenderness, ascites: Will Plan for Paracentesis for SBP work up ( SAAG, PMN Cell count ) Currently covered with Rochepin 1 Gm q 24 h Daily Possible Hematemesis with Marie : Continue Protonix 40 mg I.V Q12H Daily. Monitor CBC. DVT PPX: SCD Code Status :Full code Attestations Medical Necessity Statement*: Patient needs to be in hospital for the management of C.diff collitis.Anticipated LOS Greater then 2 Midnights. Coding Level of Care Code Acute Overlocker for [facility] Diagnoses Clostridium difficile colitis A04.72 End stage liver disease K72.90 Chronic pain G89.4 Chronic pain type: chronic pain syndrome Chronic anemia D64.9 Alcohol abuse F10.10 Nicotine dependence, cigarettes, with other nicotine-induced disorders F17.218 Cirrhosis K70.31 Ascites presence: with ascites Hepatic cirrhosis type: alcoholic cirrhosis Thrombocytopenia D69.6 Hepatitis C B18.2 Hepatic coma status: without hepatic coma Viral hepatitis chronicity: chronic Malnourished E46 Malnutrition type: unspecified type
[2020-11-19] MEDS: sodium chloride 0.9% 1,000 ML 75 ML IV (17:45)
[2020-11-19] MEDS: HYDROcodone-acetaminophen 10-325 mg Tablet 1 TAB PO (17:45)
[2020-11-19] MEDS: pantoprazole DR 40 mg Tablet PO (17:45)
[2020-11-19] MEDS: levETIRAcetam 500 mg Tablet PO (17:45)
[2020-11-19] MEDS: gabapentin 100 mg Capsule PO (22:06)
[2020-11-20] VITALS (8 sets, daily range): BP systolic 92–122; BP diastolic 54–75; PULSE 90–104; RESP 16–18; TEMP 36.4–37.3; O2SAT 93–98
[2020-11-20] MEDS: ondansetron 2 mg/ML SDV 2 mL 4 MG IVP ×3 (02:25→16:44)
[2020-11-20] MEDS: levETIRAcetam 500 mg Tablet PO ×2 (04:58→16:44)
[2020-11-20 05:50] LABS: INR 1.82 (0.8-1.2)
[2020-11-20 05:54] LABS: Lactic Sepsis W/Reflex 1.2 mmol/L (0.5-2.2)
[2020-11-20 05:56] LABS: Alanine Aminotransferase 17 U/L (0-33); Albumin Level 2.4 g/dL (3.5-5.2); Alkaline Phosphatase 132 IU/L (35-105); Anion Gap 17.1 (5-19); Aspartate Amino Transferase 61 U/L (0-32); Blood Urea Nitrogen 10 mg/dL (6-20); Carbon Dioxide 21 mmol/L (22-29); Chloride 97 mmol/L (98-107); Glomerular Filtration Rate 163.4 mL/min (90-130); Glucose 106 mg/dL (65-115); Osmolality Calculated 273 mOsm/kg (285-295); Potassium 3.1 mmol/L (3.5-5.1); Sodium 132 mmol/L (136-145); Total Bilirubin 1.7 mg/dL (0.15-1.2); Total Protein 6.4 g/dL (6.6-8.7)
[2020-11-20 06:04] LABS: Procalcitonin 0.11 ng/mL (0-0.5)
[2020-11-20] MEDS: sodium chloride 0.9% 1,000 ML 75 ML IV (06:32)
[2020-11-20 07:41] LABS: Basophils # 0.1 10^3/uL (0.0-0.1); Basophils % 0.8 %; Eosinophils # 0.1 10^3/uL (0.0-0.8); Eosinophils % 1.1 %; Hematocrit 27.6 % (37.0-47.0); Hemoglobin 8.7 g/dL (11.5-15.3); Lymphocytes # 0.8 10^3/uL (0.8-4.8); Lymphocytes % 10.8 %; Mean Corpuscular HGB Conc 31.5 g/dL (30.0-36.0); Mean Corpuscular Hemoglobin 30.4 pg (28.0-34.0); Mean Corpuscular Volume 96.5 fL (81-99); Mean Platelet Volume 10.6 fL (7.4-10.4); Monocytes # 1.4 10^3/uL (0.2-0.9); Monocytes % 18.8 %; Neutrophils # 4.97 10^3/uL (1.8-7.7); Neutrophils % 68.1 %; Nucleated Red Blood Cells % 0 %; Platelet Count 52 10^3/cmm (130-400); Red Blood Count 2.86 10^6/uL (4.1-5.3); Red Cell Distribution Width 19.2 % (12.1-15.1); White Blood Count 7.3 10^3/uL (4.0-10.0)
[2020-11-20 08:09] LABS: Slide Review Slide Review Perform
[2020-11-20] MEDS: ipratropium-albuterol 3 mL Neb INHALATION (09:04)
[2020-11-20] MEDS: HYDROcodone-acetaminophen 10-325 mg Tablet 1 TAB PO ×2 (09:35→21:55)
[2020-11-20] MEDS: thiamine 100 mg Tablet PO (09:36)
[2020-11-20] MEDS: multivitamin therapeutic Tablet 1 TAB PO (09:36)
[2020-11-20] MEDS: pantoprazole DR 40 mg Tablet PO ×2 (09:36→21:13)
[2020-11-20] MEDS: gabapentin 100 mg Capsule PO ×3 (09:36→21:13)
[2020-11-20] MEDS: folic acid 1 mg Tablet PO (09:36)
--- NOTE | 2020-11-20 13:16 | PC.CHAP ---
Pastoral Care Encounter/Spiritual Assessment Type of Contact [] Declined tile molder hand visit [] Patient/Family/Request visit [] Outpatient visit [] Follow-up visit [] Physician referral [] Code/Alert [] Routine visit [] Staff referral [] Actively dying [] Patient sleeping [] Family support [] [] Out of room [] Palliative care [] [] Receiving care in room [] Pre-surgical visit [] Trauma [] Long length of stay [] ICU visit [] Other: Relational/Emotional Strength [] Patient feels connected with others/family/visitors/staff [] Distress [] Loneliness/isolation [] Abandonment Spirituality of Patient [] Person of [place] [] Attends Anabaptist of their [place] [] Believes in Prayer [] Reads Bible or Taoist materials [] There are Spiritual issues to be addressed Gaming Manager Interventions [] Prayer [] Active listening [] Non-anxious presence [] Spiritual/emotional support [] Crisis/trauma care [] Spiritual counseling [] Bereavement support [] Provided bereavement packet [] Provided Bible/devotional materials [] Provided toy/stuffed animal, coloring book to patient or family member [] Provided Communion [] Anointing/[place] [] Salvation [] Completed spiritual assessment [] Other: Impact on Illness or Injury [] Angry [] Fearful [] Anxious [] Often cries [] Exhaustion [] Unable to work [] Unable to attend quaker [] Unable to walk/stand [] Unable to read [] Unable to drive [] Unable to eat/drink [] Unable to sleep [] Unable to be with family [] Patient intubated [] Other: Summary Patient has been placed in isolation. Gaming Manager visit not conducted. Time spent with patient
--- NOTE | 2020-11-20 14:27 | PC.NURSE ---
Stool was small and black
[2020-11-20] MEDS: lidocaine 1% 5 ML in potassium chloride premix 100 ML 25 ML IV (14:29)
--- NOTE | 2020-11-20 16:38 | PC.NURSE ---
Very dark brown close to being black very small amount
--- NOTE | 2020-11-20 19:24 | PC.NURSE ---
Report to Jelly/Rosalba Angel LPN at this time.
[2020-11-20] MEDS: cefTRIAXone 1,000 MG in sodium chloride 0.9% (plus) 50 ML 100 MG IV (21:07)
--- NOTE | 2020-11-20 21:21 | PM.PN ---
Subjective Subjective: Interval history: Patient was seen and examined this morning.She continues to have black stool minimal amount recorded 2 episodes.No hematemesis. She continues to minimal generalized abdominal tenderness. Vitals/I&O/Wt Last Vital Signs Temp 97.6 F 11/20/20 19:33 Pulse 95 11/20/20 19:33 Resp 18 11/20/20 19:33 BP 92/54 11/20/20 19:33 Pulse Ox 97 11/20/20 19:33 11/20/20 11/20/20 11/20/20 06:59 14:59 22:59 Intake Total 958.75 / 3223.9499 240 / 240 1405 / 1645 Output Total 250 / 1150 Balance 708.75 / 2073.9499 240 / 240 1405 / 1645 Weight last 48 hrs Weight 48.081 kg Physical Exam Const: COMMON NORMALS: patient oriented x3 HENMT: COMMON NORMALS: normocephalic and atraumatic HEAD & SCALP: normocephalic and atraumatic Eye: GENERAL EYE: appearance normal, both eyes and all related structures Chest: COMMONS NORMALS: normal inspection of the chest and normal palpation of entire chest wall CHEST: Yes Symmetrical chest wall rise Resp: COMMON NORMALS: normal respiratory effort, No retractions, No use of accessory muscles and clear to auscultation bilaterally EFFORT & INSPECTION: Yes symmetric chest movement AUSCULTATION: clear to auscultation bilaterally Cardio: COMMON NORMALS: regular rate, regular rhythm, S1 normal heart sound present, S2 normal heart sound present, No gallops present (Cardio), No murmurs present (Cardio), No rub (Cardio) and Peripheral pulses 2+ throughout RATE: regular rate RHYTHM: regular rhythm HEART SOUNDS: S1 normal heart sound present and S2 normal heart sound present PERIPHERAL PULSES: Peripheral pulses 2+ throughout GI: INSPECTION: Yes abdominal distension and Yes Fluid wave present AUSCULTATION: Yes Hypoactive bowel sounds present PALPATION: Yes Tenderness to palpation present (GI) and Yes Ascites present PERCUSSION: Fluid wave present RECTAL EXAM: deferred Extremity: COMMON NORMALS: no clubbing, cyanosis or edema and no pedal edema Neuro: COMMON NORMALS: patient oriented x3 Urinary Catheter Management^: Lipscomb: Cath Placed During This Visit: yes Reason for Continuing Indwelling Catheter: Other Urinary Catheter Date of Insertion: 11/19/20 Urinary Catheter Time of Insertion: 11:31 Data : 11/20/20 05:27 11/20/20 05:27 Micro: Microbiology 11/19/20 08:00 Urine Culture - Preliminary Urine,Clean Catch Gram Negative Rods A&P Assessment and plan (1) Clostridium difficile colitis: Continue Vancomycin 250 mg po QID to complete 10 days course. Initially on Ns@75cc/hr.Currently stopped. Status: Acute (2) End stage liver disease: Currently not a transplant Candidate.Given continued alcohol use. Will encourage to quit alcohol use. Status: Acute (3) UTI (urinary tract infection): Urine culture :GNR Follow Urine culture Currently on Ceftriaxone Status: Acute (4) Chronic pain: Status: Acute Qualifiers: Chronic pain type: chronic pain syndrome Qualified Code(s): G89.4 - Chronic pain syndrome (5) Chronic anemia: Status: Acute (6) Alcohol abuse: Status: Chronic (7) Nicotine dependence, cigarettes, with other nicotine-induced disorders: Status: Chronic (8) Cirrhosis: Status: Chronic Qualifiers: Ascites presence: with ascites Hepatic cirrhosis type: alcoholic cirrhosis Qualified Code(s): K70.31 - Alcoholic cirrhosis of liver with ascites (9) Thrombocytopenia: Chronic Thrombocytopenia in the setting of End stage liver disease. Status: Chronic (10) Hepatitis C: Untreated Hep C. Most recent documentation states Viral Load Undetectable. Status: Chronic Qualifiers: Hepatic coma status: without hepatic coma Viral hepatitis chronicity: chronic Qualified Code(s): B18.2 - Chronic viral hepatitis C (11) Malnourished: Will promote maximum oral intake with extra meal.Given the high cachectic state. Status: Acute Qualifiers: Malnutrition type: unspecified type Qualified Code(s): E46 - Unspecified protein-calorie malnutrition Additional A&P Information R/O SBP: Subjective fever, abodominal tenderness, ascites: Will Plan for Paracentesis for SBP work up ( SAAG, PMN Cell count ) Currently covered with Rochepin 1 Gm q 24 h Daily. If no tap then will likely discharge on /Ciprofloxacin / levofloxacin po if needed to complete the total 5 day course of Abx. Will start albumin (1.5 g/kg on day 1 and 1 g/kg on day 3) to decrease the risk of hepatorenal syndrome). Possible Hematemesis with Marie : Continue Protonix 40 mg po Q12H Daily. Monitor CBC. DVT PPX: SCD Code Status :Full code Attestations Medical Necessity Statement*: Patient needs to be in hospital for the management of C.diff Collitis. Coding Level of Care Code Acute Fruit Sorter for g Fwd Diagnoses Clostridium difficile colitis A04.72 End stage liver disease K72.90 UTI (urinary tract infection) N39.0 Chronic pain G89.4 Chronic pain type: chronic pain syndrome Chronic anemia D64.9 Alcohol abuse F10.10 Nicotine dependence, cigarettes, with other nicotine-induced disorders F17.218 Cirrhosis K70.31 Ascites presence: with ascites Hepatic cirrhosis type: alcoholic cirrhosis Thrombocytopenia D69.6 Hepatitis C B18.2 Hepatic coma status: without hepatic coma Viral hepatitis chronicity: chronic Malnourished E46 Malnutrition type: unspecified type
[2020-11-21] VITALS (10 sets, daily range): BP systolic 93–111; BP diastolic 55–66; PULSE 69–103; RESP 17–18; TEMP 36.6–37.2; O2SAT 90–97
[2020-11-21] MEDS: ondansetron 2 mg/ML SDV 2 mL 4 MG IVP ×3 (01:50→18:01)
[2020-11-21] MEDS: levETIRAcetam 500 mg Tablet PO ×2 (06:18→18:01)
[2020-11-21 06:58] LABS: Basophils % 0.7 %; Eosinophils # 0.2 10^3/uL (0.0-0.8); Eosinophils % 2.7 %; Hematocrit 28.2 % (37.0-47.0); Hemoglobin 9.2 g/dL (11.5-15.3); Lymphocytes % 16.6 %; Mean Corpuscular HGB Conc 32.6 g/dL (30.0-36.0); Mean Corpuscular Hemoglobin 30.3 pg (28.0-34.0); Mean Corpuscular Volume 92.8 fL (81-99); Mean Platelet Volume 10.4 fL (7.4-10.4); Monocytes # 0.9 10^3/uL (0.2-0.9); Monocytes % 14.4 %; Neutrophils # 3.87 10^3/uL (1.8-7.7); Neutrophils % 64.9 %; Nucleated Red Blood Cells % 0 %; Platelet Count 53 10^3/cmm (130-400); Red Blood Count 3.04 10^6/uL (4.1-5.3); Red Cell Distribution Width 19.2 % (12.1-15.1)
[2020-11-21 07:04] LABS: INR 1.81 (0.8-1.2)
[2020-11-21 07:16] LABS: Alanine Aminotransferase 17 U/L (0-33); Albumin Level 2.3 g/dL (3.5-5.2); Alkaline Phosphatase 172 IU/L (35-105); Anion Gap 9.5 (5-19); Aspartate Amino Transferase 58 U/L (0-32); Blood Urea Nitrogen 9 mg/dL (6-20); Calcium 7.1 mg/dL (8.5-10.5); Carbon Dioxide 25 mmol/L (22-29); Chloride 100 mmol/L (98-107); Globulin 3.9 g/dL (1.3-4.6); Glomerular Filtration Rate 163.4 mL/min (90-130); Glucose 102 mg/dL (65-115); Osmolality Calculated 271 mOsm/kg (285-295); Potassium 3.5 mmol/L (3.5-5.1); Sodium 131 mmol/L (136-145); Total Bilirubin 1.4 mg/dL (0.15-1.2); Total Protein 6.2 g/dL (6.6-8.7)
[2020-11-21] MEDS: thiamine 100 mg Tablet PO (09:35)
[2020-11-21] MEDS: HYDROcodone-acetaminophen 10-325 mg Tablet 1 TAB PO ×2 (09:35→21:57)
[2020-11-21] MEDS: pantoprazole DR 40 mg Tablet PO ×2 (09:35→20:51)
[2020-11-21] MEDS: multivitamin therapeutic Tablet 1 TAB PO (09:35)
[2020-11-21] MEDS: gabapentin 100 mg Capsule PO ×3 (09:35→20:51)
[2020-11-21] MEDS: folic acid 1 mg Tablet PO (09:35)
[2020-11-21] MEDS: ipratropium-albuterol 3 mL Neb INHALATION (10:42)
[2020-11-21] MEDS: lidocaine 1% 5 ML in potassium chloride premix 100 ML 50 ML IV ×2 (11:12→11:14)
--- NOTE | 2020-11-21 12:27 | PC.NURSE ---
In room with Dr. Calvert because patient states that she wants to go home today. Dr. Calvert requests that patient stay today and he will see how she is doing tomorrow. Patient requests more pain medications. Dr. Calvert informed the patient that we are giving her home pain medications. Patient verbalized understanding and agrees to stay. Dr. Calvert encourages patient to get up and down to go to the bedside commode. Patient verbalized understanding.
--- NOTE | 2020-11-21 12:39 | P.PN_ITS ---
Subjective Subjective: Interval history: Patient was seen and examined this morning.She continues to have black stool minimal amount .No hematemesis. She continues to complain of generalized body pain. Vitals/I&O/Wt Last Vital Signs Temp 98.9 F 11/21/20 11:14 Pulse 99 11/21/20 11:14 Resp 17 11/21/20 11:14 BP 111/66 11/21/20 11:14 Pulse Ox 91 11/21/20 11:14 11/20/20 11/21/20 11/21/20 22:59 06:59 14:59 Intake Total 1455 / 1695 121.667 / 121.667 Output Total 250 / 250 Balance 1455 / 1695 -250 / 1445 121.667 / 121.667 Physical Exam Const: COMMON NORMALS: patient oriented x3 HENMT: COMMON NORMALS: normocephalic and atraumatic HEAD & SCALP: normocephalic and atraumatic Eye: GENERAL EYE: appearance normal, both eyes and all related structures Chest: COMMONS NORMALS: normal inspection of the chest and normal palpation of entire chest wall CHEST: Yes Symmetrical chest wall rise Resp: COMMON NORMALS: normal respiratory effort, No retractions, No use of accessory muscles and clear to auscultation bilaterally EFFORT & INSPECTION: Yes symmetric chest movement AUSCULTATION: clear to auscultation bilaterally Cardio: COMMON NORMALS: regular rate, regular rhythm, S1 normal heart sound present, S2 normal heart sound present, No gallops present (Cardio), No murmurs present (Cardio), No rub (Cardio) and Peripheral pulses 2+ throughout RATE: regular rate RHYTHM: regular rhythm HEART SOUNDS: S1 normal heart sound present and S2 normal heart sound present PERIPHERAL PULSES: Peripheral pulses 2+ throughout GI: INSPECTION: Yes abdominal distension and Yes Fluid wave present AUSCULT ATION: Yes Hypoactive bowel sounds present PALPATION: Yes Tenderness to palpation present (GI) and Yes Ascites present PERCUSSION: Fluid wave present RECTAL EXAM: deferred Extremity: COMMON NORMALS: no clubbing, cyanosis or edema and no pedal edema Neuro: COMMON NORMALS: patient oriented x3 Urinary Catheter Management^: Lipscomb: Cath Placed During This Visit: yes Reason for Continuing Indwelling Catheter: Other Urinary Catheter Date of Insertion: 11/19/20 Urinary Catheter Time of Insertion: 11:31 Data : 11/21/20 06:30 11/21/20 06:30 Micro: Microbiology 11/19/20 08:00 Urine Culture - Final Urine,Clean Catch Escherichia coli A&P Assessment and plan (1) Clostridium difficile colitis: Continue Vancomycin 250 mg po QID to complete 10 days course. Initially on Ns@75cc/hr.Currently stopped. Status: Acute (2) End stage liver disease: Currently not a transplant Candidate.Given continued alcohol use. Will encourage to quit alcohol use. Status: Acute (3) UTI (urinary tract infection): Urine culture :GNR : Follow Urine culture : E.Coli Currently on Ceftriaxone Status: Acute (4) Chronic pain: Status: Acute Qualifiers: Chronic pain type: chronic pain syndrome Qualified Code(s): G89.4 - Chronic pain syndrome (5) Chronic anemia: Status: Acute (6) Alcohol abuse: Status: Chronic (7) Nicotine dependence, cigarettes, with other nicotine-induced disorders: Status: Chronic (8) Cirrhosis: Status: Chronic Qualifiers: Ascites presence: with ascites Hepatic cirrhosis type: alcoholic cirrhosis Qualified Code(s): K70.31 - Alcoholic cirrhosis of liver with ascites (9) Thrombocytopenia: Chronic Thrombocytopenia in the setting of End stage liver disease. Status: Chronic (10) Hepatitis C: Untreated Hep C. Most recent documentation states Viral Load Undetectable. Status: Chronic Qualifiers: Hepatic coma status: without hepatic coma Viral hepatitis chronicity: chronic Qualified Code(s): B18.2 - Chronic viral hepatitis C (11) Malnourished: Will promote maximum oral intake with extra meal.Given the high cachectic state. Status: Acute Qualifiers: Malnutrition type: unspecified type Qualified Code(s): E46 - Unspecified protein-calorie malnutrition Additional A&P Information R/O SBP: Subjective fever, abodominal tenderness, ascites: Will Plan for Paracentesis for SBP work up ( SAAG, PMN Cell count ) Currently covered with Rochepin 1 Gm q 24 h Daily. If no tap then will likely discharge on /Ciprofloxacin / levofloxacin po if needed to complete the total 5 day course of Abx. Will start albumin (1.5 g/kg on day 1 and 1 g/kg on day 3) to decrease the risk of hepatorenal syndrome). Possible Hematemesis with Marie : Continue Protonix 40 mg po Q12H Daily. Monitor CBC. DVT PPX: SCD Code Status :Full code Attestations Medical Necessity Statement*: Patient needs to be in hospital for management of C. difficile colitis Coding Level of Care Code Acute Marketing Operations Consultant for g Fwd Diagnoses Clostridium difficile colitis A04.72 End stage liver disease K72.90 UTI (urinary tract infection) N39.0 Chronic pain G89.4 Chronic pain type: chronic pain syndrome Chronic anemia D64.9 Alcohol abuse F10.10 Nicotine dependence, cigarettes, with other nicotine-induced disorders F17.218 Cirrhosis K70.31 Ascites presence: with ascites Hepatic cirrhosis type: alcoholic cirrhosis Thrombocytopenia D69.6 Hepatitis C B18.2 Hepatic coma status: without hepatic coma Viral hepatitis chronicity: chronic Malnourished E46 Malnutrition type: unspecified type
[2020-11-21] MEDS: acetaminophen 325 mg Tablet 650 MG PO (16:19)
--- NOTE | 2020-11-21 19:33 | PC.NURSE ---
Report to Mimi PRECIADO at this time.
[2020-11-21] MEDS: FUROsemide 10 mg/mL SDV 2mL 20 MG IVP (20:36)
[2020-11-21] MEDS: cefTRIAXone 1,000 MG in sodium chloride 0.9% (plus) 50 ML 100 MG IV (20:50)
[2020-11-22] VITALS (8 sets, daily range): BP systolic 101–130; BP diastolic 59–79; PULSE 78–116; RESP 16–21; TEMP 36.6–37.2; O2SAT 90–95
[2020-11-22] MEDS: ondansetron 2 mg/ML SDV 2 mL 4 MG IVP ×3 (02:04→16:48)
[2020-11-22] MEDS: acetaminophen 325 mg Tablet 650 MG PO (03:52)
[2020-11-22] MEDS: levETIRAcetam 500 mg Tablet PO ×2 (04:49→16:49)
[2020-11-22 06:58] LABS: Basophils % 0.8 %; Eosinophils # 0.1 10^3/uL (0.0-0.8); Eosinophils % 2.2 %; Hematocrit 29.2 % (37.0-47.0); Hemoglobin 9.4 g/dL (11.5-15.3); Lymphocytes # 0.5 10^3/uL (0.8-4.8); Lymphocytes % 14.1 %; Mean Corpuscular HGB Conc 32.2 g/dL (30.0-36.0); Mean Corpuscular Hemoglobin 30.5 pg (28.0-34.0); Mean Corpuscular Volume 94.8 fL (81-99); Monocytes # 0.8 10^3/uL (0.2-0.9); Monocytes % 21.7 %; Neutrophils # 2.21 10^3/uL (1.8-7.7); Neutrophils % 60.1 %; Nucleated Red Blood Cells % 0 %; Platelet Count 54 10^3/cmm (130-400); Red Blood Count 3.08 10^6/uL (4.1-5.3); Red Cell Distribution Width 19.6 % (12.1-15.1); White Blood Count 3.7 10^3/uL (4.0-10.0)
[2020-11-22 07:01] LABS: INR 1.97 (0.8-1.2)
[2020-11-22 07:38] LABS: Alanine Aminotransferase 16 U/L (0-33); Albumin Level 2.8 g/dL (3.5-5.2); Alkaline Phosphatase 134 IU/L (35-105); Anion Gap 10.2 (5-19); Aspartate Amino Transferase 56 U/L (0-32); Blood Urea Nitrogen 6 mg/dL (6-20); Calcium 7.8 mg/dL (8.5-10.5); Carbon Dioxide 27 mmol/L (22-29); Chloride 101 mmol/L (98-107); Globulin 3.4 g/dL (1.3-4.6); Glomerular Filtration Rate 363.6 mL/min (90-130); Glucose 102 mg/dL (65-115); Osmolality Calculated 278 mOsm/kg (285-295); Potassium 3.2 mmol/L (3.5-5.1); Sodium 135 mmol/L (136-145); Total Bilirubin 1.7 mg/dL (0.15-1.2); Total Protein 6.2 g/dL (6.6-8.7)
--- NOTE | 2020-11-22 07:57 | PC.NURSE ---
Patient is positive for CDiff. Production Designer notified Dr Calvert there was not an isolation order entered. Dr Calvert said yes enter the isolation order. Production Designer put contact isolation order in.
--- NOTE | 2020-11-22 08:05 | PC.NURSE ---
empty bottle of acetaminophen found on pts floor. pt states she took two yesterday . empty bottle thrown away and educated patient on not taking her own medications while in the hospital. cigarettes found in pts bed and removed. Educated patient on not smoking while in the hospital.
[2020-11-22] MEDS: ipratropium-albuterol 3 mL Neb INHALATION (08:07)
[2020-11-22] MEDS: thiamine 100 mg Tablet PO (08:32)
[2020-11-22] MEDS: pantoprazole DR 40 mg Tablet PO ×2 (08:32→16:49)
[2020-11-22] MEDS: LORazepam 2 mg Tablet PO ×2 (08:32→12:31)
[2020-11-22] MEDS: multivitamin therapeutic Tablet 1 TAB PO (08:32)
[2020-11-22] MEDS: HYDROcodone-acetaminophen 10-325 mg Tablet 1 TAB PO ×2 (08:32→22:00)
[2020-11-22] MEDS: folic acid 1 mg Tablet PO (08:32)
[2020-11-22] MEDS: gabapentin 100 mg Capsule PO ×3 (08:33→22:00)
--- NOTE | 2020-11-22 09:14 | PM.PN ---
Subjective Subjective: Interval history: Patient was seen and examined this morning.She is tolerating PO intake well, diarrhea is improving. She continues to complain of generalized body pain. Vitals/I&O/Wt Last Vital Signs Temp 97.9 F 11/22/20 07:24 Pulse 103 H 11/22/20 08:14 Resp 18 11/22/20 08:09 BP 130/78 11/22/20 07:24 Pulse Ox 95 11/22/20 08:09 11/21/20 11/22/20 11/22/20 22:59 06:59 14:59 Intake Total 390 / 716.667 100 / 816.667 140 / 140 Output Total 800 / 800 2200 / 3000 450 / 450 Balance -410 / -83.333 -2100 / -2183.333 -310 / -310 Physical Exam Const: COMMON NORMALS: patient oriented x3 HENMT: COMMON NORMALS: normocephalic and atraumatic HEAD & SCALP: normocephalic and atraumatic Eye: GENERAL EYE: appearance normal, both eyes and all related structures Chest: COMMONS NORMALS: normal inspection of the chest and normal palpation of entire chest wall CHEST: Yes Symmetrical chest wall rise Resp: COMMON NORMALS: normal respiratory effort, No retractions, No use of accessory muscles and clear to auscultation bilaterally EFFORT & INSPECTION: Yes symmetric chest movement AUSCULTATION: clear to auscultation bilaterally Cardio: COMMON NORMALS: regular rate, regular rhythm, S1 normal heart sound present, S2 normal heart sound present, No gallops present (Cardio), No murmurs present (Cardio), No rub (Cardio) and Peripheral pulses 2+ throughout RATE: regular rate RHYTHM: regular rhythm HEART SOUNDS: S1 normal heart sound present and S2 normal heart sound present PERIPHERAL PULSES: Peripheral pulses 2+ throughout GI: INSPECTION: Yes abdominal distension and Yes Fluid wave present AUSCULTATION: Yes Hypoactive bowel sounds present PALPATION: Yes Tenderness to palpation present (GI) and Yes Ascites present PERCUSSION: Fluid wave present RECTAL EXAM: deferred Extremity: COMMON NORMALS: no clubbing, cyanosis or edema and no pedal edema Neuro: COMMON NORMALS: patient oriented x3 Urinary Catheter Management^: Lipscomb: Cath Placed During This Visit: yes Reason for Continuing Indwelling Catheter: Other Urinary Catheter Date of Insertion: 11/19/20 Urinary Catheter Time of Insertion: 11:31 Data : 11/22/20 06:15 11/22/20 06:15 Micro: Microbiology 11/19/20 08:00 Urine Culture - Final Urine,Clean Catch Escherichia coli A&P Assessment and plan (1) Clostridium difficile colitis: C.diff Diarrhea/Collitis Continue Vancomycin 250 mg po QID to complete 10 days course. Continue Cef 1 gm q24 h Daily Initially on Ns@75cc/hr.Currently stopped. Status: Acute (2) End stage liver disease: Currently not a transplant Candidate.Given continued alcohol use. Will encourage to quit alcohol use. Status: Acute (3) UTI (urinary tract infection): Urine culture : E.Coli Currently on Ceftriaxone Status: Acute (4) Chronic pain: Status: Acute Qualifiers: Chronic pain type: chronic pain syndrome Qualified Code(s): G89.4 - Chronic pain syndrome (5) Chronic anemia: Status: Acute (6) Alcohol abuse: Status: Chronic (7) Nicotine dependence, cigarettes, with other nicotine-induced disorders: Status: Chronic (8) Cirrhosis: Status: Chronic Qualifiers: Ascites presence: with ascites Hepatic cirrhosis type: alcoholic cirrhosis Qualified Code(s): K70.31 - Alcoholic cirrhosis of liver with ascites (9) Thrombocytopenia: Chronic Thrombocytopenia in the setting of End stage liver disease. Status: Chronic (10) Hepatitis C: Untreated Hep C. Most recent documentation states Viral Load Undetectable. Status: Chronic Qualifiers: Hepatic coma status: without hepatic coma Viral hepatitis chronicity: chronic Qualified Code(s): B18.2 - Chronic viral hepatitis C (11) Malnourished: Will promote maximum oral intake with extra meal.Given the high cachectic state. Status: Acute Qualifiers: Malnutrition type: unspecified type Qualified Code(s): E46 - Unspecified protein-calorie malnutrition Additional A&P Information R/O SBP: Subjective fever, abodominal tenderness, ascites: Will Plan for Paracentesis for SBP work up ( SAAG, PMN Cell count ) Currently covered with Rochepin 1 Gm q 24 h Daily. If no tap then will likely discharge on /Ciprofloxacin / levofloxacin po if needed to complete the total 5 day course of Abx. Will start albumin (1.5 g/kg on day 1 and 1 g/kg on day 3) to decrease the risk of hepatorenal syndrome). Possible Hematemesis with Marie : Continue Protonix 40 mg po Q12H Daily. Monitor CBC. DVT PPX: SCD Code Status :Full code Attestations Medical Necessity Statement*: Patient needs to be in hospital for the management of c.diff Diarrhea. Coding Level of Care Code Acute Supervisor Force Adjustment for [facility] Fwd Exam Comprehensive Diagnoses Clostridium difficile colitis A04.72 End stage liver disease K72.90 UTI (urinary tract infection) N39.0 Chronic pain G89.4 Chronic pain type: chronic pain syndrome Chronic anemia D64.9 Alcohol abuse F10.10 Nicotine dependence, cigarettes, with other nicotine-induced disorders F17.218 Cirrhosis K70.31 Ascites presence: with ascites Hepatic cirrhosis type: alcoholic cirrhosis Thrombocytopenia D69.6 Hepatitis C B18.2 Hepatic coma status: without hepatic coma Viral hepatitis chronicity: chronic Malnourished E46 Malnutrition type: unspecified type
[2020-11-22] MEDS: lidocaine 1% 5 ML in potassium chloride premix 100 ML 50 ML IV (10:56)
[2020-11-22] MEDS: FUROsemide 20 mg Tablet PO (22:00)
[2020-11-22] MEDS: cefTRIAXone 1,000 MG in sodium chloride 0.9% (plus) 50 ML 100 MG IV (22:00)
[2020-11-23] VITALS (9 sets, daily range): BP systolic 99–116; BP diastolic 61–78; PULSE 82–109; RESP 17–21; TEMP 36.7–37.7; O2SAT 88–96
[2020-11-23] MEDS: ondansetron 2 mg/ML SDV 2 mL 4 MG IVP ×3 (02:09→16:47)
[2020-11-23] MEDS: levETIRAcetam 500 mg Tablet PO ×2 (05:32→16:47)
[2020-11-23 07:14] LABS: Hematocrit 32.4 % (37.0-47.0); Hemoglobin 10.1 g/dL (11.5-15.3); Mean Corpuscular HGB Conc 31.2 g/dL (30.0-36.0); Mean Corpuscular Hemoglobin 30.6 pg (28.0-34.0); Mean Corpuscular Volume 98.2 fL (81-99); Mean Platelet Volume 10.2 fL (7.4-10.4); Red Cell Distribution Width 20.8 % (12.1-15.1); White Blood Count 4.4 10^3/uL (4.0-10.0)
[2020-11-23 07:28] LABS: Alanine Aminotransferase 17 U/L (0-33); Albumin Level 2.8 g/dL (3.5-5.2); Alkaline Phosphatase 136 IU/L (35-105); Anion Gap 10.5 (5-19); Aspartate Amino Transferase 60 U/L (0-32); Blood Urea Nitrogen 6 mg/dL (6-20); Calcium 7.6 mg/dL (8.5-10.5); Carbon Dioxide 27 mmol/L (22-29); Chloride 102 mmol/L (98-107); Globulin 3.8 g/dL (1.3-4.6); Glomerular Filtration Rate 227.7 mL/min (90-130); Glucose 84 mg/dL (65-115); Osmolality Calculated 279 mOsm/kg (285-295); Potassium 3.5 mmol/L (3.5-5.1); Sodium 136 mmol/L (136-145); Total Bilirubin 1.3 mg/dL (0.15-1.2); Total Protein 6.6 g/dL (6.6-8.7)
[2020-11-23 07:38] LABS: Slide Review Slide Review Perform
[2020-11-23 07:39] LABS: Platelet Count 60 10^3/cmm (130-400)
[2020-11-23 07:40] LABS: Band Neutrophils Absolute 0.2 10^3/cmm (0.0-1.2); Lymphocytes 18 %; Monocytes Absolute 0.3 10^3/cmm (0.1-0.6); Segmented Neutrophils 68 %; Total Cells Counted 100 (0-100)
[2020-11-23 07:42] LABS: Absolute Eosinophils 0.1 10^3/cmm (0.0-0.7); Absolute Neutrophil 3.2 10^3/cmm (1.4-6.5); Eosinophils 3 %; Lymphocytes Absolute 0.8 10^3/cmm (1.2-3.4); Platelet Estimate Decreased (Normal); Poikilocytosis Trace
[2020-11-23 07:43] LABS: Anisocytosis 1+
--- NOTE | 2020-11-23 08:27 | PC.NURSE ---
pt refused bath pt. stated she hurt to be bad.
[2020-11-23] MEDS: multivitamin therapeutic Tablet 1 TAB PO (09:12)
[2020-11-23] MEDS: FUROsemide 20 mg Tablet PO (09:12)
[2020-11-23] MEDS: gabapentin 100 mg Capsule PO ×3 (09:12→21:04)
[2020-11-23] MEDS: thiamine 100 mg Tablet PO (09:12)
[2020-11-23] MEDS: folic acid 1 mg Tablet PO (09:12)
[2020-11-23] MEDS: pantoprazole DR 40 mg Tablet PO ×2 (09:12→16:48)
[2020-11-23] MEDS: HYDROcodone-acetaminophen 10-325 mg Tablet 1 TAB PO ×2 (09:15→16:55)
--- NOTE | 2020-11-23 13:55 | PC.RESP ---
Smoking Cessation and Pulmonary Rehab information sent to patient.
--- NOTE | 2020-11-23 15:33 | PM.PN ---
Subjective Subjective: Interval history: The patient reports ongoing diarrhea. However she states that it is becoming more formed currently. Denies abdominal pain. Fever is noted. No nausea or vomiting. Denies black stool or rectal blood. Denies dysuria. Still has Lipscomb catheter in. No chest pain, shortness of breath, cough, palpitations. No tremors. Medications: Reviewed: Yes Medication Review Details: Generic Name Dose Route Start Last Admin Trade Name Freq PRN Reason Stop Dose Admin Acetaminophen 650 mg 11/19/20 16:47 11/22/20 03:52 Acetaminophen 32 5 Mg Tablet PO 650 mg Q6H PRN Administration Mild/Mod Pain Or Temp >/= 101 Hydrocodone Bitart /Acetaminophen 1 tab 11/19/20 16:57 11/23/20 09:15 Hydrocodone-Acet aminophen 10-325 M g Tablet PO 1 tab BID PRN Administration pain Albuterol/Ipratrop ium 3 ml 11/19/20 16:57 11/22/20 08:07 Ipratropium-Albu terol 3 Ml Neb INHALATION 3 ml BID PRN Administration Shortness Of [place] th Folic Acid 1 mg 11/20/20 09:00 11/23/20 09:12 Folic Acid 1 Mg Tablet PO 1 mg DAILY YARELI Administration Furosemide 20 mg 11/22/20 20:00 11/23/20 09:12 Furosemide 20 Mg Tablet PO 20 mg DAILY@0800 YARELI Administration Gabapentin 100 mg 11/19/20 21:00 11/23/20 09:12 Gabapentin 100 M g Capsule PO 100 mg TID YARELI Administration Ceftriaxone Sodium 1,000 mg/ 50 mls @ 100 mls/ hr 11/20/20 17:30 11/22/20 22:55 Sodium Chloride IV Infused Q24H YARELI Infusion Protocol Levetiracetam 500 mg 11/19/20 17:00 11/23/20 05:32 Levetiracetam 50 0 Mg Tablet PO 500 mg Q12H YARELI Administration Lorazepam 2 mg 11/19/20 17:28 11/22/20 12:31 Lorazepam 2 Mg T ablet PO 2 mg PROTOCOL PRN Administration WITHDRAWAL Protocol Multivitamins Ther apeutic 1 tab 11/20/20 09:00 11/23/20 09:12 Multivitamin The rapeutic Tablet PO 1 tab DAILY YARELI Administration Non-Formulary Medi cation 1 inh 11/20/20 09:00 11/23/20 09:47 Umeclidinium-Jaylan anterol [Anoro Ell ipta] INHALATION Not Given DAILY [facility] Ondansetron HCl 4 mg 11/19/20 17:00 11/23/20 09:12 Ondansetron 2 Mg /Ml Sdv 2 Ml IVP 4 mg Q8H YARELI Administration Pantoprazole Sodiu m 40 mg 11/19/20 18:00 11/23/20 09:[address] 40 Mg Tablet PO 40 mg BID YARELI Administration Thiamine Mononitra te 100 mg 11/20/20 09:00 11/23/20 09:12 Thiamine 100 Mg Tablet PO 100 mg DAILY YARELI Administration Vancomycin HCl 250 mg 11/19/20 21:00 11/23/20 12:29 Vancomycin 1,000 Mg Oral Rain (Btl) PO 250 mg QID YARELI Administration Vitals/I&O/Wt Last Vital Signs Temp 99.9 F H 11/23/20 15:18 Pulse 105 H 11/23/20 15:18 Resp 18 11/23/20 15:18 BP 99/61 11/23/20 15:18 Pulse Ox 90 11/23/20 15:18 11/23/20 11/23/20 11/23/20 06:59 14:59 22:59 Intake Total 240 / 240 Output Total 400 / 1200 440 / 440 Balance -400 / -755 -200 / -200 Physical Exam Narrative: EXAM NARRATIVE: Awake alert oriented. No acute distress. Mood and affect are appropriate. Responses are adequate. Skin is warm and dry. Moist mucous memories. Eyes PERRLA, extraocular muscles are intact Normal speech Neck supple. No JVD Lungs clear bilaterally. No respiratory distress Heart S1, S2, regular Abdomen soft, nontender, slightly distended, bowel sounds are present Extremities no tremors. No calf tenderness or cyanosis bilaterally. Urinary Catheter Management^: Lipscomb: Cath Placed During This Visit: yes Reason for Continuing Indwelling Catheter: Acute Urinary Retention or Obstruction Urinary Catheter Date of Insertion: 11/19/20 Urinary Catheter Time of Insertion: 11:31 Data : 11/23/20 06:05 11/23/20 06:05 A&P Assessment and plan (1) Clostridium difficile colitis: C.diff Diarrhea/Collitis Continue Vancomycin 250 mg po QID to complete 10 days course. Continue Cef 1 gm q24 h Daily Initially on Ns@75cc/hr.Currently stopped. Status: Acute (2) End stage liver disease: Currently not a transplant Candidate.Given continued alcohol use. Will encourage to quit alcohol use. Status: Acute (3) UTI (urinary tract infection): Urine culture : E.Coli Currently on Ceftriaxone Status: Acute (4) Chronic pain: Status: Acute Qualifiers: Chronic pain type: chronic pain syndrome Qualified Code(s): G89.4 - Chronic pain syndrome (5) Chronic anemia: Status: Acute (6) Alcohol abuse: Status: Chronic (7) Nicotine dependence, cigarettes, with other nicotine-induced disorders: Status: Chronic (8) Cirrhosis: Status: Chronic Qualifiers: Ascites presence: with ascites Hepatic cirrhosis type: alcoholic cirrhosis Qualified Code(s): K70.31 - Alcoholic cirrhosis of liver with ascites (9) Thrombocytopenia: Chronic Thrombocytopenia in the setting of End stage liver disease. Status: Chronic (10) Hepatitis C: Untreated Hep C. Most recent documentation states Viral Load Undetectable. Status: Chronic Qualifiers: Hepatic coma status: without hepatic coma Viral hepatitis chronicity: chronic Qualified Code(s): B18.2 - Chronic viral hepatitis C (11) Malnourished: Will promote maximum oral intake with extra meal.Given the high cachectic state. Status: Acute Qualifiers: Malnutrition type: unspecified type Qualified Code(s): E46 - Unspecified protein-calorie malnutrition Additional A&P Information R/O SBP: Subjective fever, abodominal tenderness, ascites: Will Plan for Paracentesis for SBP work up ( SAAG, PMN Cell count ) Currently covered with Rochepin 1 Gm q 24 h Daily. If no tap then will likely discharge on /Ciprofloxacin / levofloxacin po if needed to complete the total 5 day course of Abx. Will start albumin (1.5 g/kg on day 1 and 1 g/kg on day 3) to decrease the risk of hepatorenal syndrome). Possible Hematemesis with Marie : Continue Protonix 40 mg po Q12H Daily. Monitor CBC. DVT PPX: SCD Code Status :Full code [place] C. difficile colitis. Continue p.o. vancomycin. Urinary tract infection. UCS positive for E. coli. Continue current Rocephin. We will remove Lipscomb catheter. Reported hematemesis. Currently on PPI. No evidence of acute blood loss currently. Anemia is stable. Will consider decreasing frequency of PPI due to C. difficile. Thrombocytopenia probably secondary to liver cirrhosis and history of hepatitis C. Liver cirrhosis. No evidence of encephalopathy. Continue supportive care. History of EtOH. On CIWA protocol and thiamine. No evidence of withdrawals at this time. Prophylaxis. Teds and SCDs. No anticoagulation due to thrombocytopenia and coagulopathy. History of COPD. Asymptomatic currently. Plan of care was discussed with the patient. She verbalized understanding and agreement. Attestations Medical Necessity Statement*: Still having diarrhea and fever. Will consider discharging soon when the fever subsides. Coding Level of Care Code Acute [employer] [facility]wd Diagnoses Clostridium difficile colitis A04.72 End stage liver disease K72.90 UTI (urinary tract infection) N39.0 Chronic pain G89.4 Chronic pain type: chronic pain syndrome Chronic anemia D64.9 Alcohol abuse F10.10 Nicotine dependence, cigarettes, with other nicotine-induced disorders F17.218 Cirrhosis K70.31 Ascites presence: with ascites Hepatic cirrhosis type: alcoholic cirrhosis Thrombocytopenia D69.6 Hepatitis C B18.2 Hepatic coma status: without hepatic coma Viral hepatitis chronicity: chronic Malnourished E46 Malnutrition type: unspecified type
--- NOTE | 2020-11-23 15:45 | PC.NURSE ---
Notified VIOLETTE Rider that patient's 's number is [phone] and he said he has been trying to set up home health for patient and they are in the process of moving. He didn't say what company that he has been trying to get he just said he hasn't had luck.
--- NOTE | 2020-11-23 15:56 | PC.NURSE ---
Home o2 tank delivered from [facility].
--- NOTE | 2020-11-23 21:00 | PC.NURSE ---
When changing the bed, the TRAIN CONTROLLER discovered 9 loose pills in the bed. The TRAIN CONTROLLER collected them and placed them on the bedside table and notified this RN. This RN collected the pills and placed them in a specimen cup, patient stated that they were Tylenol. This nurse then took them to the nurses station and confirmed them to be true. Patient has stated that she wants them back to take and want's to take a pain pill as well.
[2020-11-23] MEDS: cefTRIAXone 1,000 MG in sodium chloride 0.9% (plus) 50 ML 100 MG IV (21:04)
[2020-11-24] VITALS (7 sets, daily range): BP systolic 115–130; BP diastolic 65–85; PULSE 86–91; RESP 16–18; TEMP 36.5–36.9; O2SAT 86–97
[2020-11-24] MEDS: ondansetron 2 mg/ML SDV 2 mL 4 MG IVP ×2 (01:39→10:13)
[2020-11-24] MEDS: levETIRAcetam 500 mg Tablet PO (04:42)
[2020-11-24 06:34] LABS: Basophils # 0.1 10^3/uL (0.0-0.1); Basophils % 1.3 %; Eosinophils # 0.1 10^3/uL (0.0-0.8); Hematocrit 29.2 % (37.0-47.0); Hemoglobin 9.6 g/dL (11.5-15.3); Lymphocytes # 0.9 10^3/uL (0.8-4.8); Lymphocytes % 15.8 %; Mean Corpuscular HGB Conc 32.9 g/dL (30.0-36.0); Mean Corpuscular Hemoglobin 30.4 pg (28.0-34.0); Mean Corpuscular Volume 92.4 fL (81-99); Mean Platelet Volume 10.9 fL (7.4-10.4); Monocytes # 1.2 10^3/uL (0.2-0.9); Monocytes % 22.3 %; Neutrophils % 57.9 %; Nucleated Red Blood Cells % 0 %; Platelet Count 87 10^3/cmm (130-400); Red Blood Count 3.16 10^6/uL (4.1-5.3); Red Cell Distribution Width 19.9 % (12.1-15.1); White Blood Count 5.4 10^3/uL (4.0-10.0)
[2020-11-24 06:51] LABS: Alanine Aminotransferase 18 U/L (0-33); Albumin Level 2.7 g/dL (3.5-5.2); Alkaline Phosphatase 154 IU/L (35-105); Anion Gap 10.7 (5-19); Aspartate Amino Transferase 67 U/L (0-32); Blood Urea Nitrogen 7 mg/dL (6-20); Calcium 7.8 mg/dL (8.5-10.5); Carbon Dioxide 28 mmol/L (22-29); Chloride 99 mmol/L (98-107); Globulin 3.6 g/dL (1.3-4.6); Glomerular Filtration Rate 227.7 mL/min (90-130); Glucose 95 mg/dL (65-115); Osmolality Calculated 276 mOsm/kg (285-295); Potassium 3.7 mmol/L (3.5-5.1); Sodium 134 mmol/L (136-145); Total Bilirubin 1.2 mg/dL (0.15-1.2); Total Protein 6.3 g/dL (6.6-8.7)
[2020-11-24 07:17] LABS: C Reactive Protein 22.2 mg/L (0.0-4.9); Magnesium 1.4 mg/dL (1.7-2.3)
[2020-11-24 07:35] LABS: Phosphorus 1.9 mg/dL (2.5-4.5)
--- NOTE | 2020-11-24 08:08 | PC.NURSE ---
Tow Bar Driver seen medication bottle in patient's open purse. Tow Bar Driver asked patient if she had any medications in room. Patient said No. Tow Bar Driver asked patient what the bottle was in her purse and pointed to the bottle. Patient said That is Tylenol. Tow Bar Driver asked if she had any other medications or cigarettes in her. Patient said No, you took them the other day. Tow Bar Driver explained that we don't want her to be taking any home medications because it could cause an overdose if we don't know that she is taking something and then we give her more medication. Patient handed flex o writer operator a bottle of Tylenol, bottle of Loperamide and bottle of Mulitvitamins. Meds placed in Pyxis with patient's name on them. Dr Beavers notified.
[2020-11-24] MEDS: phosphorus 250 mg Tablet PO (08:25)
[2020-11-24] MEDS: acetaminophen 325 mg Tablet 650 MG PO (08:25)
[2020-11-24] MEDS: multivitamin therapeutic Tablet 1 TAB PO (08:26)
[2020-11-24] MEDS: pantoprazole DR 40 mg Tablet PO (08:26)
[2020-11-24] MEDS: gabapentin 100 mg Capsule PO (08:26)
[2020-11-24] MEDS: folic acid 1 mg Tablet PO (08:26)
[2020-11-24] MEDS: thiamine 100 mg Tablet PO (08:26)
[2020-11-24] MEDS: FUROsemide 20 mg Tablet PO (08:26)
[2020-11-24] MEDS: magnesium sulfate premix 2 GM/50 ML PIGGYBACK IV (08:27)
[2020-11-24] MEDS: ipratropium-albuterol 3 mL Neb INHALATION (08:27)
--- NOTE | 2020-11-24 09:57 | P.DS_ITS ---
Discharge Providers Date of Admission: 11/19/20 16:48 Date of Discharge: November 24, 2020 Attending Provider at Admission: Saúl Calvert MD Attending Provider at Discharge: Bobby Beavers Primary Care Provider: Dez Novak MD Diagnoses at Discharge Discharge Diagnosis (1) Clostridium difficile colitis: Status: Acute (2) End stage liver disease: Status: Acute (3) UTI (urinary tract infection): Status: Acute (4) Chronic pain: Status: Acute Qualifiers: Chronic pain type: chronic pain syndrome Qualified Code(s): G89.4 - Chronic pain syndrome (5) Chronic anemia: Status: Acute (6) Alcohol abuse: Status: Chronic Permanent problem details: With dependence (7) Nicotine dependence, cigarettes, with other nicotine-induced disorders: Status: Chronic (8) Cirrhosis: Status: Chronic Permanent problem details: Ascites, esophageal varices, hypoproteinemia, hepatic encephalopathy, thrombocytopenia, abnormal liver enzymes Qualifiers: Ascites presence: with ascites Hepatic cirrhosis type: alcoholic cirrhosis Qualified Code(s): K70.31 - Alcoholic cirrhosis of liver with ascites (9) Thrombocytopenia: Status: Chronic (10) Hepatitis C: Status: Chronic Qualifiers: Hepatic coma status: without hepatic coma Viral hepatitis chronicity: chronic Qualified Code(s): B18.2 - Chronic viral hepatitis C (11) Malnourished: Status: Acute Qualifiers: Malnutrition type: unspecified type Qualified Code(s): E46 - Unspecified protein-calorie malnutrition Reason for Visit Reason for Visit: DIARRHEA FOR 2 WEEKS Hospital Course Hospital Course Discharge diagnoses and problem list C. difficile colitis. Resolved diarrhea. Continue p.o. vancomycin to complete a total of 2 weeks of therapy. Urinary tract infection. UCS positive for E. coli. Switching to Omnicef for 1 more day. Tums have resolved. ?? SBP. Currently no abdominal pain or evidence of uncontrolled infection. Will complete 5 d course of cephalosporin. Outpatient follow-up with PCP. Reported hematemesis. Currently on PPI. No evidence of acute blood loss cu rrently. Anemia is stable. Continue home PPI. Thrombocytopenia probably secondary to liver cirrhosis and history of hepatitis C. stable. Continue outpatient monitoring. Liver cirrhosis. No evidence of encephalopathy. Continue supportive care. Continue home medications. GI follow-up if possible referral by PCP. History of EtOH. No evidence of withdrawals at this time. Alcohol cessation counseling is provided. History of COPD. Asymptomatic currently. Today the patient is feeling very well. Reports that her diarrhea has resolved. Denies rectal blood. Denies abdominal pain. No fever or chills. No nausea or vomiting. Eager to go home. She is instructed to come back to emergency room if she develops any new symptoms. Follow-up instructions are provided. She verbalized understanding and agreement Physical Exam Narrative: EXAM NARRATIVE: Awake alert oriented. No acute distress. Mood and affect are appropriate. Responses are adequate. Skin is warm and dry. Moist mucous memories. Eyes PERRLA, extraocular muscles are intact Normal speech Neck supple. No JVD Lungs clear bilaterally. No respiratory distress Heart S1, S2, regular Abdomen soft, nontender, slightly distended, bowel sounds are present Extremities no tremors. No calf tenderness or cyanosis bilaterally. Urinary Catheter Management^: Lipscomb: Cath Placed During This Visit: yes, but has since been removed by the nurse Reason for Continuing Indwelling Catheter: Acute Urinary Retention or Obstruction Urinary Catheter Date of Insertion: 11/19/20 Urinary Catheter Time of Insertion: 11:31 Date Urinary Catheter Removed: 11/23/20 Time Urinary Catheter Discontinued: 18:14 Discharge Data Data Completed and Pending: Completed Studies During Hospitalization Category Date Time Status CT abdomen pelvis w con* [id number] Urge nt Cat Scan 11/19/20 07:33 Completed XR chest 1V janeth ble [id number] Stat Exams 11/19/20 08:58 Completed Pending at discharge Category Date Time Status Complete Blood Co unt w/Auto AM LABS Lab 11/25/20 04:00 Ordered Complete Blood Co unt w/Auto AM LABS Lab 11/25/20 04:00 Ordered Comprehensive Met abolic Panel AM LA BS Lab 11/25/20 04:00 Ordered Magnesium AM LABS Lab 11/25/20 04:00 Ordered Renal Function Pa carly AM LABS Lab 11/25/20 04:00 Ordered Labs from last 24 hours 11/24/20 11/24/20 11/24/20 05:12 05:12 05:12 WBC RBC Hgb Hct MCV MCH MCHC RDW Plt Count MPV Neut % (Auto) Lymph % (Auto) [place] % (Auto) Eos % (Auto) Baso % (Auto) Neut # (Auto) Lymph # (Auto) [place] # (Auto) Eos # (Auto) Baso # (Auto) Nucleated RBC % (a uto) Nucleated RBCs # Sodium Cancelled 134 L Potassium Cancelled 3.7 Chloride Cancelled 99 Carbon Dioxide Cancelled 28 Anion Gap Cancelled 10.7 BUN Cancelled 7 Creatinine Cancelled 0.3 L GFR Calculation Cancelled 227.7 H Glucose Cancelled 95 Calculated Osmolal ity 276 L Calcium Cancelled 7.8 L Phosphorus 1.9 L Magnesium 1.4 L Total Bilirubin 1.2 AST 67 H ALT 18 Alkaline Phosphata se 154 H C-Reactive Protein 22.2 H Total Protein 6.3 L Albumin Cancelled 2.7 L Globulin 3.6 Procalcitonin 0.20 11/24/20 05:12 WBC 5.4 RBC 3.16 L Hgb 9.6 L Hct 29.2 L MCV 92.4 D MCH 30.4 MCHC 32.9 D RDW 19.9 H Plt Count 87 L MPV 10.9 H Neut % (Auto) 57.9 Lymph % (Auto) 15.8 [place] % (Auto) 22.3 Eos % (Auto) 2.0 Baso % (Auto) 1.3 Neut # (Auto) 3.10 Lymph # (Auto) 0.9 [place] # (Auto) 1.2 H Eos # (Auto) 0.1 Baso # (Auto) 0.1 Nucleated RBC % (a uto) 0 Nucleated RBCs # 0.0 Sodium Potassium Chloride Carbon Dioxide Anion Gap BUN Creatinine GFR Calculation Glucose Calculated Osmolal ity Calcium Phosphorus Magnesium Total Bilirubin AST ALT Alkaline Phosphata se C-Reactive Protein Total Protein Albumin Globulin Procalcitonin Vitals: Last Vital Signs Temp 98.3 F 11/24/20 07:17 Pulse 91 11/24/20 08:36 Resp 16 11/24/20 08:36 BP 115/65 11/24/20 07:17 Pulse Ox 94 11/24/20 08:36 Discharge Plan Discharge Patient Disposition: Home Condition: Stable Prescriptions: New vancomycin 1,000 mg Recon Soln 250 mg PO QID Qty: 20 RF: 0 Phospha 250 Neutral 250 mg Tablet 250 mg PO BID Qty: 4 RF: 0 Vitamin B-1 (mononitrate) 100 mg Tablet 100 mg PO DAILY Qty: 30 RF: 0 Thera 400 mcg Tablet 1 tab PO DAILY Qty: 30 RF: 0 cefdinir 300 mg capsule 300 mg PO BID 1 Days Qty: 2 RF: 0 Continued gabapentin 100 mg capsule 100 mg PO TID RF: 0 albuterol sulfate 90 mcg/actuation HFA aerosol inhaler 1 inh INHALATION QID PRN (Reason: Shortness Of Breath) RF: 0 ipratropium-albuterol 0.5 mg-3 mg(2.5 mg base)/3 mL solution for nebulization 3 ml INHALATION BID PRN (Reason: Shortness Of Breath) RF: 0 Anoro Ellipta 62.5-25 mcg/actuation blister with device 1 inh INHALATION DAILY RF: 0 levetiracetam [Keppra] 500 mg tablet 500 mg PO Q12H 30 Days Qty: 60 RF: 1 pantoprazole 40 mg Tablet,Delayed Release (Dr/Ec) 40 mg PO BID Qty: 60 RF: 0 aspirin 81 mg Tablet,Delayed Release (Dr/Ec) 81 mg PO DAILY Qty: 30 RF: 0 folic acid 1 mg Tablet 1 mg PO DAILY Qty: 30 RF: 0 potassium chloride 10 mEq Tablet Extended Release 40 meq PO DAILY Qty: 120 RF: 0 spironolactone 50 mg tablet 50 mg PO DAILY RF: 0 furosemide 20 mg tablet 20 mg PO DAILY PRN (Reason: Edema) RF: 0 hydrocodone-acetaminophen 10-325 mg tablet 1 tab PO BID PRN (Reason: pain) 30 Days Qty: 20 RF: 0 Discharge Orders: Discharge Order (Routine); Ordered 11/24/20 Ordered By: Bobby Beavers Other Ambulatory Orders: Complete Blood Count w/Auto (Routine) Timeframe: 1 Week Location: Determined by Patient Ordered By: Bobby Beavers Comprehensive Metabolic Panel (Routine) Timeframe: 1 Week Facility: [facility] - Location: Lab - Main Lab Ordered By: Bobby Beavers DME: Oxygen (Order) Location: None Selected Ordered By: Bobby Beavers Referrals: Dez Novak MD [Primary Care Provider] - 4-7 days Discharge Diet: Usual diet Discharge Activity: Increase activity as tolerated Patient Instructions: Clostridium Difficile, Cirrhosis (DC), Clostridium Difficile Infection (DC), Ascites (DC), Thrombocytopenia (DC), Using Oxygen at Home Activity Restrictions/Additional Instructions: Please follow-up with your primary care physician. Please discuss further management of your liver disease with your PCP. Please come back to emergency room if you develop any new diarrhea, abdominal pain, nausea or vomiting, rectal blood or black stool, fever or chills, chest pain, shortness of breath, cough, generalized weakness or confusion or any other new complaints. No alcohol please. Please ask your primary care physician to monitor your chemistry panel including sodium level, potassium, magnesium, phosphorus. Please ask your primary care physician to monitor blood count and platelets which are decreased. Discharge Attestations Time Spent in Discharge Care*: greater than 30 min Quality Metrics Clinical Quality Measures During this hospital stay, did patient experience: None Coding Level of Care Code Acute [facility] note Diagnoses Clostridium difficile colitis A04.72 End stage liver disease K72.90 UTI (urinary tract infection) N39.0 Chronic pain G89.4 Chronic pain type: chronic pain syndrome Chronic anemia D64.9 Alcohol abuse F10.10 Nicotine dependence, cigarettes, with other nicotine-induced disorders F17.218 Cirrhosis K70.31 Ascites presence: with ascites Hepatic cirrhosis type: alcoholic cirrhosis Thrombocytopenia D69.6 Hepatitis C B18.2 Hepatic coma status: without hepatic coma Viral hepatitis chronicity: chronic Malnourished E46 Malnutrition type: unspecified type
--- NOTE | 2020-11-24 11:00 | PC.NURSE ---
patient given discharge instructions and verbalized understanding of instructions. patient called for ride home. patient's home meds from Pyxis given to patient.
--- NOTE | 2020-11-24 12:09 | PC.NURSE ---
patient taken to private vehicle via wheelchair by staff.
== END 2020-11-24 12:10 | disposition home or self-care (01) | DRG 372 ==
LOC: ER 11:04 → MEDSURG 11-20 07:11
PROVIDERS: Admitting Provider Internal Medicine; Emergency Provider Family Medicine; PCP Internal Medicine; Visit Provider Internal Medicine
DX: A04.72 Enterocolitis due to Clostridium difficile, not specified as recurrent (principal); I85.10 Secondary esophageal varices without bleeding; K76.6 Portal hypertension; E46 Unspecified protein-calorie malnutrition; Z68.1 Body mass index [BMI] 19.9 or less, adult; N39.0 Urinary tract infection, site not specified; F10.229 Alcohol dependence with intoxication, unspecified; Y90.8 Blood alcohol level of 240 mg/100 ml or more; K70.31 Alcoholic cirrhosis of liver with ascites; K72.90 Hepatic failure, unspecified without coma; D69.6 Thrombocytopenia, unspecified; B18.2 Chronic viral hepatitis C; F17.210 Nicotine dependence, cigarettes, uncomplicated; G89.4 Chronic pain syndrome; D64.9 Anemia, unspecified; B96.20 Unspecified Escherichia coli [E. coli] as the cause of diseases classified elsewhere; Z79.51 Long term (current) use of inhaled steroids; Z79.891 Long term (current) use of opiate analgesic
CPT/HCPCS: 36415; 51702; 71045; 74177; 80053; 80307; 81001; 82140; 83605; 83615; 83690; 83735; 84100; 84145; 85007; 85025; 85610; 86140; 87077; 87086; 87186; 87493; 94640; 96365; 96366; 96367; 96368; 96372; 96375; 97116; 97162; 99291; C9113; J0696; J1940; J2354; J2405; J3010; J3370; J3411; J3475; J3480; J7030; P9047; Q9967